=== PATIENT | female | born 1950 | race Two or more races ===

== ENCOUNTER 2024-09-29 08:48 | Outpatient (RCR) | payer MEDICAID, SELFPAY ==
[2024-09-26 16:17] LABS: Basophils # (Auto) 0.1 Thou/mm3 (0.0-0.2); Basophils % (Auto) 1 % (0-2.5); Eosinophils # (Auto) 0.1 Thou/mm3 (0.0-0.5); Eosinophils % (Auto) 2 % (0-10); Hematocrit 34.5 % (36.0-46.0); Hemoglobin 11.6 g/dL (12.0-16.0); Immature Granulocytes % (Auto) 0 % (0-0); Immature Granulocytes Auto 0.01 Thou/mm3 (0.00-0.00); Lymphocytes # (Auto) 1.6 Thou/mm3 (1.0-4.8); Lymphocytes % (Auto) 34 % (10-50); Mean Corpuscular HGB Conc 33.6 g/dl (31.0-37.0); Mean Corpuscular Hemoglobin 32.7 pg (25.0-35.0); Mean Corpuscular Volume 97 fL (80-100); Monocytes # (Auto) 0.4 Thou/mm3 (0.0-0.8); Monocytes % (Auto) 9 % (0-12); Neutrophils # (Auto) 2.5 Thou/mm3 (1.8-7.7); Neutrophils % (Auto) 54 % (37-80); Nucleated Red Blood Cell % 0 /100 WBC (0); Platelet Count 142 Thou/mm3 (140-440); RDW Standard Deviation 53.7 fL (36.4-46.3); Red Blood Count 3.55 Miln/mm3 (4.00-5.20); White Blood Count 4.7 Thou/mm3 (3.6-11.0)
[2024-09-26 16:39] LABS: Alanine Aminotransferase 56 U/L (10-49); Albumin/Globulin Ratio 2.7 (1.2-2.2); Alkaline Phosphatase 224 U/L (46-116); Anion Gap 7 (7-16); Aspartate Amino Transferase 35 U/L (0-34); BUN/Creatinine Ratio 19 Ratio (12-20); Bilirubin,Total 0.5 mg/dL (0.3-1.2); Blood Urea Nitrogen 17 mg/dL (9-23); Calcium 9.3 mg/dL (8.3-10.6); Calcium (Corrected) 9.3 mg/dL (8.5-10.1); Carbon Dioxide 25.4 mMol/L (20.0-31.0); Chloride 109 mMol/L (98-107); Creatinine (Component) 0.9 mg/dL (0.6-1.3); Globulin 1.5 gm/dL (2.3-3.5); Glucose 134 mg/dL (74-106); Osmolality,Calculated 284 (275-295); Potassium 4.1 mMol/L (3.4-5.1); Sodium 141 mMol/L (136-145); Total Protein 5.5 gm/dL (5.7-8.2); eGFR > 60 See Note
== END 2024-10-21 23:59 | disposition home or self-care (01) ==
LOC: SCTC 08:48
PROVIDERS: PCP Physician Assistant; Referring Provider Internal Medicine Hematology & Oncology; Visit Provider Internal Medicine Hematology & Oncology
DX: Z51.11 Encounter for antineoplastic chemotherapy (principal); C91.10 Chronic lymphocytic leukemia of B-cell type not having achieved remission
CPT/HCPCS: 36591; 80053; 85025; 96360; 96367; 96372; 96413; 96415; 96417; A4216; J1100; J1453; J1642; J2405; J2506; J3490; J7030; J7040; J7050; J9033; Q5115; A9270

== ENCOUNTER 2024-10-28 11:25 | Inpatient (IN) | payer MEDICAID, SELFPAY ==
[2024-10-28] VITALS (67 sets, daily range): BP systolic 56–267; BP diastolic 38–266; PULSE 61–136; RESP 12–75; TEMP 36.6–37.4; O2SAT 89–100; BMI 29.6
--- NOTE | 2024-10-28 11:32 | PC.NURSE ---
PT BROUGHT IN FOR SOB, COUGH AND PRODUCTIVE COUGH. PT HAS SEEN MD AND WAS PLACED ON ABX. DAUGHTER STATES THAT PT DOES HAVE CHRONIC PNEUMONIA. PT RECEIVED LAST DOES OF CHEMO FOR LEUKEMIA. ON ASSESSMENT PT SOB AND LABORED. SPO2 ON 11 L/M IS 95%, ON RA AT HOME PT WAS 75%. PT WAS PLACED ON 5L/M BY DAUGHTER AND BROUGHT IN FOR EVALUATION.
--- NOTE | 2024-10-28 11:41 | PC.NURSE ---
DR. CHING AT BEDSIDE
--- NOTE | 2024-10-28 11:43 | XR_ITS ---
Examination: AP chest single view Technique one AP portable semiupright chest single view Exam date and time: October 28, 2024 1225 hrs. Indications: Sepsis protocol Findings: Significant left base pneumonia Normal heart size Right internal jugular Port-A-Cath tip satisfactory position Impression: Significant left base pneumonia
[2024-10-28] MEDS: SODIUM CHLORIDE 0.9% 1000 ML 1,000 ML 999 ML IV ×3 (11:48→13:37)
--- NOTE | 2024-10-28 11:56 | PD.EDSOB ---
ED SOB =RME/HPI General Chief Complaint: Shortness of Breath/Dyspnea Stated Complaint: SOB, LOW O2 SATS Time Seen by Provider: 10/28/24 11:44 Arrival date/time: 10/28/24 11:25 Limitations: no limitations RME / HPI RME / HPI Narrative: 73 year old female with history of leukemia undergoing chemotherapy, emphysema presents to the ED for shortness of breath and productive cough today. Daughter reports the patient appeared to have difficulty breathing and upon measuring pulse ox, it read 75% on room air. States she placed the patient on her home oxygen with no improvement, prompting ED visit. Daughter reports the patient received chemotherapy yesterday and noted patient had similar presentation after chemotherapy 6 months ago that required hospitalization. Daughter denies fevers, chills, complaints of chest pain, vomiting, diarrhea, constipation, or urinary complaints. Denies current use of steroids. Related Data Previous Rx's ?Medication ?Instructions ?Recorded levofloxacin 750 mg tablet 750 mg PO QDAY #4 tabs 05/14/24 albuterol sulfate 1.25 mg/3 mL 1.25 mg (3 mL) inhalation QID PRN 05/22/24 solution for nebulization shortness of breath or wheezing #90 mL methylprednisolone 4 mg tablets in 4 mg PO QAM #21 tabs 05/22/24 a dose pack (Medrol (Zack)) Allergies Allergy/AdvReac Type Severity Reaction Status Date / Time No Known Allergies Allergy Verified 02/25/24 14:30 Review of Systems Review of Systems Narrative Review of Systems: GEN: No fever, no chills, no weight loss EYES: No discharge, no visual changes, no pain HEENT: No ear pain, no congestion, no sore throat PULM: +shortness of breath, + cough CV: No chest pain, no palpitations GI: No nausea, no vomiting, no diarrhea, no pain, no constipation : No frequency, no urgency, no dysuria MUSC/SKEL: No joint pain, no back pain SKIN: No rash NEURO: No weakness, no headache Past Medical History Past Medical History RESPIRATORY: Positive Asthma, Bronchitis, Emphysema, Pneumonia and Tobacco Use REPRODUCTIVE: Positive Previous Pregnancies MUSCULOSKELETAL: Positive Osteoporosis and Fractures HEMATOLOGIC: Positive Blood Disorders and Leukemia (CLL) PSYCHO/SOCIAL: Positive Depression OTHER HISTORY: Positive Hospitalization, Chemotherapy, Chicken Pox, Measles and Cancer (CLL) Family History FAMILY HISTORY: Positive Family Cancer and Family Surgery Surgical History SURGICAL: Positive Tonsillectomy and Tubal Ligation Social History SMOKING STATUS: Never smoker SECOND HAND EXPOSURE: No ED Exam Narrative Physical exam: tachycardic General Limitations: Present no limitations General appearance: Present alert and other (Tachypneic, pale ) Head Head exam: Present atraumatic Eye Eye exam: Present normal appearance, PERRL and EOMI ENT ENT exam: Present normal exam, normal oropharynx and mucous membranes dry Neck Neck exam: Present normal inspection, full ROM and trachea midline Chest Chest inspection: Present normal inspection and symmetric chest wall rise Respiratory Respiratory exam: Present other (Coarse breath sounds throughout, rales and rhonchi. Tachypneic ) Cardiovascular Cardiovascular exam: Present tachycardia and normal heart sounds Abdominal Exam Abdominal exam: Present soft and normal bowel sounds Extremities Exam Extremities exam: Present full ROM and pedal edema Back Exam Back exam: Present normal inspection and full ROM Neurological Exam Neurological exam: Present alert, oriented X3 and CN II-XII intact Psychiatric Psychiatric exam: Present normal affect and normal mood Skin Skin exam: Present warm, dry, intact and normal color Course Course Course Narrative: chest xray ordered to help determine etiology of shortness of breath. Quality Measures Current suspected stage: septic shock (LA >4 and/or hypotension) IVF 30 ml/kg given for lactic acid >4 and/or hypotension: yes Vasopressors initiated: Yes Sepsis reassessment completed at (date): 10/28/24 Sepsis reassessment completed at (time): 12:30 Possible source: pulmonary Blood cultures ordered: completed in ED Antibiotic ordered: Yes Pertinent labs: 10/28/24 10/28/24 11:11 12:06 Lactic Acid 3.4 H mMol/L (0.4-2.0) Procalcitonin 25.62 H ng/ml (0.0-0.49) sepsis Orders Category Date Time Status Bedside COVID-19 Antigen Test NOW Care 10/28/24 11:47 Active Bedside Influenza A&B Antigen Test NOW Care 10/28/24 11:47 Completed Music Artist STAT Care 10/28/24 11:43 Active Continuous Pulse Oximetry STAT Care 10/28/24 11:43 Completed EKG (ED ONLY) *Do not use* NOW Care 10/28/24 11:43 Completed [place] to [place] Routine Care 10/28/24 11:50 Ordered Insert IV NOW Care 10/28/24 11:43 Active NPO STAT Care 10/28/24 11:43 Active Strict Intake and Output Routine Care 10/28/24 11:43 Ordered EKG (ED Only) Stat Exams 10/28/24 11:43 Ordered XR chest 1V SEPSIS PROTOCOL Stat Exams 10/28/24 11:43 Completed XR chest 1V portable Stat Exams 10/28/24 13:18 Completed B-Type Natriuretic Peptide Stat Lab 10/28/24 11:11 Completed Blood Culture (Lab) Stat Lab 10/28/24 12:09 Received CBC Stat Lab 10/28/24 11:11 Completed Comprehensive Metabolic Panel Stat Lab 10/28/24 11:11 Completed LDH (Lactate Dehydrogenase) Stat Lab 10/28/24 11:11 Completed Lactate (Lactic Acid) Stat Lab 10/28/24 12:06 Completed Lipase Stat Lab 10/28/24 11:11 Completed Magnesium Stat Lab 10/28/24 11:11 Completed Partial Thromboplastin Time Stat Lab 10/28/24 11:11 Completed Path Review Blood Smear Stat Lab 10/28/24 11:11 Completed Phosphorous Stat Lab 10/28/24 11:11 Completed Procalcitonin Stat Lab 10/28/24 11:11 Completed Prothrombin Time with INR Stat Lab 10/28/24 11:11 Completed Troponin I Stat Lab 10/28/24 11:11 Completed Type and Screen Stat Lab 10/28/24 12:25 Completed Urinalysis Stat Lab 10/28/24 11:56 Completed Urine Culture Stat Lab 10/28/24 11:56 Received Norepinephrine/NS 16mg/250ml [Levophed in NS 16mg/250ml Med 10/28/24 13:42 Active ] 16 mg in 250 ml IV 0.05 mcg/kg/min Piper/Tazo Inj [Zosyn Inj] 3.375 gm Med 10/28/24 11:45 Discontinued Sodium Chloride 0.9% (P) [Ns 0.9% (P)] 50 ml IV X1 Sodium Chloride 0.9% 1000 ml [Ns] 1,000 ml Med 10/28/24 11:45 Discontinued IV 999 mls/hr Sodium Chloride 0.9% 1000 ml [Ns] 1,000 ml Med 10/28/24 11:45 Discontinued IV 999 mls/hr Sodium Chloride 0.9% 1000 ml [Ns] 1,000 ml Med 10/28/24 13:35 Discontinued IV 999 mls/hr Sodium Chloride 0.9% 250 ml [Ns] 250 ml Med 10/28/24 11:45 Discontinued IV 999 mls/hr Vancomycin Pharmacy to Dose Med 10/28/24 12:00 Active 1 each IV QDAY PRN Vancomycin/Ns 1 gm Ivpb 200 ml Med 10/28/24 12:00 Discontinued IV X1 Oxygen Delivery NOW RT 10/28/24 11:43 Active Vital Signs Vital signs: Vital Signs Temperature 98.1 F 10/28/24 11:36 Pulse Rate 111 H 10/28/24 11:36 Respiratory Rate 30 H 10/28/24 11:36 Blood Pressure 82/54 L 10/28/24 11:36 Pulse Oximetry (%) 95 10/28/24 11:36 Oxygen Delivery Method Oxy Mask 10/28/24 11:36 Oxygen Flow Rate 11 10/28/24 11:36 Pulse ox is 95% on Oxy Mask which is adequate. Shortness of Breath / Dyspnea MDM Narrative MDM Narrative:: IRupali am scribing for and in the presence of Dr. Holt. 1202 when patient arrived she had a blood pressure 73/50, heart rate 112, respiratory rate 31, 75% on room air at home, afebrile> Pt's oxygen improved to 100% on 8 L Ventimask. 2 large-bore IVs immediately placed in bilateral antecubital, patient placed on monitor technician and 2 L normal saline immediately begun. Sepsis alert called, blood cultures before broad-spectrum antibiotics ordered. Will continue to monitor the patient very closely Please refer to the resident Dr. Gamez's note below regarding central line placement Central Line Placement Left IJ: Indication(s): shock and poor, or inadequate peripheral venous access Informed consent obtained: from patient, obtained from surrogate decision maker and procedure done urgently Time out done, and the following verified: correct patient, side and site, procedure, patient position and implants and/or equipment Patient placed on monitor/pulse ox: Yes Hand Hygiene: scrub, soap & water and alcohol-based hand rub Max Sterile Barrier Techniques used: cap, mask, sterile gown, sterile gloves and sterile full body drape Central line prep: Povidone-Iodine 1%, Chlorhexidine scrub and sterile drapes applied Local anesthesia used: lidocaine 1% Amount of anesthesia used (mL): 5 Ultrasound used for placement: Yes Sterile Technique if Ultrasound used, including sterile gel: yes Central line lumen inserted: triple Post procedure: sutured in place, good blood return, all ports aspirated, flushed, capped and sterile dressing applied Post procedure x-ray: tip of catheter in good position Patient tolerated procedure: well and no complications EBL(ml): 5 Complications: none Procedure comment: LEFT IJV central Line placement A time out was performed. My hands were washed immediately prior to the procedure. I wore a surgical cap, mask with protective eyewear, full gown and sterile gloves throughout the procedure. The patient was placed in Trendelenburg position. LEFT chest region was prepped using chlorhexidine scrub and draped in sterile fashion using a full drape and sterile probe cover and sterile gel employed. The medial and lateral heads of the sternocleidomastoid muscle were identified as was the carotid pulse. The Left Internal Jugular vein was identified using the ultrasound. Anesthesia was achieved over the vein using 1% lidocaine. Using real-time out of plane guidance, the introducer needle was inserted into the left Internal Jugular vein under direct ultrasound visualization. Venous blood was withdrawn. The syringe was removed and a guidewire was advanced into the introducer needle. The guidewire was visualized in the Internal Jugular Vein by ultrasound. A small incision was made at the skin surface with a scalpel and the introducer needle was exchanged for a dilator over the guidewire. After appropriate dilation was obtained, the dilator was exchanged over the wire for a central venous catheter. The wire was removed and the catheter was sutured in place. A sterile sorbaview shield was placed over the catheter at the insertion site. The patient tolerated the procedure without any hemodynamic compromise. At time of procedure completion, all ports aspirated and flushed properly. Post-procedure chest x-ray showed Left IJV in satisfactory position. Estimated blood loss is <5cc. Proceedure performed under the supervision of ED attending,MD Ean Downs MD,PGY2 Patient data External records reviewed:: [facility] previous records (I reviewed admission from 05/17/2024 through 05/22/2024) Clinical information provided by:: patient and family (Daughter ) Social determinants that could affect healthcare access:: none Patient has the following chronic illnesses:: leukemia undergoing chemotherapy, emphysema How is presenting disease/condition affected by chronic disease/condition?: exacerbated by Evaluation data The following diagnostics were reviewed and interpreted by me:: lab results, radiology exam(s) and EKG tracing(s) (EKG @ 11:47. Sinus tachycardia, rate 107, left axis deviation, no ectopy, LBBB, no STEMI ) Lab and/or radiology exams considered but not ordered:: None Interpretation Summary: Ordering Physician: Evelio Osorio Date of Service: 10/28/24 Procedure(s): XR chest 1V SEPSIS PROTOCOL Accession Number(s): [id number] cc: Evelio Osorio; Kenny Ulloa MD~ Examination: AP chest single view Technique one AP portable semiupright chest single view Exam date and time: October 28, 2024 1225 hrs. Indications: Sepsis protocol Findings: Significant left base pneumonia Normal heart size Right internal jugular Port-A-Cath tip satisfactory position Impression: Significant left base pneumonia Dictated By: Kenny Ulloa MD Signed By: <Electronically signed by Kenny Ulloa MD in OV> 10/28/24 1349 Ordering Physician: Alin Holt MD Date of Service: 10/28/24 Procedure(s): XR chest 1V portable Accession Number(s): [id number] cc: Kenny Ulloa MD; Alin Holt MD~ Examination: AP chest single view Technique: AP portable semiupright chest single view Exam date and time: October 28, 2024 1324 hrs. Comparison July 29, 2024 1234 hrs. Indications: Post central line placement Findings: Left internal jugular central line tip SVC satisfactory position Left base and likely right base pneumonia on this study No pneumothorax Impression: Interval insertion left internal jugular central line, tip SVC satisfactory position, no pneumothorax Dictated By: Kenny Ulloa MD Signed By: <Electronically signed by Kenny Ulloa MD in OV> 10/28/24 1353 Medications / Prescriptions Medications or Prescriptions considered but not ordered:: None Medication administrations:: Medication Administration History Acetaminophen (Acetaminophen 325 Mg Tablet) 650 mg PO Q4HR PRN PRN Reason: PAIN SCALE 1-3 (mild Stop: 11/27/24 13:56 Acetaminophen (Acetaminophen Supp 650 Mg Supp) 650 mg MD Q4HR PRN PRN Reason: PAIN SCALE 1-3 (mild Stop: 11/27/24 13:56 Al Hydrox/Mg Hydrox/Simethicone (Mg Hyd/Al Hyd/Osmany (Maalox Reg) Susp 30 Ml Udc) 30 ml PO Q4HR PRN PRN Reason: Heartburn or Upset Stomach Stop: 11/27/24 13:56 Calcium Carbonate (Calcium Carbonate 600 Mg Tablet) 600 mg PO QDAY REBEKAH Stop: 11/27/24 16:14 Enoxaparin Sodium (Enoxaparin Sod Inj 40 Mg/0.4 Ml Syringe) 40 mg SC QDAY REBEKAH Stop: 11/12/24 08:59 Norepinephrine Bitartrate (Levophed In Ns 16mg/250ml) 16 mg in 250 mls @ 3.444 mls/hr IV .Q24H PRN; Protocol PRN Reason: PER protocol Stop: 11/27/24 13:41 Last Titration: 10/28/24 15:47 Dose: 0.27 mcg/kg/min, 18.6 mls/hr Documented By: Titration: 10/28/24 15:42 Dose: 0.27 mcg/kg/min, 18.6 mls/hr Documented By: Titration: 10/28/24 15:37 Dose: 0.25 mcg/kg/min, 17.222 mls/hr Documented By: Titration: 10/28/24 14:55 Dose: 0.23 mcg/kg/min, 15.845 mls/hr Documented By: Titration: 10/28/24 14:50 Dose: 0.23 mcg/kg/min, 15.845 mls/hr Documented By: Titration: 10/28/24 14:45 Dose: 0.21 mcg/kg/min, 14.467 mls/hr Documented By: Titration: 10/28/24 14:40 Dose: 0.19 mcg/kg/min, 13.089 mls/hr Documented By: Titration: 10/28/24 14:33 Dose: 0.17 mcg/kg/min, 11.711 mls/hr Documented By: Titration: 10/28/24 14:25 Dose: 0.15 mcg/kg/min, 10.333 mls/hr Documented By: Titration: 10/28/24 14:21 Dose: 0.13 mcg/kg/min, 8.956 mls/hr Documented By: Titration: 10/28/24 14:15 Dose: 0.11 mcg/kg/min, 7.578 mls/hr Documented By: Titration: 10/28/24 14:07 Dose: 0.09 mcg/kg/min, 6.2 mls/hr Documented By: Titration: 10/28/24 13:56 Dose: 0.07 mcg/kg/min, 4.822 mls/hr Documented By: Admin: 10/28/24 13:48 Dose: 0.05 mcg/kg/min, 3.444 mls/hr Documented By: VRS Magnesium Sulfate (Magnesium Sulfate Ivpb) 4 gm in 50 mls @ 12.5 mls/hr IV X1 ONE Stop: 10/28/24 19:54 Potassium Chloride (Kcl Ivpb) 10 meq in 100 mls @ 100 mls/hr IV Q1H REBEKAH Stop: 10/28/24 19:56 Magnesium Hydroxide (Milk Of Magnesia Susp 30 Ml Udc) 30 ml PO QDAY PRN PRN Reason: CONSTIPATION Stop: 11/27/24 13:56 Nitroglycerin (Nitroglycerin 0.4 Mg Subl Btl #25) 0.4 mg SL Q5MIN PRN PRN Reason: CHEST PAIN Ondansetron HCl (Ondansetron Inj 2 Mg/Ml Inj 2 Ml) 4 mg IV Q4H PRN; Protocol PRN Reason: NAUSEA OR VOMITING Stop: 11/27/24 14:16 Last Admin: 10/28/24 14:22 Dose: 4 mg Documented By: VRS Pharmacy Consult (Vancomycin Pharmacy To Dose 1 Each Each) 1 each IV QDAY PRN PRN Reason: PROTOCOL Stop: 11/27/24 11:59 Discontinued Medications Calcium Carbonate (Calcium Carbonate 600 Mg Tablet) 600 mg PO X1 ONE Stop: 10/28/24 16:02 Filgrastim (Filgrastim Inj (Zarxio) 480 Mcg/0.8 Ml Syringe) 480 mcg SC X1 ONE Stop: 10/28/24 14:32 Last Admin: 10/28/24 14:57 Dose: 480 mcg Documented By: VRS Sodium Chloride (Ns) 1,000 mls @ 999 mls/hr IV .Q1H1M ONE Stop: 10/28/24 12:45 Last Infusion: 10/28/24 12:48 Dose: Infused Documented By: Admin: 10/28/24 11:48 Dose: 999 mls/hr Documented By: VRS Sodium Chloride (Ns) 250 mls @ 999 mls/hr IV .Q16M ONE Stop: 10/28/24 12:00 Last Infusion: 10/28/24 12:48 Dose: Infused Documented By: Admin: 10/28/24 12:12 Dose: 999 mls/hr Documented By: VRS Sodium Chloride (Ns) 1,000 mls @ 999 mls/hr IV .Q1H1M ONE Stop: 10/28/24 12:45 Last Infusion: 10/28/24 12:31 Dose: Infused Documented By: Admin: 10/28/24 11:48 Dose: 999 mls/hr Documented By: VRS Piperacillin Sod/Tazobactam (Sod 3.375 gm/ Sodium Chloride) 50 mls @ 100 mls/hr IV X1 ONE Stop: 10/28/24 12:14 Last Infusion: 10/28/24 12:48 Dose: Infused Documented By: Admin: 10/28/24 12:11 Dose: 100 mls/hr Documented By: VRS Vancomycin/Sodium Chloride (Vancomycin/Ns 1 Gm Ivpb) 200 mls @ 120 mls/hr IV X1 ONE Stop: 10/28/24 13:39 Last Admin: 10/28/24 12:47 Dose: 120 mls/hr Documented By: VRS Sodium Chloride (Ns) 1,000 mls @ 999 mls/hr IV .Q1H1M ONE Stop: 10/28/24 14:35 Last Infusion: 10/28/24 13:54 Dose: Infused Documented By: Admin: 10/28/24 13:37 Dose: 999 mls/hr Documented By: VRS Magnesium Sulfate (Magnesium Sulfate Ivpb) 4 gm in 50 mls @ 12.5 mls/hr IV X1 ONE Stop: 10/28/24 19:54 Sodium Chloride (Sodium Chloride Rt 10% 15 Ml Nebu) 5 ml INH X1 ONE Stop: 10/28/24 13:58 See above Consultations Consultation(s) initiated? (list below): Yes Consultation #1 (Physician, Specialty, Details): I spoke with suspender cutter Dr. Lakhani. Discussed patients PMHx, HPI, ED course, exam findings, labs, and radiology results. She agrees to accept the patient for admission. Diagnosis Shortness of Breath Differential Diagnosis: acute exacerbation of chronic obstructive airways disease, congestive heart failure, community acquired pneumonia and asthma with exacerbation Most likely diagnosis given after review of the tests above:: Neutropenic sepsis Septic shock Acute renal failure Bilateral pneumonia Admission Indicated Admission indicated?: indicated Admission Request Was there a request for admission?: Yes Admission Attestation Admission request attestation: Discussed case with [] from Hospitalist service regarding admission. Discussed patients ED course, exam findings, labs, and radiology results. The Hospitalist [agrees,declines] to accept the patient for admission. Disposition Plan Disposition Plan: Admit Critical Care Time Critical Care Time Critical Care Time: Yes Total Critical Care Time (min.): 60 Attestation: The high probability of sudden, clinically significant deterioration in the patient's condition required the highest level of my preparedness to intervene urgently. The services I provided to this patient were to treat and/or prevent clinically significant deterioration. Services included the following: chart data review, reviewing nursing notes and/or old charts, documentation time, talent consultant collaboration regarding findings and treatment options, medication orders and management, direct patient care, vital sign assessments and ordering, interpreting and reviewing diagnostic studies and lab tests. Aggregate critical care time includes only time during which I was engaged in work directly related to the patient's care, as described above, whether at bedside or elsewhere in the Emergency Department. It did not include time spent performing other reported procedures or the services of residents, students, nurses or physician assistants. Discharge Plan Plan Patient Disposition: Admit Acute Care w/in Hospital Problem List Clinical Impression: Neutropenic sepsis, Septic shock, Acute renal failure, Bilateral pneumonia
[2024-10-28] MEDS: PIPER/TAZO INJ 3.375 GM in SODIUM CHLORIDE 0.9% (P) 50 ML IV (12:11)
[2024-10-28] MEDS: SODIUM CHLORIDE 0.9% 250 ML 250 ML 999 ML IV (12:12)
[2024-10-28 12:16] LABS: Collection Type, Urine Clean Catch
[2024-10-28 12:21] LABS: Basophils % (Auto) 1 % (0-2.5); Eosinophils % (Auto) 0 % (0-10); Hemoglobin 12.1 g/dL (12.0-16.0); Immature Granulocytes % (Auto) 15 % (0-0); Immature Granulocytes Auto 0.14 Thou/mm3 (0.00-0.00); Lymphocytes # (Auto) 0.5 Thou/mm3 (1.0-4.8); Lymphocytes % (Auto) 56 % (10-50); Mean Corpuscular HGB Conc 33.6 g/dl (31.0-37.0); Mean Corpuscular Hemoglobin 32.9 pg (25.0-35.0); Mean Corpuscular Volume 98 fL (80-100); Monocytes # (Auto) 0.1 Thou/mm3 (0.0-0.8); Monocytes % (Auto) 13 % (0-12); Neutrophils # (Auto) 0.2 Thou/mm3 (1.8-7.7); Neutrophils % (Auto) 16 % (37-80); Nucleated Red Blood Cell % 0 /100 WBC (0); Platelet Count 144 Thou/mm3 (140-440); RDW Standard Deviation 58.8 fL (36.4-46.3); Red Blood Count 3.68 Miln/mm3 (4.00-5.20)
[2024-10-28 12:37] LABS: B-Type Natriuretic Peptide 190 pg/mL (0-100); Partial Thromboplastin Time 27.1 Seconds (22.0-36.0); Prothrombin Time 11.4 Seconds (9.0-12.2)
[2024-10-28 12:40] LABS: Bilirubin,Urine Negative (Negative); Blood,Urine Negative (Negative); Clarity,Urine Clear (Clear/Hazy); Color,Urine Lt-Yellow (Lt Yel-Yel); Glucose, Urine Negative (Negative); Hyaline Casts,Urine < 1 /hpf (0-1); Ketones,Urine Negative (Negative); Leukocyte Esterase,Urine Negative (Negative); Nitrite,Urine Negative (Negative); Protein,Urine Trace (Neg - Trace); RBC,Urine 2 /hpf (0-3); Specific Gravity,Urine 1.012 (1.001-1.035); Squamous Epithelial Cell,Urine < 1 /hpf (0-5); Urobilinogen,Urine Negative mg/dL (0.0-1.0); WBC,Urine 3 /hpf (0-5)
[2024-10-28 12:45] LABS: Alanine Aminotransferase 32 U/L (10-49); Albumin, Serum 3.7 gm/dL (3.4-4.8); Albumin/Globulin Ratio 3.1 (1.2-2.2); Alkaline Phosphatase 150 U/L (46-116); Anion Gap 8 (7-16); Aspartate Amino Transferase 20 U/L (0-34); BUN/Creatinine Ratio 17 Ratio (12-20); Blood Urea Nitrogen 24 mg/dL (9-23); Calcium 8.9 mg/dL (8.3-10.6); Calcium (Corrected) 9.1 mg/dL (8.5-10.1); Carbon Dioxide 25.8 mMol/L (20.0-31.0); Chloride 105 mMol/L (98-107); Creatinine (Component) 1.4 mg/dL (0.6-1.3); Estimated Creatinine Clearance 32.6 mL/min (>60); Globulin 1.2 gm/dL (2.3-3.5); Glucose 101 mg/dL (74-106); LDH (Lactate Dehydrogenase) 210 U/L (120-246); Lipase 31 U/L (12-53); Magnesium 1.6 mg/dL (1.6-2.6); Osmolality,Calculated 281 (275-295); Phosphorous 2.4 mg/dL (2.4-5.1); Potassium 3.8 mMol/L (3.4-5.1); Procalcitonin 25.62 ng/ml (0.0-0.49); Sodium 139 mMol/L (136-145); Total Protein 4.9 gm/dL (5.7-8.2); Troponin I 0.021 ng/mL (0.0-0.045); eGFR 39 See Note
[2024-10-28] MEDS: VANCOMYCIN/NS 1 GM IVPB 200 ML IV (12:47)
[2024-10-28 12:56] LABS: Lactate (Lactic Acid) 3.4 mMol/L (0.4-2.0)
--- NOTE | 2024-10-28 13:09 | PC.NURSE ---
DR. KING AT BEDSIDE TO INSERT CENTRAL LINE AT BEDSIDE
--- NOTE | 2024-10-28 13:18 | XR_ITS ---
Examination: AP chest single view Technique: AP portable semiupright chest single view Exam date and time: October 28, 2024 1324 hrs. Comparison July 29, 2024 1234 hrs. Indications: Post central line placement Findings: Left internal jugular central line tip SVC satisfactory position Left base and likely right base pneumonia on this study No pneumothorax Impression: Interval insertion left internal jugular central line, tip SVC satisfactory position, no pneumothorax
[2024-10-28] MEDS: Norepinephrine/NS 16mg/250ml 16 MG/250 ML BAG 3.444 MG IV (13:48)
--- NOTE | 2024-10-28 13:53 | PC.NURSE ---
RESIDENTS AT BEDSIDE TALKING TO DAUGHTER.
--- NOTE | 2024-10-28 14:12 | PD.RESHP ---
Documentation for date of: 10/28/24 [facility] History of Present Illness History of present illness: Ms. Mars Quinonez is a 73-year-old female who is a Filipino-speaking and majority of history is taken from daughter at bedside , patient's past medical history is significant for CLL which was diagnosed in 2021 in [place] for which she underwent 4 cycles of chemotherapy in [place]. Patient remained in remission and April 2024 patient started additional 6 sessions of chemo as [facility] [place] [facility]. Patient's last chemo session was yesterday 10/27/2024. Patient presented to the ED complaining of shortness of breath which started this morning, the shortness of breath and dyspnea is continuous in all position and nothing makes it better. For the last 4 days patient was having a cough with thick white phlegm and associated abdominal pain. Patient denied any nausea vomiting and chest pain. Patient also has been experiencing dizziness and lower extremity edema for the last 9 months. Patient was given a diuretic medication by corporate counselor Dr. Victor which patient is noncompliant with. Patient denies any history of CHF. Patient's last bowel movement was today and denies any hematuria or dysuria or blood in the stool. ED course: On arrival patient's blood pressure was 82/54, pulse 111, respirations 30. Patient was saturating 95% on 11L of oxygen via oxy mask. Initial labs include WBC 1, creatinine 1.4 GFR 39, lactic acid 3.4, BNP 190, in the setting of procalcitonin 25.62 and urinalysis was unremarkable. In the ED left internal jugular line was placed. Images: Chest x-ray findings include Significant left base pneumonia, bedside ultrasound showed mild pericardial effusions PMH: COPD, CLL PSH: unknwn SH: Patient smoked tobacco for 40 years and quit 2 years ago. Unknown to the daughter how much cigarettes she smoked per day. Patient denies alcohol or illicit drugs Home meds: Albuterol inhaler twice daily, Bendamustine and nituximab Review of Systems Review of Systems Systems Reviewed: All systems reviewed, normal except as documented Exam Vital Signs Temp Pulse Resp BP Pulse Ox O2 Del Method O2 Flow Rate 97.9 F 106 H 25 H 94/41 L 95 Oxy Mask 11 10/28/24 14:10/28/24 14:10/28/24 14:10/28/24 14:07 10/28/24 14:07 10/28/24 14:07 10/28/24 14:07 Narrative Exam GENERAL: elderly obese female, awake A&Ox3 NEURO: no focal neurological deficits notes HEENT: Atraumatic, Normocephalic. mucous membranes moist. Eyes open, symmetrical, & clear, L. internal jugular line placed HEART: Normal Heart Sounds LUNGS: mild crackles bilaterally, increased work of breathing with accessory muscle use ABDOMEN: soft, non-distended, non-tender, no guarding or rebound tenderness SKIN: No Rash or ecchymoses EXTREMITIES: 2+ pitting edema bilateraly worse on the left LE, no tenderness, able to move all 4 extremities, pedal pulses palpated Results: Labs 10/28/24 14:45 10/28/24 14:45 Labs: Short CBC 10/28/24 Range/Units 11:11 WBC 1.0 L D (3.6-11.0) Thou/mm3 Hgb 12.1 (12.0-16.0) g/dL Hct 36.0 (36.0-46.0) % Plt Count 144 (140-440) Thou/mm3 BMP 10/28/24 11:11 Sodium 139 Potassium 3.8 Chloride 105 Carbon Dioxide 25.8 BUN 24 H Creatinine 1.4 H D Glucose 101 Calcium 8.9 Cardiac Enzymes 10/28/24 Range/Units 11:11 Troponin I 0.021 (0.0-0.045) ng/mL Liver Function 10/28/24 Range/Units 11:11 Total Bilirubin 1.0 (0.3-1.2) mg/dL AST 20 (0-34) U/L ALT 32 (10-49) U/L Alkaline Phosphatase 150 H (46-116) U/L Albumin 3.7 (3.4-4.8) gm/dL Urine 10/28/24 Range/Units 11:56 Urine Color Lt-Yellow (Lt Yel-Yel) Urine Clarity Clear (Clear/Hazy) Urine pH 6.0 (5.0-7.0) Ur Specific Milmay 1.012 (1.001-1.035) Urine Protein Trace (Neg - Trace) Urine Glucose (UA) Negative (Negative) Quality Measures Quality Measures sepsis Current suspected stage: sepsis Possible source: pulmonary Blood cultures ordered: completed in ED Antibiotic ordered: Yes Advance care planning discussed with:: child Medications Home Medications and Allergies Allergies Allergy/AdvReac Type Severity Reaction Status Date / Time No Known Allergies Allergy Verified 02/25/24 14:30 Visit Medications Acetaminophen (Acetaminophen 325 Mg Tablet) 650 mg PO Q4HR PRN PRN Reason: PAIN SCALE 1-3 (mild Stop: 11/27/24 13:56 Acetaminophen (Acetaminophen Supp 650 Mg Supp) 650 mg MN Q4HR PRN PRN Reason: PAIN SCALE 1-3 (mild Stop: 11/27/24 13:56 Al Hydrox/Mg Hydrox/Simethicone (Mg Hyd/Al Hyd/Osmany (Maalox Reg) Susp 30 Ml Udc) 30 ml PO Q4HR PRN PRN Reason: Heartburn or Upset Stomach Stop: 11/27/24 13:56 Enoxaparin Sodium (Enoxaparin Sod Inj 40 Mg/0.4 Ml Syringe) 40 mg SC QDAY REBEKAH Stop: 11/12/24 08:59 Sodium Chloride (Ns) 1,000 mls @ 999 mls/hr IV .Q1H1M ONE Stop: 10/28/24 14:35 Last Infusion: 10/28/24 13:54 Dose: Infused Norepinephrine Bitartrate (Levophed In Ns 16mg/250ml) 16 mg in 250 mls @ 3.444 mls/hr IV .Q24H PRN; Protocol PRN Reason: PER protocol Stop: 11/27/24 13:41 Last Titration: 10/28/24 14:07 Dose: 0.09 mcg/kg/min, 6.2 mls/hr Magnesium Hydroxide (Milk Of Magnesia Susp 30 Ml Udc) 30 ml PO QDAY PRN PRN Reason: CONSTIPATION Stop: 11/27/24 13:56 Nitroglycerin (Nitroglycerin 0.4 Mg Subl Btl #25) 0.4 mg SL Q5MIN PRN PRN Reason: CHEST PAIN Pharmacy Consult (Vancomycin Pharmacy To Dose 1 Each Each) 1 each IV QDAY PRN PRN Reason: PROTOCOL Stop: 11/27/24 11:59 Discontinued Medications Sodium Chloride (Ns) 1,000 mls @ 999 mls/hr IV .Q1H1M ONE Stop: 10/28/24 12:45 Last Infusion: 10/28/24 12:48 Dose: Infused Sodium Chloride (Ns) 250 mls @ 999 mls/hr IV .Q16M ONE Stop: 10/28/24 12:00 Last Infusion: 10/28/24 12:48 Dose: Infused Sodium Chloride (Ns) 1,000 mls @ 999 mls/hr IV .Q1H1M ONE Stop: 10/28/24 12:45 Last Infusion: 10/28/24 12:31 Dose: Infused Piperacillin Sod/Tazobactam (Sod 3.375 gm/ Sodium Chloride) 50 mls @ 100 mls/hr IV X1 ONE Stop: 10/28/24 12:14 Last Infusion: 10/28/24 12:48 Dose: Infused Vancomycin/Sodium Chloride (Vancomycin/Ns 1 Gm Ivpb) 200 mls @ 120 mls/hr IV X1 ONE Stop: 10/28/24 13:39 Last Admin: 10/28/24 12:47 Dose: 120 mls/hr Sodium Chloride (Sodium Chloride Rt 10% 15 Ml Nebu) 5 ml INH X1 ONE Stop: 10/28/24 13:58 Assessment & Plan Plan Ms. Mars Quinonez is a 73-year-old female who is a Filipino-speaking and majority of history is taken from daughter at bedside , patient's past medical history is significant for CLL which was diagnosed in 2021 in [place] for which she underwent 4 cycles of chemotherapy in [place]. Patient remained in remission and April 2024 patient started additional 6 sessions of chemo as [facility] [place] [facility]. Patient's last chemo session was yesterday 10/27/2024. Patient presented to the ED complaining of shortness of breath which started this morning, the shortness of breath and dyspnea is continuous in all position and nothing makes it better. For the last 4 days patient was having a cough with thick white phlegm and associated abdominal pain. Neuro: #alert and oriented Cardiovasc: #Shock DDx- cardiogenic shock vs. septic shock or combined -on admission BP is 82/54 and MAP <65 -Pt received 3.25L of fluids without improvement in the BP -Pt is started on levophed at 0.31- on 10/28 -Vasopressin started on 10/28 with hydrocortisone 50mg IV Q6h and passive leg raise -cheetah: #pericardial effusions -bedside ultrasound suggestive of mild pericardial effusions, interpreted by PGY3 and ED physician #HFpEF -echo on 03/31/24- evident of stage 1 diastolic dysfunction EF 55-60% -repeat echo ordered -Today BNP was 190, but the since physical findings were consistent with CHF, PE findings included 3+ bilateral below-knee pitting edema along with bibasilar crackles over lung morales. -Treat underlying cause Pulm: # Acute hypoxic respiratory failure # COPD DDx: Sepsis secondary to left base pneumonia in the setting of COPD exacerbation vs. volume overload -Pt. has a 40 year smoking Hx, unknown how many cigs daily, pt quit 2 years ago -Pt uses albuterol nebulizer twice daily at home -Chest x-ray findings include significant left base pneumonia -High flow NC -Antibiotics include Zosyn and vancomycin and azithromycin started 10/28- -DuoNebs Q6h Renal: #JASMYN - likely prerenal in the setting of volume overload with renal congestion -Pt. based like Cr. 0.7 --> 1.4 , baseline GFR >60 --> 39 -monitor strict ins and outs -Avoid nephrotoxic drugs and renally dose medications # Hypocalcemia, # hypomagnesemia -Corrected calcium is 8.3 and magnesium 1.4 -Repleted calcium and magnesium GI: no active problems Endo: no active problems Heme/Onc: #neutropenia #Leukopenia -Patient has history of CLL on immunosuppressants, last dose of chemo received yesterday 10/28 -WBC 1.0 --> 0.6 -Neutrophil count 100 -Filgrastim given -Monitor daily CBC Infxs: # Sepsis secondary to pneumonia -Procalcitonin was 25.62, lactate is 3.4 -->2.1 -Patient received 3.25 bolus of fluids -Patient is on antibiotics as above (Zosyn, vancomycin, azithromycin) -Follow-up on lactate -Blood cultures, urine cultures, sputum cultures pending (Skin:) -No active problems Disposition: ICU for pressor support DVT Prophylaxis: enoxaparin 40mg Qdaily GI Prophylaxis: not needed as Pt. is not intubated Diet:NPO Lines: Hale catherter, Left IJ (10/28) Code status: Full Assessment and plan discussed with my attending physician Dr. Kar Stafford (PGY-1)- Internal medicine resident
[2024-10-28] MEDS: ONDANSETRON INJ 2 MG/ML INJ 2 ML 4 MG IV (14:22)
[2024-10-28 14:35] LABS: Allen Test Not Performed; Base Excess -6 (-3-3); HCO3 20 mEq/L (20-26); Inspired Oxygen, FIO2 21 %; O2 Saturation 95 % (91-98); PCO2 41 mmHg (32.0-48.0); PO2 78 mmHg (83-108); Puncture Site Right Radial
--- NOTE | 2024-10-28 14:35 | PD.RESPROC ---
Procedures Procedure Date / Time 10/28/24 1435 Central Line Placement Left IJ: Indication(s): shock and poor, or inadequate peripheral venous access Informed consent obtained: from patient, obtained from surrogate decision maker and procedure done urgently Time out done, and the following verified: correct patient, side and site, procedure, patient position and implants and/or equipment Patient placed on monitor/pulse ox: Yes Hand Hygiene: scrub, soap & water and alcohol-based hand rub Max Sterile Barrier Techniques used: cap, mask, sterile gown, sterile gloves and sterile full body drape Central line prep: Povidone-Iodine 1%, Chlorhexidine scrub and sterile drapes applied Local anesthesia used: lidocaine 1% Amount of anesthesia used (mL): 5 Ultrasound used for placement: Yes Sterile Technique if Ultrasound used, including sterile gel: yes Central line lumen inserted: triple Post procedure: sutured in place, good blood return, all ports aspirated, flushed, capped and sterile dressing applied Post procedure x-ray: tip of catheter in good position Patient tolerated procedure: well and no complications EBL(ml): 5 Complications: none Procedure comment: LEFT IJV central Line placement A time out was performed. My hands were washed immediately prior to the procedure. I wore a surgical cap, mask with protective eyewear, full gown and sterile gloves throughout the procedure. The patient was placed in Trendelenburg position. LEFT chest region was prepped using chlorhexidine scrub and draped in sterile fashion using a full drape and sterile probe cover and sterile gel employed. The medial and lateral heads of the sternocleidomastoid muscle were identified as was the carotid pulse. The Left Internal Jugular vein was identified using the ultrasound. Anesthesia was achieved over the vein using 1% lidocaine. Using real-time out of plane guidance, the introducer needle was inserted into the left Internal Jugular vein under direct ultrasound visualization. Venous blood was withdrawn. The syringe was removed and a guidewire was advanced into the introducer needle. The guidewire was visualized in the Internal Jugular Vein by ultrasound. A small incision was made at the skin surface with a scalpel and the introducer needle was exchanged for a dilator over the guidewire. After appropriate dilation was obtained, the dilator was exchanged over the wire for a central venous catheter. The wire was removed and the catheter was sutured in place. A sterile sorbaview shield was placed over the catheter at the insertion site. The patient tolerated the procedure without any hemodynamic compromise. At time of procedure completion, all ports aspirated and flushed properly. Post-procedure chest x-ray showed Left IJV in satisfactory position. Estimated blood loss is <5cc. Proceedure performed under the supervision of ED attending,MD Ean Downs MD,PGY2
[2024-10-28] MEDS: FILGRASTIM INJ (ZARXIO) 480 MCG/0.8 ML SYRINGE SC (14:57)
[2024-10-28 15:03] LABS: Basophils % (Auto) 0 % (0-2.5); Eosinophils % (Auto) 0 % (0-10); Hematocrit 32.9 % (36.0-46.0); Immature Granulocytes % (Auto) 12 % (0-0); Immature Granulocytes Auto 0.07 Thou/mm3 (0.00-0.00); Lymphocytes # (Auto) 0.3 Thou/mm3 (1.0-4.8); Lymphocytes % (Auto) 53 % (10-50); Mean Corpuscular HGB Conc 33.4 g/dl (31.0-37.0); Mean Corpuscular Hemoglobin 32.9 pg (25.0-35.0); Mean Corpuscular Volume 99 fL (80-100); Monocytes # (Auto) 0.1 Thou/mm3 (0.0-0.8); Monocytes % (Auto) 14 % (0-12); Neutrophils # (Auto) 0.1 Thou/mm3 (1.8-7.7); Neutrophils % (Auto) 22 % (37-80); Nucleated Red Blood Cell % 0 /100 WBC (0); Platelet Count 119 Thou/mm3 (140-440); RDW Standard Deviation 59.3 fL (36.4-46.3); Red Blood Count 3.34 Miln/mm3 (4.00-5.20)
[2024-10-28 15:10] LABS: Path Review Blood Smear Sent to Pathologist
[2024-10-28 15:12] LABS: Reflex Lactate? Y
[2024-10-28 15:21] LABS: Albumin, Serum 3.1 gm/dL (3.4-4.8); Anion Gap 9 (7-16); BUN/Creatinine Ratio 16 Ratio (12-20); Blood Urea Nitrogen 19 mg/dL (9-23); Calcium 7.6 mg/dL (8.3-10.6); Calcium (Corrected) 8.3 mg/dL (8.5-10.1); Carbon Dioxide 20.5 mMol/L (20.0-31.0); Chloride 110 mMol/L (98-107); Creatinine (Component) 1.2 mg/dL (0.6-1.3); Glucose 112 mg/dL (74-106); Magnesium 1.4 mg/dL (1.6-2.6); Osmolality,Calculated 280 (275-295); Phosphorous 3.3 mg/dL (2.4-5.1); Potassium 3.8 mMol/L (3.4-5.1); Sodium 139 mMol/L (136-145); eGFR 47 See Note
--- NOTE | 2024-10-28 15:26 | ECHO_ITS ---
Transthoracic Echo Report Ht (in): 62 Wt (lb): 162 Exam Location: Portable Status: Inpatient Product Finisher: Maggi Hough Indications: Procedure Performed: BP: 117 / 77 HR: 76 Rhythm: Sinus Technical Quality: Fair MEASUREMENTS (Male / Female) Normal Values 2D ECHO LV Diastolic Diameter PLAX 4.0 cm 4.2 - 5.9 / 3.9 - 5.3 cm LV Systolic Diameter PLAX 3.5 cm IVS Diastolic Thickness 0.9 cm 0.6 - 1.0 / 0.6 - 0.9 cm LVPW Diastolic Thickness 0.7 cm 0.6 - 1.0 / 0.6 - 0.9 cm LV Relative Wall Thickness 0.4 LVOT Diameter 1.8 cm LA Volume Index 23.0 cm?/m? 16 - 28 cm?/m? Ascending Aorta Diameter 3.1 cm M-MODE Aortic Root Diameter MM 2.9 cm LA Systolic Diameter MM 2.6 cm LA Ao Ratio MM 0.9 AV Cusp Separation MM 2.1 cm DOPPLER AV Peak Velocity 123.0 cm/s AV Peak Gradient 6.1 mmHg AV Mean Gradient 3.0 mmHg AV Velocity Time Integral 26.4 cm LVOT Peak Velocity 106.5 cm/s LVOT Peak Gradient 4.5 mmHg LVOT Velocity Time Integral 19.4 cm LVOT Cardiac Index 2063.8 cm?/min?m? AV Area Cont Eq vti 1.9 cm? AV Area Cont Eq pk 2.2 cm? MV Peak Velocity 121.0 cm/s MV Peak Gradient 5.9 mmHg MV Mean Velocity 76.8 cm/s MV Mean Gradient 3.0 mmHg MV Area PHT 4.6 cm? MR Peak Velocity 264.0 cm/s MR Peak Gradient 27.9 mmHg Mitral E Point Velocity 94.1 cm/s Mitral A Point Velocity 113.0 cm/s Mitral E to A Ratio 0.8 LV E' Lateral Velocity 6.7 cm/s Mitral E to LV E' Lateral Ratio 14.0 LV E' Septal Velocity 5.7 cm/s Mitral E to LV E' Septal Ratio 16.6 TR Peak Velocity 222.0 cm/s TR Peak Gradient 19.7 mmHg FINDINGS Left Ventricle Normal left ventricular size, wall thickness. Low normal function. Mild hypokinesis mid anterior sep freddie wall. The ejection fraction is visually estimated at 45-50%. Right Ventricle The right ventricle is normal in size and systolic function. The estimated right ventricular systoli c pressure, 39mmHg. RAP 10. Left Atrium The left atrium is normal by two-dimensional, color flow and Doppler imaging with no structural abnormalities, no thrombus formation present. Right Atrium The right atrium is normal by two-dimensional imaging, color flow and Doppler imaging with no struct ural abnormalities, no thrombus formation present. Atrial Septum The interatrial septum appears normal with no evidence of a shunt. Aorta The aorta is normal by two-dimensional, color flow and Doppler interrogation. Mitral Valve The mitral valve is normal by two-dimensional, color flow and Doppler interrogation. There is mild mitral valve regurgitation. Aortic Valve The aortic valve is trileaflet and normal by two-dimensional, color flow and Doppler interrogation. There is no significant aortic valve regurgitation. Tricuspid Valve The tricuspid valve is normal by two-dimensional, color flow and Doppler interrogation. There is mil d tricuspid valve regurgitation. Pulmonic Valve The pulmonic valve is not well visualized. There is no significant pulmonic valve regurgitation. Vessels The pulmonary artery appears normal. The inferior vena cava pulmonary and hepatic veins appear mildl y dilated. Pericardium The pericardium is normal by two-dimensional imaging. There is no significant pericardial effusion. CONCLUSIONS Indication: HFpEF/SOB Normal LV size. Mild systolic dysfunction. Estimated EF around 45% Irregular rhythm and cannot determine diastolic dysfnction. Normal RV size and function. Estimated RVSP 39mmHg. mild PAH Mild MR, TR. IVC mildly dilated. Kelvin Uriarte (Electronically Signed) Final Date: 30 October 2024 18:58
[2024-10-28 15:36] LABS: White Blood Count 0.6 Thou/mm3 (3.6-11.0)
[2024-10-28 15:46] LABS: Lactic Acid, 3 HR 2.1 mMol/L (0.4-2.0)
[2024-10-28] MEDS: CALCIUM CARBONATE 600 MG TABLET PO (16:20)
[2024-10-28] MEDS: Magnesium Sulfate 4 GM Ivpb 4 GM/50 ML BAG IV (16:20)
[2024-10-28] MEDS: POTASSIUM CHL 10 mEq IVPB 10 MEQ/100 ML BAG 100 MEQ IV ×4 (16:21→20:30)
[2024-10-28] MEDS: VASOPRESSIN IN NS IVPB 20 UNIT/100 ML BAG 9 UNIT IV (16:27)
[2024-10-28 18:21] LABS: Lactate (Lactic Acid) 1.7 mMol/L (0.4-2.0)
--- NOTE | 2024-10-28 18:21 | PD.RESPROC ---
Procedures Procedure Date / Time 10/28/241809 Procedural Time Out Time out performed: Yes Arterial Line Indication(s): hypoxic resp failure, shock and inability to monitor non-invasive BP Informed consent obtained: from patient and other Time out done, and the following verified: correct patient, side and site, procedure, patient position and implants and/or equipment Size (Gauge): 20 Technique used: guide wire technique Post-Procedure: line sutured into place and dry sterile dressing placed Patient tolerated procedure: well and no complications EBL(ml): 5 Complications: none Site: left Procedure comment: The procedure was done in the supervision of ED physician Alin Daniel , And my senior resident Dr. Hebert, PGY2 Dr. Stafford (PGY-1)- Internal medicine resident
[2024-10-28 18:23] LABS: Base Excess -7 (-3-3); HCO3 18 mEq/L (20-26); Inspired Oxygen, FIO2 60 %; O2 Saturation 95 % (91-98); PCO2 32 mmHg (32.0-48.0); PO2 72 mmHg (83-108); pH, Arterial 7.35 (7.35-7.45)
[2024-10-28 18:24] LABS: Allen Test Not Performed; Puncture Site Left Radial
[2024-10-28] MEDS: AZITHROMYCIN INJ 500 MG in SODIUM CHLORIDE 0.9% 250 ML 250 ML 250 MG IV (18:28)
[2024-10-28] MEDS: HYDROCORTISONE SOD SUCC INJ 100 MG VIAL 50 MG IV ×2 (18:31→23:15)
[2024-10-28 18:44] LABS: Alanine Aminotransferase 28 U/L (10-49); Albumin, Serum 3.2 gm/dL (3.4-4.8); Albumin/Globulin Ratio 2.9 (1.2-2.2); Alkaline Phosphatase 123 U/L (46-116); Anion Gap 10 (7-16); Aspartate Amino Transferase 23 U/L (0-34); BUN/Creatinine Ratio 19 Ratio (12-20); Bilirubin,Total 1.1 mg/dL (0.3-1.2); Blood Urea Nitrogen 23 mg/dL (9-23); Calcium 7.6 mg/dL (8.3-10.6); Calcium (Corrected) 8.2 mg/dL (8.5-10.1); Carbon Dioxide 17.1 mMol/L (20.0-31.0); Chloride 111 mMol/L (98-107); Creatinine (Component) 1.2 mg/dL (0.6-1.3); Globulin 1.1 gm/dL (2.3-3.5); Glucose 101 mg/dL (74-106); Osmolality,Calculated 279 (275-295); Potassium 4.2 mMol/L (3.4-5.1); Sodium 138 mMol/L (136-145); Total Protein 4.3 gm/dL (5.7-8.2); eGFR 47 See Note
[2024-10-28] MEDS: ALBUTEROL/IPRATROPIUM (Duoneb) RT SOL 3 ML NEBU INH (19:06)
[2024-10-28] MEDS: PIPER/TAZO 3.375 GM 50 ML IV (21:44)
[2024-10-28] MEDS: Norepinephrine/NS 16mg/250ml 16 MG/250 ML BAG 26.867 MG IV (23:16)
[2024-10-29] VITALS (104 sets, daily range): BP systolic 56–282; BP diastolic 37–279; PULSE 73–99; RESP 15–41; TEMP 36.1–37.6; O2SAT 94–100; BMI 30.9
[2024-10-29] MEDS: ALBUTEROL/IPRATROPIUM (Duoneb) RT SOL 3 ML NEBU INH ×4 (00:10→18:24)
[2024-10-29] MEDS: VASOPRESSIN IN NS IVPB 20 UNIT/100 ML BAG 9 UNIT IV ×2 (01:32→12:38)
[2024-10-29] MEDS: PIPER/TAZO 3.375 GM 50 ML IV ×3 (05:56→21:55)
[2024-10-29] MEDS: HYDROCORTISONE SOD SUCC INJ 100 MG VIAL 50 MG IV ×3 (05:57→17:26)
[2024-10-29 06:07] LABS: Vancomycin,Random 8.4 mcg/mL
[2024-10-29 06:42] LABS: INR 1.3 (0.9-1.3); Partial Thromboplastin Time 37.4 Seconds (22.0-36.0); Prothrombin Time 13.9 Seconds (9.0-12.2)
[2024-10-29 07:17] LABS: Basophils % (Auto) 1 % (0-2.5); Eosinophils % (Auto) 0 % (0-10); Hematocrit 33.6 % (36.0-46.0); Hemoglobin 11.3 g/dL (12.0-16.0); Immature Granulocytes % (Auto) 0 % (0-0); Lymphocytes # (Auto) 0.2 Thou/mm3 (1.0-4.8); Lymphocytes % (Auto) 30 % (10-50); Mean Corpuscular HGB Conc 33.6 g/dl (31.0-37.0); Mean Corpuscular Hemoglobin 32.8 pg (25.0-35.0); Mean Corpuscular Volume 97 fL (80-100); Monocytes # (Auto) 0.3 Thou/mm3 (0.0-0.8); Monocytes % (Auto) 39 % (0-12); Neutrophils # (Auto) 0.2 Thou/mm3 (1.8-7.7); Neutrophils % (Auto) 29 % (37-80); Nucleated Red Blood Cell % 0 /100 WBC (0); Platelet Count 115 Thou/mm3 (140-440); RDW Standard Deviation 58.7 fL (36.4-46.3); Red Blood Count 3.45 Miln/mm3 (4.00-5.20)
[2024-10-29 07:25] LABS: White Blood Count 0.7 Thou/mm3 (3.6-11.0)
[2024-10-29 07:26] LABS: Alanine Aminotransferase 35 U/L (10-49); Albumin, Serum 3.5 gm/dL (3.4-4.8); Albumin/Globulin Ratio 3.5 (1.2-2.2); Alkaline Phosphatase 139 U/L (46-116); Anion Gap 13 (7-16); Aspartate Amino Transferase 46 U/L (0-34); BUN/Creatinine Ratio 24 Ratio (12-20); Bilirubin,Total 1.1 mg/dL (0.3-1.2); Blood Urea Nitrogen 29 mg/dL (9-23); Calcium 8.2 mg/dL (8.3-10.6); Calcium (Corrected) 8.6 mg/dL (8.5-10.1); Carbon Dioxide 15.4 mMol/L (20.0-31.0); Chloride 110 mMol/L (98-107); Creatinine (Component) 1.2 mg/dL (0.6-1.3); Estimated Creatinine Clearance 38.8 mL/min (>60); Glucose 71 mg/dL (74-106); Magnesium 2.6 mg/dL (1.6-2.6); Osmolality,Calculated 279 (275-295); Phosphorous 4.6 mg/dL (2.4-5.1); Potassium 4.6 mMol/L (3.4-5.1); Sodium 138 mMol/L (136-145); Total Protein 4.5 gm/dL (5.7-8.2); eGFR 47 See Note
--- NOTE | 2024-10-29 08:21 | XR_ITS ---
Examination: AP chest single view Technique: AP portable semiupright chest single view Exam date and time: October 29, 2024 0827 hrs. Comparison October 28, 2024 Indications: Onset shortness of breath today, pneumonia on earlier chest imaging this week. Findings: Prominent left base pneumonia with air bronchograms in left pleural fluid Mild prominence left ventricle Moderate vascular congestion Milder pneumonia right lower lung zone Left internal jugular central line tip SVC satisfactory position Right internal jugular Port-A-Cath tip SVC No pneumothorax Impression: Bibasilar pneumonia, significant left base
[2024-10-29] MEDS: CALCIUM CARBONATE 600 MG TABLET PO (08:31)
[2024-10-29] MEDS: ENOXAPARIN SOD INJ 40 MG/0.4 ML SYRINGE SC (08:32)
[2024-10-29] MEDS: VANCOMYCIN/NS 750 MG IVPB 750 MG/150 ML BAG 120 MG IV (10:29)
--- NOTE | 2024-10-29 10:46 | CHAP ---
Patient was visited by the Spiritual Care Volunteer who prayed for them. (Volunteer was in the hospital from 09:50-10:46)
[2024-10-29 11:04] LABS: Base Excess, Venous -10 (-3-3); O2 Saturation, Venous 87 % (96-97); PCO2, Venous 32 mmHg (36-56); PO2, Venous 55 mmHg (15-58); pH, Venous 7.29 (7.33-7.66)
--- NOTE | 2024-10-29 12:10 | PD.RESPRO ---
Documentation for date of: 10/29/24 Subjective Subjective Interval history: 10/29: Overnight patient was titrated to 0.39 on Levophed and added vasopressin with hydrocortisone to maintain MAP above 65. Patient also had 2 loose bowel movements overnight and about 450 cc of urine output. Patient is seen and examined at bedside this morning. Patient's vital signs are stable maintaining MAP above 70 currently on vasopressin at 0.03 and Levophed at 0.29. Today patient will be weaned down on Levophed maintaining MAP above 65. patient complained of mild abdominal pain. Currently saturating on high flow nasal cannula on 35 L at FiO2 40%. She continues to have shortness of breath with some improvement compared to yesterday. No other complaints Exam Vital Signs Temp Pulse Resp BP Pulse Ox O2 Del Method O2 Flow Rate 99.4 F 85 20 115/75 99 Oxy Mask 35 10/28/24 14:34 10/29/24 07:31 10/29/24 07:31 10/29/24 07:16 10/29/24 07:31 10/28/24 14:07 10/29/24 06:43 FiO2 55 10/29/24 06:43 Narrative Exam GENERAL: elderly obese female, awake A&Ox3 NEURO: no focal neurological deficits notes HEENT: Atraumatic, Normocephalic. mucous membranes moist. Eyes open, symmetrical, & clear, L. internal jugular line placed HEART: Normal Heart Sounds LUNGS: crackles bilaterally, increased work of breathing with accessory muscle use ABDOMEN: soft, non-distended, mild tenderness on palpation, no guarding or rebound tenderness SKIN: No Rash or ecchymoses EXTREMITIES: 1+ pitting edema bilateraly worse on the left LE, no tenderness, able to move all 4 extremities, pedal pulses palpated Objective Labs 10/29/24 04:58 10/29/24 04:58 Labs: Laboratory Results - last 24 hr 10/28/24 10/28/24 10/28/24 11:11 11:56 12:06 WBC 1.0 L D RBC 3.68 L Hgb 12.1 Hct 36.0 MCV 98 MCH 32.9 MCHC 33.6 RDW Std Deviation 58.8 H Plt Count 144 Neut % (Auto) 16 L Lymph % (Auto) 56 H [place] % (Auto) 13 H Eos % (Auto) 0 Baso % (Auto) 1 Neut # (Auto) 0.2 L Lymph # (Auto) 0.5 L [place] # (Auto) 0.1 Eos # (Auto) 0.0 Baso # (Auto) 0.0 Immature Gran # (Auto) 0.14 H Absolute Nucleated RBC 0.00 Immature Gran % 15 H Nucleated RBC % 0 Smear Path Review Sent to Pathologist PT 11.4 INR 1.0 APTT 27.1 Puncture Site ABG pH ABG pCO2 ABG pO2 ABG HCO3 ABG O2 Saturation ABG Base Excess VBG pH VBG pCO2 VBG pO2 VBG O2 Sat ([place]) VBG Base Excess FiO2 Sodium 139 Potassium 3.8 Chloride 105 Carbon Dioxide 25.8 Anion Gap 8 BUN 24 H Creatinine 1.4 H D Estim Creat Clear Calc 32.6 L eGFR 39 L BUN/Creatinine Ratio 17 Glucose 101 Calculated Osmolality 281 Lactic Acid 3.4 H Calcium 8.9 Corrected Calcium 9.1 Phosphorus 2.4 Magnesium 1.6 Total Bilirubin 1.0 AST 20 ALT 32 Alkaline Phosphatase 150 H Lactate Dehydrogenase 210 Troponin I 0.021 B-Natriuretic Peptide 190 H Total Protein 4.9 L Albumin 3.7 Globulin 1.2 L Albumin/Globulin Ratio 3.1 H Lipase 31 Procalcitonin 25.62 H Ur Collection Type Clean Catch Urine Color Lt-Yellow Urine Clarity Clear Urine pH 6.0 Ur Specific [place] 1.012 Urine Protein Trace Urine Glucose (UA) Negative Urine Ketones Negative Urine Blood Negative Urine Nitrite Negative Urine Bilirubin Negative Urine Urobilinogen (Auto) Negative Ur Leukocyte Esterase Negative Urine RBC 2 Urine WBC 3 Ur Squamous Epith Cells < 1 Urine Bacteria None Hyaline Casts < 1 Random Vancomycin Blood Type Antibody Screen Blood Bank Wristband ID 10/28/24 10/28/24 10/28/24 12:25 14:28 14:45 WBC 0.6 L* RBC 3.34 L Hgb 11.0 L Hct 32.9 L MCV 99 MCH 32.9 MCHC 33.4 RDW Std Deviation 59.3 H Plt Count 119 L Neut % (Auto) 22 L Lymph % (Auto) 53 H [place] % (Auto) 14 H Eos % (Auto) 0 Baso % (Auto) 0 Neut # (Auto) 0.1 L Lymph # (Auto) 0.3 L [place] # (Auto) 0.1 Eos # (Auto) 0.0 Baso # (Auto) 0.0 Immature Gran # (Auto) 0.07 H Absolute Nucleated RBC 0.00 Immature Gran % 12 H Nucleated RBC % 0 Smear Path Review PT INR APTT Puncture Site Right Radial ABG pH 7.30 L ABG pCO2 41 ABG pO2 78 L ABG HCO3 20 ABG O2 Saturation 95 ABG Base Excess -6 L VBG pH VBG pCO2 VBG pO2 VBG O2 Sat ([place]) VBG Base Excess FiO2 21 Sodium 139 Potassium 3.8 Chloride 110 H Carbon Dioxide 20.5 Anion Gap 9 BUN 19 Creatinine 1.2 Estim Creat Clear Calc 38.0 L eGFR 47 L BUN/Creatinine Ratio 16 Glucose 112 H Calculated Osmolality 280 Lactic Acid Calcium 7.6 L Corrected Calcium 8.3 L Phosphorus 3.3 Magnesium 1.4 L Total Bilirubin AST ALT Alkaline Phosphatase Lactate Dehydrogenase Troponin I B-Natriuretic Peptide Total Protein Albumin 3.1 L D Globulin Albumin/Globulin Ratio Lipase Procalcitonin Ur Collection Type Urine Color Urine Clarity Urine pH Ur Specific [place] Urine Protein Urine Glucose (UA) Urine Ketones Urine Blood Urine Nitrite Urine Bilirubin Urine Urobilinogen (Auto) Ur Leukocyte Esterase Urine RBC Urine WBC Ur Squamous Epith Cells Urine Bacteria Hyaline Casts Random Vancomycin Blood Type A Positive Antibody Screen NEGATIVE Blood Bank Wristband ID Yes 10/28/24 10/28/24 10/28/24 15:30 18:14 18:16 WBC RBC Hgb Hct MCV MCH MCHC RDW Std Deviation Plt Count Neut % (Auto) Lymph % (Auto) [place] % (Auto) Eos % (Auto) Baso % (Auto) Neut # (Auto) Lymph # (Auto) [place] # (Auto) Eos # (Auto) Baso # (Auto) Immature Gran # (Auto) Absolute Nucleated RBC Immature Gran % Nucleated RBC % Smear Path Review PT INR APTT Puncture Site Left Radial ABG pH 7.35 ABG pCO2 32 ABG pO2 72 L ABG HCO3 18 L ABG O2 Saturation 95 ABG Base Excess -7 L VBG pH VBG pCO2 VBG pO2 VBG O2 Sat ([place]) VBG Base Excess FiO2 60 Sodium 138 Potassium 4.2 Chloride 111 H Carbon Dioxide 17.1 L Anion Gap 10 BUN 23 Creatinine 1.2 Estim Creat Clear Calc 38.0 L eGFR 47 L BUN/Creatinine Ratio 19 Glucose 101 Calculated Osmolality 279 Lactic Acid 2.1 H 1.7 Calcium 7.6 L Corrected Calcium 8.2 L Phosphorus Magnesium Total Bilirubin 1.1 AST 23 ALT 28 Alkaline Phosphatase 123 H D Lactate Dehydrogenase Troponin I B-Natriuretic Peptide Total Protein 4.3 L Albumin 3.2 L Globulin 1.1 L Albumin/Globulin Ratio 2.9 H Lipase Procalcitonin Ur Collection Type Urine Color Urine Clarity Urine pH Ur Specific [place] Urine Protein Urine Glucose (UA) Urine Ketones Urine Blood Urine Nitrite Urine Bilirubin Urine Urobilinogen (Auto) Ur Leukocyte Esterase Urine RBC Urine WBC Ur Squamous Epith Cells Urine Bacteria Hyaline Casts Random Vancomycin Blood Type Antibody Screen Blood Bank Wristband ID 10/29/24 10/29/24 04:58 10:50 WBC 0.7 L* RBC 3.45 L Hgb 11.3 L Hct 33.6 L MCV 97 MCH 32.8 MCHC 33.6 RDW Std Deviation 58.7 H Plt Count 115 L Neut % (Auto) 29 L Lymph % (Auto) 30 [place] % (Auto) 39 H Eos % (Auto) 0 Baso % (Auto) 1 Neut # (Auto) 0.2 L Lymph # (Auto) 0.2 L [place] # (Auto) 0.3 Eos # (Auto) 0.0 Baso # (Auto) 0.0 Immature Gran # (Auto) 0.00 Absolute Nucleated RBC 0.00 Immature Gran % 0 Nucleated RBC % 0 Smear Path Review PT 13.9 H INR 1.3 APTT 37.4 H D Puncture Site ABG pH ABG pCO2 ABG pO2 ABG HCO3 ABG O2 Saturation ABG Base Excess VBG pH 7.29 L VBG pCO2 32 L VBG pO2 55 VBG O2 Sat ([place]) 87 L VBG Base Excess -10 L FiO2 Sodium 138 Potassium 4.6 Chloride 110 H Carbon Dioxide 15.4 L Anion Gap 13 BUN 29 H Creatinine 1.2 Estim Creat Clear Calc 38.8 L eGFR 47 L BUN/Creatinine Ratio 24 H Glucose 71 L Calculated Osmolality 279 Lactic Acid Calcium 8.2 L Corrected Calcium 8.6 Phosphorus 4.6 Magnesium 2.6 Total Bilirubin 1.1 AST 46 H ALT 35 Alkaline Phosphatase 139 H Lactate Dehydrogenase Troponin I B-Natriuretic Peptide Total Protein 4.5 L Albumin 3.5 Globulin 1.0 L Albumin/Globulin Ratio 3.5 H Lipase Procalcitonin Ur Collection Type Urine Color Urine Clarity Urine pH Ur Specific [place] Urine Protein Urine Glucose (UA) Urine Ketones Urine Blood Urine Nitrite Urine Bilirubin Urine Urobilinogen (Auto) Ur Leukocyte Esterase Urine RBC Urine WBC Ur Squamous Epith Cells Urine Bacteria Hyaline Casts Random Vancomycin 8.4 Blood Type Antibody Screen Blood Bank Wristband ID ABG Interpretation ABG results: 10/28/24 10/28/24 10/29/24 14:28 18:16 10:50 ABG pH 7.30 L 7.35 ABG pCO2 41 32 ABG pO2 78 L 72 L ABG HCO3 20 18 L ABG O2 Saturation 95 95 ABG Base Excess -6 L -7 L VBG pH 7.29 L VBG pCO2 32 L VBG pO2 55 VBG Base Excess -10 L Quality Measures Quality Measures sepsis Current suspected stage: sepsis Possible source: pulmonary Blood cultures ordered: completed in ED Antibiotic ordered: Yes Advance care planning discussed with:: patient and child Assessment & Plan Assessment Current Active Medications: Generic Name Dose Route Start Last Admin Trade Name Freq PRN Reason Stop Dose Admin Acetaminophen 650 mg 10/28/24 13:57 Acetaminophen 325 Mg Tablet PO 11/27/24 13:56 Q4HR PRN PAIN SCALE 1-3 (mild Acetaminophen 650 mg 10/28/24 13:57 Acetaminophen Supp 650 Mg Supp [place] 11/27/24 13:56 Q4HR PRN PAIN SCALE 1-3 (mild Al Hydrox/Mg Hydrox/Simethicone 30 ml 10/28/24 13:57 Mg Hyd/Al Hyd/Osmany (Maalox Reg) Susp 30 Ml Udc PO 11/27/24 13:56 Q4HR PRN Heartburn or Upset Stomach Albuterol/Ipratropium 3 ml 10/28/24 19:00 10/29/24 06:43 Albuterol/Ipratropium (Duoneb) Rt Asha 3 Ml Nebu INH 11/27/24 18:59 3 ml Q6HRRT REBEKAH Administration Calcium Carbonate 600 mg 10/28/24 16:15 10/29/24 08:31 Calcium Carbonate 600 Mg Tablet PO 11/27/24 16:14 600 mg QDAY REBEKAH Administration Enoxaparin Sodium 40 mg 10/29/24 09:00 10/29/24 08:32 Enoxaparin Sod Inj 40 Mg/0.4 Ml Syringe SC 11/12/24 08:59 40 mg QDAY REBEKAH Administration Hydrocortisone Sodium Succinate 50 mg 10/28/24 16:25 10/29/24 05:57 Hydrocortisone Sod Succ Inj 100 Mg Vial IV 11/27/24 16:24 50 mg Q6HR REBEKAH Administration Norepinephrine Bitartrate 16 mg in 250 mls @ 3.444 mls/hr 10/28/24 13:42 10/29/24 10:27 Levophed In Ns 16mg/250ml IV 11/27/24 13:41 0.15 mcg/kg/min .Q24H PRN 10.333 mls/hr PER protocol Titration Protocol 0.05 MCG/KG/MIN Vasopressin/Sodium Chloride 20 unit in 100 mls @ 9 mls/hr 10/28/24 16:22 10/29/24 01:32 Vasostrict/Ns Ivpb IV 11/27/24 16:21 0.03 unit/min .Q11H7M PRN 9 mls/hr PER PROTOCOL Administration Protocol 0.03 UNIT/MIN Azithromycin 500 mg/ Sodium 250 mls @ 250 mls/hr 10/28/24 16:49 10/28/24 18:28 Chloride IV 11/04/24 16:48 250 mls/hr QDAY@1400 REBEKAH Administration Piperacillin/Tazobactam/Dextrose 50 mls @ 12.5 mls/hr 10/28/24 22:00 10/29/24 05:56 Zosyn IV 11/04/24 21:59 12.5 mls/hr Q8HR REBEKAH Administration Magnesium Hydroxide 30 ml 10/28/24 13:57 Milk Of Magnesia Susp 30 Ml Udc PO 11/27/24 13:56 QDAY PRN CONSTIPATION Nitroglycerin 0.4 mg 10/28/24 13:57 Nitroglycerin 0.4 Mg Subl Btl #25 SL Q5MIN PRN CHEST PAIN Ondansetron HCl 4 mg 10/28/24 14:17 10/28/24 14:22 Ondansetron Inj 2 Mg/Ml Inj 2 Ml IV 11/27/24 14:16 4 mg Q4H PRN Administration NAUSEA OR VOMITING Protocol Pharmacy Consult 1 each 10/28/24 12:00 Vancomycin Pharmacy To Dose 1 Each Each IV 11/27/24 11:59 QDAY PRN PROTOCOL Plan Ms. Mars Quinonez is a 73-year-old female who is a Japanese-speaking and majority of history is taken from daughter at bedside , patient's past medical history is significant for CLL which was diagnosed in 2021 in [place] for which she underwent 4 cycles of chemotherapy in [place]. Patient remained in remission and April 2024 patient started additional 6 sessions of chemo as [facility]. Patient's last chemo session was yesterday 10/27/2024. Patient presented to the ED complaining of shortness of breath which started this morning, the shortness of breath and dyspnea is continuous in all position and nothing makes it better. For the last 4 days patient was having a cough with thick white phlegm and associated abdominal pain. Neuro: #alert and oriented, able to follow commands Cardiovasc: #Shock DDx- cardiogenic shock vs. septic shock or combined -on admission BP is 82/54 and MAP <65 -Pt received 3.25L of fluids without improvement in the BP -Pt is started on levophed on 10/28 -Vasopressin started on 10/28 with hydrocortisone 50mg IV Q6h and passive leg raise -titrating down levophed today #pericardial effusions -bedside ultrasound suggestive of mild pericardial effusions, interpreted by PGY3 and ED physician #HFpEF -echo on 03/31/24- evident of stage 1 diastolic dysfunction EF 55-60% -repeat echo ordered-pending -Today BNP was 190, but the since physical findings were consistent with CHF, PE findings included 1+ bilateral below-knee pitting edema along with bibasilar crackles over lung morales. -Treat underlying cause Pulm: # Acute hypoxic respiratory failure # COPD DDx: Sepsis secondary to left base pneumonia in the setting of COPD exacerbation vs. volume overload -Pt. has a 40 year smoking Hx, unknown how many cigs daily, pt quit 2 years ago -Pt uses albuterol nebulizer twice daily at home -Chest x-ray findings include significant left base pneumonia -High flow NC on 35L FiO2 is 40% -Antibiotics include Zosyn and vancomycin and azithromycin started 10/28- -DuoNebs Q6h Renal: #JASMYN - improving -likely prerenal in the setting of volume overload with renal congestion -Pt. based like Cr. 0.7 --> 1.2 , baseline GFR >60 --> 47, BUN/Cr ratio 24 -monitor strict ins and outs -Avoid nephrotoxic drugs and renally dose medications GI: #diarrhea -In the last 24 hours patient is been having watery diarrhea -DDx-likely in the setting of starting 3 antibiotics yesterday -Pt. is on clear liquid diet -Placed orders for C. diff stool culture, stool WBC, calprotectin # Transaminitis #Elevated alkaline phosphatase -AST 46, alkaline phosphatase 139 -Likely secondary to sepsis -Will continue to monitor with daily labs Endo: no active problems Heme/Onc: #pancytopenia #monocytosis -WBC 1.0 --> 0.7, RBC 3.45, Plt 115, monocytes 39% -Patient has history of CLL on immunosuppressants, last dose of chemo received yesterday 10/27 -Filgrastim given on 10/28 -Monitor daily CBC #acute anemia -hgb 11.3, Hct 33.6 -likely 2/2 to hemodilation, pt received 3.25L of fluids DVT prophylaxis-Lovenox Infxs: # Sepsis secondary to pneumonia #Gram-negative rods bacteremia -on admission Procalcitonin was 25.62, lactate is 3.4 -->2.1 -Patient received 3.25 bolus of fluids -Patient is on antibiotics as above (Zosyn, vancomycin, azithromycin) -lactate on 10/28 was 210 -Blood cultures, urine cultures, sputum cultures pending -Prelim 2 out of 2 blood cultures positive for gram-negative rods -Sputum Gram stain-1+ WBC, 2+ GPC (Skin:) -No active problems Disposition: ICU for pressor support DVT Prophylaxis: enoxaparin 40mg Qdaily GI Prophylaxis: not needed as Pt. is not intubated Diet:NPO Lines: Hale catherter, Left IJ (10/28), left arterial line (10/28) Code status: Full Assessment and plan discussed with my attending physician Dr. Kar Stafford (PGY-1)- Internal medicine resident
[2024-10-29] MEDS: Norepinephrine/NS 16mg/250ml 16 MG/250 ML BAG 2.067 MG IV (12:36)
[2024-10-29] MEDS: ACETAMINOPHEN 325 MG TABLET 650 MG PO (12:39)
--- NOTE | 2024-10-29 13:01 | ESPR_ITS ---
Documentation for date of: 10/29/24 Subjective Subjective Interval history: This is a 73-year-old lady who has a history of CLL status postchemotherapy. Last chemotherapy was a day prior to arrival. She presented to the ER for shortness of breath and general malaise. She was found to be hypotensive. She was resuscitated with 4 L of IV fluids however her blood pressure remained low. She was started on Levophed and brought to the ICU. This morning she feels better than on arrival. She has some shortness of breath but improved. She denies any pain. She denies any nausea or vomiting. Critical Care Note Critical care time (min.): 55 Exam Vital Signs Temp Pulse Resp BP Pulse Ox O2 Del Method O2 Flow Rate 97.4 F 87 30 H 99/61 97 Humidified Nasal Cannula 35 10/29/24 12:00 10/29/24 12:46 10/29/24 12:46 10/29/24 12:46 10/29/24 12:46 10/29/24 12:00 10/29/24 12:29 FiO2 40 10/29/24 12:29 Narrative Exam Gen- NAD, AAOx4, nl body habitus HEENT- NC/AT, mucosa hydrated, sclera anicteric, EOMI, high flow nasal cannula in place Chest-faint scattered expiratory wheeze, coarse breath sounds bilaterally, no increased work of breathing, heart rate regular rhythmic, no bruits, Abdomen-soft, nontender, no rebound, no guarding, bowel sounds present Dmevcblnoxx-3-7+ pitting edema bilateral lower extremities, pulses palpable, no clubbing or mottling Drips Levophed Vasopressin Physical Exam Completion Physical Exam Complete?: Yes Objective - [employer] Labs 10/29/24 04:58 10/29/24 04:58 Labs: Laboratory Results - last 24 hr 10/28/24 10/28/24 10/28/24 11:11 12:25 14:28 WBC RBC Hgb Hct MCV MCH MCHC RDW Std Deviation Plt Count Neut % (Auto) Lymph % (Auto) [place] % (Auto) Eos % (Auto) Baso % (Auto) Neut # (Auto) Lymph # (Auto) [place] # (Auto) Eos # (Auto) Baso # (Auto) Immature Gran # (Auto) Absolute Nucleated RBC Immature Gran % Nucleated RBC % Smear Path Review Sent to Pathologist PT INR APTT Puncture Site Right Radial ABG pH 7.30 L ABG pCO2 41 ABG pO2 78 L ABG HCO3 20 ABG O2 Saturation 95 ABG Base Excess -6 L VBG pH VBG pCO2 VBG pO2 VBG O2 Sat ([place]) VBG Base Excess FiO2 21 Sodium Potassium Chloride Carbon Dioxide Anion Gap BUN Creatinine Estim Creat Clear Calc eGFR BUN/Creatinine Ratio Glucose Calculated Osmolality Lactic Acid Calcium Corrected Calcium Phosphorus Magnesium Total Bilirubin AST ALT Alkaline Phosphatase Total Protein Albumin Globulin Albumin/Globulin Ratio Random Vancomycin Blood Type A Positive Antibody Screen NEGATIVE 10/28/24 10/28/24 10/28/24 14:45 15:30 18:14 WBC 0.6 L* RBC 3.34 L Hgb 11.0 L Hct 32.9 L MCV 99 MCH 32.9 MCHC 33.4 RDW Std Deviation 59.3 H Plt Count 119 L Neut % (Auto) 22 L Lymph % (Auto) 53 H [place] % (Auto) 14 H Eos % (Auto) 0 Baso % (Auto) 0 Neut # (Auto) 0.1 L Lymph # (Auto) 0.3 L [place] # (Auto) 0.1 Eos # (Auto) 0.0 Baso # (Auto) 0.0 Immature Gran # (Auto) 0.07 H Absolute Nucleated RBC 0.00 Immature Gran % 12 H Nucleated RBC % 0 Smear Path Review PT INR APTT Puncture Site ABG pH ABG pCO2 ABG pO2 ABG HCO3 ABG O2 Saturation ABG Base Excess VBG pH VBG pCO2 VBG pO2 VBG O2 Sat ([place]) VBG Base Excess FiO2 Sodium 139 138 Potassium 3.8 4.2 Chloride 110 H 111 H Carbon Dioxide 20.5 17.1 L Anion Gap 9 10 BUN 19 23 Creatinine 1.2 1.2 Estim Creat Clear Calc 38.0 L 38.0 L eGFR 47 L 47 L BUN/Creatinine Ratio 16 19 Glucose 112 H 101 Calculated Osmolality 280 279 Lactic Acid 2.1 H 1.7 Calcium 7.6 L 7.6 L Corrected Calcium 8.3 L 8.2 L Phosphorus 3.3 Magnesium 1.4 L Total Bilirubin 1.1 AST 23 ALT 28 Alkaline Phosphatase 123 H D Total Protein 4.3 L Albumin 3.1 L D 3.2 L Globulin 1.1 L Albumin/Globulin Ratio 2.9 H Random Vancomycin Blood Type Antibody Screen 10/28/24 10/29/2410/29/24 18:16 04:58 10:50 WBC 0.7 L* RBC 3.45 L Hgb 11.3 L Hct 33.6 L MCV 97 MCH 32.8 MCHC 33.6 RDW Std Deviation 58.7 H Plt Count 115 L Neut % (Auto) 29 L Lymph % (Auto) 30 [place] % (Auto) 39 H Eos % (Auto) 0 Baso % (Auto) 1 Neut # (Auto) 0.2 L Lymph # (Auto) 0.2 L [place] # (Auto) 0.3 Eos # (Auto) 0.0 Baso # (Auto) 0.0 Immature Gran # (Auto) 0.00 Absolute Nucleated RBC 0.00 Immature Gran % 0 Nucleated RBC % 0 Smear Path Review PT 13.9 H INR 1.3 APTT 37.4 H D Puncture Site Left Radial ABG pH 7.35 ABG pCO2 32 ABG pO2 72 L ABG HCO3 18 L ABG O2 Saturation 95 ABG Base Excess -7 L VBG pH 7.29 L VBG pCO2 32 L VBG pO2 55 VBG O2 Sat ([place]) 87 L VBG Base Excess -10 L FiO2 60 Sodium 138 Potassium 4.6 Chloride 110 H Carbon Dioxide 15.4 L Anion Gap 13 BUN 29 H Creatinine 1.2 Estim Creat Clear Calc 38.8 L eGFR 47 L BUN/Creatinine Ratio 24 H Glucose 71 L Calculated Osmolality 279 Lactic Acid Calcium 8.2 L Corrected Calcium 8.6 Phosphorus 4.6 Magnesium 2.6 Total Bilirubin 1.1 AST 46 H ALT 35 Alkaline Phosphatase 139 H Total Protein 4.5 L Albumin 3.5 Globulin 1.0 L Albumin/Globulin Ratio 3.5 H Random Vancomycin 8.4 Blood Type Antibody Screen Assessment & Plan Additional Assessment Additional Assessment: In summary this is 73-year-old female admitted to the ICU for septic shock a/p [employer] Stable CV Septic shock-patient has gram-negative rods in both blood culture sets. She is currently on broad-spectrum antibiotics. Source appears to be lungs. She has been adequately fluid resuscitated. She was unable to tolerate a passive leg raise. She is on 2 vasopressors as well as hydrocortisone for refractory shock. Reported pericardial effusion seen in the ER, awaiting formal echocardiogram Resp Acute hypoxic respiratory failure-on high flow nasal cannula initially at 55%, wean as able Pneumonia-bilateral infiltrates noted on the chest x-ray, follow-up on sputum cultures, currently on broad-spectrum antibiotics Renal Hyperchloremic nongap acidosis- likely due to 4lts of saline received in the ER Lactic acidosis-resolved GI stable Endo Hypoglycemia- given PO juice this morning with improvement - allow liquid diet Heme Absolute neutropenia-patient is on chemotherapy, given a dose of Neupogen yesterday Anemia-mild monitor, no active bleeding noted Thrombocytopenia-mild monitor likely related to sepsis CLL-treated with oncology as an outpatient -Last chemo day before arrival DVT prophylaxis-Lovenox ID Neutropenic fever-on Vanco and Zosyn Gram-negative rafael bacteremia-awaiting further identification, currently on Zosyn Case discussed with ICU team Labs, imaging and records reviewed Approximately 50 critical care minutes required for evaluation, exam, review, intervention, discussion formulation of plan of care for this critically ill patient with severe refractory septic shock at high risk of further and ongoing decompensation Provider Notation Provider Notation: Although this document has been carefully reviewed, there may still be some phonetic and other typographical errors. These errors are purely grammatical due to imperfections in the software program and should not be construed in any way to compromise the substance of the patient's medical care during this visit. Thank you for the opportunity and privilege in assisting you with this patient's care and management.
[2024-10-29] MEDS: AZITHROMYCIN INJ 500 MG in SODIUM CHLORIDE 0.9% 250 ML 250 ML 250 MG IV (14:17)
[2024-10-29 16:51] LABS: Stool for WBCs 1+ (Negative)
[2024-10-30] VITALS (73 sets, daily range): BP systolic 60–265; BP diastolic 44–264; PULSE 68–102; RESP 11–27; TEMP 36.4–37.3; O2SAT 94–100; BMI 32.4
[2024-10-30] MEDS: VASOPRESSIN IN NS IVPB 20 UNIT/100 ML BAG 9 UNIT IV (00:30)
[2024-10-30] MEDS: HYDROCORTISONE SOD SUCC INJ 100 MG VIAL 50 MG IV ×3 (00:30→12:44)
[2024-10-30] MEDS: ALBUTEROL/IPRATROPIUM (Duoneb) RT SOL 3 ML NEBU INH ×4 (00:47→18:56)
[2024-10-30 04:38] LABS: Base Excess -8 (-3-3); HCO3 17 mEq/L (20-26); Inspired Oxygen, FIO2 25 %; O2 Saturation 96 % (91-98); PCO2 31 mmHg (32.0-48.0); PO2 80 mmHg (83-108); pH, Arterial 7.34 (7.35-7.45)
[2024-10-30 04:53] LABS: Allen Test Performed/OK; Puncture Site Right Femoral
[2024-10-30 05:35] LABS: Basophils % (Auto) 0 % (0-2.5); Eosinophils % (Auto) 0 % (0-10); Hematocrit 29.4 % (36.0-46.0); Hemoglobin 9.9 g/dL (12.0-16.0); Immature Granulocytes % (Auto) 15 % (0-0); Immature Granulocytes Auto 0.12 Thou/mm3 (0.00-0.00); Lymphocytes # (Auto) 0.1 Thou/mm3 (1.0-4.8); Lymphocytes % (Auto) 13 % (10-50); Mean Corpuscular HGB Conc 33.7 g/dl (31.0-37.0); Mean Corpuscular Hemoglobin 32.5 pg (25.0-35.0); Mean Corpuscular Volume 96 fL (80-100); Monocytes # (Auto) 0.4 Thou/mm3 (0.0-0.8); Monocytes % (Auto) 48 % (0-12); Neutrophils # (Auto) 0.2 Thou/mm3 (1.8-7.7); Neutrophils % (Auto) 24 % (37-80); Nucleated Red Blood Cell % 0 /100 WBC (0); RDW Standard Deviation 57.3 fL (36.4-46.3); Red Blood Count 3.05 Miln/mm3 (4.00-5.20)
[2024-10-30 05:39] LABS: Platelet Count 65 Thou/mm3 (140-440); Slide Review Platelets confirmed; White Blood Count 0.8 Thou/mm3 (3.6-11.0)
[2024-10-30 06:00] LABS: Alanine Aminotransferase 135 U/L (10-49); Albumin, Serum 3.5 gm/dL (3.4-4.8); Albumin/Globulin Ratio 2.5 (1.2-2.2); Alkaline Phosphatase 123 U/L (46-116); Anion Gap 12 (7-16); Aspartate Amino Transferase 97 U/L (0-34); BUN/Creatinine Ratio 30 Ratio (12-20); Blood Urea Nitrogen 33 mg/dL (9-23); Calcium 8.4 mg/dL (8.3-10.6); Calcium (Corrected) 8.8 mg/dL (8.5-10.1); Carbon Dioxide 16.5 mMol/L (20.0-31.0); Chloride 110 mMol/L (98-107); Creatinine (Component) 1.1 mg/dL (0.6-1.3); Estimated Creatinine Clearance 42.4 mL/min (>60); Globulin 1.4 gm/dL (2.3-3.5); Glucose 112 mg/dL (74-106); Magnesium 2.8 mg/dL (1.6-2.6); Osmolality,Calculated 283 (275-295); Phosphorous 4.6 mg/dL (2.4-5.1); Potassium 3.9 mMol/L (3.4-5.1); Sodium 138 mMol/L (136-145); Total Protein 4.9 gm/dL (5.7-8.2); Vancomycin,Random 9.7 mcg/mL; eGFR 52 See Note
[2024-10-30] MEDS: PIPER/TAZO 3.375 GM 50 ML IV ×3 (06:15→21:26)
[2024-10-30] MEDS: CALCIUM CARBONATE 600 MG TABLET PO (09:13)
[2024-10-30] MEDS: ENOXAPARIN SOD INJ 40 MG/0.4 ML SYRINGE SC (09:13)
--- NOTE | 2024-10-30 10:31 | PD.RESPRO ---
Documentation for date of: 10/30/24 Subjective Subjective Interval history: 10/29: Overnight patient was titrated to 0.39 on Levophed and added vasopressin with hydrocortisone to maintain MAP above 65. Patient also had 2 loose bowel movements overnight and about 450 cc of urine output. Patient is seen and examined at bedside this morning. Patient's vital signs are stable maintaining MAP above 70 currently on vasopressin at 0.03 and Levophed at 0.29. Today patient will be weaned down on Levophed maintaining MAP above 65. patient complained of mild abdominal pain. Currently saturating on high flow nasal cannula on 35 L at FiO2 40%. She continues to have shortness of breath with some improvement compared to yesterday. No other complaints 10/30: No overnight events, patient was able to be weaned off of vasopressin. She is currently on Levophed at 0.02. Patient continues to have diarrhea, for which calprotectin, and C. difficile cultures are pending. Patient's shortness of breath has improved since admission, she is still on high flow with 25L of O2 and FiO2 25. she is tolerating clear liquid diet. Pt has no other complains. Exam Vital Signs Temp Pulse Resp BP Pulse Ox O2 Del Method O2 Flow Rate 97.6 F 81 16 114/58 L 97 High Flow Nasal Cannula 25 10/30/24 08:00 10/30/24 10:01 10/30/24 10:01 10/30/24 10:01 10/30/24 10:01 10/29/24 16:00 10/30/24 06:43 FiO2 25 10/30/24 06:43 Narrative Exam GENERAL: elderly obese female, awake A&Ox3 NEURO: no focal neurological deficits notes HEENT: Atraumatic, Normocephalic. mucous membranes moist. Eyes open, symmetrical, & clear, L. internal jugular line placed HEART: Normal Heart Sounds LUNGS: coarse breath sounds ABDOMEN: soft, non-distended, no tenderness on palpation, no guarding or rebound tenderness SKIN: No Rash or ecchymoses EXTREMITIES: 1+ pitting edema bilateraly worse on the left LE, no tenderness, able to move all 4 extremities, pedal pulses palpated Objective Labs 10/30/24 04:45 10/30/24 04:45 Labs: Laboratory Results - last 24 hr 10/29/24 10/29/24 10/30/24 10:50 15:00 04:06 WBC RBC Hgb Hct MCV MCH MCHC RDW Std Deviation Plt Count Neut % (Auto) Lymph % (Auto) [place] % (Auto) Eos % (Auto) Baso % (Auto) Neut # (Auto) Lymph # (Auto) [place] # (Auto) Eos # (Auto) Baso # (Auto) Immature Gran # (Auto) Absolute Nucleated RBC Immature Gran % Nucleated RBC % Puncture Site Right Femoral ABG pH 7.34 L ABG pCO2 31 L ABG pO2 80 L ABG HCO3 17 L ABG O2 Saturation 96 ABG Base Excess -8 L VBG pH 7.29 L VBG pCO2 32 L VBG pO2 55 VBG O2 Sat ([place]) 87 L VBG Base Excess -10 L FiO2 25 Sodium Potassium Chloride Carbon Dioxide Anion Gap BUN Creatinine Estim Creat Clear Calc eGFR BUN/Creatinine Ratio Glucose Calculated Osmolality Calcium Corrected Calcium Phosphorus Magnesium Total Bilirubin AST ALT Alkaline Phosphatase Total Protein Albumin Globulin Albumin/Globulin Ratio Stool for White Cells 1+ A Random Vancomycin Misc Test Result 10/30/24 04:45 WBC 0.8 L* RBC 3.05 L Hgb 9.9 L Hct 29.4 L MCV 96 MCH 32.5 MCHC 33.7 RDW Std Deviation 57.3 H Plt Count 65 L D Neut % (Auto) 24 L Lymph % (Auto) 13 [place] % (Auto) 48 H Eos % (Auto) 0 Baso % (Auto) 0 Neut # (Auto) 0.2 L Lymph # (Auto) 0.1 L [place] # (Auto) 0.4 Eos # (Auto) 0.0 Baso # (Auto) 0.0 Immature Gran # (Auto) 0.12 H Absolute Nucleated RBC 0.00 Immature Gran % 15 H Nucleated RBC % 0 Puncture Site ABG pH ABG pCO2 ABG pO2 ABG HCO3 ABG O2 Saturation ABG Base Excess VBG pH VBG pCO2 VBG pO2 VBG O2 Sat ([place]) VBG Base Excess FiO2 Sodium 138 Potassium 3.9 D Chloride 110 H Carbon Dioxide 16.5 L Anion Gap 12 BUN 33 H Creatinine 1.1 Estim Creat Clear Calc 42.4 L eGFR 52 L BUN/Creatinine Ratio 30 H Glucose 112 H D Calculated Osmolality 283 Calcium 8.4 Corrected Calcium 8.8 Phosphorus 4.6 Magnesium 2.8 H Total Bilirubin 1.0 AST 97 H ALT 135 H Alkaline Phosphatase 123 H Total Protein 4.9 L Albumin 3.5 Globulin 1.4 L Albumin/Globulin Ratio 2.5 H Stool for White Cells Random Vancomycin 9.7 Misc Test Result Platelets confirmed ABG Interpretation ABG results: 10/28/24 10/28/24 10/29/24 14:28 18:16 10:50 ABG pH 7.30 L 7.35 ABG pCO2 41 32 ABG pO2 78 L 72 L ABG HCO3 20 18 L ABG O2 Saturation 95 95 ABG Base Excess -6 L -7 L VBG pH 7.29 L VBG pCO2 32 L VBG pO2 55 VBG Base Excess -10 L 10/30/24 04:06 ABG pH 7.34 L ABG pCO2 31 L ABG pO2 80 L ABG HCO3 17 L ABG O2 Saturation 96 ABG Base Excess -8 L VBG pH VBG pCO2 VBG pO2 VBG Base Excess Quality Measures Quality Measures sepsis Current suspected stage: sepsis Possible source: pulmonary Blood cultures ordered: completed in ED Antibiotic ordered: Yes Advance care planning discussed with:: patient Assessment & Plan Assessment Current Active Medications: Generic Name Dose Route Start Last Admin Trade Name Freq PRN Reason Stop Dose Admin Acetaminophen 650 mg 10/28/24 13:57 10/29/24 12:39 Acetaminophen 325 Mg Tablet PO 11/27/24 13:56 650 mg Q4HR PRN Administration PAIN SCALE 1-3 (mild Acetaminophen 650 mg 10/28/24 13:57 Acetaminophen Supp 650 Mg Supp FL 11/27/24 13:56 Q4HR PRN PAIN SCALE 1-3 (mild Al Hydrox/Mg Hydrox/Simethicone 30 ml 10/28/24 13:57 Mg Hyd/Al Hyd/Osmany (Maalox Reg) Susp 30 Ml Udc PO 11/27/24 13:56 Q4HR PRN Heartburn or Upset Stomach Albuterol/Ipratropium 3 ml 10/28/24 19:00 10/30/24 06:43 Albuterol/Ipratropium (Duoneb) Rt Asha 3 Ml Nebu INH 11/27/24 18:59 3 ml Q6HRRT REBEKAH Administration Calcium Carbonate 600 mg 10/28/24 16:15 10/30/24 09:13 Calcium Carbonate 600 Mg Tablet PO 11/27/24 16:14 600 mg QDAY REBEKAH Administration Enoxaparin Sodium 40 mg 10/29/24 09:00 10/30/24 09:13 Enoxaparin Sod Inj 40 Mg/0.4 Ml Syringe SC 11/12/24 08:59 40 mg QDAY REBEKAH Administration Hydrocortisone Sodium Succinate 50 mg 10/28/24 16:25 10/30/24 06:16 Hydrocortisone Sod Succ Inj 100 Mg Vial IV 11/27/24 16:24 50 mg Q6HR REBEKAH Administration Norepinephrine Bitartrate 16 mg in 250 mls @ 3.444 mls/hr 10/28/24 13:42 10/30/24 06:00 Levophed In Ns 16mg/250ml IV 11/27/24 13:41 0.02 mcg/kg/min .Q24H PRN 1.378 mls/hr PER protocol Titration Protocol 0.05 MCG/KG/MIN Vasopressin/Sodium Chloride 20 unit in 100 mls @ 9 mls/hr 10/28/24 16:22 10/30/24 04:00 Vasostrict/Ns Ivpb IV 11/27/24 16:21 0.03 unit/min .Q11H7M PRN 9 mls/hr PER PROTOCOL Titration Protocol 0.03 UNIT/MIN Azithromycin 500 mg/ Sodium 250 mls @ 250 mls/hr 10/28/24 16:49 10/29/24 14:17 Chloride IV 11/04/24 16:48 250 mls/hr QDAY@1400 REBEKAH Administration Piperacillin/Tazobactam/Dextrose 50 mls @ 12.5 mls/hr 10/28/24 22:00 10/30/24 06:15 Zosyn IV 11/04/24 21:59 12.5 mls/hr Q8HR REBEKAH Administration Vancomycin/Sodium Chloride 200 mls @ 120 mls/hr 10/30/24 10:00 Vancomycin/Ns 1 Gm Ivpb IV 11/06/24 09:59 QDAY@1000 [facility] Protocol Magnesium Hydroxide 30 ml 10/28/24 13:57 Milk Of Magnesia Susp 30 Ml Udc PO 11/27/24 13:56 QDAY PRN CONSTIPATION Nitroglycerin 0.4 mg 10/28/24 13:57 Nitroglycerin 0.4 Mg Subl Btl #25 SL Q5MIN PRN CHEST PAIN Ondansetron HCl 4 mg 10/28/24 14:17 10/28/24 14:22 Ondansetron Inj 2 Mg/Ml Inj 2 Ml IV 11/27/24 14:16 4 mg Q4H PRN Administration NAUSEA OR VOMITING Protocol Pharmacy Consult 1 each 10/28/24 12:00 Vancomycin Pharmacy To Dose 1 Each Each IV 11/27/24 11:59 QDAY PRN PROTOCOL Plan Ms. Mars Quinonez is a 73-year-old female who is a Bahamian-speaking and majority of history is taken from daughter at bedside , patient's past medical history is significant for CLL which was diagnosed in 2021 in [place] for which she underwent 4 cycles of chemotherapy in [place]. Patient remained in remission and April 2024 patient started additional 6 sessions of chemo as [facility]. Patient's last chemo session was yesterday 10/27/2024. Patient presented to the ED complaining of shortness of breath which started this morning, the shortness of breath and dyspnea is continuous in all position and nothing makes it better. For the last 4 days patient was having a cough with thick white phlegm and associated abdominal pain. Neuro: #alert and oriented, able to follow commands Cardiovasc: #Shock DDx- cardiogenic shock vs. septic shock or combined -on admission BP is 82/54 and MAP <65 -Pt received 3.25L of fluids without improvement in the BP -Pt is started on levophed on 10/28, currently running at 0.02 -weaned off of Vasopressin today 10/30) -(vassopresin was started on 10/28 with hydrocortisone 50mg IV Q6h) -titrating down levophed today #pericardial effusions -bedside ultrasound suggestive of mild pericardial effusions, interpreted by PGY3 and ED physician -echo done- pending read #HFpEF -echo on 03/31/24- evident of stage 1 diastolic dysfunction EF 55-60% -repeat echo ordered-pending -Today BNP was 190, but the since physical findings were consistent with CHF, PE findings included 1+ bilateral below-knee pitting edema along with bibasilar crackles over lung morales. -Treat underlying cause #DVT prophylaxis-Lovenox Pulm: # Acute hypoxic respiratory failure # COPD DDx: Sepsis secondary to left base pneumonia in the setting of COPD exacerbation vs. volume overload -Pt. has a 40 year smoking Hx, unknown how many cigs daily, pt quit 2 years ago -Pt uses albuterol nebulizer twice daily at home -Chest x-ray findings include significant left base pneumonia -High flow NC on 35L FiO2 is 40% -Antibiotics include Zosyn and vancomycin and azithromycin started 10/28- -DuoNebs Q6h Renal: #hypercholeremia -improving #non-anion gap metabolic acidosis (mild) -like due to fluid resuscitation with NS -less likely to diarrhea since pt. has only 3 episodes of diarrhea in last 24h. GI: #diarrhea -In the last 24 hours patient is been having watery diarrhea -DDx-likely in the setting of starting 3 antibiotics yesterday -Pt. is on clear liquid diet - stool WBC - 1+ -Placed orders for C. diff stool culture, calprotectin- pending # Transaminitis #Elevated alkaline phosphatase -AST 97, ALT 135 alkaline phosphatase 123 -Likely secondary to sepsis -Will continue to monitor with daily labs Endo: no active problems -BG 112 Heme/Onc: #pancytopenia #monocytosis -WBC 1.0 --> 0.7, RBC 3.45, Plt 115, monocytes 39% -Patient has history of CLL on immunosuppressants, last dose of chemo received yesterday 10/27 -Filgrastim given on 10/28 -Monitor daily CBC #acute anemia -hgb 9.9, Hct 29.4 -likely 2/2 to hemodilation, pt received 3.25L of fluids Infxs: #Sepsis secondary to pneumonia #Gram-negative rods bacteremia -on admission Procalcitonin was 25.62, lactate is 3.4 -->2.1 -Patient received 3.25 bolus of fluids -lactate on 10/28 was 210 -Blood cultures- prelim 2/2 GNR -urine cultures- no growth -sputum cultures yoyl- 1+ WBC , 2+GPC -Prelim 2 out of 2 blood cultures positive for gram-negative rods -Sputum culture- pending -Patient is on antibiotics as above (Zosyn, vancomycin, azithromycin) (Skin:) -No active problems Disposition: ICU for pressor support DVT Prophylaxis: enoxaparin 40mg Qdaily GI Prophylaxis: not needed as Pt. is not intubated Diet: clear liquid diet Lines: Hale catherter, Left IJ (10/28), left arterial line (10/28) Code status: Full Assessment and plan discussed with my attending physician Dr. Kar Stafford (PGY-1)- Internal medicine resident
[2024-10-30] MEDS: VANCOMYCIN/NS 1 GM IVPB 200 ML IV (10:36)
--- NOTE | 2024-10-30 11:16 | PC.SS ---
BIT GRINDER conducted bedside contact with the patient conduct initial assessment and to discuss discharge planning. At bedside with patient was daughter, Angela Burgess . Patient is Vietnamese speaking. [employer] utilized for assessment and discharge planning. Patient resides at home with daughter. Patient utilizes a walker to assist with ambulation. Patient utilizes home oxygen. Patient requires assistance with the completion of ADL?s. Family provides assistance with ADL?s and provide transportation on behalf of the patient. Patient?s medical surrogate decision maker is daughter, Angela Burgess. Patient?s PCP is Ellie Christensen. The patient completed last session of chemotherapy last week. Oncology services provided by [facility]. Patient utilizes [facility] for medication services. Discharge plan is for the patient to return home at the time of discharge. Family will provide transportation on behalf of the patient. Following forms of DME requested: rollating walker (previous walker misplaced). No preferred provider identified. If home health recommended, [facility] preferred provider. No further intervention required at this time, social media marketer will be available to address any further concerns. Next of Kin: Angela Burgess D/C Plan: Home
--- NOTE | 2024-10-30 12:03 | PD.INTPROG ---
Documentation for date of: 10/30/24 Subjective Subjective Interval history: This is a 73-year-old lady who has a history of CLL status postchemotherapy. Last chemotherapy was a day prior to arrival. She presented to the ER for shortness of breath and general malaise. She was found to be hypotensive. She was resuscitated with 4 L of IV fluids however her blood pressure remained low. She was started on Levophed and brought to the ICU. This morning she feels better than on arrival. She has some shortness of breath but improved. She denies any pain. She denies any nausea or vomiting. 10/30- no acute overnight events, coming down on levophed, GNR bacteremia noted, decreasing FiO2 needs, c/o some cough and pain with coughing Critical Care Note Critical care time (min.): 45 Exam Vital Signs Temp Pulse Resp BP Pulse Ox O2 Del Method O2 Flow Rate 97.6 F 74 16 116/71 97 High Flow Nasal Cannula 25 10/30/24 08:00 10/30/24 10:30 10/30/24 10:30 10/30/24 10:30 10/30/24 10:30 10/29/24 16:00 10/30/24 06:43 FiO2 25 10/30/24 06:43 Narrative Exam Gen- NAD, AAOx4, nl body habitus HEENT- NC/AT, mucosa hydrated, sclera anicteric, Chest- decreased breath sounds, crackles at b/l bases, HRRR, no use of accessory msucles Abd- s/nt/bs+ Ext- edema 1+ pitting b/l LE, pulses palp, no clubbing, no mottling, no focal deficits Physical Exam Completion Physical Exam Complete?: Yes Objective - Physical Optics Teacher Labs 10/30/24 04:45 10/30/24 04:45 Labs: Laboratory Results - last 24 hr 10/29/24 10/30/24 10/30/24 15:00 04:06 04:45 WBC 0.8 L* RBC 3.05 L Hgb 9.9 L Hct 29.4 L MCV 96 MCH 32.5 MCHC 33.7 RDW Std Deviation 57.3 H Plt Count 65 L D Neut % (Auto) 24 L Lymph % (Auto) 13 [place] % (Auto) 48 H Eos % (Auto) 0 Baso % (Auto) 0 Neut # (Auto) 0.2 L Lymph # (Auto) 0.1 L [place] # (Auto) 0.4 Eos # (Auto) 0.0 Baso # (Auto) 0.0 Immature Gran # (Auto) 0.12 H Absolute Nucleated RBC 0.00 Immature Gran % 15 H Nucleated RBC % 0 Puncture Site Right Femoral ABG pH 7.34 L ABG pCO2 31 L ABG pO2 80 L ABG HCO3 17 L ABG O2 Saturation 96 ABG Base Excess -8 L FiO2 25 Sodium 138 Potassium 3.9 D Chloride 110 H Carbon Dioxide 16.5 L Anion Gap 12 BUN 33 H Creatinine 1.1 Estim Creat Clear Calc 42.4 L eGFR 52 L BUN/Creatinine Ratio 30 H Glucose 112 H D Calculated Osmolality 283 Calcium 8.4 Corrected Calcium 8.8 Phosphorus 4.6 Magnesium 2.8 H Total Bilirubin 1.0 AST 97 H ALT 135 H Alkaline Phosphatase 123 H Total Protein 4.9 L Albumin 3.5 Globulin 1.4 L Albumin/Globulin Ratio 2.5 H Stool for White Cells 1+ A Random Vancomycin 9.7 Misc Test Result Platelets confirmed Assessment & Plan Additional Assessment Additional Assessment: In summary this is 73-year-old female admitted to the ICU for septic shock a/p ASSOCIATE DIRECTOR CAREER SERVICES Stable CV Septic shock-patient has gram-negative rods in both blood culture sets. She is currently on broad-spectrum antibiotics. Source appears to be lungs. She has been adequately fluid resuscitated. She was unable to tolerate a passive leg raise. She is on 2 vasopressors as well as hydrocortisone for refractory shock. Reported pericardial effusion seen in the ER, awaiting formal echocardiogram -Today she is on less vasopressors -Significant improvement -Continue current antibiotics -Blood cultures growing gram-negative rods Resp Acute hypoxic respiratory failure-on high flow nasal cannula initially at 55%, wean as able -Now down to 25% FiO2 -Will transition to nasal cannula Pneumonia-bilateral infiltrates noted on the chest x-ray, follow-up on sputum cultures, currently on broad-spectrum antibiotics -Continue current regimen Renal Hyperchloremic nongap acidosis- likely due to 4lts of saline received in the ER -Slight improvement Lactic acidosis-resolved GI stable Endo Hypoglycemia-resolved Heme Absolute neutropenia-patient is on chemotherapy, given a dose of Neupogen yesterday Anemia-mild monitor, no active bleeding noted Thrombocytopenia-mild monitor likely related to sepsis -Continue drop today CLL-treated with oncology as an outpatient -Last chemo day before arrival DVT prophylaxis-Lovenox ID Neutropenic fever-on Vanco and Zosyn Gram-negative rafael bacteremia-awaiting further identification, currently on Zosyn -MRSA screen is negative therefore we will stop vancomycin Case discussed with ICU team Labs, imaging and records reviewed Approximately 45 critical care minutes required for evaluation, exam, review, intervention, discussion formulation of plan of care for this critically ill patient with severe refractory septic shock at high risk of further and ongoing decompensation Provider Notation Provider Notation: Although this document has been carefully reviewed, there may still be some phonetic and other typographical errors. These errors are purely grammatical due to imperfections in the software program and should not be construed in any way to compromise the substance of the patient's medical care during this visit. Thank you for the opportunity and privilege in assisting you with this patient's care and management.
--- NOTE | 2024-10-30 12:54 | EKG_ITS ---
[facility] Test Date: 2024-10-30 Pat Name: KIMMIE ULRICH [facility] Gender: Female Mine Safety Director: VARUN : 1950 Requested By: Jeanette Sheridan Order Number: [id number] Reading MD: Jeanette Sheridan Measurements Intervals [place] Rate: 69 P: 56 FL: 147 QRS: 5 QRSD: 108 T: 48 QT: 439 QTc: 473 Interpretive Statements SINUS RHYTHM MODERATE INTRAVENTRICULAR CONDUCTION DELAY Compared to ECG 05/12/2024 11:43:41 Intraventricular conduction delay now present Myocardial infarct finding no longer present /store/S0/[id number].pdf
[2024-10-30 14:25] LABS: Troponin I 1.218 ng/mL (0.0-0.045)
[2024-10-30] MEDS: AZITHROMYCIN INJ 500 MG in SODIUM CHLORIDE 0.9% 250 ML 250 ML 250 MG IV (14:55)
[2024-10-30] MEDS: ASPIRIN EC 81 MG TABEC PO (16:05)
[2024-10-30 16:14] LABS: Troponin I 1.285 ng/mL (0.0-0.045)
--- NOTE | 2024-10-30 16:50 | EVENTNT_ITS ---
<Statement entered by Ean Gamez MD - 10/30/24 17:52> I saw and examined the patient, and I agree with current management stated by Dr Jacques MD,PGY1. Plan of care was discussed with the attending physician and resident physician. Disclaimer: Despite multiple revisions, due to the dictation software being used, the document bellow may not be free of grammatical errors including phonetic/typographic errors. However, this does not deter from our commitment to providing health care in the patient's best interest in mind. Dr. Franco MD, PGY 2 Documentation for date of: 10/30/24 Event Note Event Note: Patient is a 73-year-old female with a past medical history of CLL which was diagnosed in 2021 in [place] for which she underwent 4 sessions of chemotherapy and was in remission. However she had recurrence of this year in April and underwent 6 sessions of chemotherapy with the last session on 10/27. Also a [id number] smoking history. She presented with progressively worsening shortness of breath and was admitted for septic shock secondary to community- acquired pneumonia. In the ED she received 4L IVF bolus and was started on Levophed, vasopressin and hydrocortisone. Her CXR was significant for bibasilar consolidation and she was started on Zosyn, azithromycin and vancomycin for treatment of community-acquired pneumonia. Her blood cultures preliminarily grew GNR and she is being treated for bacteremia as well. She received 1 dose of filgrastim on 10/28. She also had a bedside echo which was done on admission which showed pericardial effusion, official echo read still pending. Of note today she began experiencing chest pain which resolved after a few minutes, her EKG was sinus rhythm, rate 69 with moderate interventricular delay. No acute ST changes noted. Troponin was elevated at 1.218 and cardiology was consulted who recommended to start patient on aspirin 81 Mg daily. Currently she is saturating at 100% on HFNC at 2L/M and 25% FiO2, Levophed and vasopressin were weaned off today and hydrocortisone was discontinued last night. Patient currently normotensive with MAP >70. Patient scheduled to be downgraded to the floor from midnight. Plan of care discussed with Attending Dr. Nieves and PGY2 Dr. Franco Jenkins MD PGY 1
[2024-10-30 20:37] LABS: Troponin I 1.153 ng/mL (0.0-0.045)
[2024-10-31] VITALS (16 sets, daily range): BP systolic 101–144; BP diastolic 57–83; PULSE 70–88; RESP 16–23; TEMP 36.4–36.8; O2SAT 93–100; BMI 31.6
[2024-10-31] MEDS: ALBUTEROL/IPRATROPIUM (Duoneb) RT SOL 3 ML NEBU INH ×3 (00:07→18:29)
[2024-10-31 01:03] LABS: Troponin I 0.973 ng/mL (0.0-0.045)
[2024-10-31] MEDS: PIPER/TAZO 3.375 GM 50 ML IV ×3 (05:09→21:23)
[2024-10-31 06:10] LABS: Basophils % (Auto) 1 % (0-2.5); Eosinophils % (Auto) 0 % (0-10); Hematocrit 27.9 % (36.0-46.0); Hemoglobin 9.5 g/dL (12.0-16.0); Immature Granulocytes % (Auto) 2 % (0-0); Immature Granulocytes Auto 0.03 Thou/mm3 (0.00-0.00); Lymphocytes # (Auto) 0.1 Thou/mm3 (1.0-4.8); Lymphocytes % (Auto) 4 % (10-50); Mean Corpuscular HGB Conc 34.1 g/dl (31.0-37.0); Mean Corpuscular Hemoglobin 32.8 pg (25.0-35.0); Mean Corpuscular Volume 96 fL (80-100); Monocytes # (Auto) 0.3 Thou/mm3 (0.0-0.8); Monocytes % (Auto) 23 % (0-12); Neutrophils # (Auto) 1.1 Thou/mm3 (1.8-7.7); Neutrophils % (Auto) 71 % (37-80); Nucleated Red Blood Cell % 0 /100 WBC (0); RDW Standard Deviation 57.4 fL (36.4-46.3)
[2024-10-31 06:15] LABS: Platelet Count 55 Thou/mm3 (140-440); White Blood Count 1.5 Thou/mm3 (3.6-11.0)
[2024-10-31 06:45] LABS: Slide Review Platelets confirmed
[2024-10-31 06:51] LABS: Alanine Aminotransferase 105 U/L (10-49); Albumin, Serum 3.4 gm/dL (3.4-4.8); Albumin/Globulin Ratio 2.1 (1.2-2.2); Alkaline Phosphatase 102 U/L (46-116); Anion Gap 11 (7-16); Aspartate Amino Transferase 41 U/L (0-34); BUN/Creatinine Ratio 33 Ratio (12-20); Bilirubin,Total 0.9 mg/dL (0.3-1.2); Blood Urea Nitrogen 30 mg/dL (9-23); Calcium 8.8 mg/dL (8.3-10.6); Calcium (Corrected) 9.3 mg/dL (8.5-10.1); Carbon Dioxide 20.2 mMol/L (20.0-31.0); Chloride 111 mMol/L (98-107); Creatinine (Component) 0.9 mg/dL (0.6-1.3); Estimated Creatinine Clearance 52.4 mL/min (>60); Globulin 1.6 gm/dL (2.3-3.5); Glucose 92 mg/dL (74-106); Magnesium 2.6 mg/dL (1.6-2.6); Osmolality,Calculated 289 (275-295); Phosphorous 2.9 mg/dL (2.4-5.1); Potassium 3.5 mMol/L (3.4-5.1); Sodium 142 mMol/L (136-145); eGFR > 60 See Note
[2024-10-31] MEDS: ASPIRIN EC 81 MG TABEC PO (08:16)
[2024-10-31] MEDS: POTASSIUM CHLORIDE 20 mEq TABCR PO (08:16)
[2024-10-31] MEDS: CALCIUM CARBONATE 600 MG TABLET PO (08:16)
--- NOTE | 2024-10-31 08:34 | ESPR_ITS ---
<Statement entered by Ean Gamez MD - 10/31/24 15:57> Patient was seen and examined at the bedside. Patient was seen with neutropenic precautions. She was doing fairly well and was stable today. She is currently on 1 L NC saturating well. Rectal tube was also seen. Patient was managed in ICU for septic shock due to neutropenic septic shock and was managed with pressors which has resolved. Present cultures grew GNR therefore we ordered repeat blood cultures given patient has immunocompromise state with neutropenia. Neupogen was given for absolute neutrophil count being low however has improved. No fever spikes were recorded. Will follow-up with new blood cultures and continue Zosyn and azithromycin. Holding Lovenox due to decreased platelet count. Removed rectal tube. Electrolytes were repleted. PT evaluation ordered. All labs and orders were reviewed. I saw and examined the patient, and I agree with current management stated by Dr Jennifer MD,PGY1. Plan of care was discussed with the attending physician and resident physician. Disclaimer: Despite multiple revisions, due to the dictation software being used, the document bellow may not be free of grammatical errors including phonetic/typographic errors. However, this does not deter from our commitment to providing health care in the patient's best interest in mind. Dr. Franco MD, PGY 2 Documentation for date of: 10/31/24 Subjective Subjective Interval history: Patient is Samoan-speaking and the interaction was facilitated by healthcare administrative asst. Patient was seen and examined at bedside this AM. No acute exents overnight. Patient tolerating full liquid diet, adequate urine output and mentation is at baseline. Patient complains of cough this morning Will remove rectal tube today and advance patient to thickened diet from dinner. Will also start on guaifenesin for cough. Blood culture from 10/28 grew GNR preliminary and haemophilus influenza. Blood cultures were repeated today MRSA screen returned negative and vancomycin was discontinued. Patient on D4 azithromycin 500 Mg IV daily and D4 Zosyn 3.375 Mg IV Q8 hourly K3.5. Patient repleted with KCl 20 mEq p.o. x 1 Exam Vital Signs Temp Pulse Resp BP Pulse Ox O2 Del Method O2 Flow Rate 97.6 F 70 18 113/74 99 Nasal Cannula 2 10/31/24 07:47 10/31/24 08:00 10/31/24 07:47 10/31/24 07:47 10/31/24 07:47 10/31/24 07:47 10/31/24 07:47 FiO2 25 10/30/24 06:43 Narrative Exam Constitutional Alert, oriented x 3 and comfortable. Elderly female on O2 via NC. HEENT Vision grossly intact. Patent nares. Trachea midline Respiratory Right chemo therapy port noted and decreased air entry at bases with scattered wheeze Cardiovascular S1 and S2 audible, RRR. No murmurs carotid bruit. No gross JVD. Abdominal Soft, obese and non tender to palpation in all quadrants. BS + Genitourinary No bladder tenderness, no flank pain. Normal to palpation Musculoskeletal Extremities tone within normal limits. No LE edema. Neurological CN II - XII grossly intact. Extremity motor and sensation grossly intact. Skin Warm, dry and intact. No apparent lesions. Psychiatric Patient has good affect, is cooperative Objective Labs 10/31/24 05:00 10/31/24 04:50 Labs: Laboratory Results - last 24 hr 10/30/24 10/30/24 10/30/24 13:08 15:25 19:36 WBC RBC Hgb Hct MCV MCH MCHC RDW Std Deviation Plt Count Neut % (Auto) Lymph % (Auto) [place] % (Auto) Eos % (Auto) Baso % (Auto) Neut # (Auto) Lymph # (Auto) [place] # (Auto) Eos # (Auto) Baso # (Auto) Immature Gran # (Auto) Absolute Nucleated RBC Immature Gran % Nucleated RBC % Sodium Potassium Chloride Carbon Dioxide Anion Gap BUN Creatinine Estim Creat Clear Calc eGFR BUN/Creatinine Ratio Glucose Calculated Osmolality Calcium Corrected Calcium Phosphorus Magnesium Total Bilirubin AST ALT Alkaline Phosphatase Troponin I 1.218 H* 1.285 H* 1.153 H* Total Protein Albumin Globulin Albumin/Globulin Ratio [facility] Test Result 10/31/24 10/31/24 10/31/24 00:28 04:50 05:00 WBC 1.5 L D RBC 2.90 L Hgb 9.5 L Hct 27.9 L MCV 96 MCH 32.8 MCHC 34.1 RDW Std Deviation 57.4 H Plt Count 55 L Neut % (Auto) 71 Lymph % (Auto) 4 L [place] % (Auto) 23 H Eos % (Auto) 0 Baso % (Auto) 1 Neut # (Auto) 1.1 L Lymph # (Auto) 0.1 L [place] # (Auto) 0.3 Eos # (Auto) 0.0 Baso # (Auto) 0.0 Immature Gran # (Auto) 0.03 H Absolute Nucleated RBC 0.00 Immature Gran % 2 H Nucleated RBC % 0 Sodium 142 Potassium 3.5 Chloride 111 H Carbon Dioxide 20.2 Anion Gap 11 BUN 30 H Creatinine 0.9 Estim Creat Clear Calc 52.4 L eGFR > 60 BUN/Creatinine Ratio 33 H Glucose 92 Calculated Osmolality 289 Calcium 8.8 Corrected Calcium 9.3 Phosphorus 2.9 Magnesium 2.6 Total Bilirubin 0.9 AST 41 H ALT 105 H Alkaline Phosphatase 102 D Troponin I 0.973 H* Total Protein 5.0 L Albumin 3.4 Globulin 1.6 L Albumin/Globulin Ratio 2.1 Misc Test Result Platelets confirmed ABG Interpretation ABG results: 10/28/24 10/28/24 10/29/24 14:28 18:16 10:50 ABG pH 7.30 L 7.35 ABG pCO2 41 32 ABG pO2 78 L 72 L ABG HCO3 20 18 L ABG O2 Saturation 95 95 ABG Base Excess -6 L -7 L VBG pH 7.29 L VBG pCO2 32 L VBG pO2 55 VBG Base Excess -10 L 10/30/24 04:06 ABG pH 7.34 L ABG pCO2 31 L ABG pO2 80 L ABG HCO3 17 L ABG O2 Saturation 96 ABG Base Excess -8 L VBG pH VBG pCO2 VBG pO2 VBG Base Excess Quality Measures Quality Measures sepsis Current suspected stage: sepsis Possible source: pulmonary Blood cultures ordered: completed in ED Antibiotic ordered: Yes Advance care planning discussed with:: patient Assessment & Plan Assessment Current Active Medications: Generic Name Dose Route Start Last Admin Trade Name Freq PRN Reason Stop Dose Admin Acetaminophen 650 mg 10/28/24 13:57 10/29/24 12:39 Acetaminophen 325 Mg Tablet PO 11/27/24 13:56 650 mg Q4HR PRN Administration PAIN SCALE 1-3 (mild Acetaminophen 650 mg 10/28/24 13:57 Acetaminophen Supp 650 Mg Supp MO 11/27/24 13:56 Q4HR PRN PAIN SCALE 1-3 (mild Al Hydrox/Mg Hydrox/Simethicone 30 ml 10/28/24 13:57 Mg Hyd/Al Hyd/Osmany (Maalox Reg) Susp 30 Ml Udc PO 11/27/24 13:56 Q4HR PRN Heartburn or Upset Stomach Albuterol/Ipratropium 3 ml 10/28/24 19:00 10/31/24 06:46 Albuterol/Ipratropium (Duoneb) Rt Asha 3 Ml Nebu INH 11/27/24 18:59 Not Given Q6HRRT REBEKAH Aspirin 81 mg 10/30/24 15:15 10/31/24 08:16 Aspirin Ec 81 Mg Tabec PO 11/29/24 15:14 81 mg QDAY REBEKAH Administration Calcium Carbonate 600 mg 10/28/24 16:15 10/31/24 08:16 Calcium Carbonate 600 Mg Tablet PO 11/27/24 16:14 600 mg QDAY REBEKAH Administration Azithromycin 500 mg/ Sodium 250 mls @ 250 mls/hr 10/28/24 16:49 10/30/24 14:55 Chloride IV 11/04/24 16:48 250 mls/hr QDAY@1400 REBEKAH Administration Piperacillin/Tazobactam/Dextrose 50 mls @ 12.5 mls/hr 10/28/24 22:00 10/31/24 05:09 Zosyn IV 11/04/24 21:59 12.5 mls/hr Q8HR REBEKAH Administration Magnesium Hydroxide 30 ml 10/28/24 13:57 Milk Of Magnesia Susp 30 Ml Udc PO 11/27/24 13:56 QDAY PRN CONSTIPATION Nitroglycerin 0.4 mg 10/28/24 13:57 Nitroglycerin 0.4 Mg Subl Btl #25 SL Q5MIN PRN CHEST PAIN Ondansetron HCl 4 mg 10/28/24 14:17 10/28/24 14:22 Ondansetron Inj 2 Mg/Ml Inj 2 Ml IV 11/27/24 14:16 4 mg Q4H PRN Administration NAUSEA OR VOMITING Protocol Plan Ms. Mars Quinonez is a 73-year-old female who is a Samoan-speaking and majority of history is taken from daughter at bedside , patient's past medical history is significant for CLL which was diagnosed in 2021 in [place] for which she underwent 4 cycles of chemotherapy in [place]. Patient remained in remission and April 2024 patient started additional 6 sessions of chemo as [facility] cancer center. Patient's last chemo session was yesterday 10/27/2024. Patient presented to the ED complaining of shortness of breath. She was admitted to the ICU for treatment and management of septic shock secondary to community-acquired pneumonia. 1. Septic shock resolved secondary to community-acquired pneumonia 2. GNR bacteremia She presented with progressively worsening shortness of breath and was admitted for septic shock secondary to community-acquired pneumonia. In the ED she received 4L IVF bolus and was started on Levophed, vasopressin and hydrocortisone. Her CXR was significant for bibasilar consolidation Curb- 65: 4 points; consider inpatient treatment with possible ICU admission PSI/port score: 145 points; risk class V. Hospitalization recommended based on risk Initially patient was on blood pressure support with Levophed, vasopressin and hydrocortisone. Hydrocortisone was weaned off on 10/29 and Levophed and vasopressin were weaned off 10/30. Currently BP 113/79 with MAP >65 Blood cultures from 10/28 grew GNR and haemophilus influenza preliminary Repeat blood culture on 10/31 ordered MRSA screen negative Received 3 days of vancomycin IV from 10/28 - 10-30 Plan: ? Continue to monitor vitals ? Repeat blood culture ordered ? Started patient on guaifenesin 1 tab p.o. twice daily for mucus congestion ? DuoNebs as needed for congestion ? Chest physiotherapy ? Incentive spirometer ? D4 azithromycin 500 Mg IV started on [10/28?. Will discontinue after today's dose ? D4 Zosyn 3.375 Mg IV Q8 hourly started on [10/28? 3. Neutropenia 4. Pancytopenia 5. CLL past medical history of CLL which was diagnosed in 2021 in [place] for which she underwent 4 sessions of chemotherapy and was in remission. However she had recurrence of this year in April and underwent 6 sessions of chemotherapy with the last session on 10/27. Received 1 dose of filgrastim on 10/28 Hb 9.5, WBC 1.5, PLT 55 ANC 1.05 No need for any further doses of filgrastim at this point 6. NSTEMI likely type II On 10/30 patient developed an episode of chest pain which resolved after a few minutes. EKG was done which showed sinus rhythm, rate 69 with moderate interventricular delay. No acute ST changes noted Troponin was elevated at 1.218 and down trended to 0.973 Likely demand ischemia in setting of sepsis and CAP. Plan: ? Continue ASA 81 Mg p.o. daily ? Cardiology, Dr. Hay consulted. Appreciate recommendations 7. Newly diagnosed systolic congestive heart failure with mildly reduced EF [45%] Patient did not have a prior history of heart failure and on exam she appears euvolemic. She currently complains of mild SOB and a cough but this is likely due to CAP and possible COPD due to extensive smoking history. On admission BNP 190 Previous echo from 03/31/2024 showed stage I diastolic dysfunction with EF 55-60% Transthoracic echocardiogram completed on 10/28/2024 findings include: Normal LV size. Mild systolic dysfunction. Estimated EF around 45% Irregular rhythm and cannot determine diastolic dysfnction. Normal RV size and function. Estimated RVSP 39mmHg. mild PAH Mild MR, TR. IVC mildly dilated. Plan: ? Systolic dysfunction likely due to septic shock. Will reassess after sepsis resolves. ? If patient actually has heart failure will need to start on GDMT at some point. However as patient recently came off of pressors and blood pressures hypotensive at this point we will hold off for now. 7. Ex smoker 8. Possible COPD Patient has an extensive [id number] smoking history. On exam patient has decreased breath sounds with scattered wheezes throughout lung morales Plan: ? DuoNebs as needed ? For PFTs as outpatient Health maintenance: Disposition: On IV antibiotics for CAP, nebulizers and breathing treatments Diet: Thick regular Lines: pIVs GI Prophylaxis: None Thrombo Prophylaxis: SCDs Code status: FULL CODE Plan of care discussed with Attending Dr. Nieves and PGY2 Dr. Franco Jenkins MD PGY 1 Attending Provider Attestation/Addendum I have discussed and was present for the essential components of the history, physical examination, diagnosis, and treatment plan with the resident. I agree with the patient's care as documented by the resident and amended herein by me. Dylan Nieves, DO. Patient seen and evaluated this AM. In Short, patient is a 73-year-old female, with a significant past medical history of CLL, initially diagnosed 2021, status postchemotherapy was in remission however due to recurrence, started additional chemotherapy in April 2024 here to [facility] cancer center. Last chemo on 10/27/2024. Patient presented to the ED with complaints of SOB, initially admitted to the ICU for septic shock secondary to CAP, patient found to be leukopenic and neutropenic on arrival. Interval Hx: 10/31: No acute events overnight, vital signs stable, patient afebrile. Significant labs including uptrending WBC at 1.5 today, hemoglobin stable at 9.5, platelet count low at 55, neutrophil count 1.1 which is also uptrending, lymphopenia at 0.1. BMP significant for a normal sodium potassium, chloride 111, BUN 30, creatinine 0.9, T. bili 0.9, AST 41, ALT 105 which is down trended, last troponin down trended to 0.973, UA on 10/28 was negative, stool WBC 1+ on 10/29, echo demonstrated EF 45% SIGNIFICANT PROBLEM LIST: #Septic shock secondary to community-acquired pneumonia?resolved #Likely secondary to gram-negative bacteria #Bacteremia, gram-negative bacteria, speciation pending #Pancytopenia ISO chemotherapy for CLL #History of CLL #NSTEMI, type II secondary to demand ischemia PLAN: Will continue to follow blood cultures, will also continue Zosyn for now and de- escalate when able, 1 dose of filgrastim given on 10/28 which is improved the patient's leukopenia, will continue aspirin 81 mg daily, cardiology consulted, appreciate recommendations. MEDICATIONS: Aspirin 81 mg daily Calcium carbonate 600 mg daily Magnesium hydroxide 30 mL p.o. daily as needed Nitroglycerin sublingual as needed Zosyn 3.375 g every 8 hours Although this document has been carefully reviewed, there may still be some phonetic and other typographical errors. These errors are purely grammatical due to imperfections in the software program and should not be construed in any way to compromise the substance of the patient's medical care during this visit.
--- NOTE | 2024-10-31 09:29 | PD.IMCONS ---
HPI Data of Consult Requesting Physician: Corey Nieves DO Primary Care Provider: Ellie Christensen PA-C Consult Narrative History of present illness: This is a 73-year-old female with PMx of CLL which was diagnosed in 2021 in [place] , s/p chemotherap at [facility] , admitted with pneumonia and sepsis currently elevated troponin noted at 1.2 cardiology consulted EKG unremarkable for acute changes echo EF 45% cc:: cc: Corey Nieves DO Meds Home Medications and Allergies Home Medications ?Medication ?Instructions ?Recorded ?Confirmed ?Type budesonide 160 mcg-glycopyr 9 2 puff inhalation BID 10/31/24 10/31/24 History mcg-formot 4.8 mcg/actuation HFA inhaler ([employer]) Allergies Allergy/AdvReac Type Severity Reaction Status Date / Time No Known Allergies Allergy Verified 02/25/24 14:30 Exam Vital Signs Temp Pulse Resp BP Pulse Ox O2 Del Method O2 Flow Rate 97.6 F 70 18 113/74 99 Nasal Cannula 2 10/31/24 07:47 10/31/24 08:00 10/31/24 07:47 10/31/24 07:47 10/31/24 07:47 10/31/24 07:47 10/31/24 07:47 FiO2 25 10/30/24 06:43 Routine HEENT Exam Head: Present normocephalic and atraumatic Eye: Present EOMI and PERRL ENT: Present mucous membranes moist Routine Neck Exam Neck: Present supple and trachea midline Routine Respiratory Exam Respiratory: Present chest non-tender, lungs clear, normal breath sounds and no resp distress Routine Cardiovascular Exam Cardiovascular: Present RRR Routine Abdominal Exam Abdominal: Present soft and normoactive bowel sounds Routine Extremities Exam Extremities: Present full ROM Routine Skin Exam Skin: Present intact, dry and warm Results Labs 10/31/24 05:00 10/31/24 04:50 Labs: Short CBC 10/31/24 Range/Units 05:00 WBC 1.5 L D (3.6-11.0) Thou/mm3 Hgb 9.5 L (12.0-16.0) g/dL Hct 27.9 L (36.0-46.0) % Plt Count 55 L (140-440) Thou/mm3 BMP 10/31/24 04:50 Sodium 142 Potassium 3.5 Chloride 111 H Carbon Dioxide 20.2 BUN 30 H Creatinine 0.9 Glucose 92 Calcium 8.8 Cardiac Enzymes 10/30/24 10/30/24 10/30/24 Range/Units 13:08 15:25 19:36 Troponin I 1.218 H* 1.285 H* 1.153 H* (0.0-0.045) ng/mL 10/31/24 Range/Units 00:28 Troponin I 0.973 H* (0.0-0.045) ng/mL Liver Function 10/31/24 Range/Units 04:50 Total Bilirubin 0.9 (0.3-1.2) mg/dL AST 41 H (0-34) U/L ALT 105 H (10-49) U/L Alkaline Phosphatase 102 D (46-116) U/L Albumin 3.4 (3.4-4.8) gm/dL ABG Interpretation ABG results: 10/28/24 10/28/24 10/29/24 14:28 18:16 10:50 ABG pH 7.30 L 7.35 ABG pCO2 41 32 ABG pO2 78 L 72 L ABG HCO3 20 18 L ABG O2 Saturation 95 95 ABG Base Excess -6 L -7 L VBG pH 7.29 L VBG pCO2 32 L VBG pO2 55 VBG Base Excess -10 L 10/30/24 04:06 ABG pH 7.34 L ABG pCO2 31 L ABG pO2 80 L ABG HCO3 17 L ABG O2 Saturation 96 ABG Base Excess -8 L VBG pH VBG pCO2 VBG pO2 VBG Base Excess Assessment and Plan Assessment and plan (1) Bilateral pneumonia: Status: Acute (2) Acute renal failure: Status: Acute (3) Septic shock: Status: Acute (4) Neutropenic sepsis: Status: Acute (5) Acute hypoxic respiratory failure: Status: Acute (6) Elevated troponin: Status: Acute Additional Assessment & Plan Additional Plan: pt troponin mostlikely due to demand ischemia doubt acute coronary syndrome Echo shows EF 45% continue treatment for pneumonia / CLL Procedures Arterial Line Size (Gauge): 20
[2024-10-31 10:18] LABS: Vancomycin,Trough 12.8 mcg/mL (5.0-10.0)
--- NOTE | 2024-10-31 13:41 | CHAP ---
09:30 AM Visited by spiritual care volunteer Provided prayer for Patient.
[2024-10-31] MEDS: SENNA TABLET 1 TAB PO (15:52)
[2024-10-31] MEDS: guaiFENesin/DM TABLET 1 EACH PO ×2 (15:52→20:39)
[2024-10-31] MEDS: AZITHROMYCIN INJ 500 MG in SODIUM CHLORIDE 0.9% 250 ML 250 ML 250 MG IV (16:48)
[2024-11-01] VITALS (15 sets, daily range): BP systolic 126–153; BP diastolic 57–84; PULSE 70–84; RESP 16–26; TEMP 36.3–36.8; O2SAT 97–100; BMI 31.6; BMI 31.8
[2024-11-01] MEDS: ALBUTEROL/IPRATROPIUM (Duoneb) RT SOL 3 ML NEBU INH ×4 (01:04→18:45)
[2024-11-01] MEDS: PIPER/TAZO 3.375 GM 50 ML IV (05:10)
--- NOTE | 2024-11-01 05:48 | PC.NURSE ---
Dr [place] notified of pt heart rate jumping to 180 momentarily, HR did not sustain and pt had no complaints. No new orders at this time
[2024-11-01 05:49] LABS: Basophils % (Auto) 0 % (0-2.5); Eosinophils % (Auto) 0 % (0-10); Hematocrit 30.9 % (36.0-46.0); Hemoglobin 10.1 g/dL (12.0-16.0); Immature Granulocytes % (Auto) 7 % (0-0); Immature Granulocytes Auto 0.43 Thou/mm3 (0.00-0.00); Lymphocytes # (Auto) 0.1 Thou/mm3 (1.0-4.8); Lymphocytes % (Auto) 2 % (10-50); Mean Corpuscular HGB Conc 32.7 g/dl (31.0-37.0); Mean Corpuscular Hemoglobin 32.1 pg (25.0-35.0); Mean Corpuscular Volume 98 fL (80-100); Monocytes # (Auto) 0.5 Thou/mm3 (0.0-0.8); Monocytes % (Auto) 8 % (0-12); Neutrophils % (Auto) 83 % (37-80); Nucleated Red Blood Cell % 0 /100 WBC (0); Platelet Count 51 Thou/mm3 (140-440); RDW Standard Deviation 58.4 fL (36.4-46.3); Red Blood Count 3.15 Miln/mm3 (4.00-5.20)
[2024-11-01 06:20] LABS: Alanine Aminotransferase 75 U/L (10-49); Albumin, Serum 3.4 gm/dL (3.4-4.8); Albumin/Globulin Ratio 2.3 (1.2-2.2); Alkaline Phosphatase 117 U/L (46-116); Anion Gap 8 (7-16); Aspartate Amino Transferase 21 U/L (0-34); BUN/Creatinine Ratio 31 Ratio (12-20); Bilirubin,Total 0.9 mg/dL (0.3-1.2); Blood Urea Nitrogen 25 mg/dL (9-23); Calcium 9.1 mg/dL (8.3-10.6); Calcium (Corrected) 9.6 mg/dL (8.5-10.1); Carbon Dioxide 23.9 mMol/L (20.0-31.0); Chloride 112 mMol/L (98-107); Creatinine (Component) 0.8 mg/dL (0.6-1.3); Globulin 1.5 gm/dL (2.3-3.5); Glucose 73 mg/dL (74-106); Magnesium 2.1 mg/dL (1.6-2.6); Osmolality,Calculated 290 (275-295); Phosphorous 2.1 mg/dL (2.4-5.1); Potassium 3.4 mMol/L (3.4-5.1); Sodium 144 mMol/L (136-145); Total Protein 4.9 gm/dL (5.7-8.2); eGFR > 60 See Note
[2024-11-01 06:22] LABS: Slide Review Platelets confirmed
[2024-11-01] MEDS: NAPH,KPH MBDB 1 PACKET (1.5 GM) PO (08:35)
[2024-11-01] MEDS: ASPIRIN EC 81 MG TABEC PO (08:36)
[2024-11-01] MEDS: guaiFENesin/DM TABLET 1 EACH PO ×2 (08:36→20:28)
[2024-11-01] MEDS: CALCIUM CARBONATE 600 MG TABLET PO (08:36)
[2024-11-01] MEDS: ACETAMINOPHEN 325 MG TABLET 650 MG PO (08:36)
--- NOTE | 2024-11-01 11:19 | ESPR_ITS ---
<Statement entered by Ean Gamez MD - 11/01/24 14:31> Patient was seen and examined at the bedside. Patient was moving better since yesterday and was more oriented. Blood cultures grew H. influenzae covering with Zosyn. Repeat blood cultures are negative. Absolute neutrophil count and white count improved. No fever spikes were reported. No acute overnight reported. She had some mild oral sores for which we gave Chloraseptic. Hemoglobin was stable. Electrolytes were repleted. Will likely de-escalate antibiotic tomorrow and discharge likely tomorrow. All labs and orders were reviewed. I saw and examined the patient, and I agree with current management stated by Dr Gregory MD,PGY1. Plan of care was discussed with the attending physician and resident physician. Disclaimer: Despite multiple revisions, due to the dictation software being used, the document bellow may not be free of grammatical errors including phonetic/typographic errors. However, this does not deter from our commitment to providing health care in the patient's best interest in mind. Dr. Franco MD, PGY 2 Documentation for date of: 11/01/24 Subjective Subjective Interval history: Patient is [place]-speaking and the interaction was facilitated by healthcare japanese interpreter. Patient was seen and examined at bedside this AM. No acute exents overnight. Patient tolerating regular diet with thickened liquids, adequate urine output and mentation is at baseline. Patient complains of cough this morning and oral ulcers with dry and cracked lips Blood culture from 10/28 grew haemophilus influenza sensitive to ampicillin, cefuroxime and levofloxacin. Blood cultures were repeated today Will discontinue Zosyn IV today and start levofloxacin 750 Mg p.o. daily. K3.4 and Phos 2.1. Patient repleted with 1 packet of Neutra-Phos Exam Vital Signs Temp Pulse Resp BP Pulse Ox O2 Del Method O2 Flow Rate 97.3 F 74 20 153/84 H 98 Nasal Cannula 2 11/01/24 11:05 11/01/24 11:05 11/01/24 11:05 11/01/24 11:05 11/01/24 11:05 11/01/24 11:05 11/01/24 11:05 FiO2 25 10/30/24 06:43 Narrative Exam Constitutional Alert, oriented x 3 and comfortable. Elderly female on O2 via NC. HEENT Vision grossly intact. Patent nares. Trachea midline Respiratory Right chemo therapy port noted and decreased air entry at bases with scattered wheeze Cardiovascular S1 and S2 audible, RRR. No murmurs carotid bruit. No gross JVD. Abdominal Soft, obese and non tender to palpation in all quadrants. BS + Genitourinary No bladder tenderness, no flank pain. Normal to palpation Musculoskeletal Extremities tone within normal limits. No LE edema. Neurological CN II - XII grossly intact. Extremity motor and sensation grossly intact. Skin Warm, dry and intact. No apparent lesions. Psychiatric Patient has good affect, is cooperative Objective Labs 11/02/24 04:53 11/02/24 04:53 Labs: Laboratory Results - last 24 hr 11/01/24 04:22 WBC 6.0 D RBC 3.15 L Hgb 10.1 L Hct 30.9 L MCV 98 MCH 32.1 MCHC 32.7 RDW Std Deviation 58.4 H Plt Count 51 L Neut % (Auto) 83 H Lymph % (Auto) 2 L [place] % (Auto) 8 Eos % (Auto) 0 Baso % (Auto) 0 Neut # (Auto) 5.0 Lymph # (Auto) 0.1 L [place] # (Auto) 0.5 Eos # (Auto) 0.0 Baso # (Auto) 0.0 Immature Gran # (Auto) 0.43 H Absolute Nucleated RBC 0.00 Immature Gran % 7 H Nucleated RBC % 0 Sodium 144 Potassium 3.4 Chloride 112 H Carbon Dioxide 23.9 Anion Gap 8 BUN 25 H Creatinine 0.8 Estim Creat Clear Calc 59.0 L eGFR > 60 BUN/Creatinine Ratio 31 H Glucose 73 L Calculated Osmolality 290 Calcium 9.1 Corrected Calcium 9.6 Phosphorus 2.1 L Magnesium 2.1 Total Bilirubin 0.9 AST 21 ALT 75 H Alkaline Phosphatase 117 H Total Protein 4.9 L Albumin 3.4 Globulin 1.5 L Albumin/Globulin Ratio 2.3 H Misc Test Result Platelets confirmed ABG Interpretation ABG results: 10/28/24 10/28/24 10/29/24 14:28 18:16 10:50 ABG pH 7.30 L 7.35 ABG pCO2 41 32 ABG pO2 78 L 72 L ABG HCO3 20 18 L ABG O2 Saturation 95 95 ABG Base Excess -6 L -7 L VBG pH 7.29 L VBG pCO2 32 L VBG pO2 55 VBG Base Excess -10 L 10/30/24 04:06 ABG pH 7.34 L ABG pCO2 31 L ABG pO2 80 L ABG HCO3 17 L ABG O2 Saturation 96 ABG Base Excess -8 L VBG pH VBG pCO2 VBG pO2 VBG Base Excess Quality Measures Quality Measures sepsis Current suspected stage: sepsis Possible source: pulmonary Blood cultures ordered: completed in ED Antibiotic ordered: Yes Advance care planning discussed with:: patient Assessment & Plan Assessment Current Active Medications: Generic Name Dose Route Start Last Admin Trade Name Freq PRN Reason Stop Dose Admin Acetaminophen 650 mg 10/28/24 13:57 11/01/24 08:36 Acetaminophen 325 Mg Tablet PO 11/27/24 13:56 650 mg Q4HR PRN Administration PAIN SCALE 1-3 (mild Acetaminophen 650 mg 10/28/24 13:57 Acetaminophen Supp 650 Mg Supp OK 11/27/24 13:56 Q4HR PRN PAIN SCALE 1-3 (mild Al Hydrox/Mg Hydrox/Simethicone 30 ml 10/28/24 13:57 Mg Hyd/Al Hyd/Osmany (Maalox Reg) Susp 30 Ml Udc PO 11/27/24 13:56 Q4HR PRN Heartburn or Upset Stomach Albuterol/Ipratropium 3 ml 10/28/24 19:00 11/01/24 06:37 Albuterol/Ipratropium (Duoneb) Rt Asha 3 Ml Nebu INH 11/27/24 18:59 3 ml Q6HRRT REBEKAH Administration Aspirin 81 mg 10/30/24 15:15 11/01/24 08:36 Aspirin Ec 81 Mg Tabec PO 11/29/24 15:14 81 mg QDAY REBEKAH Administration Calcium Carbonate 600 mg 10/28/24 16:15 11/01/24 08:36 Calcium Carbonate 600 Mg Tablet PO 11/27/24 16:14 600 mg QDAY REBEKAH Administration Guaifenesin/Dextromethorphan 1 each 10/31/24 14:00 11/01/24 08:36 Guaifenesin/Dm Tablet PO 11/30/24 13:59 1 each BID REBEKAH Administration Piperacillin/Tazobactam/Dextrose 50 mls @ 12.5 mls/hr 10/28/24 22:00 11/01/24 05:10 Zosyn IV 11/04/24 21:59 12.5 mls/hr Q8HR REBEKAH Administration Magnesium Hydroxide 30 ml 10/28/24 13:57 Milk Of Magnesia Susp 30 Ml Udc PO 11/27/24 13:56 QDAY PRN CONSTIPATION Nitroglycerin 0.4 mg 10/28/24 13:57 Nitroglycerin 0.4 Mg Subl Btl #25 SL Q5MIN PRN CHEST PAIN Ondansetron HCl 4 mg 10/28/24 14:17 10/28/24 14:22 Ondansetron Inj 2 Mg/Ml Inj 2 Ml IV 11/27/24 14:16 4 mg Q4H PRN Administration NAUSEA OR VOMITING Protocol Sennosides 1 tab 10/31/24 14:00 11/01/24 08:29 Senna Tablet PO 11/30/24 13:59 Not Given QDAY [facility] Protocol Plan Ms. Mars Quinonez is a 73-year-old female who is a [place]-speaking and majority of history is taken from daughter at bedside , patient's past medical history is significant for CLL which was diagnosed in 2021 in [place] for which she underwent 4 cycles of chemotherapy in [place]. Patient remained in remission and April 2024 patient started additional 6 sessions of chemo as [facility]. Patient's last chemo session was yesterday 10/27/2024. Patient presented to the ED complaining of shortness of breath. She was admitted to the ICU for treatment and management of septic shock secondary to community-acquired pneumonia. 1. Septic shock secondary to community-acquired pneumonia?resolved 2. Community-acquired pneumonia?resolving 3. Haemophilus influenza bacteremia She presented with progressively worsening shortness of breath and was admitted for septic shock secondary to community-acquired pneumonia. In the ED she received 4L IVF bolus and was started on Levophed, vasopressin and hydrocortisone. Her CXR was significant for bibasilar consolidation Curb- 65: 4 points; consider inpatient treatment with possible ICU admission PSI/port score: 145 points; risk class V. Hospitalization recommended based on risk Initially patient was on blood pressure support with Levophed, vasopressin and hydrocortisone. Hydrocortisone was weaned off on 10/29 and Levophed and vasopressin were weaned off 10/30. Currently BP 113/79 with MAP >65 MRSA screen negative Received 3 days of vancomycin IV from 10/28 - 10-30 Received 4 days of azithromycin 500 Mg IV daily from 10/28 - 10/31 Received 5 days Zosyn 3.375 Mg IV Q8 hourly from 10/28 - 11/01 Patient complains of cough this morning and oral ulcers with dry and cracked lips Blood culture from 10/28 grew haemophilus influenza sensitive to ampicillin, cefuroxime and levofloxacin. Blood cultures were repeated today Will discontinue Zosyn IV today and start levofloxacin 750 Mg p.o. daily. K3.4 and Phos 2.1. Patient repleted with 1 packet of Neutra-Phos Plan: ? Continue to monitor vitals ? Repeat blood culture ordered ? Continue guaifenesin 1 tab p.o. twice daily for mucus congestion ? DuoNebs as needed for congestion ? Chest physiotherapy ? Incentive spirometer ? Discontinued Zosyn 3.375 Mg IV Q8 hourly started on [10/28?11/01] ? Started on levofloxacin 750 Mg p.o. daily for 9 days to complete on 11/09 for a total of 14 days of treatment for GNR bacteremia 4. Neutropenia?resolved 5. Pancytopenia 6. CLL past medical history of CLL which was diagnosed in 2021 in [place] for which she underwent 4 sessions of chemotherapy and was in remission. However she had recurrence of this year in April and underwent 6 sessions of chemotherapy with the last session on 10/27. Received 1 dose of filgrastim on 10/28 Hb 9.5, WBC 1.5, PLT 55 ANC 1.05 No need for any further doses of filgrastim at this point 7. NSTEMI likely type II On 10/30 patient developed an episode of chest pain which resolved after a few minutes. EKG was done which showed sinus rhythm, rate 69 with moderate interventricular delay. No acute ST changes noted Troponin was elevated at 1.218 and down trended to 0.973 Likely demand ischemia in setting of sepsis and CAP. Plan: ? Continue ASA 81 Mg p.o. daily ? Cardiology, Dr. Hay consulted. Appreciate recommendations 8. Newly diagnosed systolic congestive heart failure with mildly reduced EF [45%] Patient did not have a prior history of heart failure and on exam she appears euvolemic. She currently complains of mild SOB and a cough but this is likely due to CAP and possible COPD due to extensive smoking history. On admission BNP 190 Previous echo from 03/31/2024 showed stage I diastolic dysfunction with EF 55-60% Transthoracic echocardiogram completed on 10/28/2024 findings include: Normal LV size. Mild systolic dysfunction. Estimated EF around 45% Irregular rhythm and cannot determine diastolic dysfnction. Normal RV size and function. Estimated RVSP 39mmHg. mild PAH Mild MR, TR. IVC mildly dilated. Plan: ? Systolic dysfunction likely due to septic shock. Will reassess after sepsis resolves. ? If patient actually has heart failure will need to start on GDMT at some point. However as patient recently came off of pressors and blood pressures hypotensive at this point we will hold off for now. 9. Ex smoker 10. Possible COPD Patient has an extensive [id number] smoking history. On exam patient has decreased breath sounds with scattered wheezes throughout lung morales Plan: ? DuoNebs as needed ? For PFTs as outpatient 11. Oral ulcers Possibly due to recent chemotherapy last session on 10/27 Plan: ? Start on Magic mouthwash [viscous lidocaine/Benadryl syrup/Maalox/nystatin suspension] ? Start on benzocaine topical for cracked lips Health maintenance: Disposition: On p.o. antibiotics for CAP, nebulizers and breathing treatments. Anticipate discharge within the next 24 to 48 hours Diet: Thick regular Lines: pIVs GI Prophylaxis: None Thrombo Prophylaxis: SCDs Code status: FULL CODE Plan of care discussed with Attending Dr. Nieves and PGY2 Dr. Franco Jenkins MD PGY 1 Attending Provider Attestation/Addendum I have discussed and was present for the essential components of the history, physical examination, diagnosis, and treatment plan with the resident. I agree with the patient's care as documented by the resident and amended herein by me. Dylan Nieves DO. Although this document has been carefully reviewed, there may still be some phonetic and other typographical errors. These errors are purely grammatical due to imperfections in the software program and should not be construed in any way to compromise the substance of the patient's medical care during this visit.
[2024-11-01] MEDS: LEVOFLOXACIN 250 MG TABLET 750 MG PO (12:36)
[2024-11-01] MEDS: MG HYD/AL HYD/SIME (Maalox Reg) SUSP 30 ML UDC PO ×2 (13:22→17:58)
[2024-11-01] MEDS: LIDOCAINE VISCOUS 2% 15 ML UDC 10 ML PO ×2 (13:22→17:57)
[2024-11-01] MEDS: DiphenhydrAMINE ELIX 25 MG/10 ML UDC PO ×2 (13:22→17:57)
[2024-11-01] MEDS: NYSTATIN SUSP 5 ML UDC 10 ML PO ×2 (13:31→17:58)
[2024-11-02] VITALS (11 sets, daily range): BP systolic 125–151; BP diastolic 80–95; PULSE 74–124; RESP 17–36; TEMP 36.3–37.2; O2SAT 91–99; BMI 32.3; BMI 11.0
[2024-11-02] MEDS: ALBUTEROL/IPRATROPIUM (Duoneb) RT SOL 3 ML NEBU INH ×4 (01:26→19:13)
[2024-11-02 05:34] LABS: Basophils % (Auto) 0 % (0-2.5); Eosinophils % (Auto) 0 % (0-10); Hematocrit 31.6 % (36.0-46.0); Hemoglobin 10.4 g/dL (12.0-16.0); Immature Granulocytes % (Auto) 8 % (0-0); Immature Granulocytes Auto 1.03 Thou/mm3 (0.00-0.00); Lymphocytes # (Auto) 0.2 Thou/mm3 (1.0-4.8); Lymphocytes % (Auto) 2 % (10-50); Mean Corpuscular HGB Conc 32.9 g/dl (31.0-37.0); Mean Corpuscular Hemoglobin 32.2 pg (25.0-35.0); Mean Corpuscular Volume 98 fL (80-100); Monocytes # (Auto) 0.4 Thou/mm3 (0.0-0.8); Monocytes % (Auto) 3 % (0-12); Neutrophils # (Auto) 11.2 Thou/mm3 (1.8-7.7); Neutrophils % (Auto) 87 % (37-80); Nucleated Red Blood Cell % 0 /100 WBC (0); RDW Standard Deviation 57.6 fL (36.4-46.3); Red Blood Count 3.23 Miln/mm3 (4.00-5.20); White Blood Count 12.9 Thou/mm3 (3.6-11.0)
[2024-11-02 05:40] LABS: Platelet Count 56 Thou/mm3 (140-440); Slide Review Platelets confirmed
[2024-11-02 06:30] LABS: Alanine Aminotransferase 49 U/L (10-49); Albumin, Serum 3.1 gm/dL (3.4-4.8); Albumin/Globulin Ratio 2.2 (1.2-2.2); Alkaline Phosphatase 141 U/L (46-116); Anion Gap 9 (7-16); Aspartate Amino Transferase 14 U/L (0-34); BUN/Creatinine Ratio 25 Ratio (12-20); Bilirubin,Total 0.6 mg/dL (0.3-1.2); Blood Urea Nitrogen 15 mg/dL (9-23); Calcium 8.8 mg/dL (8.3-10.6); Calcium (Corrected) 9.5 mg/dL (8.5-10.1); Carbon Dioxide 22.7 mMol/L (20.0-31.0); Chloride 110 mMol/L (98-107); Creatinine (Component) 0.6 mg/dL (0.6-1.3); Estimated Creatinine Clearance 79.5 mL/min (>60); Globulin 1.4 gm/dL (2.3-3.5); Glucose 75 mg/dL (74-106); Magnesium 1.6 mg/dL (1.6-2.6); Osmolality,Calculated 282 (275-295); Phosphorous 2.4 mg/dL (2.4-5.1); Potassium 3.2 mMol/L (3.4-5.1); Sodium 142 mMol/L (136-145); Total Protein 4.5 gm/dL (5.7-8.2); eGFR > 60 See Note
--- NOTE | 2024-11-02 08:29 | ESPR_ITS ---
<Statement entered by Ean Gamez MD - 11/02/24 12:49> Patient was seen and examined at the bedside. Patient reported that she feels generalized weakness however has been feeling better. She did not had a bowel movement today. Bowel regimen ordered. Her white count markedly increased today at 12.9. We called blood laboratory to evaluate for peripheral smear for any malignant cells. We are continuing Levaquin for now for H. influenzae bacteremia. 60 mEq KCl was repleted x 1. Repeat blood cultures showing no growth for first 24 hours. Repleted other electrolytes as well. Discontinued Hale catheter today. All labs and orders were reviewed. I saw and examined the patient, and I agree with current management stated by Dr Gregory MD,PGY1. Plan of care was discussed with the attending physician and resident physician. Disclaimer: Despite multiple revisions, due to the dictation software being used, the document bellow may not be free of grammatical errors including phonetic/typographic errors. However, this does not deter from our commitment to providing health care in the patient's best interest in mind. Dr. Farnco MD, PGY 2 Documentation for date of: 11/02/24 Subjective Subjective Interval history: Patient is Ecuadorean-speaking and the interaction was facilitated by healthcare spine surgeon. Patient was seen and examined at bedside this AM. No acute exents overnight. Patient tolerating minimal regular diet with thickened liquids, adequate urine output and mentation is at baseline. Patient says her cough is unchanged from yesterday. Still complains of difficulty to eat due to pain from oral ulcers. Patient on D2 levofloxacin 750mg p.o. daily started on 11/01 to complete on 11/09 for total of 14-day course for bacteremia treatment. Repeat blood culture taken on 11/01 showed no bacterial growth x 1 day WBC up trended to 12.9 from 6. Patient was given 1 dose of filgrastim on 10/28. Blood smear was ordered Will discontinue urinary catheter and commence voiding trial. K3.2 and Mg 1.6. Patient repleted with KCl 60 mEq p.o. x 1 and magnesium sulfate 2 g IV x 1 Exam Vital Signs Temp Pulse Resp BP Pulse Ox O2 Del Method O2 Flow Rate 98.5 F 86 18 129/89 H 94 L Nasal Cannula 2 11/02/24 07:11 11/02/24 07:11 11/02/24 07:11 11/02/24 07:11 11/02/24 07:11 11/02/24 07:11 11/02/24 07:11 FiO2 25 10/30/24 06:43 Narrative Exam Constitutional Alert, oriented x 3 and comfortable. Elderly female on O2 via NC. HEENT Vision grossly intact. Patent nares. Trachea midline Respiratory Right chemo therapy port noted and decreased air entry at bases with no wheezing Cardiovascular S1 and S2 audible, RRR. No murmurs carotid bruit. No gross JVD. Abdominal Soft, obese and non tender to palpation in all quadrants. BS + Genitourinary No bladder tenderness, no flank pain. Normal to palpation Musculoskeletal Extremities tone within normal limits. No LE edema. Neurological CN II - XII grossly intact. Extremity motor and sensation grossly intact. Skin Warm, dry and intact. No apparent lesions. Psychiatric Patient has good affect, is cooperative Objective Labs 11/02/24 04:53 11/02/24 04:53 Labs: Laboratory Results - last 24 hr 11/02/24 04:53 WBC 12.9 H D RBC 3.23 L Hgb 10.4 L Hct 31.6 L MCV 98 MCH 32.2 MCHC 32.9 RDW Std Deviation 57.6 H Plt Count 56 L Neut % (Auto) 87 H Lymph % (Auto) 2 L Ogle % (Auto) 3 Eos % (Auto) 0 Baso % (Auto) 0 Neut # (Auto) 11.2 H Lymph # (Auto) 0.2 L Ogle # (Auto) 0.4 Eos # (Auto) 0.0 Baso # (Auto) 0.0 Immature Gran # (Auto) 1.03 H Absolute Nucleated RBC 0.00 Immature Gran % 8 H Nucleated RBC % 0 Sodium 142 Potassium 3.2 L Chloride 110 H Carbon Dioxide 22.7 Anion Gap 9 BUN 15 Creatinine 0.6 Estim Creat Clear Calc 79.5 eGFR > 60 BUN/Creatinine Ratio 25 H Glucose 75 Calculated Osmolality 282 Calcium 8.8 Corrected Calcium 9.5 Phosphorus 2.4 Magnesium 1.6 Total Bilirubin 0.6 AST 14 ALT 49 Alkaline Phosphatase 141 H D Total Protein 4.5 L Albumin 3.1 L Globulin 1.4 L Albumin/Globulin Ratio 2.2 Misc Test Result Platelets confirmed ABG Interpretation ABG results: 10/28/24 10/28/24 10/29/24 14:28 18:16 10:50 ABG pH 7.30 L 7.35 ABG pCO2 41 32 ABG pO2 78 L 72 L ABG HCO3 20 18 L ABG O2 Saturation 95 95 ABG Base Excess -6 L -7 L VBG pH 7.29 L VBG pCO2 32 L VBG pO2 55 VBG Base Excess -10 L 10/30/24 04:06 ABG pH 7.34 L ABG pCO2 31 L ABG pO2 80 L ABG HCO3 17 L ABG O2 Saturation 96 ABG Base Excess -8 L VBG pH VBG pCO2 VBG pO2 VBG Base Excess Quality Measures Quality Measures sepsis Current suspected stage: sepsis Possible source: pulmonary Blood cultures ordered: completed in ED Antibiotic ordered: Yes Advance care planning discussed with:: patient Assessment & Plan Assessment Current Active Medications: Generic Name Dose Route Start Last Admin Trade Name Freq PRN Reason Stop Dose Admin Acetaminophen 650 mg 10/28/24 13:57 11/01/24 08:36 Acetaminophen 325 Mg Tablet PO 11/27/24 13:56 650 mg Q4HR PRN Administration PAIN SCALE 1-3 (mild Acetaminophen 650 mg 10/28/24 13:57 Acetaminophen Supp 650 Mg Supp NC 11/27/24 13:56 Q4HR PRN PAIN SCALE 1-3 (mild Al Hydrox/Mg Hydrox/Simethicone 30 ml 10/28/24 13:57 Mg Hyd/Al Hyd/Osmany (Maalox Reg) Susp 30 Ml Udc PO 11/27/24 13:56 Q4HR PRN Heartburn or Upset Stomach Al Hydrox/Mg Hydrox/Simethicone 30 ml 11/01/24 12:34 11/01/24 17:58 Mg Hyd/Al Hyd/Osmany (Maalox Reg) Susp 30 Ml Udc PO 12/01/24 12:33 30 ml TIDWM REBEKAH Administration Albuterol/Ipratropium 3 ml 10/28/24 19:00 11/02/24 06:35 Albuterol/Ipratropium (Duoneb) Rt Asha 3 Ml Nebu INH 11/27/24 18:59 3 ml Q6HRRT REBEKAH Administration Aspirin 81 mg 10/30/24 15:15 11/01/24 08:36 Aspirin Ec 81 Mg Tabec PO 11/29/24 15:14 81 mg QDAY REBEKAH Administration Benzocaine 0 gm 11/01/24 11:48 Benzocaine Gel 10% 5.3 Gm Tube TOP 12/01/24 11:47 QID PRN Cracked Lips Calcium Carbonate 600 mg 10/28/24 16:15 11/01/24 08:36 Calcium Carbonate 600 Mg Tablet PO 11/27/24 16:14 600 mg QDAY REBEKAH Administration Diphenhydramine HCl 25 mg 11/01/24 12:45 11/01/24 17:57 Diphenhydramine Elix 25 Mg/10 Ml Udc PO 12/01/24 12:44 25 mg TIDWM REBEKAH Administration Guaifenesin/Dextromethorphan 1 each 10/31/24 14:00 11/01/24 20:28 Guaifenesin/Dm Tablet PO 11/30/24 13:59 1 each BID REBEKAH Administration Magnesium Sulfate 4 gm in 50 mls @ 12.5 mls/hr 11/02/24 08:30 Magnesium Sulfate Ivpb IV 11/02/24 12:29 X1 ONE Levofloxacin 750 mg 11/01/24 12:15 11/01/24 12:36 Levofloxacin 250 Mg Tablet PO 11/08/24 12:14 750 mg DAILY REBEKAH Administration Lidocaine HCl 10 ml 11/01/24 12:45 11/01/24 17:57 Lidocaine Viscous 2% 15 Ml Udc PO 12/01/24 12:44 10 ml TIDWM REBEKAH Administration Magnesium Hydroxide 30 ml 10/28/24 13:57 Milk Of Magnesia Susp 30 Ml Udc PO 11/27/24 13:56 QDAY PRN CONSTIPATION Nitroglycerin 0.4 mg 10/28/24 13:57 Nitroglycerin 0.4 Mg Subl Btl #25 SL Q5MIN PRN CHEST PAIN Nystatin 10 ml 11/01/24 12:45 11/01/24 17:58 Nystatin Susp 5 Ml Udc PO 11/08/24 12:44 10 ml TIDWM REBEKAH Administration Protocol Ondansetron HCl 4 mg 10/28/24 14:17 10/28/24 14:22 Ondansetron Inj 2 Mg/Ml Inj 2 Ml IV 11/27/24 14:16 4 mg Q4H PRN Administration NAUSEA OR VOMITING Protocol Sennosides 1 tab 10/31/24 14:00 11/01/24 08:29 Senna Tablet PO 11/30/24 13:59 Not Given QDAY [facility] Protocol Plan Ms. Mars Quinonez is a 73-year-old female who is a Ecuadorean-speaking and majority of history is taken from daughter at bedside , patient's past medical history is significant for CLL which was diagnosed in 2021 in [place] for which she underwent 4 cycles of chemotherapy in [place]. Patient remained in remission and April 2024 patient started additional 6 sessions of chemo as [facility] cancer center. Patient's last chemo session was yesterday 10/27/2024. Patient presented to the ED complaining of shortness of breath. She was admitted to the ICU for treatment and management of septic shock secondary to community-acquired pneumonia. 1. Septic shock secondary to community-acquired pneumonia?resolved 2. Community-acquired pneumonia?resolving 3. Haemophilus influenza bacteremia She presented with progressively worsening shortness of breath and was admitted for septic shock secondary to community-acquired pneumonia. In the ED she received 4L IVF bolus and was started on Levophed, vasopressin and hydrocortisone. Her CXR was significant for bibasilar consolidation Curb- 65: 4 points; consider inpatient treatment with possible ICU admission PSI/port score: 145 points; risk class V. Hospitalization recommended based on risk Initially patient was on blood pressure support with Levophed, vasopressin and hydrocortisone. Hydrocortisone was weaned off on 10/29 and Levophed and vasopressin were weaned off 10/30. Currently BP 113/79 with MAP >65 MRSA screen negative Received 3 days of vancomycin IV from 10/28 - 10-30 Received 4 days of azithromycin 500 Mg IV daily from 10/28 - 10/31 Received 5 days Zosyn 3.375 Mg IV Q8 hourly from 10/28 - 11/01 Patient tolerating minimal regular diet with thickened liquids, adequate urine output and mentation is at baseline. Patient says her cough is unchanged from yesterday. Still complains of difficulty to eat due to pain from oral ulcers. Plan: ? Continue to monitor vitals ? Continue guaifenesin 1 tab p.o. twice daily for mucus congestion ? DuoNebs as needed for congestion ? Chest physiotherapy ? Incentive spirometer - Pending 48 hour Blood culture results from 11/01. Once clear can discharge patient on po antibiotics to complete course ? D2 levofloxacin 750 Mg p.o. daily for 9 days to complete on 11/09 for a total of 14 days of treatment for GNR bacteremia 4. Neutropenia?resolved 5. Pancytopenia 6. CLL 7. Leukocytosis past medical history of CLL which was diagnosed in 2021 in [place] for which she underwent 4 sessions of chemotherapy and was in remission. However she had recurrence of this year in April and underwent 6 sessions of chemotherapy with the last session on 10/27. Received 1 dose of filgrastim on 10/28 No need for any further doses of filgrastim at this point Hb 9.5, PLT 55, WBC 1.5 ---> 12.9 ANC 1.05 Leukocytosis most likely secondary to Filgrastin 8. NSTEMI likely type II On 10/30 patient developed an episode of chest pain which resolved after a few minutes. EKG was done which showed sinus rhythm, rate 69 with moderate interventricular delay. No acute ST changes noted Troponin was elevated at 1.218 and down trended to 0.973 Likely demand ischemia in setting of sepsis and CAP. Plan: ? Continue ASA 81 Mg p.o. daily ? Cardiology, Dr. Hay consulted. Appreciate recommendations 9. Newly diagnosed systolic congestive heart failure with mildly reduced EF [45%] Patient did not have a prior history of heart failure and on exam she appears euvolemic. She currently complains of mild SOB and a cough but this is likely due to CAP and possible COPD due to extensive smoking history. On admission BNP 190 Previous echo from 03/31/2024 showed stage I diastolic dysfunction with EF 55-60% Transthoracic echocardiogram completed on 10/28/2024 findings include: Normal LV size. Mild systolic dysfunction. Estimated EF around 45% Irregular rhythm and cannot determine diastolic dysfnction. Normal RV size and function. Estimated RVSP 39mmHg. mild PAH Mild MR, TR. IVC mildly dilated. Plan: ? Systolic dysfunction likely due to septic shock. Will reassess after sepsis resolves. ? If patient actually has heart failure will need to start on GDMT at some point. However as patient recently came off of pressors and blood pressures hypotensive at this point we will hold off for now. 10. Ex smoker 11. Possible COPD Patient has an extensive [id number] smoking history. On exam patient has decreased breath sounds with scattered wheezes throughout lung morales Plan: ? DuoNebs as needed ? For PFTs as outpatient 12. Oral ulcers Possibly due to recent chemotherapy last session on 10/27 Plan: ? Continue Magic mouthwash [viscous lidocaine/Benadryl syrup/Maalox/nystatin suspension] ? Continue benzocaine topical for cracked lips Health maintenance: Diet: Thick regular Lines: pIVs GI Prophylaxis: None Thrombo Prophylaxis: SCDs Code status: FULL CODE Disposition: On p.o. antibiotics for CAP, nebulizers and breathing treatments. P ending 48 hour Blood culture results from 11/01. Once clear can discharge patient on po antibiotics to complete course. Anticipate discharge within the next 24 to 48 hours Plan of care discussed with Attending Dr. Nieves and PGY2 Dr. Franco Jenkins MD PGY 1 Attending Provider Attestation/Addendum I have discussed and was present for the essential components of the history, physical examination, diagnosis, and treatment plan with the resident. I agree with the patient's care as documented by the resident and amended herein by me. Dylan Nieves, DO. In short, patient is a 73-year-old female with significant past medical history of CLL, diagnosed in 2021 for which she previously underwent 4 cycles of chemotherapy at that location however the remission ended in April 2024, patient started an additional 6 sessions of chemotherapy here at [facility] cancer center, last session was 10/27/2024. Patient presented to ED complaining of shortness of breath, subsequently admitted to the ICU for septic shock secondary to Pneumonia with subsequent leukopenia/neutropenia No acute events overnight, vital signs stable, patient afebrile, presently on nasal cannula 2 L, SpO2 94%. Significant labs include an uptrending WBC which may be secondary to filgrastim previously given in ICU, hemoglobin stable at 10.4, platelet count stable at 56, absolute neutrophil count 11.2, lymphocytes remain low, normal sodium, potassium 3.2 today. Recent echo on 10/28 demonstrated an estimated EF of 45%, normal LV size, mild systolic dysfunction. Initial blood cultures on 10/28 demonstrated haemophilus influenza, repeat blood cultures negative, MRSA nares screen negative SIGNIFICANT PROBLEM LIST/PLAN: #Septic shock secondary to Community-acquired pneumonia/bacteremia?resolved #Bacteremia secondary to haemophilus influenza #Community-acquired pneumonia?improved #Neutropenia resolved ? Continue levofloxacin 750 mg p.o. daily, treatment duration 7 to 14 days, will probably err on a longer duration considering comorbidities #NSTEMI, likely type II secondary to demand ischemia #Newly diagnosed HFmEF, EF 45% -Cardiology consulted, appreciate recommendations -Continue ASA 81 mg daily -Heart failure measures Although this document has been carefully reviewed, there may still be some phonetic and other typographical errors. These errors are purely grammatical due to imperfections in the software program and should not be construed in any way to compromise the substance of the patient's medical care during this visit.
[2024-11-02] MEDS: MG HYD/AL HYD/SIME (Maalox Reg) SUSP 30 ML UDC PO ×3 (08:58→17:19)
[2024-11-02] MEDS: NYSTATIN SUSP 5 ML UDC 10 ML PO ×3 (08:58→17:18)
[2024-11-02] MEDS: DiphenhydrAMINE ELIX 25 MG/10 ML UDC PO ×3 (08:58→17:19)
[2024-11-02] MEDS: POTASSIUM CHLORIDE 20 mEq TABCR PO (09:07)
[2024-11-02] MEDS: POTASSIUM CHLORIDE 20 mEq TABCR 40 MEQ PO (09:07)
[2024-11-02] MEDS: guaiFENesin/DM TABLET 1 EACH PO ×2 (09:08→20:01)
[2024-11-02] MEDS: LEVOFLOXACIN 250 MG TABLET 750 MG PO (09:08)
[2024-11-02] MEDS: CALCIUM CARBONATE 600 MG TABLET PO (09:08)
[2024-11-02] MEDS: ASPIRIN EC 81 MG TABEC PO (09:08)
[2024-11-02] MEDS: SENNA TABLET 1 TAB PO ×2 (09:09→13:59)
[2024-11-02] MEDS: Magnesium Sulfate 4 GM Ivpb 4 GM/50 ML BAG IV (09:16)
[2024-11-02] MEDS: NAPH,KPH MBDB 1 PACKET (1.5 GM) PO (09:16)
[2024-11-02] MEDS: LIDOCAINE VISCOUS 2% 15 ML UDC 10 ML PO ×3 (09:17→17:18)
[2024-11-02] MEDS: POLYETHYLENE GLYCOL 17 GM PACKET PO (13:59)
[2024-11-03] VITALS (10 sets, daily range): BP systolic 131–150; BP diastolic 62–102; PULSE 70–117; RESP 18–26; TEMP 36.2–37.4; O2SAT 95–100
[2024-11-03] MEDS: ALBUTEROL/IPRATROPIUM (Duoneb) RT SOL 3 ML NEBU INH ×4 (00:45→18:25)
[2024-11-03 06:30] LABS: Alanine Aminotransferase 36 U/L (10-49); Albumin, Serum 3.3 gm/dL (3.4-4.8); Albumin/Globulin Ratio 2.5 (1.2-2.2); Alkaline Phosphatase 138 U/L (46-116); Anion Gap 7 (7-16); Aspartate Amino Transferase 16 U/L (0-34); BUN/Creatinine Ratio 17 Ratio (12-20); Bilirubin,Total 0.6 mg/dL (0.3-1.2); Blood Urea Nitrogen 10 mg/dL (9-23); Calcium 8.6 mg/dL (8.3-10.6); Calcium (Corrected) 9.2 mg/dL (8.5-10.1); Carbon Dioxide 24.3 mMol/L (20.0-31.0); Chloride 108 mMol/L (98-107); Creatinine (Component) 0.6 mg/dL (0.6-1.3); Estimated Creatinine Clearance 80.9 mL/min (>60); Globulin 1.3 gm/dL (2.3-3.5); Glucose 109 mg/dL (74-106); Magnesium 1.8 mg/dL (1.6-2.6); Osmolality,Calculated 277 (275-295); Potassium 3.8 mMol/L (3.4-5.1); Sodium 139 mMol/L (136-145); Total Protein 4.6 gm/dL (5.7-8.2); eGFR > 60 See Note
[2024-11-03] MEDS: NYSTATIN SUSP 5 ML UDC 10 ML PO ×3 (08:15→17:00)
[2024-11-03] MEDS: LEVOFLOXACIN 250 MG TABLET 750 MG PO (08:15)
[2024-11-03] MEDS: SENNA TABLET 1 TAB PO (08:15)
[2024-11-03] MEDS: CALCIUM CARBONATE 600 MG TABLET PO (08:15)
[2024-11-03] MEDS: guaiFENesin/DM TABLET 1 EACH PO ×2 (08:15→20:36)
[2024-11-03] MEDS: ASPIRIN EC 81 MG TABEC PO (08:15)
[2024-11-03] MEDS: LIDOCAINE VISCOUS 2% 15 ML UDC 10 ML PO ×3 (08:16→17:01)
[2024-11-03] MEDS: DiphenhydrAMINE ELIX 25 MG/10 ML UDC PO ×3 (08:16→17:00)
[2024-11-03] MEDS: MG HYD/AL HYD/SIME (Maalox Reg) SUSP 30 ML UDC PO ×3 (08:17→17:01)
[2024-11-03 08:21] LABS: Basophils # (Auto) 0.1 Thou/mm3 (0.0-0.2); Basophils % (Auto) 1 % (0-2.5); Eosinophils % (Auto) 0 % (0-10); Hematocrit 31.8 % (36.0-46.0); Hemoglobin 10.9 g/dL (12.0-16.0); Immature Granulocytes % (Auto) 3 % (0-0); Immature Granulocytes Auto 0.31 Thou/mm3 (0.00-0.00); Lymphocytes # (Auto) 0.5 Thou/mm3 (1.0-4.8); Lymphocytes % (Auto) 5 % (10-50); Mean Corpuscular HGB Conc 34.3 g/dl (31.0-37.0); Mean Corpuscular Hemoglobin 32.6 pg (25.0-35.0); Mean Corpuscular Volume 95 fL (80-100); Monocytes # (Auto) 0.5 Thou/mm3 (0.0-0.8); Monocytes % (Auto) 4 % (0-12); Neutrophils # (Auto) 9.2 Thou/mm3 (1.8-7.7); Neutrophils % (Auto) 87 % (37-80); Nucleated Red Blood Cell % 0 /100 WBC (0); Platelet Count 73 Thou/mm3 (140-440); RDW Standard Deviation 55.5 fL (36.4-46.3); Red Blood Count 3.34 Miln/mm3 (4.00-5.20); White Blood Count 10.6 Thou/mm3 (3.6-11.0)
[2024-11-03 08:22] LABS: Slide Review Platelets confirmed
--- NOTE | 2024-11-03 11:30 | CHAP ---
Patient was visited by the Spiritual Care Volunteer who prayed for them. Volunteer jonathan in the hospital from c10:00-11:30)
--- NOTE | 2024-11-03 14:18 | ESPR_ITS ---
Documentation for date of: 11/03/24 Subjective - Hospitalist Subjective Interval history: Patient seen and evaluated this AM. She states that she is feeling improved. No acute events overnight. Pt remains on 1L/NC. She reports mild shortness of breath and persistent productive cough. She otherwise denies any fevers, chills, nausea, vomiting or chest pain. Exam Vital Signs Temp Pulse Resp BP Pulse Ox O2 Del Method O2 Flow Rate 98 F 73 26 H 131/102 H 99 Nasal Cannula 2 11/03/24 12:00 11/03/24 13:00 11/03/24 13:00 11/03/24 12:00 11/03/24 13:00 11/03/24 12:00 11/03/24 13:00 FiO2 2 11/03/24 00:00 Narrative Gen: No acute distress HEENT: NCAT, PERRLOU, Sclera anicteric, conjunctiva noninjected, oral mucosa moist without erythema Neck: Supple, full range of motion, no LAD CV: RRR, no murmurs, rubs or gallops Resp: scattered rhonchi in b/l lung morales GI: abdomen soft, bowel sounds noted, no tenderness to palpation, no guarding or rebound tenderness, no organomegaly Skin: port noted in right upper chest - CDI, clean, dry, no rashes, lesions or ecchymosis Ext: no clubbing, cyanosis, or edema Neuro: A&O x3, CN II- XII intact b/l, no focal neurological deficits Objective - Hospitalist Labs Diagram: 11/03/24 07:41 11/03/24 07:41 Labs: Laboratory Results - last 24 hr 11/03/24 07:41 WBC 10.6 RBC 3.34 L Hgb 10.9 L Hct 31.8 L MCV 95 MCH 32.6 MCHC 34.3 RDW Std Deviation 55.5 H Plt Count 73 L D Neut % (Auto) 87 H Lymph % (Auto) 5 L Treasure % (Auto) 4 Eos % (Auto) 0 Baso % (Auto) 1 Neut # (Auto) 9.2 H Lymph # (Auto) 0.5 L Treasure # (Auto) 0.5 Eos # (Auto) 0.0 Baso # (Auto) 0.1 Immature Gran # (Auto) 0.31 H Absolute Nucleated RBC 0.00 Immature Gran % 3 H Nucleated RBC % 0 Sodium 139 Potassium 3.8 D Chloride 108 H Carbon Dioxide 24.3 Anion Gap 7 BUN 10 Creatinine 0.6 Estim Creat Clear Calc 80.9 eGFR > 60 BUN/Creatinine Ratio 17 Glucose 109 H Calculated Osmolality 277 Calcium 8.6 Corrected Calcium 9.2 Phosphorus 3.0 Magnesium 1.8 Total Bilirubin 0.6 AST 16 ALT 36 Alkaline Phosphatase 138 H Total Protein 4.6 L Albumin 3.3 L Globulin 1.3 L Albumin/Globulin Ratio 2.5 H Misc Test Result Platelets confirmed ABG Interpretation ABG results: 10/28/24 10/28/24 10/29/24 14:28 18:16 10:50 ABG pH 7.30 L 7.35 ABG pCO2 41 32 ABG pO2 78 L 72 L ABG HCO3 20 18 L ABG O2 Saturation 95 95 ABG Base Excess -6 L -7 L VBG pH 7.29 L VBG pCO2 32 L VBG pO2 55 VBG Base Excess -10 L 10/30/24 04:06 ABG pH 7.34 L ABG pCO2 31 L ABG pO2 80 L ABG HCO3 17 L ABG O2 Saturation 96 ABG Base Excess -8 L VBG pH VBG pCO2 VBG pO2 VBG Base Excess Assessment & Plan Patient Synopsis Ms. Mars Quinonez is a 73-year-old female who is a Russian-speaking and majority of history is taken from daughter at bedside , patient's past medical history is significant for CLL which was diagnosed in 2021 in [place] for which she underwent 4 cycles of chemotherapy in [place]. Patient remained in remission and April 2024 patient started additional 6 sessions of chemo as [facility] center. Patient's last chemo session was yesterday 10/27/2024. Patient presented to the ED complaining of shortness of breath. She was admitted to the ICU for treatment and management of septic shock secondary to community-acquired pneumonia. 1. Septic shock secondary to community-acquired pneumonia?resolved 2. Community-acquired pneumonia?resolving 3. Haemophilus influenza bacteremia She presented with progressively worsening shortness of breath and was admitted for septic shock secondary to community-acquired pneumonia. In the ED she received 4L IVF bolus and was started on Levophed, vasopressin and hydrocortisone. Her CXR was significant for bibasilar consolidation Curb- 65: 4 points; consider inpatient treatment with possible ICU admission PSI/port score: 145 points; risk class V. Hospitalization recommended based on risk Initially patient was on blood pressure support with Levophed, vasopressin and hydrocortisone. Hydrocortisone was weaned off on 10/29 and Levophed and vasopressin were weaned off 10/30. Currently BP 113/79 with MAP >65 MRSA screen negative Received 3 days of vancomycin IV from 10/28 - 10-30 Received 4 days of azithromycin 500 Mg IV daily from 10/28 - 10/31 Received 5 days Zosyn 3.375 Mg IV Q8 hourly from 10/28 - 11/01 Patient tolerating minimal regular diet with thickened liquids, adequate urine output and mentation is at baseline. Patient says her cough is unchanged from yesterday. Still complains of difficulty to eat due to pain from oral ulcers. Plan: ? Continue to monitor vitals ? Continue guaifenesin 1 tab p.o. twice daily for mucus congestion ? DuoNebs as needed for congestion ? Chest physiotherapy - BCx NGTD x 48hrs from 11/01 ? Continue levofloxacin 750 Mg p.o. daily for 9 days to complete on 11/09 for a total of 14 days of treatment for GNR bacteremia - patient continues to be short of breath with persistent cough, will start benzonatate scheduled and titrate O2 as tolerated - Encouraged IS 4. Neutropenia?resolved 5. Pancytopenia 6. CLL 7. Leukocytosis past medical history of CLL which was diagnosed in 2021 in [place] for which she underwent 4 sessions of chemotherapy and was in remission. However she had recurrence of this year in April and underwent 6 sessions of chemotherapy with the last session on 10/27. Received 1 dose of filgrastim on 10/28 No need for any further doses of filgrastim at this point Hb 9.5, PLT 55, WBC 1.5 ---> 12.9 ANC 1.05 Leukocytosis most likely secondary to Filgrastin 8. NSTEMI likely type II On 10/30 patient developed an episode of chest pain which resolved after a few minutes. EKG was done which showed sinus rhythm, rate 69 with moderate interventricular delay. No acute ST changes noted Troponin was elevated at 1.218 and down trended to 0.973 Likely demand ischemia in setting of sepsis and CAP. Plan: ? Continue ASA 81 Mg p.o. daily ? Cardiology, Dr. Hay consulted. Appreciate recommendations 9. Newly diagnosed systolic congestive heart failure with mildly reduced EF [45%] Patient did not have a prior history of heart failure and on exam she appears euvolemic. She currently complains of mild SOB and a cough but this is likely due to CAP and possible COPD due to extensive smoking history. On admission BNP 190 Previous echo from 03/31/2024 showed stage I diastolic dysfunction with EF 55-60% Transthoracic echocardiogram completed on 10/28/2024 findings include: Normal LV size. Mild systolic dysfunction. Estimated EF around 45% Irregular rhythm and cannot determine diastolic dysfnction. Normal RV size and function. Estimated RVSP 39mmHg. mild PAH Mild MR, TR. IVC mildly dilated. Plan: ? Systolic dysfunction likely due to septic shock. Will reassess after sepsis resolves. ? If patient actually has heart failure will need to start on GDMT at some point. However as patient recently came off of pressors and blood pressures hypotensive at this point we will hold off for now. 10. Hx of tobacco use 11. Possible COPD Patient has an extensive [id number] smoking history. On exam patient has decreased breath sounds with scattered wheezes throughout lung morales Plan: ? DuoNebs as needed ? Need to f/u with pulmonology for PFTs as outpatient 12. Oral ulcers Possibly due to recent chemotherapy last session on 10/27 Plan: ? Continue Magic mouthwash [viscous lidocaine/Benadryl syrup/Maalox/nystatin suspension] ? Continue benzocaine topical for cracked lips Health maintenance: Diet: Thick regular Lines: pIVs GI Prophylaxis: None Thrombo Prophylaxis: SCDs Code status: FULL CODE Disposition: Patient remains on supplemental O2 of 1L/NC with persistent productive cough. Encouraged IS and scheduled tessalon perles. Titrate O2 as tolerated. Continue with levofloxacin. Anticipate DC within next 24hrs if patient remains stable. Time Spent with Patient Time: Total time spent is greater than 50% in coordination of care (as documented) at patient's floor/unit and/or counseling patient: Time with patient: 25 - 35 minutes Reason for Continued Stay Reason for continued stay: further monitoring and acute resp. failure Quality Measures Quality Measures sepsis Current suspected stage: sepsis Possible source: pulmonary Blood cultures ordered: completed in ED Antibiotic ordered: Yes Advance care planning discussed with:: patient
--- NOTE | 2024-11-03 14:29 | PC.SS ---
Rounding note: patient not ready for discharge, anticipate one more day before discharge.
[2024-11-03] MEDS: BENZONATATE 100 MG CAPSULE 200 MG PO (22:45)
[2024-11-04] VITALS (15 sets, daily range): BP systolic 113–139; BP diastolic 64–77; PULSE 77–121; RESP 15–26; TEMP 36.2–37; O2SAT 93–100; BMI 33.4
[2024-11-04] MEDS: ALBUTEROL/IPRATROPIUM (Duoneb) RT SOL 3 ML NEBU INH ×6 (01:00→23:40)
[2024-11-04] MEDS: BENZONATATE 100 MG CAPSULE 200 MG PO ×3 (06:08→22:05)
[2024-11-04 07:04] LABS: Alanine Aminotransferase 25 U/L (10-49); Albumin, Serum 3.1 gm/dL (3.4-4.8); Albumin/Globulin Ratio 2.2 (1.2-2.2); Alkaline Phosphatase 136 U/L (46-116); Anion Gap 6 (7-16); Aspartate Amino Transferase 16 U/L (0-34); BUN/Creatinine Ratio 16 Ratio (12-20); Bilirubin,Total 0.6 mg/dL (0.3-1.2); Blood Urea Nitrogen 8 mg/dL (9-23); Calcium 8.8 mg/dL (8.3-10.6); Calcium (Corrected) 9.5 mg/dL (8.5-10.1); Carbon Dioxide 26.8 mMol/L (20.0-31.0); Chloride 106 mMol/L (98-107); Creatinine (Component) 0.5 mg/dL (0.6-1.3); Globulin 1.4 gm/dL (2.3-3.5); Glucose 116 mg/dL (74-106); Magnesium 1.8 mg/dL (1.6-2.6); Osmolality,Calculated 276 (275-295); Phosphorous 3.2 mg/dL (2.4-5.1); Potassium 3.8 mMol/L (3.4-5.1); Sodium 139 mMol/L (136-145); Total Protein 4.5 gm/dL (5.7-8.2); eGFR > 60 See Note
[2024-11-04] MEDS: CALCIUM CARBONATE 600 MG TABLET PO (09:12)
[2024-11-04] MEDS: guaiFENesin/DM TABLET 1 EACH PO ×2 (09:13→20:37)
[2024-11-04] MEDS: LEVOFLOXACIN 250 MG TABLET 750 MG PO (09:13)
[2024-11-04] MEDS: ASPIRIN EC 81 MG TABEC PO (09:13)
[2024-11-04] MEDS: SENNA TABLET 1 TAB PO (09:13)
[2024-11-04] MEDS: MG HYD/AL HYD/SIME (Maalox Reg) SUSP 30 ML UDC PO ×3 (09:14→17:38)
[2024-11-04] MEDS: LIDOCAINE VISCOUS 2% 15 ML UDC 10 ML PO ×3 (09:14→17:38)
[2024-11-04] MEDS: NYSTATIN SUSP 5 ML UDC 10 ML PO ×3 (09:14→17:37)
[2024-11-04] MEDS: DiphenhydrAMINE ELIX 25 MG/10 ML UDC PO ×3 (09:15→17:38)
[2024-11-04 09:33] LABS: Basophils # (Auto) 0.1 Thou/mm3 (0.0-0.2); Basophils % (Auto) 1 % (0-2.5); Eosinophils % (Auto) 0 % (0-10); Hematocrit 32.4 % (36.0-46.0); Hemoglobin 10.9 g/dL (12.0-16.0); Immature Granulocytes % (Auto) 2 % (0-0); Immature Granulocytes Auto 0.12 Thou/mm3 (0.00-0.00); Lymphocytes # (Auto) 0.6 Thou/mm3 (1.0-4.8); Lymphocytes % (Auto) 8 % (10-50); Mean Corpuscular HGB Conc 33.6 g/dl (31.0-37.0); Mean Corpuscular Hemoglobin 32.6 pg (25.0-35.0); Mean Corpuscular Volume 97 fL (80-100); Monocytes # (Auto) 0.4 Thou/mm3 (0.0-0.8); Monocytes % (Auto) 5 % (0-12); Neutrophils % (Auto) 84 % (37-80); Nucleated Red Blood Cell % 0 /100 WBC (0); Platelet Count 84 Thou/mm3 (140-440); RDW Standard Deviation 57.4 fL (36.4-46.3); Red Blood Count 3.34 Miln/mm3 (4.00-5.20); White Blood Count 7.1 Thou/mm3 (3.6-11.0)
[2024-11-04] MEDS: ACETYLCYSTEINE RT SOL 10% 4 ML NEBU 3 ML INH ×4 (10:14→23:40)
--- NOTE | 2024-11-04 11:51 | PC.CM ---
received faxed HH order from Dr. Andres. Entered pt. on [facility].
--- NOTE | 2024-11-04 11:55 | ESPR_ITS ---
Documentation for date of: 11/04/24 Subjective Subjective Interval history: Patient was seen and examined at the bedside. Patient reported as she feels short of breath and have pleuritic chest pain which worsens with deep breathing. She was having productive cough while talking. Blood cultures have been negative. Will keep her for 1 more day to help her with infection and cough resolution. Increase chest physiotherapy to every 4 hourly with Mucomyst and breathing treatments scheduled. Patient's daughter was present at the bedside and she was explained that we will keep her 1 more day and anticipate discharge tomorrow to home with home health. All labs and orders were reviewed. Exam Vital Signs Temp Pulse Resp BP Pulse Ox O2 Del Method O2 Flow Rate 97.2 F 99 26 H 139/77 H 99 Nasal Cannula 1 11/04/24 07:45 11/04/24 10:15 11/04/24 10:15 11/04/24 07:45 11/04/24 10:15 11/04/24 07:45 11/04/24 10:15 FiO2 2 11/03/24 00:00 Narrative Exam Gen: Patient is AAOx3 ill-appearing in mild discomfort due to cough HEENT: NCAT, JUAN, EOMI, MMM, no JVD CVS: Normal S1, S2. RRR. No MRG Resp: Bilateral decreased breath sounds on bases on auscultation Abd: Soft, non-tender, non-distended. BS+ MSK: Moves extremities x4, no edema or rash noted Neuro: glass sagger grossly normal. No focal deficits noted. Psych: Appropriate mood and affect Objective Labs 11/05/24 04:26 11/05/24 04:26 Labs: Laboratory Results - last 24 hr 11/04/24 11/04/24 05:58 08:46 WBC 7.1 RBC 3.34 L Hgb 10.9 L Hct 32.4 L MCV 97 MCH 32.6 MCHC 33.6 RDW Std Deviation 57.4 H Plt Count 84 L Neut % (Auto) 84 H Lymph % (Auto) 8 L Davie % (Auto) 5 Eos % (Auto) 0 Baso % (Auto) 1 Neut # (Auto) 6.0 Lymph # (Auto) 0.6 L Davie # (Auto) 0.4 Eos # (Auto) 0.0 Baso # (Auto) 0.1 Immature Gran # (Auto) 0.12 H Absolute Nucleated RBC 0.00 Immature Gran % 2 H Nucleated RBC % 0 Sodium 139 Potassium 3.8 Chloride 106 Carbon Dioxide 26.8 Anion Gap 6 L BUN 8 L Creatinine 0.5 L Estim Creat Clear Calc 97.0 eGFR > 60 BUN/Creatinine Ratio 16 Glucose 116 H Calculated Osmolality 276 Calcium 8.8 Corrected Calcium 9.5 Phosphorus 3.2 Magnesium 1.8 Total Bilirubin 0.6 AST 16 ALT 25 Alkaline Phosphatase 136 H Total Protein 4.5 L Albumin 3.1 L Globulin 1.4 L Albumin/Globulin Ratio 2.2 ABG Interpretation ABG results: 10/28/24 10/28/24 10/29/24 14:28 18:16 10:50 ABG pH 7.30 L 7.35 ABG pCO2 41 32 ABG pO2 78 L 72 L ABG HCO3 20 18 L ABG O2 Saturation 95 95 ABG Base Excess -6 L -7 L VBG pH 7.29 L VBG pCO2 32 L VBG pO2 55 VBG Base Excess -10 L 10/30/24 04:06 ABG pH 7.34 L ABG pCO2 31 L ABG pO2 80 L ABG HCO3 17 L ABG O2 Saturation 96 ABG Base Excess -8 L VBG pH VBG pCO2 VBG pO2 VBG Base Excess Quality Measures Quality Measures sepsis Current suspected stage: sepsis Possible source: pulmonary Blood cultures ordered: completed in ED Antibiotic ordered: Yes Advance care planning discussed with:: patient Assessment & Plan Assessment Current Active Medications: Generic Name Dose Route Start Last Admin Trade Name Freq PRN Reason Stop Dose Admin Acetaminophen 650 mg 10/28/24 13:57 11/01/24 08:36 Acetaminophen 325 Mg Tablet PO 11/27/24 13:56 650 mg Q4HR PRN Administration PAIN SCALE 1-3 (mild Acetaminophen 650 mg 10/28/24 13:57 Acetaminophen Supp 650 Mg Supp MS 11/27/24 13:56 Q4HR PRN PAIN SCALE 1-3 (mild Acetylcysteine 3 ml 11/04/24 11:00 11/04/24 10:14 Acetylcysteine Rt Asha 10% 4 Ml Nebu INH 12/04/24 10:59 3 ml Q4HRRT REBEKAH Administration Al Hydrox/Mg Hydrox/Simethicone 30 ml 10/28/24 13:57 Mg Hyd/Al Hyd/Osmany (Maalox Reg) Susp 30 Ml Udc PO 11/27/24 13:56 Q4HR PRN Heartburn or Upset Stomach Al Hydrox/Mg Hydrox/Simethicone 30 ml 11/01/24 12:34 11/04/24 09:14 Mg Hyd/Al Hyd/Osmany (Maalox Reg) Susp 30 Ml Udc PO 12/01/24 12:33 30 ml TIDWM REBEKAH Administration Albuterol/Ipratropium 3 ml 11/04/24 11:00 11/04/24 10:15 Albuterol/Ipratropium (Duoneb) Rt Asha 3 Ml Nebu INH 12/04/24 10:59 3 ml Q4HRRT REBEKAH Administration Aspirin 81 mg 10/30/24 15:15 11/04/24 09:13 Aspirin Ec 81 Mg Tabec PO 11/29/24 15:14 81 mg QDAY REBEKAH Administration Benzocaine 0 gm 11/01/24 11:48 Benzocaine Gel 10% 5.3 Gm Tube TOP 12/01/24 11:47 QID PRN Cracked Lips Benzonatate 200 mg 11/03/24 22:00 11/04/24 06:08 Benzonatate 100 Mg Capsule PO 12/03/24 21:59 200 mg Q8HR REBEKAH Administration Protocol Calcium Carbonate 600 mg 10/28/24 16:15 11/04/24 09:12 Calcium Carbonate 600 Mg Tablet PO 11/27/24 16:14 600 mg QDAY REBEKAH Administration Diphenhydramine HCl 25 mg 11/01/24 12:45 11/04/24 09:15 Diphenhydramine Elix 25 Mg/10 Ml Udc PO 12/01/24 12:44 25 mg TIDWM REBEKAH Administration Guaifenesin/Dextromethorphan 1 each 10/31/24 14:00 11/04/24 09:13 Guaifenesin/Dm Tablet PO 11/30/24 13:59 1 each BID REBEKAH Administration Levofloxacin 750 mg 11/01/24 12:15 11/04/24 09:13 Levofloxacin 250 Mg Tablet PO 11/08/24 12:14 750 mg DAILY REBEKAH Administration Lidocaine HCl 10 ml 11/01/24 12:45 11/04/24 09:14 Lidocaine Viscous 2% 15 Ml Udc PO 12/01/24 12:44 10 ml TIDWM REBEKAH Administration Magnesium Hydroxide 30 ml 10/28/24 13:57 Milk Of Magnesia Susp 30 Ml Udc PO 11/27/24 13:56 QDAY PRN CONSTIPATION Nitroglycerin 0.4 mg 10/28/24 13:57 Nitroglycerin 0.4 Mg Subl Btl #25 SL Q5MIN PRN CHEST PAIN Nystatin 10 ml 11/01/24 12:45 11/04/24 09:14 Nystatin Susp 5 Ml Udc PO 11/08/24 12:44 10 ml TIDWM REBEKAH Administration Protocol Ondansetron HCl 4 mg 10/28/24 14:17 10/28/24 14:22 Ondansetron Inj 2 Mg/Ml Inj 2 Ml IV 11/27/24 14:16 4 mg Q4H PRN Administration NAUSEA OR VOMITING Protocol Sennosides 1 tab 10/31/24 14:00 11/04/24 09:13 Senna Tablet PO 11/30/24 13:59 1 tab QDAY REBEKAH Administration Protocol Plan Ms. Mars Quinonez is a 73-year-old female who is a Georgian-speaking and majority of history is taken from daughter at bedside , patient's past medical history is significant for CLL which was diagnosed in 2021 in [place] for which she underwent 4 cycles of chemotherapy in [place]. Patient remained in remission and April 2024 patient started additional 6 sessions of chemo as [facility]. Patient's last chemo session was yesterday 10/27/2024. Patient presented to the ED complaining of shortness of breath. She was admitted to the ICU for treatment and management of septic shock secondary to H. influenzae bacteremia which has resolved. Anticipating discharge tomorrow. # Septic shock secondary to community-acquired pneumonia?resolved # Community-acquired pneumonia?resolving # Haemophilus influenza bacteremia She presented with progressively worsening shortness of breath and was admitted for septic shock secondary to community-acquired pneumonia. In the ED she received 4L IVF bolus and was started on Levophed, vasopressin and hydrocortisone. Her CXR was significant for bibasilar consolidation Curb- 65: 4 points; consider inpatient treatment with possible ICU admission PSI/port score: 145 points; risk class V. Hospitalization recommended based on risk Initially patient was on blood pressure support with Levophed, vasopressin and hydrocortisone. Hydrocortisone was weaned off on 10/29 and Levophed and vasopressin were weaned off 10/30. Currently BP 113/79 with MAP >65 MRSA screen negative Received 3 days of vancomycin IV from 10/28 - 10-30 Received 4 days of azithromycin 500 Mg IV daily from 10/28 - 10/31 Received 5 days Zosyn 3.375 Mg IV Q8 hourly from 10/28 - 11/01 Patient tolerating minimal regular diet with thickened liquids, adequate urine output and mentation is at baseline. Patient says her cough is unchanged from yesterday. Still complains of difficulty to eat due to pain from oral ulcers. Plan: ? Keeping her for 1 more day for improvement in her cough ? Added chest PT Q4 hourly with Mucomyst before that every 4 hourly ? Continue to monitor vitals ? Continue guaifenesin 1 tab p.o. twice daily for mucus congestion ? DuoNebs as needed for congestion - BCx NGTD x 48hrs from 11/01 ? Continue levofloxacin 750 Mg p.o. daily for 9 days to complete on 11/09 for a total of 14 days of treatment for H. influenzae bacteremia - patient continues to be short of breath with persistent cough, will start benzonatate scheduled and titrate O2 as tolerated - Encouraged IS #Neutropenia?resolved #Pancytopenia #CLL #Leukocytosis past medical history of CLL which was diagnosed in 2021 in [place] for which she underwent 4 sessions of chemotherapy and was in remission. However she had recurrence of this year in April and underwent 6 sessions of chemotherapy with the last session on 10/27. Received 1 dose of filgrastim on 10/28 No need for any further doses of filgrastim at this point Hb 9.5, PLT 55, WBC 1.5 ---> 12.9 ANC 1.05 Leukocytosis most likely secondary to Filgrastin #NSTEMI likely type II On 10/30 patient developed an episode of chest pain which resolved after a few minutes. EKG was done which showed sinus rhythm, rate 69 with moderate interventricular delay. No acute ST changes noted Troponin was elevated at 1.218 and down trended to 0.973 Likely demand ischemia in setting of sepsis and CAP. Plan: ? Continue ASA 81 Mg p.o. daily ? Cardiology, Dr. Hay consulted. Appreciate recommendations #Newly diagnosed systolic congestive heart failure with mildly reduced EF [45%] Patient did not have a prior history of heart failure and on exam she appears euvolemic. She currently complains of mild SOB and a cough but this is likely due to CAP and possible COPD due to extensive smoking history. On admission BNP 190 Previous echo from 03/31/2024 showed stage I diastolic dysfunction with EF 55-60% Transthoracic echocardiogram completed on 10/28/2024 findings include: Normal LV size. Mild systolic dysfunction. Estimated EF around 45% Irregular rhythm and cannot determine diastolic dysfnction. Normal RV size and function. Estimated RVSP 39mmHg. mild PAH Mild MR, TR. IVC mildly dilated. Plan: ? Systolic dysfunction likely due to septic shock. Will reassess after sepsis resolves. ? If patient actually has heart failure will need to start on GDMT at some point. However as patient recently came off of pressors and blood pressures hypotensive at this point we will hold off for now. # Hx of tobacco use #Possible COPD Patient has an extensive [id number] smoking history. On exam patient has decreased breath sounds with scattered wheezes throughout lung morales Plan: ? DuoNebs as needed ? Need to f/u with pulmonology for PFTs as outpatient #Oral ulcers Possibly due to recent chemotherapy last session on 10/27 Plan: ? Continue Magic mouthwash [viscous lidocaine/Benadryl syrup/Maalox/nystatin suspension] ? Continue benzocaine topical for cracked lips Health maintenance: Diet: Thick regular Lines: pIVs GI Prophylaxis: None Thrombo Prophylaxis: SCDs Code status: FULL CODE Disposition: Patient remains on supplemental O2 of 1L/NC with persistent productive cough. Encouraged IS and scheduled tessalon perles. Titrate O2 as tolerated. Continue with levofloxacin. Anticipate DC within next 24hrs if patient remains stable. Added chest PT Q4 hourly with Mucomyst Q4 hourly Patient was seen and discussed with attending physician, Dr. Dmitry Gamez MD, PGY 2 Attending Provider Attestation/Addendum Marni, Katey Andres, DO, attest that I was physically present for the reaves portions of the service and evaluated the patient with the resident and I reviewed and discussed the case with the resident and agree with the resident's findings and plans of care as documented above Patient seen and evaluated this AM. Patient continues to have significant congestion and complains of cough and shortness of breath. She is currently on 1L/NC, but continues to have significant productive sputum and resports chest discomfort due to persistent cough. Will increase breathing treatments and chest PT. Patient will ultimately need home O2 and home health on discharge. Will continue to monitor closely O2 need as patient continues to have dyspnea. Afebrile otherwise.
--- NOTE | 2024-11-04 12:14 | PC.SS ---
The diagnosis creates mobility limitation that significantly impairs ability to participate in the patients activities of daily living either in their entirety, or in a reasonable time frame. Also the patient is able to safely use the walker and the patient?s mobility is sufficiently resolved with the use of the walker and cane has been ruled out.
--- NOTE | 2024-11-04 15:59 | PC.SS ---
Pt asking for walker; SS sent over request to [facility] and confirmed pt stated they have portable O2 at home ; uploaded all documents on [facility] SS confirmed family did not have preference for HH services SS spoke with [facility], confirmed she will send nasal cannala to pt home SS met pt bedside using all precautions; nurse assisted with translation and discussed with daughterAngela, confirmed O2 at home with provider being [facility]; questions about nasal cannala as last use was in May
[2024-11-04] MEDS: ACETAMINOPHEN 325 MG TABLET 650 MG PO (20:37)
[2024-11-05] VITALS (16 sets, daily range): BP systolic 132–144; BP diastolic 60–88; PULSE 70–108; RESP 1–23; TEMP 36.1–36.8; O2SAT 93–100; BMI 33.2
[2024-11-05] MEDS: ALBUTEROL/IPRATROPIUM (Duoneb) RT SOL 3 ML NEBU INH ×6 (03:46→22:36)
[2024-11-05] MEDS: ACETYLCYSTEINE RT SOL 10% 4 ML NEBU 3 ML INH ×3 (03:46→14:11)
[2024-11-05 05:00] LABS: Basophils % (Auto) 1 % (0-2.5); Eosinophils % (Auto) 0 % (0-10); Hematocrit 31.9 % (36.0-46.0); Hemoglobin 10.8 g/dL (12.0-16.0); Immature Granulocytes % (Auto) 2 % (0-0); Immature Granulocytes Auto 0.08 Thou/mm3 (0.00-0.00); Lymphocytes # (Auto) 0.6 Thou/mm3 (1.0-4.8); Lymphocytes % (Auto) 11 % (10-50); Mean Corpuscular HGB Conc 33.9 g/dl (31.0-37.0); Mean Corpuscular Hemoglobin 32.6 pg (25.0-35.0); Mean Corpuscular Volume 96 fL (80-100); Monocytes # (Auto) 0.3 Thou/mm3 (0.0-0.8); Monocytes % (Auto) 6 % (0-12); Neutrophils # (Auto) 4.2 Thou/mm3 (1.8-7.7); Neutrophils % (Auto) 81 % (37-80); Nucleated Red Blood Cell % 0 /100 WBC (0); Platelet Count 94 Thou/mm3 (140-440); RDW Standard Deviation 56.7 fL (36.4-46.3); Red Blood Count 3.31 Miln/mm3 (4.00-5.20); White Blood Count 5.2 Thou/mm3 (3.6-11.0)
[2024-11-05] MEDS: BENZONATATE 100 MG CAPSULE 200 MG PO ×3 (05:15→21:10)
[2024-11-05 05:24] LABS: Alanine Aminotransferase 18 U/L (10-49); Albumin, Serum 3.2 gm/dL (3.4-4.8); Albumin/Globulin Ratio 2.1 (1.2-2.2); Alkaline Phosphatase 119 U/L (46-116); Anion Gap 7 (7-16); Aspartate Amino Transferase 13 U/L (0-34); BUN/Creatinine Ratio 17 Ratio (12-20); Bilirubin,Total 0.5 mg/dL (0.3-1.2); Blood Urea Nitrogen 10 mg/dL (9-23); Calcium (Corrected) 9.6 mg/dL (8.5-10.1); Carbon Dioxide 29.3 mMol/L (20.0-31.0); Chloride 106 mMol/L (98-107); Creatinine (Component) 0.6 mg/dL (0.6-1.3); Estimated Creatinine Clearance 80.8 mL/min (>60); Globulin 1.5 gm/dL (2.3-3.5); Glucose 113 mg/dL (74-106); Magnesium 1.9 mg/dL (1.6-2.6); Osmolality,Calculated 283 (275-295); Phosphorous 3.6 mg/dL (2.4-5.1); Potassium 3.8 mMol/L (3.4-5.1); Sodium 142 mMol/L (136-145); Total Protein 4.7 gm/dL (5.7-8.2); eGFR > 60 See Note
[2024-11-05] MEDS: LIDOCAINE VISCOUS 2% 15 ML UDC 10 ML PO ×3 (08:28→17:49)
[2024-11-05] MEDS: MG HYD/AL HYD/SIME (Maalox Reg) SUSP 30 ML UDC PO ×3 (08:28→17:48)
[2024-11-05] MEDS: DiphenhydrAMINE ELIX 25 MG/10 ML UDC PO ×3 (08:28→17:49)
[2024-11-05] MEDS: NYSTATIN SUSP 5 ML UDC 10 ML PO ×3 (08:28→17:49)
[2024-11-05] MEDS: LEVOFLOXACIN 250 MG TABLET 750 MG PO (08:29)
[2024-11-05] MEDS: ASPIRIN EC 81 MG TABEC PO (08:29)
[2024-11-05] MEDS: CALCIUM CARBONATE 600 MG TABLET PO (08:29)
[2024-11-05] MEDS: guaiFENesin/DM TABLET 1 EACH PO ×2 (08:29→20:11)
[2024-11-05] MEDS: SENNA TABLET 1 TAB PO (08:29)
--- NOTE | 2024-11-05 10:16 | PD.RESDS ---
Planned Discharge Date 11/05/24 DS: Providers Provider Date of admission: 10/28/24 13:57 Primary care physician: Ellie Christensen PA-C Admitting Provider: Jeanette Lakhani MD Attending Provider on Admission: Corey Nieves DO Consults: 10/30/24 15:14 Consult to Cardiology Routine Comment: Consulting Provider: Mojgan Hay 10/31/24 13:57 PT [Referral Physical Therapy] Routine Comment: Physician Instructions: Instructions: Recently downgraded from ICU. Did not ambulate as yet. Baseline no assistive devices Attending Provider on DC: Jacques Jenkins MD Discharging Provider: Jacques Jenkins MD Hospital Course Hospital Course Hospital course: Patient was seen and examined at the bedside. Patient reported as she feels short of breath and have pleuritic chest pain which worsens with deep breathing. She was having productive cough while talking. Blood cultures have been negative. Will keep her for 1 more day to help her with infection and cough resolution. Increase chest physiotherapy to every 4 hourly with Mucomyst and breathing treatments scheduled. Patient's daughter was present at the bedside and she was explained that we will keep her 1 more day and anticipate discharge tomorrow to home with home health. All labs and orders were reviewed. Time Spent with Patient Time attestation: Total time spent providing and/or coordinating discharge services: Home Health Home Health Referral Orders: 11/04/24 11:28 Home Health Referral Routine Reason For Exam: neutropenic fever Home-Bound The patient must either because of illness or injury, need the aid of supportive devices such as crutches, canes, wheelchairs, and walkers; the use of special transportation; or the assistance of another person in order to leave their place of residence; OR have a condition such that leaving his or her home is medically contraindicated. In addition, the patient also meets the following criteria: patient is normally unable to leave the home and leaving home requires considerable taxing effort. Addendum to Home Health Certification Practitioner's Certification: I certify that the patient has been under my care in the hospital and the care of attending physician (see below). We had a tnee-ey-hnja encounter on (see date below). My clinical findings indicate that the patient is home bound per the above criteria and the Home Health Services noted in these orders are medically necessary. The primary reason for the [id number]-so-zsoq encounter is related to the fact that the patient requires home health services. Date Certifying [id number] Physician Encounter: 10/28/24 Physician's Name who will Assume Oversight for Services: Ellie Christensen Physician's Phone No.who will Assume Oversight for Service: [employer] OPERATOR - Community Resources: No PT to Evaluate: Yes PT to evaluate and provide a treatmnet plan to increase patient's mobility and strength. Wound Care: No IV Therapy: No RN Safety Evaluation: Yes RN to evaluate and create a plan of care that will produce positive outcomes. Palliative Treatment: No Palliative treatment and evaluate the need for hospice. Home Health Aide - Personal Care: Yes Home Health Aide to assist with any ADL's. Exam Vital Signs Temp Pulse Resp BP Pulse Ox O2 Del Method O2 Flow Rate 97.0 F 93 20 144/88 H 93 L Nasal Cannula 1 11/05/24 07:25 11/05/24 07:25 11/05/24 07:25 11/05/24 07:25 11/05/24 07:25 11/05/24 07:25 11/05/24 07:25 FiO2 2 11/03/24 00:00 Discharge Plan Plan Patient Disposition: Home w/HOME HEALTH Patient condition on transfer: Stable Care Plan Goals: Continue taking Levaquin 750 mg once a day for 5 more days to complete antibiotic course completing on 11/09 for H. Influenza Bacteremia Take all home medication as prescribed Take benzonatate 200 mg Q8 hourly as needed for cough Take senna and MiraLAX 1 tablet as needed for constipation Follow-up with PCP as outpatient within a week In case of worsening signs symptoms come back to the ED or call 911 Prescriptions/Referrals Prescriptions/Med Rec: New sennosides 8.6 mg capsule 8.6 mg PO QDAY PRN (Reason: constipation) 30 Days Qty: 30 0RF levofloxacin 750 mg tablet 750 mg PO DAILY 5 Days Qty: 5 0RF aspirin 81 mg Tablet,Delayed Release (Dr/Ec) 81 mg PO QDAY 30 Days Qty: 30 0RF benzonatate 200 mg capsule 200 mg PO Q8HR PRN (Reason: cough) 30 Days Qty: 30 0RF Chloraseptic Max Sore Throat 1.5-33 % spray,non-aerosol 1 spray PO QDAY PRN (Reason: sore throat) Qty: 118 0RF polyethylene glycol 3350 [Miralax] 17 gram/dose powder 4 g PO QDAY PRN (Reason: constipation) Qty: 119 0RF Mucinex DM 30-600 mg Tablet Extended Release 12 Hr 1 tab PO BID PRN (Reason: cough) 30 Days Qty: 60 0RF Zilactin-B 10 % Gel 1 ea top QID PRN (Reason: Cracked Lips) 14 Days Qty: 7 0RF nystatin 100,000 unit/mL Suspension 10 ml PO TIDWM 14 Days Qty: 60 0RF Continued albuterol sulfate 1.25 mg/3 mL solution for nebulization 1.25 mg inhalation QID PRN (Reason: shortness of breath or wheezing) Qty: 90 0RF Breztri Aerosphere 160-9-4.8 mcg/actuation HFA aerosol inhaler 2 puff INHALATION BID Patient Comments: INHALE 2 PUFFS BY MOUTH TWICE DAILY Referrals: Ellie Christensen PA-C [Primary Care Provider] - Saeid Dutton MD [Physician] - Patient/Caregiver Discharge Instructions Print Language: Chilean Stand Alone Forms: Claire Award Info., Patient Portal Info Letter
--- NOTE | 2024-11-05 11:36 | XR_ITS ---
Examination: Venous duplex lower extremity sonogram, bilateral. Date and time of exam: November 05, 2024 1504 hrs. Indications: Bilateral leg swelling several days Technique: Multiple sonographic images of the deep venous system have been obtained. B-mode/2-D grayscale imaging of vascular structures and Doppler spectral analysis (waveforms) and color performed Both legs are examined. Findings: Deep venous systems do not demonstrate abnormal echogenicity. All visualized deep veins exhibit compressibility. All visualized deep veins exhibit augmentation. Impression: Negative for deep vein thrombosis
[2024-11-05] MEDS: FUROSEMIDE INJ 10 MG/ML VIAL 2 ML 20 MG IVP (11:58)
--- NOTE | 2024-11-05 13:35 | ESPR_ITS ---
<Statement entered by Ean Gamez MD - 11/05/24 13:58> Patient was seen and examined at the bedside. Patient reported that she feels choking and feels short of breath and was seen in 3 L oxygen mask saturating above 90%. He asked physical therapist to ambulate the patient as tolerated. Ordered Lasix 20 mg IV x 1 due to lower extremity swelling and ordered Doppler lower extremity to evaluate and rule out DVT.we will evaluate for 1 more day for improvement in oxygen requirement. All labs and orders were reviewed. I saw and examined the patient, and I agree with current management stated by Dr Gregory MD,PGY1. Plan of care was discussed with the attending physician and resident physician. Disclaimer: Despite multiple revisions, due to the dictation software being used, the document bellow may not be free of grammatical errors including phonetic/typographic errors. However, this does not deter from our commitment to providing health care in the patient's best interest in mind. Dr. Jose MD, PGY 2 Documentation for date of: 11/05/24 Subjective Subjective Interval history: Patient is Guamanian-speaking and the interaction was facilitated by healthcare school commissioner. Patient was seen and examined at bedside this AM. No acute exents overnight. Patient tolerating minimal regular diet with thickened liquids, adequate urine output and mentation is at baseline. Patient complains of nonproductive cough. Still complains of difficulty to eat due to pain from oral ulcers but better than before Patient on D5 levofloxacin 750mg p.o. daily started on 11/01 to complete on 11/09 for total of 14-day course for bacteremia treatment. Repeat blood culture taken on 11/01 showed no bacterial growth x 48 hours Patient's was given Lasix 20 Mg IV x 1 and venous Doppler of lower extremities was ordered for lower extremity swelling Exam Vital Signs Temp Pulse Resp BP Pulse Ox O2 Del Method O2 Flow Rate 97.0 F 98 16 140/83 H 95 Nasal Cannula 1 11/05/24 12:00 11/05/24 12:00 11/05/24 12:00 11/05/24 12:00 11/05/24 12:00 11/05/24 12:00 11/05/24 12:00 FiO2 2 11/03/24 00:00 Narrative Exam Constitutional Alert, oriented x 3 and comfortable. Elderly female on O2 via NC. HEENT Vision grossly intact. Patent nares. Trachea midline Respiratory Right chemo therapy port noted and decreased air entry in all lung morales with no wheezing Cardiovascular S1 and S2 audible, RRR. No murmurs carotid bruit. No gross JVD. Abdominal Soft, obese and non tender to palpation in all quadrants. BS + Genitourinary No bladder tenderness, no flank pain. Normal to palpation Musculoskeletal Extremities tone within normal limits. Trace LE edema. Neurological CN II - XII grossly intact. Extremity motor and sensation grossly intact. Skin Warm, dry and intact. No apparent lesions. Psychiatric Patient has good affect, is cooperative Objective Labs 11/05/24 04:26 11/05/24 04:26 Labs: Laboratory Results - last 24 hr 11/05/24 04:26 WBC 5.2 RBC 3.31 L Hgb 10.8 L Hct 31.9 L MCV 96 MCH 32.6 MCHC 33.9 RDW Std Deviation 56.7 H Plt Count 94 L Neut % (Auto) 81 H Lymph % (Auto) 11 Sharkey % (Auto) 6 Eos % (Auto) 0 Baso % (Auto) 1 Neut # (Auto) 4.2 Lymph # (Auto) 0.6 L Sharkey # (Auto) 0.3 Eos # (Auto) 0.0 Baso # (Auto) 0.0 Immature Gran # (Auto) 0.08 H Absolute Nucleated RBC 0.00 Immature Gran % 2 H Nucleated RBC % 0 Sodium 142 Potassium 3.8 Chloride 106 Carbon Dioxide 29.3 Anion Gap 7 BUN 10 Creatinine 0.6 Estim Creat Clear Calc 80.8 eGFR > 60 BUN/Creatinine Ratio 17 Glucose 113 H Calculated Osmolality 283 Calcium 9.0 Corrected Calcium 9.6 Phosphorus 3.6 Magnesium 1.9 Total Bilirubin 0.5 AST 13 ALT 18 Alkaline Phosphatase 119 H Total Protein 4.7 L Albumin 3.2 L Globulin 1.5 L Albumin/Globulin Ratio 2.1 ABG Interpretation ABG results: 10/28/24 10/28/24 10/29/24 14:28 18:16 10:50 ABG pH 7.30 L 7.35 ABG pCO2 41 32 ABG pO2 78 L 72 L ABG HCO3 20 18 L ABG O2 Saturation 95 95 ABG Base Excess -6 L -7 L VBG pH 7.29 L VBG pCO2 32 L VBG pO2 55 VBG Base Excess -10 L 10/30/24 04:06 ABG pH 7.34 L ABG pCO2 31 L ABG pO2 80 L ABG HCO3 17 L ABG O2 Saturation 96 ABG Base Excess -8 L VBG pH VBG pCO2 VBG pO2 VBG Base Excess Quality Measures Quality Measures sepsis Current suspected stage: sepsis Possible source: pulmonary Blood cultures ordered: completed in ED Antibiotic ordered: Yes Advance care planning discussed with:: patient Assessment & Plan Assessment Current Active Medications: Generic Name Dose Route Start Last Admin Trade Name Freq PRN Reason Stop Dose Admin Acetaminophen 650 mg 10/28/24 13:57 11/04/24 20:37 Acetaminophen 325 Mg Tablet PO 11/27/24 13:56 650 mg Q4HR PRN Administration PAIN SCALE 1-3 (mild Acetaminophen 650 mg 10/28/24 13:57 Acetaminophen Supp 650 Mg Supp CO 11/27/24 13:56 Q4HR PRN PAIN SCALE 1-3 (mild Acetylcysteine 3 ml 11/04/24 11:00 11/05/24 10:22 Acetylcysteine Rt Asha 10% 4 Ml Nebu INH 12/04/24 10:59 3 ml Q4HRRT REBEKAH Administration Al Hydrox/Mg Hydrox/Simethicone 30 ml 10/28/24 13:57 Mg Hyd/Al Hyd/Osmany (Maalox Reg) Susp 30 Ml Udc PO 11/27/24 13:56 Q4HR PRN Heartburn or Upset Stomach Al Hydrox/Mg Hydrox/Simethicone 30 ml 11/01/24 12:34 11/05/24 12:29 Mg Hyd/Al Hyd/Osmany (Maalox Reg) Susp 30 Ml Udc PO 12/01/24 12:33 30 ml TIDWM REBEKAH Administration Albuterol/Ipratropium 3 ml 11/04/24 11:00 11/05/24 10:22 Albuterol/Ipratropium (Duoneb) Rt Asha 3 Ml Nebu INH 12/04/24 10:59 3 ml Q4HRRT REBEKAH Administration Aspirin 81 mg 10/30/24 15:15 11/05/24 08:29 Aspirin Ec 81 Mg Tabec PO 11/29/24 15:14 81 mg QDAY REBEKAH Administration Benzocaine 0 gm 11/01/24 11:48 Benzocaine Gel 10% 5.3 Gm Tube TOP 12/01/24 11:47 QID PRN Cracked Lips Benzonatate 200 mg 11/03/24 22:00 11/05/24 05:15 Benzonatate 100 Mg Capsule PO 12/03/24 21:59 200 mg Q8HR REBEKAH Administration Protocol Calcium Carbonate 600 mg 10/28/24 16:15 11/05/24 08:29 Calcium Carbonate 600 Mg Tablet PO 11/27/24 16:14 600 mg QDAY REBEKAH Administration Diphenhydramine HCl 25 mg 11/01/24 12:45 11/05/24 12:28 Diphenhydramine Elix 25 Mg/10 Ml Udc PO 12/01/24 12:44 25 mg TIDWM REBEKAH Administration Guaifenesin/Dextromethorphan 1 each 10/31/24 14:00 11/05/24 08:29 Guaifenesin/Dm Tablet PO 11/30/24 13:59 1 each BID REBEKAH Administration Levofloxacin 750 mg 11/01/24 12:15 11/05/24 08:29 Levofloxacin 250 Mg Tablet PO 11/08/24 12:14 750 mg DAILY REBEKAH Administration Lidocaine HCl 10 ml 11/01/24 12:45 11/05/24 12:28 Lidocaine Viscous 2% 15 Ml Udc PO 12/01/24 12:44 10 ml TIDWM REBEKAH Administration Magnesium Hydroxide 30 ml 10/28/24 13:57 Milk Of Magnesia Susp 30 Ml Udc PO 11/27/24 13:56 QDAY PRN CONSTIPATION Nitroglycerin 0.4 mg 10/28/24 13:57 Nitroglycerin 0.4 Mg Subl Btl #25 SL Q5MIN PRN CHEST PAIN Nystatin 10 ml 11/01/24 12:45 11/05/24 12:28 Nystatin Susp 5 Ml Udc PO 11/08/24 12:44 10 ml TIDWM REBEKAH Administration Protocol Ondansetron HCl 4 mg 10/28/24 14:17 10/28/24 14:22 Ondansetron Inj 2 Mg/Ml Inj 2 Ml IV 11/27/24 14:16 4 mg Q4H PRN Administration NAUSEA OR VOMITING Protocol Sennosides 1 tab 10/31/24 14:00 11/05/24 08:29 Senna Tablet PO 11/30/24 13:59 1 tab QDAY REBEKAH Administration Protocol Plan Ms. Mars Quinonez is a 73-year-old female who is a Guamanian-speaking and majority of history is taken from daughter at bedside , patient's past medical history is significant for CLL which was diagnosed in 2021 in [place] for which she underwent 4 cycles of chemotherapy in [place]. Patient remained in remission and April 2024 patient started additional 6 sessions of chemo as [facility] cancer center. Patient's last chemo session was yesterday 10/27/2024. Patient presented to the ED complaining of shortness of breath. She was admitted to the ICU for treatment and management of septic shock secondary to community-acquired pneumonia. 1. Septic shock secondary to community-acquired pneumonia?resolved 2. Community-acquired pneumonia?resolving 3. Haemophilus influenza bacteremia She presented with progressively worsening shortness of breath and was admitted for septic shock secondary to community-acquired pneumonia. In the ED she received 4L IVF bolus and was started on Levophed, vasopressin and hydrocortisone. Her CXR was significant for bibasilar consolidation Curb- 65: 4 points; consider inpatient treatment with possible ICU admission PSI/port score: 145 points; risk class V. Hospitalization recommended based on risk Initially patient was on blood pressure support with Levophed, vasopressin and hydrocortisone. Hydrocortisone was weaned off on 10/29 and Levophed and vasopressin were weaned off 10/30. Currently BP 113/79 with MAP >65 MRSA screen negative Received 3 days of vancomycin IV from 10/28 - 10-30 Received 4 days of azithromycin 500 Mg IV daily from 10/28 - 10/31 Received 5 days Zosyn 3.375 Mg IV Q8 hourly from 10/28 - 11/01 Patient tolerating minimal regular diet with thickened liquids, adequate urine output and mentation is at baseline. Patient complains of nonproductive cough. Still complains of difficulty to eat due to pain from oral ulcers but better than before Patient on D5 levofloxacin 750mg p.o. daily started on 11/01 to complete on 11/09 for total of 14-day course for bacteremia treatment. Repeat blood culture taken on 11/01 showed no bacterial growth x 48 hours Plan: ? Continue to monitor vitals ? Continue guaifenesin 1 tab p.o. twice daily for mucus congestion ? Increase DuoNebs to every 4 hourly ? Increased Mucomyst nebs to Q4 hourly ? Increased chest physiotherapy to every 4 hourly after nebulization ? Acapella device for chest physiotherapy ? Incentive spirometer ? D5 levofloxacin 750 Mg p.o. daily to complete on 11/09 for a total of 14 days of treatment for GNR bacteremia 4. Newly diagnosed systolic congestive heart failure with mildly reduced EF [45%] Patient did not have a prior history of heart failure and on exam she appears euvolemic. She currently complains of mild SOB and a cough but this is likely due to CAP and possible COPD due to extensive smoking history. On admission BNP 190 Previous echo from 03/31/2024 showed stage I diastolic dysfunction with EF 55-60% Transthoracic echocardiogram completed on 10/28/2024 findings include: Normal LV size. Mild systolic dysfunction. Estimated EF around 45% Irregular rhythm and cannot determine diastolic dysfnction. Normal RV size and function. Estimated RVSP 39mmHg. mild PAH Mild MR, TR. IVC mildly dilated. Plan: ? Systolic dysfunction likely due to septic shock. Will reassess after sepsis resolves. ? If patient actually has heart failure will need to start on GDMT at some point. However as patient recently came off of pressors and blood pressures hypotensive at this point we will hold off for now. 5. Lower extremity swelling On exam patient has trace B/L lower extremity swelling. DDx: Heart failure, DVT, dependent edema Plan: ? Lasix 20 Mg IV x 1 ? Venous Doppler of lower extremities B/L ordered 6. Neutropenia?resolved 7. Pancytopenia 8. CLL 9. Leukocytosis - resolved past medical history of CLL which was diagnosed in 2021 in [place] for which she underwent 4 sessions of chemotherapy and was in remission. However she had recurrence of this year in April and underwent 6 sessions of chemotherapy with the last session on 10/27. Received 1 dose of filgrastim on 10/28 No need for any further doses of filgrastim at this point Hb 9.5, PLT 55, WBC 1.5 ---> 5.2 ANC 1.05 Leukocytosis most likely secondary to Filgrastin 10. NSTEMI likely type II On 10/30 patient developed an episode of chest pain which resolved after a few minutes. EKG was done which showed sinus rhythm, rate 69 with moderate interventricular delay. No acute ST changes noted Troponin was elevated at 1.218 and down trended to 0.973 Likely demand ischemia in setting of sepsis and CAP. Plan: ? Continue ASA 81 Mg p.o. daily ? Cardiology, Dr. Hay consulted. Appreciate recommendations 11. Ex smoker 12. Possible COPD Patient has an extensive [id number] smoking history. On exam patient has decreased breath sounds with scattered wheezes throughout lung morales Plan: ? Increase DuoNebs to every 4 hourly ? Increased Mucomyst nebs to Q4 hourly ? Increased chest physiotherapy to every 4 hourly after nebulization ? Acapella device for chest physiotherapy ? Incentive spirometer ? For PFTs as outpatient 13. Oral ulcers Possibly due to recent chemotherapy last session on 10/27 Plan: ? Continue Magic mouthwash [viscous lidocaine/Benadryl syrup/Maalox/nystatin suspension] ? Continue benzocaine topical for cracked lips 14. Hypocalcemia?resolved On admission corrected Ca 7.8 currently improved to 9 Plan: ? Continue calcium carbonate 600 mg p.o. daily Health maintenance: Diet: Thick regular Lines: pIVs GI Prophylaxis: None Thrombo Prophylaxis: SCDs Code status: FULL CODE Disposition: On p.o. antibiotics for CAP, nebulizers and breathing treatments. Pending venous Doppler B/L lower extremities. Plan of care discussed with Attending Dr. Andres and PGY2 Dr. Jose Jenkins MD PGY 1 Attending Provider Attestation/Addendum I, Katey Andres, DO, attest that I was physically present for the reaves portions of the service and evaluated the patient with the resident and I reviewed and discussed the case with the resident and agree with the resident's findings and plans of care as documented above Patient seen eval this a.m. Patient states that she continues to have some mild shortness of breath. She states that her cough is now dry. Bilateral lower extremity appear to have 2+ pitting edema. Will start patient on Lasix due to persistent shortness of breath. Continue with chest PT otherwise.She currently remains on 1 to 2 L nasal cannula with mild respiratory distress.
--- NOTE | 2024-11-05 15:55 | PC.SS ---
Rounding: Pending PT and US
--- NOTE | 2024-11-05 17:47 | PC.NURSE ---
I let Dr. Gamez know that pt's stevan said she couldn't picking machine operator helper the nystatin from the pharmacy because they needed more info about what it is for
--- NOTE | 2024-11-05 18:20 | PC.RT ---
pt refused mucomyst at this time. Pt agreed to take the duoneb
[2024-11-06] VITALS (7 sets, daily range): BP systolic 104–127; BP diastolic 59–77; PULSE 80–98; RESP 16–22; TEMP 36.5–36.9; O2SAT 94–100; BMI 32.0
[2024-11-06] MEDS: ALBUTEROL/IPRATROPIUM (Duoneb) RT SOL 3 ML NEBU INH ×2 (03:08→06:12)
[2024-11-06] MEDS: BENZONATATE 100 MG CAPSULE 200 MG PO (05:09)
[2024-11-06 06:06] LABS: Basophils % (Auto) 1 % (0-2.5); Eosinophils % (Auto) 0 % (0-10); Hematocrit 31.1 % (36.0-46.0); Hemoglobin 10.5 g/dL (12.0-16.0); Immature Granulocytes % (Auto) 1 % (0-0); Immature Granulocytes Auto 0.06 Thou/mm3 (0.00-0.00); Lymphocytes # (Auto) 0.6 Thou/mm3 (1.0-4.8); Lymphocytes % (Auto) 12 % (10-50); Mean Corpuscular HGB Conc 33.8 g/dl (31.0-37.0); Mean Corpuscular Hemoglobin 32.5 pg (25.0-35.0); Mean Corpuscular Volume 96 fL (80-100); Monocytes # (Auto) 0.3 Thou/mm3 (0.0-0.8); Monocytes % (Auto) 5 % (0-12); Neutrophils % (Auto) 80 % (37-80); Nucleated Red Blood Cell % 0 /100 WBC (0); Platelet Count 118 Thou/mm3 (140-440); RDW Standard Deviation 56.2 fL (36.4-46.3); Red Blood Count 3.23 Miln/mm3 (4.00-5.20)
[2024-11-06] MEDS: ACETYLCYSTEINE RT SOL 10% 4 ML NEBU 3 ML INH (06:12)
[2024-11-06 06:27] LABS: Alanine Aminotransferase 15 U/L (10-49); Albumin, Serum 3.3 gm/dL (3.4-4.8); Albumin/Globulin Ratio 2.2 (1.2-2.2); Alkaline Phosphatase 122 U/L (46-116); Anion Gap 8 (7-16); Aspartate Amino Transferase 12 U/L (0-34); BUN/Creatinine Ratio 17 Ratio (12-20); Bilirubin,Total 0.5 mg/dL (0.3-1.2); Blood Urea Nitrogen 10 mg/dL (9-23); Calcium (Corrected) 9.6 mg/dL (8.5-10.1); Carbon Dioxide 27.4 mMol/L (20.0-31.0); Chloride 104 mMol/L (98-107); Creatinine (Component) 0.6 mg/dL (0.6-1.3); Estimated Creatinine Clearance 80.6 mL/min (>60); Globulin 1.5 gm/dL (2.3-3.5); Glucose 114 mg/dL (74-106); Osmolality,Calculated 277 (275-295); Potassium 3.6 mMol/L (3.4-5.1); Sodium 139 mMol/L (136-145); Total Protein 4.8 gm/dL (5.7-8.2); eGFR > 60 See Note
[2024-11-06] MEDS: LIDOCAINE VISCOUS 2% 15 ML UDC 10 ML PO ×2 (07:38→12:25)
[2024-11-06] MEDS: DiphenhydrAMINE ELIX 25 MG/10 ML UDC PO ×2 (07:38→12:22)
[2024-11-06] MEDS: MG HYD/AL HYD/SIME (Maalox Reg) SUSP 30 ML UDC PO ×2 (07:38→12:21)
[2024-11-06] MEDS: NYSTATIN SUSP 5 ML UDC 10 ML PO ×2 (07:39→12:21)
[2024-11-06] MEDS: CALCIUM CARBONATE 600 MG TABLET PO (08:08)
[2024-11-06] MEDS: guaiFENesin/DM TABLET 1 EACH PO (08:08)
[2024-11-06] MEDS: ASPIRIN EC 81 MG TABEC PO (08:09)
[2024-11-06] MEDS: SENNA TABLET 1 TAB PO (08:09)
[2024-11-06] MEDS: LEVOFLOXACIN 250 MG TABLET 750 MG PO (08:09)
[2024-11-06] MEDS: POTASSIUM CHLORIDE 20 mEq TABCR 40 MEQ PO (12:33)
--- NOTE | 2024-11-06 13:44 | ESDS_ITS ---
<Statement entered by Katey Andres DO - 11/07/24 07:37> I, Katey Andres DO, attest that I was physically present for the reaves portions of the service and evaluated the patient with the resident and I reviewed and discussed the case with the resident and agree with the resident's findings and plans of care as documented above <Statement entered by Ean Gamez MD - 11/06/24 15:49> I saw and examined the patient, and I agree with current management stated by Dr Gregory MD,PGY1. Plan of care was discussed with the attending physician and resident physician. Disclaimer: Despite multiple revisions, due to the dictation software being used, the document bellow may not be free of grammatical errors including phonetic/typographic errors. However, this does not deter from our commitment to providing health care in the patient's best interest in mind. Dr. Franco MD, PGY 2 Planned Discharge Date 11/06/24 DS: Providers Provider Date of admission: 10/28/24 13:57 Primary care physician: Ellie Christensen PA-C Admitting Provider: Jeanette Lakhani MD Attending Provider on Admission: Corey Nieves DO Consults: 10/30/24 15:14 Consult to Cardiology Routine Comment: Consulting Provider: Mojgan Hay 10/31/24 13:57 PT [Referral Physical Therapy] Routine Comment: Physician Instructions: Instructions: Recently downgraded from ICU. Did not ambulate as yet. Baseline no assistive devices 11/05/24 11:36 Referral Physical Therapy Routine Comment: Physician Instructions: Instructions: please assist with ambulation Attending Provider on DC: Jacques Jenkins MD Discharging Provider: Jacques Jenkins MD DS: Diagnosis Problem List Completed Was Problem List Reviewed/Reconciled?: Yes Hospital Course Hospital Course Hospital course: Ms. Mars Quinonez is a 73-year-old female who is a Malay-speaking and majority of history is taken from daughter at bedside , patient's past medical history is significant for CLL which was diagnosed in 2021 in [place] for which she underwent 4 cycles of chemotherapy in [place]. Patient remained in remission and April 2024 patient started additional 6 sessions of chemo as [facility] cancer center. Patient's last chemo session was yesterday 10/27/2024. Patient presented to the ED complaining of shortness of breath. She was admitted to the ICU for treatment and management of septic shock secondary to community-acquired pneumonia. With regards to his septic shock patient was treated in the ICU with Levophed, vasopressin and hydrocortisone after which her blood pressure has improved and she was subsequently downgraded to the floor. With regards to her community-acquired pneumonia she was treated with 5 days of Zosyn 3.375 Mg IV Q8 hourly from 10/28 - 11/01 and 4 days of azithromycin 500 Mg IV daily from 10/28 - 10/31. After which her symptoms improved. With regards to her haemophilus influenza bacteremia she was treated with 5 days of Zosyn 3.375 Mg IV Q8 hourly from 10/28 - 11/01 as well as Levaquin 750 Mg p.o. daily started on 11/01 to complete on 11/09 for total of 14 days of treatment for GNR and bacteremia. For her newly diagnosed systolic congestive heart failure with mildly reduced EF she was treated with Lasix 20 Mg IV daily after which her breathing and leg swelling improved. For her neutropenia she was treated with 1 dose of filgrastim on 10/28 after which her WBC improved from 1.5-5.2. No further doses of filgrastim necessary at this time. For her NSTEMI type II, cardiology was consulted who recommended ASA 81 Mg p.o. daily. For her possible COPD she was treated with DuoNebs Q4 hourly, Mucomyst nebs Q4 hourly along with chest physio every 4 hourly with incentive spirometer and Acapella device. Her oral ulcers were treated with Magic mouthwash [viscous lidocaine/Benadryl syrup/Maalox/nystatin suspension] and benzocaine topical was prescribed for her cracked lips. For her hypocalcemia calcium carbonate 600 Mg p.o. daily was started. All patient's labs are now returning to baseline. Patient is now clinically stable and fit for discharge to home with home health and home oxygen. Discharge diagnoses: 1. Septic shock secondary to community-acquired pneumonia?resolved 2. Community-acquired pneumonia?resolving 3. Haemophilus influenza bacteremia?resolving 4. Newly diagnosed systolic congestive heart failure with mildly reduced EF [45%] 5. Lower extremity swelling?resolved 6. Neutropenia?resolved 7. Pancytopenia 8. CLL 9. Leukocytosis?resolved 10. NSTEMI likely type II 11. Ex-smoker 12. Likely COPD 13. Oral ulcers?resolving 14. Hypocalcemia?resolved Discharge plan: ?Continue taking Levaquin 750 mg once a day for 3 more days to complete antibiotic course completing on 11/09 for H. Influenza pneumonia and bacteremia ?Take all home medication as prescribed ?Take Lasix 20 mg every day and hold if blood pressure drops below 100/60 mmHg ?Take KCl 8 mEq every day with Lasix 20 mg ?Take benzonatate 200 mg Q8 hourly as needed for cough ?Take senna and MiraLAX 1 tablet as needed for constipation ?Follow-up with PCP as outpatient within a week ?Follow-up with oncologist as outpatient ?In case of worsening signs symptoms come back to the ED or call 911 We are grateful to be able to participate in Ms. Laguna's care. We wish her the best. Plan of care discussed with Attending Dr. Andres and PGY2 Dr. Franco Jenkins MD PGY 1 Time Spent with Patient Time attestation: Total time spent providing and/or coordinating discharge services: Time spent: Greater than 30 minutes (36) Exam Vital Signs Temp Pulse Resp BP Pulse Ox O2 Del Method O2 Flow Rate 97.7 F 85 20 122/77 96 Nasal Cannula 1 11/06/24 12:00 11/06/24 12:00 11/06/24 12:00 11/06/24 12:00 11/06/24 12:00 11/06/24 12:00 11/06/24 12:00 FiO2 2 11/03/24 00:00 Narrative Exam Constitutional Alert, oriented x 3 and comfortable. Elderly female on O2 via NC. HEENT Vision grossly intact. Patent nares. Trachea midline Respiratory Right chemo therapy port noted and decreased air entry in all lung morales with no wheezing Cardiovascular S1 and S2 audible, RRR. No murmurs carotid bruit. No gross JVD. Abdominal Soft, obese and non tender to palpation in all quadrants. BS + Genitourinary No bladder tenderness, no flank pain. Normal to palpation Musculoskeletal Extremities tone within normal limits. Trace LE edema. Neurological CN II - XII grossly intact. Extremity motor and sensation grossly intact. Skin Warm, dry and intact. No apparent lesions. Psychiatric Patient has good affect, is cooperative Discharge Plan Plan Patient Disposition: Home w/HOME HEALTH Patient condition on transfer: Stable Care Plan Goals: Continue taking Levaquin 750 mg once a day for 3 more days to complete antibiotic course completing on 11/09 for H. Influenza pneumonia and bacteremia Take all home medication as prescribed Take Lasix 20 mg every day and hold if blood pressure drops below 100/60 mmHg Take KCl 8 mEq every day with Lasix 20 mg Take benzonatate 200 mg Q8 hourly as needed for cough Take senna and MiraLAX 1 tablet as needed for constipation Follow-up with PCP as outpatient within a week Follow-up with oncologist as outpatient In case of worsening signs symptoms come back to the ED or call 911 Prescriptions/Referrals Prescriptions/Med Rec: New sennosides 8.6 mg capsule 8.6 mg PO QDAY PRN (Reason: constipation) 30 Days Qty: 30 0RF aspirin 81 mg Tablet,Delayed Release (Dr/Ec) 81 mg PO QDAY 30 Days Qty: 30 0RF benzonatate 200 mg capsule 200 mg PO Q8HR PRN (Reason: cough) 30 Days Qty: 30 0RF Chloraseptic Max Sore Throat 1.5-33 % spray,non-aerosol 1 spray PO QDAY PRN (Reason: sore throat) Qty: 118 0RF polyethylene glycol 3350 [Miralax] 17 gram/dose powder 4 g PO QDAY PRN (Reason: constipation) Qty: 119 0RF Mucinex DM 30-600 mg Tablet Extended Release 12 Hr 1 tab PO BID PRN (Reason: cough) 30 Days Qty: 60 0RF Zilactin-B 10 % Gel 1 ea top QID PRN (Reason: Cracked Lips) 14 Days Qty: 7 0RF furosemide [Lasix] 20 mg tablet 20 mg PO QDAY Qty: 30 0RF Rx Instructions: hold if SBP drops below 100 and DBP below 60 mmHg potassium chloride 8 mEq tablet extended release 8 meq PO QDAY Qty: 30 0RF (DME) blood pressure monitor [Blood Pressure Kit] Kit See Rx Instructions .Route Qty: 1 0RF Rx Instructions: As directed levofloxacin 750 mg tablet 750 mg PO QDAY Qty: 3 0RF Continued albuterol sulfate 1.25 mg/3 mL solution for nebulization 1.25 mg inhalation QID PRN (Reason: shortness of breath or wheezing) Qty: 90 0RF Breztri Aerosphere 160-9-4.8 mcg/actuation HFA aerosol inhaler 2 puff INHALATION BID Patient Comments: INHALE 2 PUFFS BY MOUTH TWICE DAILY Referrals: Ellie Christensen PA-C [Primary Care Provider] - Saeid Dutton MD [Physician] - Patient/Caregiver Discharge Instructions Education Materials: What Is Pneumonia?, Preventing Pneumonia, Treating Pneumonia, When You Have Pneumonia Print Language: Malay Stand Alone Forms: Claire Award Info., Patient Portal Info Letter Discharge Order Discharge Orders: Discharge (Routine); Ordered 11/06/24 Ordered By: Christianne Greene Quality Discharge Quality Measures VTE prophylaxis
[2024-11-07 06:15] LABS: Calprotectin, Stool* 10 mcg/g
--- NOTE | 2024-11-07 09:21 | PC.CM ---
Addendum entered by Lina Kimbrough RN 11/07/24 09:54: [facility] accepted patient waiting on auth and start of care date. Original Note: We have no accepting agencies at this time. I reach out to [facility] to see if they can accept
--- NOTE | 2024-11-08 16:45 | PC.CM ---
start of care date with [facility] is 11/13/24 per pt request.
== END 2024-11-06 14:25 | disposition home health service (06) | DRG 720 ==
LOC: SERX 14:47 → SERHOLD 14:55 → S2SX 15:59 → S3NX 10-31 00:30
PROVIDERS: Nurse Practitioner Family; Student in an Organized Health Care Education/Training Program; Admitting Provider Internal Medicine; Emergency Provider Emergency Medicine; PCP Physician Assistant; Visit Provider Student in an Organized Health Care Education/Training Program
DX: A41.3 Sepsis due to Hemophilus influenzae (principal); J44.0 Chronic obstructive pulmonary disease with (acute) lower respiratory infection; J43.9 Emphysema, unspecified; I31.39 Other pericardial effusion (noninflammatory); J96.01 Acute respiratory failure with hypoxia; N17.9 Acute kidney failure, unspecified; J18.9 Pneumonia, unspecified organism; E83.51 Hypocalcemia; E83.42 Hypomagnesemia; C91.10 Chronic lymphocytic leukemia of B-cell type not having achieved remission; D84.821 Immunodeficiency due to drugs; I50.20 Unspecified systolic (congestive) heart failure; R65.21 Severe sepsis with septic shock; E87.20 Acidosis, unspecified; D61.818 Other pancytopenia; C91.11 Chronic lymphocytic leukemia of B-cell type in remission; E87.8 Other disorders of electrolyte and fluid balance, not elsewhere classified; I21.A1 Myocardial infarction type 2; K12.1 Other forms of stomatitis; Z91.199 Patient's noncompliance with other medical treatment and regimen due to unspecified reason; Z87.891 Personal history of nicotine dependence; Z79.82 Long term (current) use of aspirin
CPT/HCPCS: 36415; 36600; 71045; 80053; 80069; 80202; 81001; 82803; 83605; 83615; 83690; 83735; 83880; 83993; 84100; 84145; 84484; 85025; 85610; 85730; 86850; 86900; 86901; 87015; 87040; 87045; 87046; 87077; 87081; 87086; 87184; 87205; 87400; 87811; 87899; 93005; 93225; 93306; 93970; 94640; 94664; 96361; 96365; 96374; 97162; 99291; A9270; C1751; J0456; J1650; J1720; J1940; J2405; J2543; J2598; J3370; J3475; J3480; J3490; J7030; J7050; Q5101

== ENCOUNTER 2024-11-13 13:17 | Outpatient (RCR) | payer MEDICAID, SELFPAY ==
[2024-10-24 15:41] LABS: Basophils % (Auto) 1 % (0-2.5); Eosinophils # (Auto) 0.1 Thou/mm3 (0.0-0.5); Eosinophils % (Auto) 1 % (0-10); Hematocrit 34.2 % (36.0-46.0); Hemoglobin 11.4 g/dL (12.0-16.0); Immature Granulocytes % (Auto) 0 % (0-0); Immature Granulocytes Auto 0.01 Thou/mm3 (0.00-0.00); Lymphocytes # (Auto) 1.8 Thou/mm3 (1.0-4.8); Lymphocytes % (Auto) 37 % (10-50); Mean Corpuscular HGB Conc 33.3 g/dl (31.0-37.0); Mean Corpuscular Hemoglobin 32.5 pg (25.0-35.0); Mean Corpuscular Volume 97 fL (80-100); Monocytes # (Auto) 0.5 Thou/mm3 (0.0-0.8); Monocytes % (Auto) 10 % (0-12); Neutrophils # (Auto) 2.5 Thou/mm3 (1.8-7.7); Neutrophils % (Auto) 51 % (37-80); Nucleated Red Blood Cell % 0 /100 WBC (0); Platelet Count 155 Thou/mm3 (140-440); RDW Standard Deviation 56.9 fL (36.4-46.3); Red Blood Count 3.51 Miln/mm3 (4.00-5.20); White Blood Count 4.9 Thou/mm3 (3.6-11.0)
[2024-10-24 16:00] LABS: Alanine Aminotransferase 27 U/L (10-49); Albumin, Serum 4.1 gm/dL (3.4-4.8); Albumin/Globulin Ratio 2.9 (1.2-2.2); Alkaline Phosphatase 184 U/L (46-116); Anion Gap 9 (7-16); Aspartate Amino Transferase 25 U/L (0-34); BUN/Creatinine Ratio 23 Ratio (12-20); Bilirubin,Total 0.6 mg/dL (0.3-1.2); Blood Urea Nitrogen 16 mg/dL (9-23); Carbon Dioxide 25.2 mMol/L (20.0-31.0); Chloride 108 mMol/L (98-107); Creatinine (Component) 0.7 mg/dL (0.6-1.3); Globulin 1.4 gm/dL (2.3-3.5); Glucose 90 mg/dL (74-106); Osmolality,Calculated 284 (275-295); Sodium 142 mMol/L (136-145); Total Protein 5.5 gm/dL (5.7-8.2); eGFR > 60 See Note
--- NOTE | 2024-11-19 15:37 | CTCFLWUP_ITS ---
Patient: KIMMIE ULRICH : 1950 Page 7 of 9 FOLLOW UP NOTE DATE OF SERVICE: 11/13/2024 NAME: KIMMIE ULRICH ACCOUNT: [id number] : 1950 AGE: 73 INTERVAL HISTORY: Patient is doing well. She has completed chemotherapy with BR for 6 cycles ONCOLOGY HISTORY: DIAGNOSIS: Small cell B-cell lymphoma, unspecified site [ICD10] C83.00 DATE OF DIAGNOSIS: 02/25/2024 STAGE/TNM: Stage IV TREATMENT HISTORY: Care?Plan Start?Date Cycle Day Intent Rituxan?375?+?Bendamustine?90?Chalino 04/24/2024 1 Palliative Rituxan?375?+?Bendamustine?90?Chalino 08/28/2024 1 28 Maintenance HISTORY OF PRESENT ILLNESS: Kimmie Ulrich is a 73-year-old SPA speaking female who was initially diagnosed with ly mphoma/leukemia in [place] about 2 years ago. She had lymph node biopsy at that time. I do not have any records from [place]. According to Ms. Ulrich she was treated for about 4 cycles of chemot herapy in [place]. Since then she came to the [facility]. She was seen in [place] by a hematologis t/oncologist. She was told she does not need any treatment. 02/02/2023: WBC 21.5, ANC 15.9, lymphocytes 4.7, hemoglobin 14.4, MCV 92, platelet count 150,000. 08/26/2023: WBC 13.4, absolute lymphocyte count 7.9, hemoglobin 15.1, MCV 95, platelets 204,000. Hepa titis panel negative. HIV negative. 11/11/2023: CT scan of the chest with IV contrast? 01/24/2024: WBC 12.2, absolute lymphocyte count 9.5, hemoglobin 13.0, MCV 97, platelets 168,000, creati nine 0.62, LDH 175, hepatitis panel negative ESR 16. Uric acid 6.0 Flow cytometry of the peripheral blood 02/25/2024: Ms. Ulrich had left neck cervical lymph node excisional biopsy? 03/02/2024: Ms. Ulrich had CT scan of the chest abdomen and pelvis with IV contrast which was c ompared to previous scans done on November 11, 2023. 03/06/2024: PET/CT scan? 04/24/2024: Ms. Ulrich received first cycle of Bendamustine and rituximab. 05/09/2024 - 05/15/2024: Ms. Ulrich was admitted to the hospital because of neutropenic fever. Treated with IV antibiotics. Discharged home on oxygen via nasal cannula. 05/17/2024 - 05/22/2024: Ms. Ulrich was readmitted to the hospital due to acute respiratory failu re secondary to pneumonia treated with IV antibiotics. 06/19/2024: Ms. Ulrich had second cycle of Bendamustine and rituximab followed by pegfilgrastim . 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 Tobacco?Use?Years:?50 Tobacco Use:?Hever 2 months ago - smoked 8-10 cigarettes/day x 50 yrs ETOH?Use:?Denies Drug?Note:?Denies Social?History?Note:?Lives?with?dtr SURG TECH HISTORY: Menarche?-?Age:?10 Menopause:?48 :?3 Live?Births:?4 Age?1st?:?22 Gynecological?Note:?1?miscarriage MEDICATIONS: 1. albuterol sulfate - 2.5 mg /3 mL (0.083 %) Twice a Day 2. albuterol-budesonide - 90-80 mcg/actuation 2 Quart Twice a Day 3. aspirin - 81 mg 1 Capsule Daily 4. benzonatate - 200 mg 1 Capsule As directed 5. cephALEXin - 500 mg 1 tab As directed 6. furosemide - 20 mg 1 tab As directed 7. K-Tab - 1 As directed Medications Last Reconciled by Divine Gandara MA on 11/13/2024 ALLERGIES: No Known Drug Allergies REVIEW OF SYSTEMS: A complete 14-point review of systems was performed and is negative except as noted in interval histo ry. PHYSICAL EXAMINATION: VITAL SIGNS: Temperature?97.2, B/P?109/75, Oxygen?Saturation?93% PAIN: 2 - Mild pain ECOG Performance Status: 0 - Asymptomatic and fully active EYE: Conjunctivae is pink. MOUTH: Oral cavity is dry. Bilateral cervical lymphadenopathy as well is axillary lymphadenopathy is not palpable CHEST: Clear t o auscultation. No wheezes or rales audible. CARDIAC: Rhythm regular, no murmurs or gallops present. ABDOMEN: Soft. No hepatomegaly. No splenomegaly. EXTREMITIES: No pedal edema or cyanosis. LABORATORY DATA: I have personally reviewed and interpreted each of the patient?s relevant lab tests, abnormal finding s are below: Date 11/06/24 ??WHITE?BLOOD?COUNT?(Thou/mm3) 5.0 ??RED?BLOOD?COUNT?(Miln/mm3) 3.23?L ??HEMOGLOBIN?(gm/dl) 10.5?L ??HEMATOCRIT?(%) 31.1?L ??PLATELET?COUNT?(Thou/mm3) 118?L ??NEUTROPHILS?%,?AUTO?(%) 80 ??LYMPH?%,?AUTO?(%) 12 ??NEUTROPHILS,?AUTO?(Thou/mm3) 4.0 ASSESSMENT/PLAN: Small small lymphocytic lymphoma patient was initially treated in [place] and later started on BR afte r 1 year of the previous treatment as patient had extensive lymphadenopathy and was symptomatic Patient completed 3 cycles of BR recent (06/29/2024) CT scan showed significant improvement in the lymphadenopathy as documented above. Ms. Ulrich was admitted to the hospital twice (05/09/2024 and 05/17/2024) because of acute respiratory failure se condary to pneumonia treated with IV antibiotics.. Patient's symptoms have decreased and no palpable lymphadenopathy increased T-cell large granular l ymphocytes (T?LGL). Hoarseness of voice has improved. Last scan showed great response to therapy Completed 6 cycles of chemotherapy 11/05/2024 ultrasound negative for deep vein thrombus in both legs 09/20/2024 MRI brain negative for any cerebellar or cerebral lesions in the brain Vies Ms. Ulrich to complete vaccination with COVID and flu PET CT scan to see response to treatment RETURN TO CLINIC: 3 months with CBC CMP LDH and PET CT scan results BILLING AND COMPLIANCE: I reviewed external records from providers outside my specialty as summarized above. I spent a total of 50 minutes on this patient?s care on the day of their visit excluding time spent related to any bi lled procedures. This time includes time spent with the patient as well as time spent documenting in the medical record, reviewing patients records and tests, obtaining history, placing orders, communi cating with other healthcare professionals, counseling the patient, family or caregiver, and/or care coordination for the diagnoses above. Electronically Signed by: Saeid Dutton MD T: 3:35 PM CC: Ellie?Fermin?(lebron),? PCP: Saeid Dutton Referring: Saeid Dutton This document was completed utilizing speech recognition software. Grammatical errors, random word in sertions, pronoun errors, and incomplete sentences are an occasional consequence of this system due t o software limitations, ambient noise, and hardware issues. Any formal questions or concerns about th e content, text or information contained within the body of this dictation should be directly address ed to the provider for clarification.
== END 2024-11-21 23:59 | disposition home or self-care (01) ==
LOC: SCTC 13:17
PROVIDERS: PCP Physician Assistant; Referring Provider Internal Medicine Hematology & Oncology; Visit Provider Internal Medicine Hematology & Oncology
DX: Z51.11 Encounter for antineoplastic chemotherapy (principal); C91.10 Chronic lymphocytic leukemia of B-cell type not having achieved remission
CPT/HCPCS: 36591; 80053; 85025; 96360; 96367; 96372; 96413; 96415; 96417; 99213; A4216; J1100; J1453; J1642; J2405; J2506; J3490; J7030; J7040; J7050; J9033; Q5115; A9270; G0463

== ENCOUNTER 2024-11-30 13:19 | Emergency (ER) | payer MEDICAID, SELFPAY ==
--- NOTE | 2024-11-30 13:38 | EKG_ITS ---
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
--- NOTE | 2024-11-30 13:38 | XR_ITS ---
Examination: PA chest single view TECHNIQUE: Upright PA chest single view Exam date and time: November 30, 2024 1351 hours Comparison July 30, 2024 INDICATIONS: Coughing today. FINDINGS: Minimal parenchymal disease left base Accentuation bronchovascular markings Normal heart size Right internal jugular Port-A-Cath tip satisfactory position Moderate osteopenia IMPRESSION: Scarring versus mild pneumonia left base Bronchitis pattern
--- NOTE | 2024-11-30 13:39 | XR_ITS ---
Examination: CT abdomen with intravenous contrast CT pelvis with intravenous contrast 2-D coronal reconstructions 2-D sagittal reconstructions Date and time of exam:November 30, 2024 2136 hrs. Comparison June 29, 2024 Indications: Onset right lower abdominal pain and tenderness today., Diagnosis small cell B cell lymphoma 2 years ago CTDI: vol (mGy) 9.61 DLP: (mGycm) 484 Technique: Multiple axial sections of the abdomen and pelvis have been obtained. 64 slice high-resolution scanner used. 3 mm axial sections have been obtained, post intravenous injection 60 cc Isovue-370 2-D sagittal, coronal reconstructions obtained. Low dose protocols were performed. One or more of the following dose reduction techniques were used; automated exposure control, adjustment of the mA and/or KV according to patient size, use of iterative reconstruction technique. Findings: 11 mm pulmonary nodule right lower lobe Stable 16 mm cyst posterior right lobe liver No gallstones No splenic lesion No pancreatic or adrenal mass 6.2 cm lower pole right renal cyst Normal appendix coronal image 70 No bowel obstruction Colonic diverticulosis, no diverticulitis Aorta normal size Subcentimeter periaortic lymph nodes Heavy abdominal aortic calcification no aneurysmal dilatation Atrophic anteverted uterus No adnexal mass Contracted urinary bladder Advanced degenerative disc disease L4-L5, L5-S1 Moderate narrowing hip joints Impression: 11 mm pulmonary nodule right lower lobe not visualized on June 29, 2024 6.2 cm lower pole right renal cyst, no hydronephrosis or ureteral calculi Normal appendix No bowel obstruction diverticulitis or free air
--- NOTE | 2024-11-30 13:40 | EDNOTE_ITS ---
ED Abdominal Pain RME/HPI General Chief Complaint: Abdominal Pain Stated complaint: ABD PAIN WITH NAUSEA; PCP SENT POSSIBLE [facility]Y Time seen by provider: 11/30/24 13:34 Arrival date/time: 11/30/24 13:19 RME / HPI RME / HPI narrative: 73-year-old female patient with significant history of lymphoma, currently on chemotherapy, came in with family for evaluation regarding right lower quadrant pain. Patient was sent to us by PCP to rule out appendicitis. Patient has been having right lower quadrant pain for the last 2 days, described as sharp, severity 5 out of 10 associated with nausea. Denies any vomiting. Denies any fever. Denies any diarrhea or constipation. Denies any dysuria denies any other complaints. No medications taken prior to arrival. Related Data Home Medications ?Medication ?Instructions ?Recorded ?Confirmed budesonide 160 mcg-glycopyr 9 2 puff inhalation BID 10/31/24 10/31/24 mcg-formot 4.8 mcg/actuation HFA inhaler ([employer]) Previous Rx's ?Medication ?Instructions ?Recorded albuterol sulfate 1.25 mg/3 mL 1.25 mg (3 mL) inhalation QID PRN 05/22/24 solution for nebulization shortness of breath or wheezing #90 mL aspirin 81 mg tablet,delayed 81 mg PO QDAY 30 days #30 tabs 11/04/24 release benzonatate 200 mg capsule 200 mg PO Q8HR PRN cough 30 days 11/04/24 #30 caps dextromethorphan-guaifenesin 30 1 tab PO BID PRN cough 30 days #60 11/04/24 mg-600 mg tablet extended tabs [id number] hr (Mucinex DM) phenol 1.5 %-glycerin 33 % mucosal 1 spray PO QDAY PRN sore throat 11/04/24 spray (Chloraseptic Max Sore #118 mL Throat) polyethylene glycol 3350 17 4 g PO QDAY PRN constipation #119 11/04/24 gram/dose oral powder (Miralax) grams sennosides 8.6 mg capsule 8.6 mg PO QDAY PRN constipation 30 11/04/24 days #30 caps blood pressure monitor (Blood #1 ea 11/06/24 Pressure Kit) furosemide 20 mg tablet (Lasix) 20 mg PO QDAY #30 tabs 11/06/24 levofloxacin 750 mg tablet 750 mg PO QDAY #3 tabs 11/06/24 potassium chloride 8 mEq 8 meq PO QDAY #30 tabs 11/06/24 tablet,extended release acetaminophen 300 mg-codeine 30 mg 1 tab PO Q8H PRN pain #20 tabs 11/30/24 tablet Allergies Allergy/AdvReac Type Severity Reaction Status Date / Time No Known Allergies Allergy Verified 11/30/24 13:21 Review of Systems Review of Systems Narrative Review of Systems: Review of system reviewed and within normal limits except mentioned in HPI ED Exam Narrative Physical exam: VITAL SIGNS: Reviewed. GENERAL APPEARANCE: Alert and interactive, follows commands, no acute distress, HEAD AND FACE: Non-traumatic. ENT: PERRL, pink conjunctivitis, eyelid no trauma, Mucous membrane moist. NECK: Supple, nontender, no nuchal rigidity. CHEST: No tenderness, no crepitus, no paradoxical movement, no retractions. LUNGS: Clear, well ventilated, symmetric, no rales, no wheezing, no ronchi, no stridor, good breath sounds bilaterally. HEART: Regular rate, regular rhythm, no murmur, no gallops. ABDOMEN: Soft, positive bowel sounds, nondistended, no guarding, right lower quadrant tenderness, no rebound, no masses, RECTAL: Deferred. GENITAL: Deferred. NEUROLOGICAL: Gross motor function intact sensory function intact, Appropriate for age. MUSCULOSKELETAL: low back nontender, full range of motion. EXTREMITIES: Nontender, full range of motion. SKIN: Color pink, dry, no rash, no lacerations, no abrasions, no contusions. LYMPHATICS: Deferred. Course Quality Measures none Orders Category Date Time Status CT Screening NOW Care 11/30/24 13:40 Active EKG (ED ONLY) *Do not use* NOW Care 11/30/24 13:[address] abdomen pelvis w con Stat Exams 11/30/24 13:39 Completed EKG (ED Only) Stat Exams 11/30/24 13:38 Draft XR chest 1V Stat Exams 11/30/24 13:38 Completed BNP [B-Type Natriuretic Peptide] Stat Lab 11/30/24 14:27 Completed CBC Stat Lab 11/30/24 14:27 Completed Comprehensive Metabolic Panel Stat Lab 11/30/24 14:27 Completed Lipase Stat Lab 11/30/24 14:27 Completed Partial Thromboplastin Time Stat Lab 11/30/24 14:27 Completed Prothrombin Time with INR Stat Lab 11/30/24 14:27 Completed Troponin I Stat Lab 11/30/24 14:27 Completed UA, C/S IF [Urinalysis, C/S if Indicated] Stat Lab 11/30/24 18:43 Completed HYDROcodone*/APAP 5/325 [[place] 5/325] Med 11/30/24 22:20 Discontinued 1 tab PO X1 ONE Vital Signs Vital signs: Vital Signs Temperature 98.1 F 11/30/24 13:50 Pulse Rate 76 11/30/24 13:50 Respiratory Rate 18 11/30/24 13:50 Blood Pressure 144/76 H 11/30/24 13:50 Pulse Oximetry (%) 95 11/30/24 13:50 Oxygen Delivery Method Room Air 11/30/24 13:50 Abdominal Pain MDM MDM Narrative MDM Narrative:: 73-year-old female patient with significant history of lymphoma, currently on chemotherapy, came in with family for evaluation regarding right lower quadrant pain. Patient was sent to us by PCP to rule out appendicitis. Patient has been having right lower quadrant pain for the last 2 days, described as sharp, se verity 5 out of 10 associated with nausea. Denies any vomiting. Denies any fever. Denies any diarrhea or constipation. Denies any dysuria denies any other complaints. No medications taken prior to arrival. Patient's workup all came unremarkable. CT scan of the abdomen and pelvis showed 11 mm pulmonary nodule right lower lobe not visualized on June 29, 2024 6.2 cm lower pole right renal cyst, no hydronephrosis or ureteral calculi Normal appendix No bowel obstruction diverticulitis or free air Results discussed with the patient and family. I told her to follow-up closely with urologist regarding renal cyst which is 6.2 cm in size. Patient and family told me that they already know about the renal cyst for the last 3 years. Patient data External records reviewed:: None Clinical information provided by:: patient and family Social determinants that could affect healthcare access:: none Patient has the following chronic illnesses:: History of lymphoma How is presenting disease/condition affected by chronic disease/condition?: exacerbated by Evaluation data The following diagnostics were reviewed and interpreted by me:: lab results and radiology exam(s) Lab and/or radiology exams considered but not ordered:: None Interpretation Summary: Patient's workup all came unremarkable. CT scan of the abdomen and pelvis showed 11 mm pulmonary nodule right lower lobe not visualized on June 29, 2024 6.2 cm lower pole right renal cyst, no hydronephrosis or ureteral calculi Normal appendix No bowel obstruction diverticulitis or free air Medications / Prescriptions Medications or Prescriptions considered but not ordered:: None Medication administrations:: Medication Administration History Discontinued Medications Hydrocodone Bitart/Acetaminophen (Hydrocodone/[place] 5/325 Tablet) 1 tab PO X1 ONE Stop: 11/30/24 22:21 [place] Consultations Consultation(s) initiated? (list below): No Diagnosis Differential diagnosis abdominal pain: abdominal pain, constipation and other (Renal cyst) Most likely diagnosis given after review of the tests above:: Abdominal pain, renal cyst Admission Indicated Admission indicated?: not indicated Explain why admission is indicated or not indicated:: Stable Admission Request Was there a request for admission?: No Disposition Plan Disposition Plan: Discharge Discharge Attestation Discharge Attestation: The patient and all family members were given an opportunity to ask questions and understood the discharge instructions. Discharge instructions specifically effects, indications for sooner follow up or return to the emergency department, and the expected course of current diagnosis. Patient condition: Stable Discharge Plan Plan Patient Disposition: HOME (Self Care) Disposition Comment: Stable Prescriptions/Referrals Prescriptions/Med Rec: New acetaminophen-codeine 300-30 mg tablet 1 tab PO Q8H PRN (Reason: pain) Qty: 20 0RF No Action albuterol sulfate 1.25 mg/3 mL solution for nebulization 1.25 mg inhalation QID PRN (Reason: shortness of breath or wheezing) Qty: 90 0RF Breztri Aerosphere 160-9-4.8 mcg/actuation HFA aerosol inhaler 2 puff INHALATION BID Patient Comments: INHALE 2 PUFFS BY MOUTH TWICE DAILY sennosides 8.6 mg capsule 8.6 mg PO QDAY PRN (Reason: constipation) 30 Days Qty: 30 0RF aspirin 81 mg Tablet,Delayed Release (Dr/Ec) 81 mg PO QDAY 30 Days Qty: 30 0RF benzonatate 200 mg capsule 200 mg PO Q8HR PRN (Reason: cough) 30 Days Qty: 30 0RF Chloraseptic Max Sore Throat 1.5-33 % spray,non-aerosol 1 spray PO QDAY PRN (Reason: sore throat) Qty: 118 0RF polyethylene glycol 3350 [Miralax] 17 gram/dose powder 4 g PO QDAY PRN (Reason: constipation) Qty: 119 0RF Mucinex DM 30-600 mg Tablet Extended Release 12 Hr 1 tab PO BID PRN (Reason: cough) 30 Days Qty: 60 0RF furosemide [Lasix] 20 mg tablet 20 mg PO QDAY Qty: 30 0RF Rx Instructions: hold if SBP drops below 100 and DBP below 60 mmHg potassium chloride 8 mEq tablet extended release 8 meq PO QDAY Qty: 30 0RF (DME) blood pressure monitor [Blood Pressure Kit] Kit See Rx Instructions .Route Qty: 1 0RF Rx Instructions: As directed levofloxacin 750 mg tablet 750 mg PO QDAY Qty: 3 0RF Referrals: Ellie Christensen PA-C [Primary Care Provider] - In 1 week Problem List Clinical Impression: Abdominal pain, Renal cyst Patient/Caregiver Discharge Instructions Discharge Activity: activity as tolerated Education Materials: Abdominal Pain, Kidney Problems Additional Instructions: Thank you for the opportunity for serving you today. You are stable for discharged . You are advised to: Follow-up with your PCP in 1 to 2 days and asked for referral to urology regarding your renal cyst Return to ED for worsening of symptoms Increase oral fluids Take medication as prescribed Print Language: Welsh Stand Alone Forms: Claire Award Info., Patient Portal Info Letter SHIELA Supervising Physician SHIELA Supervising Physician: MD Jonathon
[2024-11-30 13:50] VITALS: BP 144/76; PULSE 76; RESP 18; TEMP 36.7; O2SAT 95; BMI 27.8
[2024-11-30 14:44] LABS: Basophils % (Auto) 1 % (0-2.5); Eosinophils # (Auto) 0.1 Thou/mm3 (0.0-0.5); Eosinophils % (Auto) 1 % (0-10); Hematocrit 35.5 % (36.0-46.0); Hemoglobin 11.8 g/dL (12.0-16.0); Immature Granulocytes % (Auto) 0 % (0-0); Immature Granulocytes Auto 0.01 Thou/mm3 (0.00-0.00); Lymphocytes # (Auto) 4.3 Thou/mm3 (1.0-4.8); Lymphocytes % (Auto) 76 % (10-50); Mean Corpuscular HGB Conc 33.2 g/dl (31.0-37.0); Mean Corpuscular Hemoglobin 32.2 pg (25.0-35.0); Mean Corpuscular Volume 97 fL (80-100); Monocytes # (Auto) 0.5 Thou/mm3 (0.0-0.8); Monocytes % (Auto) 9 % (0-12); Neutrophils # (Auto) 0.7 Thou/mm3 (1.8-7.7); Neutrophils % (Auto) 13 % (37-80); Nucleated Red Blood Cell % 0 /100 WBC (0); Platelet Count 205 Thou/mm3 (140-440); RDW Standard Deviation 60.5 fL (36.4-46.3); Red Blood Count 3.66 Miln/mm3 (4.00-5.20); White Blood Count 5.6 Thou/mm3 (3.6-11.0)
[2024-11-30 14:56] LABS: Alanine Aminotransferase 18 U/L (10-49); Albumin, Serum 4.1 gm/dL (3.4-4.8); Albumin/Globulin Ratio 2.4 (1.2-2.2); Alkaline Phosphatase 135 U/L (46-116); Anion Gap 8 (7-16); Aspartate Amino Transferase 28 U/L (0-34); BUN/Creatinine Ratio 12 Ratio (12-20); Bilirubin,Total 0.5 mg/dL (0.3-1.2); Blood Urea Nitrogen 7 mg/dL (9-23); Calcium 9.6 mg/dL (8.3-10.6); Calcium (Corrected) 9.6 mg/dL (8.5-10.1); Carbon Dioxide 26.7 mMol/L (20.0-31.0); Chloride 107 mMol/L (98-107); Creatinine (Component) 0.6 mg/dL (0.6-1.3); Estimated Creatinine Clearance 73.7 mL/min (>60); Globulin 1.7 gm/dL (2.3-3.5); Glucose 94 mg/dL (74-106); Lipase 48 U/L (12-53); Osmolality,Calculated 281 (275-295); Potassium 4.5 mMol/L (3.4-5.1); Sodium 142 mMol/L (136-145); Total Protein 5.8 gm/dL (5.7-8.2); Troponin I < 0.020 ng/mL (0.0-0.045); eGFR > 60 See Note
[2024-11-30 15:12] LABS: B-Type Natriuretic Peptide 107 pg/mL (0-100)
[2024-11-30 15:20] LABS: Partial Thromboplastin Time 24.4 Seconds (22.0-36.0); Prothrombin Time 10.9 Seconds (9.0-12.2)
[2024-11-30 18:37] VITALS: BP 165/80; PULSE 79; RESP 17; TEMP 36.7; O2SAT 96
[2024-11-30 18:54] LABS: Collection Type, Urine Clean Catch
[2024-11-30 19:12] LABS: Bilirubin,Urine Negative (Negative); Blood,Urine Negative (Negative); Clarity,Urine Clear (Clear/Hazy); Color,Urine Lt-Yellow (Lt Yel-Yel); Culture Indicated,Urine Not Indicated; Glucose, Urine Negative (Negative); Ketones,Urine Negative (Negative); Leukocyte Esterase,Urine Positive (Negative); Nitrite,Urine Negative (Negative); PH,Urine 7.5 (5.0-7.0); Protein,Urine Negative (Neg - Trace); RBC,Urine 1 /hpf (0-3); Specific Gravity,Urine 1.013 (1.001-1.035); Squamous Epithelial Cell,Urine 5 /hpf (0-5); Urobilinogen,Urine Negative mg/dL (0.0-1.0); WBC,Urine 1 /hpf (0-5)
[2024-11-30] MEDS: HYDROcodone/APAP 5/325 TABLET 1 TAB PO (22:31)
== END 2024-11-30 23:28 | disposition home or self-care (01) ==
PROVIDERS: Nurse Practitioner Family; Emergency Provider Emergency Medicine; PCP Physician Assistant
DX: R10.31 Right lower quadrant pain (principal); N28.1 Cyst of kidney, acquired
CPT/HCPCS: 36415; 71045; 74177; 80053; 81001; 83690; 83880; 84484; 85025; 85610; 85730; 93005; 99285; A4649; Q9967; A9270

== ENCOUNTER → 2024-12-07 | Outpatient (CLI) | payer MEDICAID, SELFPAY ==
--- NOTE | 2024-12-07 13:15 | XR_ITS ---
EXAMINATION: PET/CT FUSION SKULL TO THIGH EXAM DATE AND TIME: December 07, 2024 at 1342 hours Comparison March 06, 2024 INDICATIONS: Diagnosis lymphoma staging post treatment CTDI:vol (mGy) 7.04 DLP: (mGycm) 642 PROCEDURE: 16.02 mCi FDG was administered intravenously To allow for distribution and uptake of radiotracer, the patient was allowed to rest quietly in a shielded room. Imaging was performed on an integrated 16-slice PET/CT scanner, with scanning from the skull base to the mid thigh. Serum blood glucose at the time of the injection was measured 100 mg/dL. CT scanning was performed without oral or intravenous contrast material. FINDINGS: Head and Neck: Significant decrease in size and number of currently non hypermetabolic carotid triangle posterior cervical lymph nodes as well as retroclavicular lymph nodes Chest: Hypermetabolic axillary and mediastinal nodes are no longer identified Abdomen and Pelvis: No current significant abdominal or mediastinal hypermetabolic lymphadenopathy Musculoskeletal: Marrow uptake is within normal range. IMPRESSION: Marked treatment response with no significant residual cervical axillary, mediastinal, abdominal or pelvic lymphadenopathy
== END | disposition home or self-care (01) ==
PROVIDERS: Referring Provider Internal Medicine Hematology & Oncology; Visit Provider Internal Medicine Hematology & Oncology
DX: C83.00 Small cell B-cell lymphoma, unspecified site (principal)
CPT/HCPCS: 78815; A9552

== ENCOUNTER 2024-12-28 15:29 | Outpatient (RCR) | payer MEDICAID, SELFPAY ==
--- NOTE | 2024-12-31 23:00 | CTCFLWUP_ITS ---
Patient: KIMMIE ULRICH : 1950 Page 7 of 9 FOLLOW UP NOTE DATE OF SERVICE: 12/28/2024 NAME: KIMMIE ULRICH ACCOUNT: [id number] : 1950 AGE: 74 INTERVAL HISTORY: Patient is doing well. She has completed chemotherapy with BR for 6 cycles ONCOLOGY HISTORY: DIAGNOSIS: Small cell B-cell lymphoma, unspecified site [ICD10] C83.00 DATE OF DIAGNOSIS: 02/25/2024 STAGE/TNM: Stage IV TREATMENT HISTORY: Care?Plan Start?Date Cycle Day Intent Rituxan?375?+?Bendamustine?90?Chalino 04/24/2024 1 Palliative Rituxan?375?+?Bendamustine?90?Chalino 08/28/2024 1 28 Maintenance HISTORY OF PRESENT ILLNESS: Kimmie Ulrich is a 74-year-old SPA speaking female who was initially diagnosed with lymphoma/leukemia in [place] about 2 years ago. She had lymph node biopsy at that time. I do not have any records from [place]. According to Ms. Ulrich she was treated for about 4 cycles of chemot herapy in [place]. Since then she came to the [facility]. She was seen in [place] by a bottle inspector/oncologist. She was told she does not need any treatment. 02/02/2023: WBC 21.5, ANC 15.9, lymphocytes 4.7, hemoglobin 14.4, MCV 92, platelet count 150,000. 08/26/2023: WBC 13.4, absolute lymphocyte count 7.9, hemoglobin 15.1, MCV 95, platelets 204,000. Hepatitis panel negative. HIV negative. 11/11/2023: CT scan of the chest with IV contrast? 01/24/2024: WBC 12.2, absolute lymphocyte count 9.5, hemoglobin 13.0, MCV 97, platelets 168,000, creatinine 0.62, LDH 175, hepatitis panel negative ESR 16. Uric acid 6.0 Flow cytometry of the peripheral blood 02/25/2024: Ms. Ulrich had left neck cervical lymph node excisional biopsy? 03/02/2024: Ms. Ulrich had CT scan of the chest abdomen and pelvis with IV contrast which was compared to previous scans done on November 11, 2023. 03/06/2024: PET/CT scan? 04/24/2024: Ms. Ulrich received first cycle of Bendamustine and rituximab. 05/09/2024 - 05/15/2024: Ms. Ulrich was admitted to the hospital because of neutropenic fever. Treated with IV antibiotics. Discharged home on oxygen via nasal cannula. 05/17/2024 - 05/22/2024: Ms. Ulrich was readmitted to the hospital due to acute respiratory failure secondary to pneumonia treated with IV antibiotics. 06/19/2024: Ms. Ulrich had second cycle of Bendamustine and rituximab followed by pegfilgrastim. 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 albuterol sulfate - 2.5 mg /3 mL (0.083 %) Twice a Day 2. albuterol-budesonide - 90-80 mcg/actuation 2 Quart Twice a Day 3. furosemide - 20 mg 1 tab As directed Medications Last Reconciled by Kimmie Dixon MA on 12/28/2024 ALLERGIES: No Known Drug Allergies REVIEW OF SYSTEMS: A complete 14-point review of systems was performed and is negative except as noted in interval history. PHYSICAL EXAMINATION: VITAL SIGNS: Temperature?99.9, B/P?133/70, Oxygen?Saturation?98% Weight?152?lbs PAIN: 0 - No pain ECOG Performance Status: 0 - Asymptomatic and fully active EYE: Conjunctivae is pink. MOUTH: Oral cavity is dry. Bilateral cervical lymphadenopathy as well is axillary lymphadenopathy is not palpable CHEST: Clear to auscultation. No wheezes or rales audible. CARDIAC: Rhythm regular, no murmurs or gallops present. ABDOMEN: Soft. No hepatomegaly. No splenomegaly. EXTREMITIES: No pedal edema or cyanosis. LABORATORY DATA: I have personally reviewed and interpreted each of the patient?s relevant lab tests, abnormal findings are below: Date 11/30/24 ??GLUCOSE,RANDOM?(mg/dL) 94 ??BLOOD?UREA?NITROGEN?(mg/dL) 7?L ??CREATININE?(mg/dL) 0.60 ??SODIUM?(mmol/L) 142 ??POTASSIUM?(mmol/L) 4.5 ??CHLORIDE?(mmol/L) 107 ??CrCl?(CandG)?(ml/min) 76.45 ??AST/SGOT?(Unit/L) 28 ??ALT/SGPT?(Unit/L) 18 ??ALKALINE?PHOSPHATASE?(Unit/L) 135?H ??BILIRUBIN,?TOTAL?(mg/dL) 0.5 ??PROTEIN?TOTAL?(gm/dl) 5.8 ??ALBUMIN,?SERUM?(gm/dl) 4.1 ??GLOBULIN?(gm/dl) 1.7?L ??ALBUMIN/GLOBULIN?RATIO 2.4?H ??CALCIUM,?SERUM?(mg/dL) 9.6 ??CALCIUM?SERUM?(CORRECTED)?(mg/dL) 9.6 ASSESSMENT/PLAN: Small small lymphocytic lymphoma patient was initially treated in [place] and later started on BR after 1 year of the previous treatment as patient had extensive lymphadenopathy and was symptomatic Patient completed 3 cycles of BR recent (06/29/2024) CT scan showed significant improvement in the lymphadenopathy as documented above. Ms. Ulrich was admitted to the hospital twice (05/09/2024 and 05/17/2024) because of acute respiratory failure secondary to pneumonia treated with IV antibiotics.. Patient's symptoms have decreased and no palpable lymphadenopathy increased T- cell large granular lymphocytes (T?LGL). Hoarseness of voice has improved. Last scan showed great response to therapy Completed 6 cycles of chemotherapy 11/05/2024 ultrasound negative for deep vein thrombus in both legs 09/20/2024 MRI brain negative for any cerebellar or cerebral lesions in the brain Vies Ms. Ulrich to complete vaccination with COVID and flu 12/07/[address] marked treatment response with no signi?cant residual cervical axillary. meediastinal. abdominal or pelvic lymphadcnopathy CBC CMP LDH uric acid RETURN TO CLINIC: 6 months BILLING AND COMPLIANCE: I reviewed external records from providers outside my specialty as summarized above. I spent a total of 50 minutes on this patient?s care on the day of their visit excluding time spent related to any billed procedures. This time includes time spent with the patient as well as time spent documenting in the medical record, reviewing patients records and tests, obtaining history, placing orders, communicating with other healthcare professionals, counseling the patient, family or caregiver, and/or care coordination for the diagnoses above. Electronically Signed by: Saeid Dutton MD T: 10:58 PM CC: Ellie?Fermin?(lebron),? PCP: Saeid Dutton Referring: Saeid Dutton This document was completed utilizing speech recognition software. Grammatical errors, random word insertions, pronoun errors, and incomplete sentences are an occasional consequence of this system due to software limitations, ambient noise, and hardware issues. Any formal questions or concerns about the content, text or information contained within the body of this dictation should be directly addressed to the provider for clarification.
== END 2025-01-19 23:59 | disposition home or self-care (01) ==
LOC: SCTC 15:29
PROVIDERS: PCP Physician Assistant; Referring Provider Internal Medicine Hematology & Oncology; Visit Provider Internal Medicine Hematology & Oncology
DX: C83.01 Small cell B-cell lymphoma, lymph nodes of head, face, and neck (principal); Z92.21 Personal history of antineoplastic chemotherapy
CPT/HCPCS: 99212; G0463

== ENCOUNTER 2025-03-03 14:51 | Inpatient (IN) | payer MEDICAID, SELFPAY ==
[2025-03-03] VITALS (8 sets, daily range): BP systolic 117–157; BP diastolic 66–83; PULSE 73–92; RESP 16–24; TEMP 37.3–37.7; O2SAT 91–100; BMI 29.7
--- NOTE | 2025-03-03 15:17 | PD.EDSOB ---
ED SOB =RME/HPI General Chief Complaint: Shortness of Breath/Dyspnea Stated Complaint: SOB 83% @[facility] Time Seen by Provider: 03/03/25 15:04 Arrival date/time: 03/03/25 14:51 RME / HPI RME / HPI Narrative: 74 year old female with history of small cell B-cell lymphoma, post chemotherapy (last treatment 10/2024), currently in remission, presents to the ED brought in by daughter for evaluation of shortness of breath today. Patient reports she has had a cough producing small amount of phlegm for 4 weeks. However this morning noted to feel short of breath without any known modifying factors, prompting ED visit. Daughter mentioned patient was admitted 10/2024 for pneumonia and was discharged home with oxygen. States oxygen usage was tapered down and by the middle of November 2024 is no longer using oxygen. Patient denies any fevers, chills, chest pain, abdominal pain, nausea, vomiting, diarrhea, or urinary symptoms. Related Data Home Medications ?Medication ?Instructions ?Recorded ?Confirmed budesonide 160 mcg-glycopyr 9 2 puff inhalation BID 10/31/24 10/31/24 mcg-formot 4.8 mcg/actuation HFA inhaler (Concealium Softwareztri Ecorithmphere) Previous Rx's ?Medication ?Instructions ?Recorded albuterol sulfate 1.25 mg/3 mL 1.25 mg (3 mL) inhalation QID PRN 05/22/24 solution for nebulization shortness of breath or wheezing #90 mL phenol 1.5 %-glycerin 33 % mucosal 1 spray PO QDAY PRN sore throat 11/04/24 spray (Chloraseptic Max Sore #118 mL Throat) polyethylene glycol 3350 17 4 g PO QDAY PRN constipation #119 11/04/24 gram/dose oral powder (Miralax) grams blood pressure monitor (Blood #1 ea 11/06/24 Pressure Kit) furosemide 20 mg tablet (Lasix) 20 mg PO QDAY #30 tabs 11/06/24 levofloxacin 750 mg tablet 750 mg PO QDAY #3 tabs 11/06/24 potassium chloride 8 mEq 8 meq PO QDAY #30 tabs 11/06/24 tablet,extended release acetaminophen 300 mg-codeine 30 mg 1 tab PO Q8H PRN pain #20 tabs 11/30/24 tablet Allergies Allergy/AdvReac Type Severity Reaction Status Date / Time No Known Allergies Allergy Verified 11/30/24 13:21 Review of Systems Review of Systems Narrative Review of Systems: GEN: No fever, no chills, no weight loss EYES: No discharge, no visual changes, no pain HEENT: No ear pain, no congestion, no sore throat PULM: + shortness of breath, +cough producing phlegm CV: No chest pain, no dyspnea on exertion, no palpitations GI: No nausea, no vomiting, no diarrhea, no pain, no constipation : No frequency, no urgency, no dysuria MUSC/SKEL: No joint pain, no back pain SKIN: No rash NEURO: No weakness, no headache Past Medical History Past Medical History RESPIRATORY: Positive Bronchitis, Emphysema, Pneumonia and Tobacco Use REPRODUCTIVE: Positive Previous Pregnancies MUSCULOSKELETAL: Positive Osteoporosis and Fractures HEMATOLOGIC: Positive Blood Disorders and Leukemia (CLL) PSYCHO/SOCIAL: Positive Depression OTHER HISTORY: Positive Hospitalization, Chemotherapy, Chicken Pox, Measles and Cancer (CLL) Family History FAMILY HISTORY: Positive Family Cancer and Family Surgery Surgical History SURGICAL: Positive Tonsillectomy Social History SMOKING STATUS: Never smoker SECOND HAND EXPOSURE: No ED Exam Narrative Physical exam: GENERAL APPEARANCE: alert and oriented x 4, well-developed, well-nourished, tachypneic HEENT: Normocephalic, atraumatic; pupils equal, round, reactive to light; EOMI; mucous membranes pink, moist; oropharynx clear NECK: Supple LUNGS: Rhonchi and wheezing on the left, tachypneic; no wheezes, no rales, no rhonchi HEART: Regular rate, regular rhythm; normal S1, S2; no murmurs ABDOMEN: non distended; normal BS; soft, no tenderness, no guarding, no rebound; no masses, no organomegaly, no hernia BACK: no CVA tenderness EXTREMITIES: atraumatic; no edema NEUROLOGIC: awake; alert and oriented x4; cranial nerves II-XII grossly intact; no focal sensory or motor deficits PSYCHIATRIC: appropriate mood and affect SKIN: warm, dry, normal color; no rashes Course Course Course Narrative: chest xray ordered to help determine etiology of shortness of breath. 1800: Patient signed out pending CT angio chest report. Quality Measures none Orders Category Date Time Status CT Screening NOW Care 03/03/25 16:01 Active Wealth Management Director NOW Care 03/03/25 15:20 Active EKG (ED ONLY) *Do not use* NOW Care 03/03/25 15:20 Completed Insert IV NOW Care 03/03/25 16:[address] angio chest Stat Exams 03/03/25 16:01 Taken EKG (ED Only) Stat Exams 03/03/25 15:20 Draft XR chest 1V portable Stat Exams 03/03/25 15:20 Completed B-Type Natriuretic Peptide Stat Lab 03/03/25 15:33 Completed CBC Stat Lab 03/03/25 15:33 Completed Comprehensive Metabolic Panel Stat Lab 03/03/25 15:33 Completed Lipase Stat Lab 03/03/25 15:33 Completed Magnesium Stat Lab 03/03/25 15:33 Completed Partial Thromboplastin Time Stat Lab 03/03/25 15:33 Completed Prothrombin Time with INR Stat Lab 03/03/25 15:33 Completed Troponin I Stat Lab 03/03/25 15:33 Completed Albuterol/Ipratr Rt Asha [Duoneb Rt Asha] Med 03/03/25 15:20 Discontinued 3 ml INH X1 ONE Albuterol/Ipratr Rt Asha [Duoneb Rt Asha] Med 03/03/25 16:40 Discontinued 3 ml INH X1 ONE Vital Signs Vital signs: Vital Signs Pulse Rate 73 03/03/25 15:43 Respiratory Rate 20 03/03/25 15:43 Pulse Oximetry (%) 97 03/03/25 15:43 Oxygen Flow Rate 3 03/03/25 15:43 Shortness of Breath / Dyspnea MDM Narrative MDM Narrative:: Rupali Grider am scribing for and in the presence of Dr. Joseph. Patient data External records reviewed:: [facility] previous records (I reviewed ED visit on 11/30/2024) Clinical information provided by:: patient and family (daughter adds to hpi) Social determinants that could affect healthcare access:: none Patient has the following chronic illnesses:: small cell B-cell lymphoma, post chemotherapy (last treatment 10/2024), currently in remission How is presenting disease/condition affected by chronic disease/condition?: exacerbated by Evaluation data The following diagnostics were reviewed and interpreted by me:: lab results and radiology exam(s) Lab and/or radiology exams considered but not ordered:: None Interpretation Summary: Ordering Physician: Rosario Joseph MD Date of Service: 03/03/25 Procedure(s): XR chest 1V portable Accession Number(s): [id number] cc: Ellie Christensen PA-C; Tee Young MD; Rosario Joseph MD~ Exam: Chest 1 view, AP Date and time of exam: 03/03/2025, 3:32 PM INDICATION: Chest pain and cough Comparison: 11/30/2024 Findings: Stable right-sided port Normal heart size. No mediastinal adenopathy. No acute fracture No pulmonary edema or pneumonia. Impression: No active disease. Dictated By: Tee Young MD Signed By: <Electronically signed by Tee Young MD in [place]> 03/03/25 1540 Medications / Prescriptions Medications or Prescriptions considered but not ordered:: None Medication administrations:: Medication Administration History Discontinued Medications Albuterol/Ipratropium (Albuterol/Ipratropium (Duoneb) Rt Asha 3 Ml Nebu) 3 ml INH X1 ONE Stop: 03/03/25 15:21 Last Admin: 03/03/25 15:41 Dose: 3 ml Documented By: VARUN Albuterol/Ipratropium (Albuterol/Ipratropium (Duoneb) Rt Asha 3 Ml Nebu) 3 ml INH X1 ONE Stop: 03/03/25 16:41 Last Admin: 03/03/25 17:18 Dose: 3 ml Documented By: VARUN See above Consultations Consultation(s) initiated? (list below): No Diagnosis Shortness of Breath Differential Diagnosis: acute exacerbation of chronic obstructive airways disease, congestive heart failure, community acquired pneumonia and other (viral illness ) Most likely diagnosis given after review of the tests above:: Shortness of breath Hypoxia Admission Indicated Admission indicated?: not indicated Admission Request Was there a request for admission?: No Disposition Plan Disposition Plan: other (specify) (1800: Patient signed out pending CT angio chest report. ) Discharge Plan Prescriptions/Referrals Prescriptions/Med Rec: No Action albuterol sulfate 1.25 mg/3 mL solution for nebulization 1.25 mg inhalation QID PRN (Reason: shortness of breath or wheezing) Qty: 90 0RF acetaminophen-codeine 300-30 mg tablet 1 tab PO Q8H PRN (Reason: pain) Qty: 20 0RF Breztri Aerosphere 160-9-4.8 mcg/actuation HFA aerosol inhaler 2 puff INHALATION BID Patient Comments: INHALE 2 PUFFS BY MOUTH TWICE DAILY Chloraseptic Max Sore Throat 1.5-33 % spray,non-aerosol 1 spray PO QDAY PRN (Reason: sore throat) Qty: 118 0RF polyethylene glycol 3350 [Miralax] 17 gram/dose powder 4 g PO QDAY PRN (Reason: constipation) Qty: 119 0RF furosemide [Lasix] 20 mg tablet 20 mg PO QDAY Qty: 30 0RF Rx Instructions: hold if SBP drops below 100 and DBP below 60 mmHg potassium chloride 8 mEq tablet extended release 8 meq PO QDAY Qty: 30 0RF (DME) blood pressure monitor [Blood Pressure Kit] Kit See Rx Instructions .Route Qty: 1 0RF Rx Instructions: As directed levofloxacin 750 mg tablet 750 mg PO QDAY Qty: 3 0RF Referrals: Ellie Christensen PA-C [Primary Care Provider] - In 1 week Patient/Caregiver Discharge Instructions Print Language: Maltese
--- NOTE | 2025-03-03 15:20 | XR_ITS ---
Exam: Chest 1 view, AP Date and time of exam: 03/03/2025, 3:32 PM INDICATION: Chest pain and cough Comparison: 11/30/2024 Findings: Stable right-sided port Normal heart size. No mediastinal adenopathy. No acute fracture No pulmonary edema or pneumonia. Impression: No active disease.
--- NOTE | 2025-03-03 15:20 | EKG_ITS ---
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
[2025-03-03] MEDS: ALBUTEROL/IPRATROPIUM (Duoneb) RT SOL 3 ML NEBU INH ×3 (15:41→20:22)
[2025-03-03 15:47] LABS: Basophils % (Auto) 1 % (0-2.5); Eosinophils % (Auto) 0 % (0-10); Hematocrit 38.6 % (36.0-46.0); Immature Granulocytes % (Auto) 11 % (0-0); Immature Granulocytes Auto 0.98 Thou/mm3 (0.00-0.00); Lymphocytes # (Auto) 1.4 Thou/mm3 (1.0-4.8); Lymphocytes % (Auto) 16 % (10-50); Mean Corpuscular HGB Conc 33.7 g/dl (31.0-37.0); Mean Corpuscular Hemoglobin 31.9 pg (25.0-35.0); Mean Corpuscular Volume 95 fL (80-100); Monocytes # (Auto) 0.4 Thou/mm3 (0.0-0.8); Monocytes % (Auto) 4 % (0-12); Neutrophils # (Auto) 6.1 Thou/mm3 (1.8-7.7); Neutrophils % (Auto) 69 % (37-80); Nucleated Red Blood Cell % 0 /100 WBC (0); Platelet Count 155 Thou/mm3 (140-440); RDW Standard Deviation 53.2 fL (36.4-46.3); Red Blood Count 4.08 Miln/mm3 (4.00-5.20); White Blood Count 8.8 Thou/mm3 (3.6-11.0)
--- NOTE | 2025-03-03 16:01 | XR_ITS ---
Examination: CTA chest with intravenous contrast 2-D reconstructions 3-D reconstructions, vascular Date and time of exam: March 11 at 1529 hrs. Indications: Shortness of breath chest pain today CTDI: vol (mGy) 11.4 DLP: (mGycm) 259 Technique: Multiple axial sections of the thorax have been obtained. 3 mm slice thickness, from below the hemidiaphragms to above the apices of the lungs. Mediastinal and lung density settings have been obtained. 2-D sagittal and coronal reconstructions. 3-D angiographic renderings, 3-D volume renderings, 3D post processing, vascular maximum intensity projections obtained. Contrast administered is 100 cc Isovue-370. Low dose protocols were performed. One or more of the following dose reduction techniques were used; automated exposure control, adjustment of the mA and/or KV according to patient size, use of iterative reconstruction technique. Findings: No thoracic aortic aneurysmal dilatation or dissection No pulmonary artery filling defects No pathologic paratracheal tracheobronchial or bronchopulmonary adenopathy Mild enlargement left atrium Bilateral miliary nodular pattern of pneumonia 15 mm right lobe liver cyst No pancreatic mass Moderate thoracic spondylosis Impression: Negative for pulmonary artery emboli Extensive miliary nodular pneumonia throughout both lungs, most likely infectious in etiology, active tuberculosis would be included in the differential
[2025-03-03 16:08] LABS: B-Type Natriuretic Peptide 140 pg/mL (0-100)
[2025-03-03 16:09] LABS: Alanine Aminotransferase 16 U/L (10-49); Albumin, Serum 3.8 gm/dL (3.4-4.8); Albumin/Globulin Ratio 2.4 (1.2-2.2); Alkaline Phosphatase 133 U/L (46-116); Anion Gap 10 (7-16); Aspartate Amino Transferase 20 U/L (0-34); BUN/Creatinine Ratio 20 Ratio (12-20); Blood Urea Nitrogen 16 mg/dL (9-23); Calcium (Corrected) 9.2 mg/dL (8.5-10.1); Carbon Dioxide 22.3 mMol/L (20.0-31.0); Chloride 110 mMol/L (98-107); Creatinine (Component) 0.8 mg/dL (0.6-1.3); Estimated Creatinine Clearance 51.8 mL/min (>60); Globulin 1.6 gm/dL (2.3-3.5); Glucose 104 mg/dL (74-106); INR 1.1 (0.9-1.3); Lipase 23 U/L (12-53); Osmolality,Calculated 284 (275-295); Partial Thromboplastin Time 26.6 Seconds (22.0-36.0); Potassium 3.4 mMol/L (3.4-5.1); Prothrombin Time 11.7 Seconds (9.0-12.2); Sodium 142 mMol/L (136-145); Total Protein 5.4 gm/dL (5.7-8.2); Troponin I < 0.020 ng/mL (0.0-0.045); eGFR > 60 See Note
--- NOTE | 2025-03-03 18:37 | EDNOTE_ITS ---
Emergency Room Addendum Addendum Narrative: 1800: Care assumed from Dr. Joseph, the previous shift emergency physician. Past medical, surgical, social and family history reviewed. Vitals and home medications reviewed. Results and treatment plan discussed. I will assume the care of the patient at this time and will follow the patient, pending CTA of the chest. Please refer to the emergency department record for history and examination from initial visit. 185: Discussed case with Dr. Middleton from Hospitalist service regarding admission. Discussed patients ED course, exam findings, labs, and radiology results. The Hospitalist [agrees] to accept the patient for admission. RADIOLOGY RESULTS: [facility] Report Signed Patient: KIMMIE ULRICH Record#: [id number] Birthdate: 1950 Age/Sex: 74 / F Location: [facility] Attending Dr: Ordering Physician: Rosario Joseph MD Date of Service: 03/03/25 Procedure(s): CT angio chest Accession Number(s): [id number] cc: Ellie Christensen PA-C; Kenny Ulloa MD; Rosario Joseph MD~ Examination: CTA chest with intravenous contrast 2-D reconstructions 3-D reconstructions, vascular Date and time of exam: March 11 at 1529 hrs. Indications: Shortness of breath chest pain today CTDI: vol (mGy) 11.4 DLP: (mGycm) 259 Technique: Multiple axial sections of the thorax have been obtained. 3 mm slice thickness, from below the hemidiaphragms to above the apices of the lungs. Mediastinal and lung density settings have been obtained. 2-D sagittal and coronal reconstructions. 3-D angiographic renderings, 3-D volume renderings, 3D post processing, vascular maximum intensity projections obtained. Contrast administered is 100 cc Isovue-370. Low dose protocols were performed. One or more of the following dose reduction techniques were used; automated exposure control, adjustment of the mA and/or KV according to patient size, use of iterative reconstruction technique. Findings: No thoracic aortic aneurysmal dilatation or dissection No pulmonary artery filling defects No pathologic paratracheal tracheobronchial or bronchopulmonary adenopathy Mild enlargement left atrium Bilateral miliary nodular pattern of pneumonia 15 mm right lobe liver cyst No pancreatic mass Moderate thoracic spondylosis Impression: Negative for pulmonary artery emboli Extensive miliary nodular pneumonia throughout both lungs, most likely infectious in etiology, active tuberculosis would be included in the differential Dictated By: Kenny Ulloa MD Signed By: <Electronically signed by Kenny Ulloa MD in [place]> 03/03/25 3885
--- NOTE | 2025-03-03 19:11 | PD.EVENT ---
Documentation for date of: 03/03/25 Event Note Event Note: A 73-year-old female presented to the ER with the chief complaint of cough and new-onset shortness of breath. Patient's daughter reports that the patient has had a chronic cough, which worsened over the past week. The cough became more productive, with whitish sputum noted earlier in the week. She denies recent fever but reports occasional night sweats and a 4-lb weight loss over the past two months. The daughter stated that the patient began having shortness of breath earlier today. The patient had been in [place] since December and returned to the [place] today. She was treated for cough with antibiotics while in [place]. The patient has a longstanding history of cough and recurrent pneumonia, with previous admissions for pneumonia in October 2024 and April 2024. She has been on home oxygen at 2L/min. The daughter believes the patient may have smoked one or two cigarettes during her stay in [place], although she had quit smoking one year ago. No family members are currently sick, but the daughter developed sore throat and upper respiratory symptoms during their return travel. The patient has a history of small lymphocytic lymphoma diagnosed in 2021 in [place], treated with 4 cycles of chemotherapy, and additional 6 sessions at [facility] starting April 2024. A PET scan in November 2024 showed marked treatment response, with no significant residual lymphadenopathy. Surgical history includes tubal ligation and tonsil surgery. Current medications include Albuterol. She does not take any maintenance medication for other chronic conditions. Social history includes 50 years of smoking, quit one year ago, with possible brief recent relapse; no alcohol or drug use reported. In the ER, vital signs were: temp 99.3 F, HR 78 bpm, RR 20, BP 124/74 mmHg. Labs showed WBC 8.8, Hb 13, Plt 155, Na 142, K 3.4, BUN 16, Creatinine 0.8, and BNP 140. CT chest was negative for pulmonary embolism but showed extensive miliary nodular pneumonia throughout both lungs, concerning for infectious etiology with active tuberculosis included in the differential. Compared to CT chest from April 2024, these are new findings. The patient was admitted for further management and evaluation. 05/17/2024 vs. now #Acute Miliary Pneumonia (rule out Tuberculosis) Assessment: New miliary nodular infiltrates on chest CT, subacute productive cough, recent [place] travel, history of recurrent pneumonia, weight loss, night sweats, no fever, stable vitals, immunocompromised due to CLL Plan: - Airborne isolation until TB ruled out - Obtain sputum samples ?3 for AFB smear and culture - Quantiferon - Consult ID - Start empirical antibiotics covering atypical pathogens (azithromycin + ceftriaxone) - Monitor respiratory status - Oxygen supplement #Small cell B-cell lymphoma Assessment: Diagnosed 2021, recent chemotherapy (6 cycles), PET scan in Nov 2024 with good response, currently off therapy, immunocompromised status Plan: - Monitor CBC trends - Oncology follow-up - No acute intervention required during this admission unless disease relapse suspected
[2025-03-03] MEDS: SODIUM CHLORIDE 0.9% 1000 ML 1,000 ML 75 ML IV (19:30)
[2025-03-03] MEDS: cefTRIAXone/D5w 1gm IV premix 1 GM/50 ML BAG IV (19:31)
[2025-03-03 19:48] LABS: LDH (Lactate Dehydrogenase) 668 U/L (120-246)
[2025-03-03 19:55] LABS: Procalcitonin 0.21 ng/ml (0.0-0.49)
--- NOTE | 2025-03-03 20:01 | XR_ITS ---
Examination: Venous duplex upper extremity sonogram, bilateral. Date and time of exam: March 03, 2025 10:20 AM Indications: Bilateral arm swelling beginning several days ago Technique: Multiple sonographic images of the deep venous system have been obtained. B-mode/2-D grayscale imaging of vascular structures and Doppler spectral analysis (waveforms) and color performed Both legs are examined. Findings: Deep venous systems do not demonstrate abnormal echogenicity. All visualized deep veins exhibit compressibility. All visualized deep veins exhibit augmentation. Impression: Negative for deep vein thrombosis
[2025-03-03] MEDS: AZITHROMYCIN INJ 500 MG in SODIUM CHLORIDE 0.9% 250 ML 250 ML 250 MG IV (20:06)
--- NOTE | 2025-03-03 20:18 | PC.RT ---
1st AFB collected and sent to lab. Pt was able to self expectorate.
--- NOTE | 2025-03-03 20:24 | PD.RESHP ---
Documentation for date of: 03/03/25 HPI History of Present Illness Chief complaint: Cough History of present illness: The patient is a 74-year-old female with a previous medical history of small lymphocytic lymphoma, HFrEF ejection fraction 45%11/15 who came to the ED 03/03/25 with shortness of breath, productive cough, fevers, chills, she reports that symptoms started approximately 1 week ago. She also reports chest pain when she coughs. She denies sick contacts at home, recently traveled to [place] and returned today 03/03/25. Her daughter at the bedside, she reports unintentional weight loss in the last 2 weeks (4 pounds). She reports that she has a scheduled follow-up with Dr. Marija hilton and that she is not on any medications right now. Daughter reports that the only medication that she is using right now is albuterol inhaler. Patient has a history of admission due to community-acquired pneumonia in October 2024, was discharged with home oxygen, and still uses it from time to time. ED course: Blood pressure 124/74, pulse 73, afebrile, saturation 94% on 3 L oxy mask. Labs showed WBC 8.8, hemoglobin 13, platelets 155, INR 1.1, sodium 142, potassium 3.4, chloride 110, BUN 16, creatinine 0.8, GFR more than 60, magnesium 2.0, alkaline phosphatase 133, lactate dehydrogenase 668, BNP 140, total protein 5.4, Pro-Satnam 0.21. Chest CTA showed extensive miliary nodules, differential diagnosis would include active tuberculosis. EKG showed sinus rhythm. Bedside influenza A and B, COVID negative. Patient is going to be admitted for acute hypoxic respiratory failure due to community-acquired pneumonia. Social history: Has been smoking for 50 years, quit 1 year ago, denies alcohol use, recreational substances use. Travel history: Recently returned from [place] Medications: Albuterol inhaler Allergies: Denies Review of Systems Review of Systems Systems Reviewed: All systems reviewed, normal except as documented Past Medical History Past Medical History RESPIRATORY: Positive Bronchitis, Pneumonia and Tobacco Use REPRODUCTIVE: Positive Previous Pregnancies MUSCULOSKELETAL: Positive Osteoporosis and Fractures HEMATOLOGIC: Positive Blood Disorders and Leukemia (CLL) PSYCHO/SOCIAL: Positive Depression OTHER HISTORY: Positive Hospitalization, Chemotherapy, Chicken Pox, Measles and Cancer (CLL) Family History FAMILY HISTORY: Positive Family Cancer and Family Surgery Surgical History SURGICAL: Positive Tonsillectomy Social History SMOKING STATUS: Former smoker Exam Vital Signs Temp Pulse Resp BP Pulse Ox O2 Del Method O2 Flow Rate 99.8 F 77 17 141/83 H 94 L Oxy Mask 3 03/03/25 18:33 03/03/25 19:45 03/03/25 19:45 03/03/25 19:45 03/03/25 19:45 03/03/25 19:45 03/03/25 19:45 Narrative Exam Physical Exam General: Awake and in no acute distress. Conversational and non-toxic appearing. HEENT: Normocephalic, atraumatic, mucous membranes moist. Heart: Regular rate and rhythm, no murmurs. Lungs: Mild wheezing and rhonchi. Abdomen: Soft, nondistended, mild epigastric tenderness, positive bowel sounds. ?No guarding or rebound tenderness. Neurologic: Alert and oriented x3, no gross neurological deficit, and patient able to move all 4 extremities. Extremities: Left sided tibial edema 1+, left extremities slightly warmer to the touch. Skin: No rash or ecchymoses. Results: Labs 03/03/25 15:33 03/03/25 15:33 Labs: Short CBC 03/03/25 Range/Units 15:33 WBC 8.8 (3.6-11.0) Thou/mm3 Hgb 13.0 (12.0-16.0) g/dL Hct 38.6 (36.0-46.0) % Plt Count 155 (140-440) Thou/mm3 BMP 03/03/25 15:33 Sodium 142 Potassium 3.4 Chloride 110 H Carbon Dioxide 22.3 BUN 16 Creatinine 0.8 Glucose 104 Calcium 9.0 Cardiac Enzymes 03/03/25 Range/Units 15:33 Troponin I < 0.020 (0.0-0.045) ng/mL Liver Function 03/03/25 Range/Units 15:33 Total Bilirubin 1.0 (0.3-1.2) mg/dL AST 20 (0-34) U/L ALT 16 (10-49) U/L Alkaline Phosphatase 133 H (46-116) U/L Albumin 3.8 (3.4-4.8) gm/dL Quality Measures Quality Measures VTE prophylaxis Advance care planning discussed with:: patient Medications Home Medications and Allergies Home Medications ?Medication ?Instructions ?Recorded ?Confirmed ?Type budesonide 160 mcg-glycopyr 9 2 puff inhalation BID 10/31/24 10/31/24 History mcg-formot 4.8 mcg/actuation HFA inhaler (Breztri Aerosphere) Allergies Allergy/AdvReac Type Severity Reaction Status Date / Time No Known Allergies Allergy Verified 11/30/24 13:21 Visit Medications Acetaminophen (Acetaminophen 325 Mg Tablet) 650 mg PO Q6H PRN PRN Reason: Fever >100.3 or pain 1-3 Stop: 04/02/25 19:04 Albuterol/Ipratropium (Albuterol/Ipratropium (Duoneb) Rt Asha 3 Ml Nebu) 3 ml INH Q6HRRT REBEKAH Stop: 04/03/25 00:59 Enoxaparin Sodium (Enoxaparin Sod Inj 40 Mg/0.4 Ml Syringe) 40 mg SC QDAY REBEKAH Stop: 03/18/25 08:59 Guaifenesin/Dextromethorphan (Guaifenesin/Dm 10 Ml Udc) 10 ml PO Q6H REBEKAH; Protocol Stop: 04/02/25 19:14 Sodium Chloride (Ns) 1,000 mls @ 75 mls/hr IV .[id number] REBEKAH Stop: 04/02/25 19:14 Last Admin: 03/03/25 19:30 Dose: 75 mls/hr Ceftriaxone Sodium/Dextrose (Rocephin/D5w 1gm Iv Premix) 50 mls @ 100 mls/hr IV QDAY REBEKAH Stop: 03/10/25 19:05 Azithromycin 500 mg/ Sodium (Chloride) 250 mls @ 250 mls/hr IV QDAY REBEKAH Stop: 03/10/25 19:06 Ceftriaxone Sodium/Dextrose (Rocephin/D5w 1gm Iv Premix) 1 gm in 50 mls @ 100 mls/hr IV X1 ONE Stop: 03/03/25 20:29 Last Infusion: 03/03/25 20:02 Dose: Infused Polyethylene Glycol (Polyethylene Glycol 17 Gm Packet) 17 gm PO QDAY PRN PRN Reason: constipation Stop: 04/03/25 08:59 Sennosides (Senna Tablet) 1 tab PO QDAY PRN; Protocol PRN Reason: CONSTIPATION Stop: 04/02/25 20:01 Discontinued Medications Acetaminophen (Acetaminophen 325 Mg Tablet) 650 mg PO Q6H PRN PRN Reason: Fever >101.5 Stop: 04/02/25 19:04 Albuterol/Ipratropium (Albuterol/Ipratropium (Duoneb) Rt Asha 3 Ml Nebu) 3 ml INH X1 ONE Stop: 03/03/25 15:21 Last Admin: 03/03/25 15:41 Dose: 3 ml Albuterol/Ipratropium (Albuterol/Ipratropium (Duoneb) Rt Asha 3 Ml Nebu) 3 ml INH X1 ONE Stop: 03/03/25 16:41 Last Admin: 03/03/25 17:18 Dose: 3 ml Albuterol/Ipratropium (Albuterol/Ipratropium (Duoneb) Rt Asha 3 Ml Nebu) 3 ml INH Q4HRRT REBEKAH Stop: 04/02/25 22:59 Albuterol/Ipratropium (Albuterol/Ipratropium (Duoneb) Rt Asha 3 Ml Nebu) 3 ml INH X1 ONE Stop: 03/03/25 20:13 Last Admin: 03/03/25 20:22 Dose: 3 ml Azithromycin 500 mg/ Sodium (Chloride) 250 mls @ 250 mls/hr IV X1 ONE Stop: 03/03/25 20:14 Last Admin: 03/03/25 20:06 Dose: 250 mls/hr Sodium Chloride (Sodium Chloride Rt 10% 15 Ml Nebu) 5 ml INH X1 ONE Stop: 03/03/25 19:06 Sodium Chloride (Sodium Chloride Rt 10% 15 Ml Nebu) 5 ml INH X1 ONE Stop: 03/03/25 19:09 Assessment & Plan Plan The patient is a 74-year-old female with a previous medical history of small lymphocytic lymphoma, HFrEF ejection fraction 45%11/15 who came to the ED 03/03/25 with shortness of breath, productive cough, fevers, chills, she reports that symptoms started approximately 1 week ago. Patient is going to be admitted for acute hypoxic respiratory failure due to community-acquired pneumonia. #Acute hypoxic respiratory failure #Community-acquired pneumonia DDx: CAP versus active tuberculosis Patient has a history of small lymphocytic lymphoma, recent travel to [place] which are risk factors for possible tuberculosis infection. She also reports fever, chills, unintentional weight loss in the last 2 weeks. Daughter denies history of tuberculosis, Valley fever. CT showed multiple miliary nodules. Plan: ? Airborne and droplet precautions ? Ceftriaxone 1 g daily 03/03/2025?current ? Azithromycin 500 mg daily 03/03/2025?current ? DuoNebs inhalations every 6 hours ? Sputum AFB stainx3 ? Cocci serology ordered ? Guiafenesin syrup #History of HFrEF EF45% in 11/15 Patient was found to have HFrEF in October 2025. Was discharged on Lasix 20 mg daily. Patient denies taking Lasix at the moment. Plan: ? Resume Lasix 20 mg daily #Left leg swelling Patient has a history of recent travel to [place]. On examination left leg is swollen, slightly warm to touch. CT chest was negative for PE. Plan: ? Venous Doppler ultrasound of lower extremities #History of small B-cell lymphocytic lymphoma Patient is s/p chemotherapy and immunotherapy with Rituxan?375 and?Bendamustine. PET scan 12/07/24:Marked treatment response with no significant residual cervical axillary, mediastinal, abdominal or pelvic lymphadenopathy. Plan: - Follow-up outpatient FEN: Regular DVT prophylaxis: Lovenox 40 mg sc GI prophylaxis: None Dispo: MedSurg CODE STATUS: Full code Plan of care discussed with attending Dr. Middleton. Valencia Caldera MD, PGY 1. Attending Provider Attestation/Addendum Pt was evaluated and plan formulated together with the housestaff team. I have reviewed the residents note above and agree with most of its content. Please refer to the residents note for additional details.
[2025-03-03 20:44] LABS: Respiratory Syncytial Virus Ag Negative (Negative)
[2025-03-03 22:02] LABS: Cult AFB Sendout- Sputum* See Sep Rpt
[2025-03-03 22:21] LABS: Phosphorous 3.5 mg/dL (2.4-5.1)
[2025-03-03] MEDS: guaiFENesin/DM 10 ML UDC PO (22:53)
[2025-03-04] VITALS (12 sets, daily range): BP systolic 122–156; BP diastolic 61–78; PULSE 63–79; RESP 16–21; TEMP 36.6–37.5; O2SAT 94–99
[2025-03-04] MEDS: ALBUTEROL/IPRATROPIUM (Duoneb) RT SOL 3 ML NEBU INH ×4 (00:35→19:12)
[2025-03-04 05:48] LABS: Basophils # (Auto) 0.1 Thou/mm3 (0.0-0.2); Basophils % (Auto) 1 % (0-2.5); Eosinophils % (Auto) 0 % (0-10); Hematocrit 38.9 % (36.0-46.0); Hemoglobin 12.6 g/dL (12.0-16.0); Immature Granulocytes % (Auto) 14 % (0-0); Immature Granulocytes Auto 1.52 Thou/mm3 (0.00-0.00); Lymphocytes # (Auto) 1.3 Thou/mm3 (1.0-4.8); Lymphocytes % (Auto) 12 % (10-50); Mean Corpuscular HGB Conc 32.4 g/dl (31.0-37.0); Mean Corpuscular Hemoglobin 32.1 pg (25.0-35.0); Mean Corpuscular Volume 99 fL (80-100); Monocytes # (Auto) 0.3 Thou/mm3 (0.0-0.8); Monocytes % (Auto) 3 % (0-12); Neutrophils # (Auto) 7.6 Thou/mm3 (1.8-7.7); Neutrophils % (Auto) 71 % (37-80); Nucleated Red Blood Cell % 0 /100 WBC (0); Platelet Count 187 Thou/mm3 (140-440); RDW Standard Deviation 56.2 fL (36.4-46.3); Red Blood Count 3.93 Miln/mm3 (4.00-5.20); White Blood Count 10.7 Thou/mm3 (3.6-11.0)
[2025-03-04 06:26] LABS: Anion Gap 10 (7-16); BUN/Creatinine Ratio 19 Ratio (12-20); Blood Urea Nitrogen 13 mg/dL (9-23); Calcium 8.8 mg/dL (8.3-10.6); Carbon Dioxide 25.1 mMol/L (20.0-31.0); Chloride 110 mMol/L (98-107); Creatinine (Component) 0.7 mg/dL (0.6-1.3); Estimated Creatinine Clearance 59.8 mL/min (>60); Glucose 87 mg/dL (74-106); Osmolality,Calculated 287 (275-295); Potassium 3.6 mMol/L (3.4-5.1); Sodium 145 mMol/L (136-145); eGFR > 60 See Note
[2025-03-04] MEDS: guaiFENesin/DM 10 ML UDC PO ×3 (07:08→20:08)
[2025-03-04] MEDS: Furosemide 20 MG TABLET PO (08:55)
[2025-03-04] MEDS: ENOXAPARIN SOD INJ 40 MG/0.4 ML SYRINGE SC (08:55)
--- NOTE | 2025-03-04 10:09 | CHAP ---
Patient was visited by the Spiritual Care Volunteer who prayed for them. (Volunteer was in the hospital from 11:05-11:50.)
[2025-03-04] MEDS: LOSARTAN POTASSIUM 25 MG TABLET PO (10:30)
[2025-03-04 11:22] LABS: Cult AFB Sendout- Sputum* See Sep Rpt
[2025-03-04 14:47] LABS: Cocci Serology, IgM Negative (Negative)
[2025-03-04 15:16] LABS: Cult AFB Sendout- Sputum* See Sep Rpt
--- NOTE | 2025-03-04 15:35 | PD.RESPRO ---
Documentation for date of: 03/04/25 Subjective Subjective Interval history: Patient is seen and examined at bedside No acute overnight events. complaining of cough with expectoration, denies hemoptysis Vitals are stable except for mildly elevated blood pressures. On physical examination, bilateral wheeze and fine inspiratory crackles are heard Labs showed WBC 10.7, Hb 12.6, cocci IgM is negative Will continue antibiotics, pending TB rule out Started on losartan 25 Mg p.o. daily in view of elevated blood pressures Exam Vital Signs Temp Pulse Resp BP Pulse Ox O2 Del Method O2 Flow Rate 98.5 F 69 18 139/68 H 97 Oxy Mask 4 03/04/25 12:00 03/04/25 13:28 03/04/25 13:28 03/04/25 12:00 03/04/25 13:28 03/04/25 12:00 03/04/25 13:28 Narrative Exam General: Awake and in no acute distress. Conversational and non-toxic appearing. HEENT: Normocephalic, atraumatic, mucous membranes moist. Heart: Regular rate and rhythm, no murmurs. Lungs: Bilateral diffuse wheeze and fine inspiratory crackles heard Abdomen: Soft, nondistended, no tenderness, positive bowel sounds. ?No guarding or rebound tenderness. Neurologic: Alert and oriented x3, no gross neurological deficit, and patient able to move all 4 extremities. Extremities: Left sided tibial edema 1+, left extremities slightly warmer to the touch. Skin: No rash or ecchymoses. Objective Labs 03/04/25 04:56 03/04/25 04:56 Labs: Laboratory Results - last 24 hr 03/03/25 03/03/25 03/03/25 15:33 19:47 20:48 WBC 8.8 RBC 4.08 Hgb 13.0 Hct 38.6 MCV 95 MCH 31.9 MCHC 33.7 RDW Std Deviation 53.2 H Plt Count 155 Neut % (Auto) 69 Lymph % (Auto) 16 [place] % (Auto) 4 Eos % (Auto) 0 Baso % (Auto) 1 Neut # (Auto) 6.1 Lymph # (Auto) 1.4 [place] # (Auto) 0.4 Eos # (Auto) 0.0 Baso # (Auto) 0.0 Immature Gran # (Auto) 0.98 H Absolute Nucleated RBC 0.00 Immature Gran % 11 H Nucleated RBC % 0 PT 11.7 INR 1.1 APTT 26.6 Sodium 142 Potassium 3.4 Chloride 110 H Carbon Dioxide 22.3 Anion Gap 10 BUN 16 Creatinine 0.8 Estim Creat Clear Calc 51.8 L eGFR > 60 BUN/Creatinine Ratio 20 Glucose 104 Calculated Osmolality 284 Calcium 9.0 Corrected Calcium 9.2 Phosphorus 3.5 Magnesium 2.0 Total Bilirubin 1.0 AST 20 ALT 16 Alkaline Phosphatase 133 H Lactate Dehydrogenase 668 H Troponin I < 0.020 B-Natriuretic Peptide 140 H Total Protein 5.4 L Albumin 3.8 Globulin 1.6 L Albumin/Globulin Ratio 2.4 H Lipase 23 Procalcitonin 0.21 Coccidioides IgM Ab Negative RSV Rapid Negative 03/04/25 04:56 WBC 10.7 RBC 3.93 L Hgb 12.6 Hct 38.9 MCV 99 MCH 32.1 MCHC 32.4 RDW Std Deviation 56.2 H Plt Count 187 D Neut % (Auto) 71 Lymph % (Auto) 12 [place] % (Auto) 3 Eos % (Auto) 0 Baso % (Auto) 1 Neut # (Auto) 7.6 Lymph # (Auto) 1.3 [place] # (Auto) 0.3 Eos # (Auto) 0.0 Baso # (Auto) 0.1 Immature Gran # (Auto) 1.52 H Absolute Nucleated RBC 0.00 Immature Gran % 14 H Nucleated RBC % 0 PT INR APTT Sodium 145 Potassium 3.6 Chloride 110 H Carbon Dioxide 25.1 Anion Gap 10 BUN 13 Creatinine 0.7 Estim Creat Clear Calc 59.8 L eGFR > 60 BUN/Creatinine Ratio 19 Glucose 87 Calculated Osmolality 287 Calcium 8.8 Corrected Calcium Phosphorus Magnesium Total Bilirubin AST ALT Alkaline Phosphatase Lactate Dehydrogenase Troponin I B-Natriuretic Peptide Total Protein Albumin Globulin Albumin/Globulin Ratio Lipase Procalcitonin Coccidioides IgM Ab RSV Rapid Quality Measures Quality Measures VTE prophylaxis Advance care planning discussed with:: patient Assessment & Plan Assessment Current Active Medications: Generic Name Dose Route Start Last Admin Trade Name Freq PRN Reason Stop Dose Admin Acetaminophen 650 mg 03/03/25 19:59 Acetaminophen 325 Mg Tablet PO 04/02/25 19:04 Q6H PRN Fever >100.3 or pain 1-3 Albuterol/Ipratropium 3 ml 03/04/25 01:00 03/04/25 13:27 Albuterol/Ipratropium (Duoneb) Rt Asha 3 Ml Nebu INH 04/03/25 00:59 3 ml Q6HRRT REBEKAH Administration Enoxaparin Sodium 40 mg 03/04/25 09:00 03/04/25 08:55 Enoxaparin Sod Inj 40 Mg/0.4 Ml Syringe SC 03/18/25 08:59 40 mg QDAY REBEKAH Administration Furosemide 20 mg 03/04/25 09:00 03/04/25 08:55 Furosemide 20 Mg Tablet PO 04/03/25 08:59 20 mg QAM REBEKAH Administration Guaifenesin/Dextromethorphan 10 ml 03/03/25 19:15 03/04/25 13:40 Guaifenesin/Dm 10 Ml Udc PO 04/02/25 19:14 10 ml Q6H REEBKAH Administration Protocol Ceftriaxone Sodium/Dextrose 1 gm in 50 mls @ 100 mls/hr 03/04/25 21:00 Rocephin/D5w 1gm Iv Premix IV 03/10/25 19:05 QDAY@2100 REBEKAH Azithromycin 500 mg/ Sodium 250 mls @ 250 mls/hr 03/04/25 21:00 Chloride IV 03/10/25 19:06 QDAY@2100 REBEKAH Losartan Potassium 25 mg 03/04/25 10:00 03/04/25 10:30 Losartan Potassium 25 Mg Tablet PO 04/03/25 09:59 25 mg QDAY REBEKAH Administration Polyethylene Glycol 17 gm 03/03/25 20:02 Polyethylene Glycol 17 Gm Packet PO 04/03/25 08:59 QDAY PRN constipation Sennosides 1 tab 03/03/25 20:02 Senna Tablet PO 04/02/25 20:01 QDAY PRN CONSTIPATION Protocol Plan A 74-year-old female with a previous medical history of small lymphocytic lymphoma, HFrEF ejection fraction 45%11/15 who came to the ED 03/03/25 with shortness of breath, productive cough, fevers, chills, she reports that symptoms started approximately 1 week ago. Patient is going to be admitted for acute hypoxic respiratory failure due to community-acquired pneumonia. #Acute hypoxic respiratory failure #Community-acquired pneumonia DDx: CAP versus active tuberculosis Patient has a history of small lymphocytic lymphoma, recent travel to [place] which are risk factors for possible tuberculosis infection. She also reports fever, chills, unintentional weight loss in the last 2 weeks. Daughter denies history of tuberculosis, [place] fever. CTA showed multiple miliary nodules. Plan: ? Airborne and droplet precautions ? Ceftriaxone 1 g daily 03/03/2025?current ? Azithromycin 500 mg daily 03/03/2025?current ? DuoNebs inhalations every 6 hours ? Sputum AFB stainx3 ? Cocci serology ordered ? Guiafenesin syrup #History of HFrEF EF45% in 11/15 Patient was found to have HFrEF in October 2025. Was discharged on Lasix 20 mg daily. Patient denies taking Lasix at the moment. Plan: ? Resume Lasix 20 mg daily #Left leg swelling Patient has a history of recent travel to [place]. On examination left leg is swollen, slightly warm to touch. CT chest was negative for PE. Plan: ? Venous Doppler ultrasound of lower extremities - negative for DVT #History of small B-cell lymphocytic lymphoma Patient is s/p chemotherapy and immunotherapy with Rituxan?375 and?Bendamustine. PET scan 12/07/24:Marked treatment response with no significant residual cervical axillary, mediastinal, abdominal or pelvic lymphadenopathy. Plan: - Follow-up outpatient FEN: Regular DVT prophylaxis: Lovenox 40 mg sc GI prophylaxis: None Dispo: MedSurg CODE STATUS: Full code Patient plan of care was discussed with the attending physician, Dr. Angelo Santos, PGY1 Attending Provider Attestation/Addendum I attest that I was physically present for the evaluation, physical examination, lab and imaging review of the patient with the residents. I discussed the case with the residents and agree with the findings and plans of care as documented above. Patient is a 74 years old female with past medical history of small lymphocytic lymphoma, HFrEF with ejection fraction of 45% presented to the ED with complaint of shortness of breath, productive cough, fever, chills for 1 week.? Patient also had recent travel to [place].? He was admitted for management of acute hypoxic respiratory failure likely secondary to community-acquired pneumonia and to rule out tuberculosis.? Continues to be on Rocephin and azithromycin.? Sputum AFB, QuantiFERON, cocci has been sent, awaiting results.? Continues to be on Lasix 20.? Started on losartan 25 as her blood pressure was in high range this morning 156/62.? Saturating well on 4 L oxygen via OxyMask.? Lab results are stable.? Awaiting culture results. Mary Stephens MD
[2025-03-04] MEDS: AZITHROMYCIN INJ 500 MG in SODIUM CHLORIDE 0.9% 250 ML 250 ML 250 MG IV (20:08)
[2025-03-04] MEDS: cefTRIAXone/D5w 1gm IV premix 1 GM/50 ML BAG IV (21:34)
[2025-03-04] MEDS: ACETAMINOPHEN 325 MG TABLET 650 MG PO (21:44)
[2025-03-05] VITALS (12 sets, daily range): BP systolic 112–137; BP diastolic 54–80; PULSE 59–81; RESP 16–20; TEMP 36.4–37; O2SAT 91–949; BMI 30.4
[2025-03-05] MEDS: ALBUTEROL/IPRATROPIUM (Duoneb) RT SOL 3 ML NEBU INH ×4 (00:34→18:46)
[2025-03-05] MEDS: guaiFENesin/DM 10 ML UDC PO ×4 (00:57→21:19)
[2025-03-05 05:27] LABS: Quantiferon-TB* See Sep Rpt
[2025-03-05 05:32] LABS: Basophils % (Auto) 1 % (0-2.5); Eosinophils # (Auto) 0.1 Thou/mm3 (0.0-0.5); Eosinophils % (Auto) 2 % (0-10); Hematocrit 36.8 % (36.0-46.0); Hemoglobin 11.8 g/dL (12.0-16.0); Immature Granulocytes % (Auto) 10 % (0-0); Immature Granulocytes Auto 0.66 Thou/mm3 (0.00-0.00); Lymphocytes # (Auto) 1.1 Thou/mm3 (1.0-4.8); Lymphocytes % (Auto) 18 % (10-50); Mean Corpuscular HGB Conc 32.1 g/dl (31.0-37.0); Mean Corpuscular Hemoglobin 31.2 pg (25.0-35.0); Mean Corpuscular Volume 97 fL (80-100); Monocytes # (Auto) 0.3 Thou/mm3 (0.0-0.8); Monocytes % (Auto) 4 % (0-12); Neutrophils # (Auto) 4.2 Thou/mm3 (1.8-7.7); Neutrophils % (Auto) 66 % (37-80); Nucleated Red Blood Cell % 0 /100 WBC (0); Platelet Count 238 Thou/mm3 (140-440); RDW Standard Deviation 56.1 fL (36.4-46.3); Red Blood Count 3.78 Miln/mm3 (4.00-5.20); White Blood Count 6.4 Thou/mm3 (3.6-11.0)
[2025-03-05 05:55] LABS: Anion Gap 8 (7-16); BUN/Creatinine Ratio 29 Ratio (12-20); Blood Urea Nitrogen 20 mg/dL (9-23); Calcium 8.7 mg/dL (8.3-10.6); Carbon Dioxide 27.3 mMol/L (20.0-31.0); Chloride 111 mMol/L (98-107); Creatinine (Component) 0.7 mg/dL (0.6-1.3); Estimated Creatinine Clearance 59.8 mL/min (>60); Glucose 92 mg/dL (74-106); Osmolality,Calculated 293 (275-295); Potassium 3.5 mMol/L (3.4-5.1); Sodium 146 mMol/L (136-145); eGFR > 60 See Note
[2025-03-05] MEDS: ENOXAPARIN SOD INJ 40 MG/0.4 ML SYRINGE SC (08:41)
[2025-03-05] MEDS: Furosemide 20 MG TABLET PO (08:41)
[2025-03-05] MEDS: LOSARTAN POTASSIUM 25 MG TABLET PO (08:42)
--- NOTE | 2025-03-05 09:37 | ESPR_ITS ---
Subjective Subjective Interval history: asked to see. 74 y/o here for dyspnea. has known chf although she does not know about it. romanian only Exam Vital Signs Temp Pulse Resp BP Pulse Ox O2 Del Method O2 Flow Rate 97.8 F 70 18 120/76 94 L Oxy Mask 2 03/05/25 07:57 03/05/25 08:42 03/05/25 07:57 03/05/25 08:42 03/05/25 07:57 03/05/25 07:57 03/05/25 07:57 Narrative Exam occ congested cough. sick for 3 weeks . in [place] 5-6 weeks agoon no rx for chf. last chemo in oct Objective - Internal Medicine Labs 03/05/25 05:17 03/05/25 05:17 Labs: Laboratory Results - last 24 hr 03/03/25 03/03/25 03/05/25 20:20 20:48 05:17 WBC 6.4 D RBC 3.78 L Hgb 11.8 L Hct 36.8 MCV 97 MCH 31.2 MCHC 32.1 RDW Std Deviation 56.1 H Plt Count 238 D Neut % (Auto) 66 Lymph % (Auto) 18 [place] % (Auto) 4 Eos % (Auto) 2 Baso % (Auto) 1 Neut # (Auto) 4.2 Lymph # (Auto) 1.1 [place] # (Auto) 0.3 Eos # (Auto) 0.1 Baso # (Auto) 0.0 Immature Gran # (Auto) 0.66 H Absolute Nucleated RBC 0.00 Immature Gran % 10 H Nucleated RBC % 0 Sodium 146 H Potassium 3.5 Chloride 111 H Carbon Dioxide 27.3 Anion Gap 8 BUN 20 Creatinine 0.7 Estim Creat Clear Calc 59.8 L eGFR > 60 BUN/Creatinine Ratio 29 H Glucose 92 Calculated Osmolality 293 Calcium 8.7 Coccidioides IgM Ab Negative Mycobacterial Culture Cancelled Assessment & Plan A&P Narrative atypical pneumonia vs chf. cocci neg. afb's pending. radiology opinion has a lot of wt here hx of CA and known chf off rx ordered some tests for chf eval. afb's pending. I will review briefly on wed if afb's neg. then all po with cefuroxime 500 bid for rocephin for remainder of 7d. if bnp significant, then may have more chf than suspected if afb's pos ok to start rx Time Spent With Patient Time: Total time spent is greater than 50% in coordination of care (as documented) at patient's floor/unit and/or counseling patient:
--- NOTE | 2025-03-05 09:42 | ECHO_ITS ---
Transthoracic Echo Report Ht (in): 60 Wt (lb): 155 Exam Location: Echo Lab Status: Inpatient Resume Specialist: Cinthya Wren Indications: Procedure Performed: BP: 126 / 59 HR: 100 Technical Quality: Technically difficult study MEASUREMENTS (Male / Female) Normal Values 2D ECHO LV Diastolic Diameter PLAX 3.4 cm 4.2 - 5.9 / 3.9 - 5.3 cm LV Systolic Diameter PLAX 2.6 cm IVS Diastolic Thickness 0.9 cm 0.6 - 1.0 / 0.6 - 0.9 cm LVPW Diastolic Thickness 1.0 cm 0.6 - 1.0 / 0.6 - 0.9 cm LV Relative Wall Thickness 0.6 LVOT Diameter 1.6 cm LA Volume Index 12.5 cm?/m? 16 - 28 cm?/m? M-MODE Aortic Root Diameter MM 2.8 cm AV Cusp Separation MM 1.7 cm DOPPLER AV Peak Velocity 141.0 cm/s AV Peak Gradient 8.0 mmHg AV Mean Gradient 4.0 mmHg AV Velocity Time Integral 28.5 cm LVOT Peak Velocity 114.0 cm/s LVOT Peak Gradient 5.2 mmHg LVOT Velocity Time Integral 24.5 cm LVOT Cardiac Index 2811.1 cm?/min?m? AV Area Cont Eq vti 1.7 cm? AV Area Cont Eq pk 1.6 cm? MV Area PHT 3.1 cm? MR Peak Velocity 244.0 cm/s MR Peak Gradient 23.8 mmHg Mitral E Point Velocity 58.7 cm/s Mitral A Point Velocity 90.2 cm/s Mitral E to A Ratio 0.7 LV E' Lateral Velocity 5.1 cm/s Mitral E to LV E' Lateral Ratio 11.5 LV E' Septal Velocity 5.4 cm/s Mitral E to LV E' Septal Ratio 10.8 TR Peak Velocity 204.0 cm/s TR Peak Gradient 16.6 mmHg PV Peak Velocity 92.3 cm/s PV Peak Gradient 3.4 mmHg FINDINGS Left Ventricle Normal left ventricular size, wall thickness, systolic function with no obvious regional wall motion abnormalities. Normal left ventricular diastolic filling pattern for age. The ejection fraction is visually estimated at 55%. Right Ventricle The right ventricular systolic function is normal. Left Atrium The left atrium is normal by two-dimensional, color flow and Doppler imaging with no structural abnormalities, no thrombus formation present. Right Atrium The right atrium is normal by two-dimensional imaging, color flow and Doppler imaging with no structural abnormalities, no thrombus formation present. Atrial Septum The interatrial septum appears normal with no evidence of a shunt. Aorta The aorta is normal by two-dimensional, color flow and Doppler interrogation. Mitral Valve Mild mitral regurgitation. Aortic Valve The aortic valve is trileaflet and normal by two-dimensional, color flow and Doppler interrogation. There is no significant aortic valve regurgitation. Tricuspid Valve There is mild tricuspid valve regurgitation. Pulmonic Valve The pulmonic valve is not well visualized. There is no significant pulmonic valve regurgitation. Vessels The pulmonary artery appears normal. The inferior vena cava pulmonary and hepatic veins appear normal. Pericardium The pericardium is normal by two-dimensional imaging. There is no significant pericardial effusion. CONCLUSIONS Indication: CHF Normal left ventricular size and function. Mild LVH Estimated EF 55%. RV size and function. Mild MR and TR. Kenia Anna (Electronically Signed) Final Date: 05 March 2025 23:28
--- NOTE | 2025-03-05 10:47 | PC.SS ---
Patient Camila Laguna is a 74 Year old female admitted for R/O TB. SS contacted patient's daughter, Angela Burgess who is patient's surrogate decision maker . Patient resides at home with daughter. Patient utilizes a walker to assist with ambulation. Patient utilizes home oxygen. Patient requires assistance with the completion of ADL?s. Family provides assistance with ADL?s. Patient?s PCP is Ellie Christensen. Patient Oncology [facility] provided by [facility]. [facility]. Discharge plan is for the patient to return home at the time of discharge. Family will provide transportation on behalf of the patient. No further intervention required at this time, licensed master social worker will be available to address any further concerns. Next of Kin: Angela Burgess D/C Plan: Home
--- NOTE | 2025-03-05 11:58 | ESCONSULT_ITS ---
RE: KIMMIE ULRICH : 1950 DATE OF CONSULTATION: 03/05/2025 REFERRING PHYSICIAN: Mary Stephens MD REASON FOR CONSULTATION: Heart failure and atypical pneumonia. HISTORY OF PRESENT ILLNESS: The patient is a 74-year-old woman who went to [place] about 6 weeks ago. She came back and became ill about 4 weeks ago. She has been sick for about 4 weeks. She is 5, para 4 and has a history of heart failure according to records, but the patient denies any history and takes no medications. She is unaware of the diagnosis of heart failure. She is aware of the diagnosis of lymphoma and is why she received chemo. PAST SURGICAL HISTORY: None ALLERGIES: NONE NOTED. IMMUNIZATIONS: Last tetanus was about 2 years ago. She does not take flu shot every year and did not have COVID vaccine or pneumococcal vaccination. FAMILY HISTORY: Unremarkable. SOCIAL HISTORY: She quit smoking about 60 years ago and has not had any smoking at all for at least 2 year, was sick for about 3 to 4 weeks, she went to [place] about 6 weeks ago. and has been back for >1 month now PHYSICAL EXAMINATION: GENERAL: The patient is in no distress. LUNGS: Congestive cough. EXTREMITIES: She has no significant swelling of her extremities. ASSESSMENT AND PLAN: We will get an echo and BNP and check those on Wednesday if she remains, but if she is doing okay she should be go home on oral cefuroxime for the remainder of 7 days and she will finish her azithromycin course by tomorrow. I will try to see her again on Wednesday if I can. If she goes home, I have no objection. DT: 10:43:51 TT: 11:33:00 Ref: [id number] - TID: [id number] [facility]
--- NOTE | 2025-03-05 17:18 | ESPR_ITS ---
<Statement entered by Kd Lundy MD - 03/07/25 07:58> Senior Resident Attestation: I supervised/discussed management plan with business analyst intern physician Dr. Santos, and was involved in the care of this patient. I personally saw and examined the patient and discussed the assessment and plan with the entire medicine team, including my attending. I agree with the assessment and plan as documented. Patient's care was discussed with attending physician, Dr. Stephens. Kd Lundy MD PGY-2. Documentation for date of: 03/05/25 Subjective Subjective Interval history: Patient is seen and examined at bedside No acute overnight events. Still complaining of cough with expectoration vitals are stable. On physical examination, bilateral fine inspiratory crackles are heard. Still pending QuantiFERON TB test and cultures for AFB Exam Vital Signs Temp Pulse Resp BP Pulse Ox O2 Del Method O2 Flow Rate 98.6 F 78 18 112/54 L 96 Nasal Cannula 2 03/05/25 16:00 03/05/25 16:00 03/05/25 16:00 03/05/25 16:00 03/05/25 16:00 03/05/25 16:00 03/05/25 16:00 Narrative Exam General: Awake. HEENT: Normocephalic, atraumatic, mucous membranes moist. Heart: Regular rate and rhythm, no murmurs. Lungs: Bilateral diffuse fine inspiratory crackles are heard Abdomen: Soft, nondistended, nontender, positive bowel sounds. ?No guarding or rebound tenderness. Neurologic: Alert and oriented x3, no gross neurological deficit, and patient able to move all 4 extremities. Extremities: No edema. Skin: No rash or ecchymoses. Objective Labs 03/06/25 04:49 03/06/25 04:49 Labs: Laboratory Results - last 24 hr 03/03/25 03/05/25 20:20 05:17 WBC 6.4 D RBC 3.78 L Hgb 11.8 L Hct 36.8 MCV 97 MCH 31.2 MCHC 32.1 RDW Std Deviation 56.1 H Plt Count 238 D Neut % (Auto) 66 Lymph % (Auto) 18 [place] % (Auto) 4 Eos % (Auto) 2 Baso % (Auto) 1 Neut # (Auto) 4.2 Lymph # (Auto) 1.1 [place] # (Auto) 0.3 Eos # (Auto) 0.1 Baso # (Auto) 0.0 Immature Gran # (Auto) 0.66 H Absolute Nucleated RBC 0.00 Immature Gran % 10 H Nucleated RBC % 0 Sodium 146 H Potassium 3.5 Chloride 111 H Carbon Dioxide 27.3 Anion Gap 8 BUN 20 Creatinine 0.7 Estim Creat Clear Calc 59.8 L eGFR > 60 BUN/Creatinine Ratio 29 H Glucose 92 Calculated Osmolality 293 Calcium 8.7 Mycobacterial Culture Cancelled Quality Measures Quality Measures VTE prophylaxis Advance care planning discussed with:: patient and sibling Assessment & Plan Assessment Current Active Medications: Generic Name Dose Route Start Last Admin Trade Name Freq PRN Reason Stop Dose Admin Acetaminophen 650 mg 03/03/25 19:59 03/04/25 21:44 Acetaminophen 325 Mg Tablet PO 04/02/25 19:04 650 mg Q6H PRN Administration Fever >100.3 or pain 1-3 Albuterol/Ipratropium 3 ml 03/04/25 01:00 03/05/25 14:19 Albuterol/Ipratropium (Duoneb) Rt Asha 3 Ml Nebu INH 04/03/25 00:59 3 ml Q6HRRT REBEKAH Administration Azithromycin 500 mg 03/06/25 21:00 Azithromycin 250 Mg Tablet PO 03/13/25 20:59 2100 REBEKAH Enoxaparin Sodium 40 mg 03/04/25 09:00 03/05/25 08:41 Enoxaparin Sod Inj 40 Mg/0.4 Ml Syringe SC 03/18/25 08:59 40 mg QDAY REBEKAH Administration Furosemide 20 mg 03/04/25 09:00 03/05/25 08:41 Furosemide 20 Mg Tablet PO 04/03/25 08:59 20 mg QAM REBEKAH Administration Guaifenesin/Dextromethorphan 10 ml 03/03/25 19:15 03/05/25 14:07 Guaifenesin/Dm 10 Ml Udc PO 04/02/25 19:14 10 ml Q6H REBEKAH Administration Protocol Ceftriaxone Sodium/Dextrose 1 gm in 50 mls @ 100 mls/hr 03/04/25 21:00 03/04/25 21:34 Rocephin/D5w 1gm Iv Premix IV 03/10/25 19:05 100 mls/hr QDAY@2100 REBEKAH Administration Losartan Potassium 25 mg 03/04/25 10:00 03/05/25 08:42 Losartan Potassium 25 Mg Tablet PO 04/03/25 09:59 25 mg QDAY REBEKAH Administration Polyethylene Glycol 17 gm 03/03/25 20:02 Polyethylene Glycol 17 Gm Packet PO 04/03/25 08:59 QDAY PRN constipation Sennosides 1 tab 03/03/25 20:02 Senna Tablet PO 04/02/25 20:01 QDAY PRN CONSTIPATION Protocol Plan A 74-year-old female with a previous medical history of small lymphocytic lymphoma, HFrEF ejection fraction 45%11/15 who came to the ED 03/03/25 with shortness of breath, productive cough, fevers, chills, she reports that symptoms started approximately 1 week ago. Patient is going to be admitted for acute hypoxic respiratory failure due to community-acquired pneumonia. #Acute hypoxic respiratory failure #Community-acquired pneumonia DDx: CAP versus active tuberculosis Patient has a history of small lymphocytic lymphoma, recent travel to [place] which are risk factors for possible tuberculosis infection. She also reports fever, chills, unintentional weight loss in the last 2 weeks. Daughter denies history of tuberculosis, [place] fever. CTA showed multiple miliary nodules. ? Cocci serology ordered, IgM negative Plan: ? Airborne and droplet precautions ? Ceftriaxone 1 g daily 03/03/2025?current ? Azithromycin 500 mg daily 03/03/2025?current ? DuoNebs inhalations every 6 hours ? Sputum AFB stainx3, sent ? Guiafenesin syrup #History of HFrEF EF45% in 11/15 Patient was found to have HFrEF in October 2025. Was discharged on Lasix 20 mg daily. Patient denies taking Lasix at the moment. Plan: ? Resume Lasix 20 mg daily #Left leg swelling Patient has a history of recent travel to [place]. On examination left leg is swollen, slightly warm to touch. CT chest was negative for PE. Plan: ? Venous Doppler ultrasound of lower extremities - negative for DVT #History of small B-cell lymphocytic lymphoma Patient is s/p chemotherapy and immunotherapy with Rituxan?375 and?Bendamustine. PET scan 12/07/24:Marked treatment response with no significant residual cervical axillary, mediastinal, abdominal or pelvic lymphadenopathy. Plan: - Follow-up outpatient FEN: Regular DVT prophylaxis: Lovenox 40 mg sc GI prophylaxis: None Dispo: MedSurg CODE STATUS: Full code Patient plan of care was discussed with the attending physician, Dr. Stephens and senior resident Dr. Nikkie Santos, PGY1 Attending Provider Attestation/Addendum I attest that I was physically present for the evaluation, physical examination, lab and imaging review of the patient with the residents. I discussed the case with the residents and agree with the findings and plans of care as documented above. At bedside today, patient states she is feeling well and does not have new complaints. Continues to cough at bedside. Saturating well on 2 L nasal cannula. Continues to be on isolation, awaiting TB quant results. Mary Stephens MD
[2025-03-05] MEDS: cefTRIAXone/D5w 1gm IV premix 1 GM/50 ML BAG IV (21:19)
[2025-03-06] VITALS (12 sets, daily range): BP systolic 108–138; BP diastolic 58–72; PULSE 63–87; RESP 16–20; TEMP 36.1–36.6; O2SAT 92–99
[2025-03-06] MEDS: ALBUTEROL/IPRATROPIUM (Duoneb) RT SOL 3 ML NEBU INH ×4 (01:48→19:03)
[2025-03-06] MEDS: guaiFENesin/DM 10 ML UDC PO ×4 (02:30→19:28)
[2025-03-06] MEDS: ACETAMINOPHEN 325 MG TABLET 650 MG PO ×2 (04:30→20:22)
[2025-03-06 05:56] LABS: Basophils % (Auto) 1 % (0-2.5); Eosinophils # (Auto) 0.1 Thou/mm3 (0.0-0.5); Eosinophils % (Auto) 2 % (0-10); Hematocrit 36.4 % (36.0-46.0); Hemoglobin 11.8 g/dL (12.0-16.0); Immature Granulocytes % (Auto) 9 % (0-0); Lymphocytes # (Auto) 1.1 Thou/mm3 (1.0-4.8); Lymphocytes % (Auto) 23 % (10-50); Mean Corpuscular HGB Conc 32.4 g/dl (31.0-37.0); Mean Corpuscular Hemoglobin 31.9 pg (25.0-35.0); Mean Corpuscular Volume 98 fL (80-100); Monocytes # (Auto) 0.3 Thou/mm3 (0.0-0.8); Monocytes % (Auto) 6 % (0-12); Neutrophils # (Auto) 2.7 Thou/mm3 (1.8-7.7); Neutrophils % (Auto) 59 % (37-80); Nucleated Red Blood Cell % 0 /100 WBC (0); Platelet Count 173 Thou/mm3 (140-440); RDW Standard Deviation 55.1 fL (36.4-46.3); White Blood Count 4.6 Thou/mm3 (3.6-11.0)
[2025-03-06 06:07] LABS: B-Type Natriuretic Peptide 35 pg/mL (0-100)
[2025-03-06 06:09] LABS: Anion Gap 8 (7-16); BUN/Creatinine Ratio 25 Ratio (12-20); Blood Urea Nitrogen 15 mg/dL (9-23); Calcium 8.4 mg/dL (8.3-10.6); Carbon Dioxide 28.7 mMol/L (20.0-31.0); Chloride 107 mMol/L (98-107); Creatinine (Component) 0.6 mg/dL (0.6-1.3); Estimated Creatinine Clearance 68.1 mL/min (>60); Glucose 110 mg/dL (74-106); Osmolality,Calculated 288 (275-295); Potassium 3.5 mMol/L (3.4-5.1); Sodium 144 mMol/L (136-145); eGFR > 60 See Note
[2025-03-06 06:15] LABS: HIV (1&2) Antibody Rapid Non-Reactive
[2025-03-06] MEDS: LOSARTAN POTASSIUM 25 MG TABLET PO (08:40)
[2025-03-06] MEDS: ENOXAPARIN SOD INJ 40 MG/0.4 ML SYRINGE SC (08:41)
[2025-03-06] MEDS: Furosemide 20 MG TABLET PO (08:41)
[2025-03-06 12:41] LABS: Cocci Serology, IgG Negative (Negative)
--- NOTE | 2025-03-06 16:09 | ESPR_ITS ---
Documentation for date of: 03/06/25 Subjective Subjective Interval history: Patient is seen and examined at bedside No acute overnight events. Denies any other complaints except for cough and expectoration Vitals are stable. On physical examination, bilateral fine inspiratory crackles heard TB QuantiFERON test is still pending Exam Vital Signs Temp Pulse Resp BP Pulse Ox O2 Del Method O2 Flow Rate 97.2 F 69 20 128/72 99 Nasal Cannula 2 03/06/25 12:00 03/06/25 14:30 03/06/25 14:30 03/06/25 12:00 03/06/25 14:30 03/06/25 12:00 03/06/25 14:30 Narrative Exam General: Awake. HEENT: Normocephalic, atraumatic, mucous membranes moist. Heart: Regular rate and rhythm, no murmurs. Lungs: Bilateral diffuse fine inspiratory crackles are heard. Noted Chemo-Port on right side Abdomen: Soft, nondistended, nontender, positive bowel sounds. ?No guarding or rebound tenderness. Neurologic: Alert and oriented x3, no gross neurological deficit, and patient able to move all 4 extremities. Extremities: No edema. Skin: No rash or ecchymoses. Objective Labs 03/06/25 04:49 03/06/25 04:49 Labs: Laboratory Results - last 24 hr 03/03/25 03/06/25 20:48 04:49 WBC 4.6 RBC 3.70 L Hgb 11.8 L Hct 36.4 MCV 98 MCH 31.9 MCHC 32.4 RDW Std Deviation 55.1 H Plt Count 173 D Neut % (Auto) 59 Lymph % (Auto) 23 [place] % (Auto) 6 Eos % (Auto) 2 Baso % (Auto) 1 Neut # (Auto) 2.7 Lymph # (Auto) 1.1 [place] # (Auto) 0.3 Eos # (Auto) 0.1 Baso # (Auto) 0.0 Immature Gran # (Auto) 0.40 H Absolute Nucleated RBC 0.00 Immature Gran % 9 H Nucleated RBC % 0 Sodium 144 Potassium 3.5 Chloride 107 Carbon Dioxide 28.7 Anion Gap 8 BUN 15 Creatinine 0.6 Estim Creat Clear Calc 68.1 eGFR > 60 BUN/Creatinine Ratio 25 H Glucose 110 H Calculated Osmolality 288 Calcium 8.4 B-Natriuretic Peptide 35 Coccidioides IgG Ab Negative HIV 1&2 Antibody Rapid Non-Reactive Quality Measures Quality Measures VTE prophylaxis Advance care planning discussed with:: patient Assessment & Plan Assessment Current Active Medications: Generic Name Dose Route Start Last Admin Trade Name Freq PRN Reason Stop Dose Admin Acetaminophen 650 mg 03/03/25 19:59 03/06/25 04:30 Acetaminophen 325 Mg Tablet PO 04/02/25 19:04 650 mg Q6H PRN Administration Fever >100.3 or pain 1-3 Albuterol/Ipratropium 3 ml 03/04/25 01:00 03/06/25 14:30 Albuterol/Ipratropium (Duoneb) Rt Asha 3 Ml Nebu INH 04/03/25 00:59 3 ml Q6HRRT REBEKAH Administration Azithromycin 500 mg 03/06/25 21:00 Azithromycin 250 Mg Tablet PO 03/13/25 20:59 2100 REBEKAH Enoxaparin Sodium 40 mg 03/04/25 09:00 03/06/25 08:41 Enoxaparin Sod Inj 40 Mg/0.4 Ml Syringe SC 03/18/25 08:59 40 mg QDAY REBEKAH Administration Furosemide 20 mg 03/04/25 09:00 03/06/25 08:41 Furosemide 20 Mg Tablet PO 04/03/25 08:59 20 mg QAM REBEKAH Administration Guaifenesin/Dextromethorphan 10 ml 03/03/25 19:15 03/06/25 13:53 Guaifenesin/Dm 10 Ml Udc PO 04/02/25 19:14 10 ml Q6H REBEKAH Administration Protocol Ceftriaxone Sodium/Dextrose 1 gm in 50 mls @ 100 mls/hr 03/04/25 21:00 03/05/25 21:19 Rocephin/D5w 1gm Iv Premix IV 03/10/25 19:05 100 mls/hr QDAY@2100 REBEKAH Administration Losartan Potassium 25 mg 03/04/25 10:00 03/06/25 08:40 Losartan Potassium 25 Mg Tablet PO 04/03/25 09:59 25 mg QDAY REBEKAH Administration Polyethylene Glycol 17 gm 03/03/25 20:02 Polyethylene Glycol 17 Gm Packet PO 04/03/25 08:59 QDAY PRN constipation Sennosides 1 tab 03/03/25 20:02 Senna Tablet PO 04/02/25 20:01 QDAY PRN CONSTIPATION Protocol Plan A 74-year-old female with a previous medical history of small lymphocytic lymphoma, HFrEF ejection fraction 45%11/15 who came to the ED 03/03/25 with shortness of breath, productive cough, fevers, chills, she reports that symptoms started approximately 1 week ago. Patient is going to be admitted for acute hypoxic respiratory failure due to community-acquired pneumonia. #Acute hypoxic respiratory failure #Community-acquired pneumonia DDx: CAP versus active tuberculosis Patient has a history of small lymphocytic lymphoma, recent travel to [place] which are risk factors for possible tuberculosis infection. She also reports fever, chills, unintentional weight loss in the last 2 weeks. Daughter denies history of tuberculosis, [place] fever. CTA showed multiple miliary nodules. ? Cocci serology ordered, IgM negative Plan: ? Airborne and droplet precautions ? Ceftriaxone 1 g daily 03/03/2025?current ? Azithromycin 500 mg daily 03/03/2025?current ? DuoNebs inhalations every 6 hours ? Sputum AFB stainx3, sent ? Guiafenesin syrup #History of HFrEF EF45% in 11/15 Patient was found to have HFrEF in October 2025. Was discharged on Lasix 20 mg daily. Patient denies taking Lasix at the moment. Plan: ? Resumed Lasix 20 mg daily #Left leg swelling Patient has a history of recent travel to [place]. On examination left leg is swollen, slightly warm to touch. CT chest was negative for PE. Plan: ? Venous Doppler ultrasound of lower extremities - negative for DVT #History of small B-cell lymphocytic lymphoma Patient is s/p chemotherapy and immunotherapy with Rituxan?375 and?Bendamustine. PET scan 12/07/24:Marked treatment response with no significant residual cervical axillary, mediastinal, abdominal or pelvic lymphadenopathy. Plan: - Follow-up outpatient FEN: Regular DVT prophylaxis: Lovenox 40 mg sc GI prophylaxis: None Dispo: MedSurg CODE STATUS: Full code Patient plan of care was discussed with the attending physician, Dr. Angelo Santos, PGY1 Attending Provider Attestation/Addendum I attest that I was physically present for the evaluation, physical examination, lab and imaging review of the patient with the residents. I discussed the case with the residents and agree with the findings and plans of care as documented above. At bedside, patient appears comfortable but she is on high flow nasal cannula, 25 L, 80% FiO2.? Her respiratory rate is also on higher side, 28 at bedside.? ABG from yesterday showed hypoxia.? Repeat ABG today shows improvement.? Continues to be on IV Rocephin and azithromycin, awaiting culture results.? Imaging findings were concerning for tuberculosis, awaiting QuantiFERON results.? Patient continues to be on isolation. Mary Stephens MD
[2025-03-06] MEDS: cefTRIAXone/D5w 1gm IV premix 1 GM/50 ML BAG IV (20:15)
[2025-03-06] MEDS: AZITHROMYCIN 250 MG TABLET 500 MG PO (20:15)
[2025-03-07] VITALS (13 sets, daily range): BP systolic 93–143; BP diastolic 49–81; PULSE 63–91; RESP 18–20; TEMP 36.1–36.8; O2SAT 92–99
[2025-03-07] MEDS: ALBUTEROL/IPRATROPIUM (Duoneb) RT SOL 3 ML NEBU INH ×4 (00:55→19:14)
[2025-03-07] MEDS: guaiFENesin/DM 10 ML UDC PO ×3 (01:15→20:00)
[2025-03-07 06:26] LABS: Basophils % (Auto) 1 % (0-2.5); Eosinophils # (Auto) 0.1 Thou/mm3 (0.0-0.5); Eosinophils % (Auto) 2 % (0-10); Hematocrit 38.7 % (36.0-46.0); Hemoglobin 12.5 g/dL (12.0-16.0); Immature Granulocytes % (Auto) 1 % (0-0); Immature Granulocytes Auto 0.04 Thou/mm3 (0.00-0.00); Lymphocytes % (Auto) 26 % (10-50); Mean Corpuscular HGB Conc 32.3 g/dl (31.0-37.0); Mean Corpuscular Hemoglobin 30.8 pg (25.0-35.0); Mean Corpuscular Volume 95 fL (80-100); Monocytes # (Auto) 0.3 Thou/mm3 (0.0-0.8); Monocytes % (Auto) 8 % (0-12); Neutrophils # (Auto) 2.5 Thou/mm3 (1.8-7.7); Neutrophils % (Auto) 63 % (37-80); Nucleated Red Blood Cell % 0 /100 WBC (0); Platelet Count 191 Thou/mm3 (140-440); RDW Standard Deviation 53.8 fL (36.4-46.3); Red Blood Count 4.06 Miln/mm3 (4.00-5.20); White Blood Count 3.9 Thou/mm3 (3.6-11.0)
[2025-03-07 06:51] LABS: Alanine Aminotransferase 8 U/L (10-49); Albumin, Serum 3.5 gm/dL (3.4-4.8); Albumin/Globulin Ratio 2.1 (1.2-2.2); Alkaline Phosphatase 132 U/L (46-116); Anion Gap 7 (7-16); Aspartate Amino Transferase 13 U/L (0-34); BUN/Creatinine Ratio 21 Ratio (12-20); Bilirubin,Total 0.3 mg/dL (0.3-1.2); Blood Urea Nitrogen 15 mg/dL (9-23); Calcium (Corrected) 9.4 mg/dL (8.5-10.1); Carbon Dioxide 31.7 mMol/L (20.0-31.0); Chloride 106 mMol/L (98-107); Creatinine (Component) 0.7 mg/dL (0.6-1.3); Estimated Creatinine Clearance 58.3 mL/min (>60); Globulin 1.7 gm/dL (2.3-3.5); Glucose 106 mg/dL (74-106); Osmolality,Calculated 289 (275-295); Potassium 3.7 mMol/L (3.4-5.1); Sodium 145 mMol/L (136-145); Total Protein 5.2 gm/dL (5.7-8.2); eGFR > 60 See Note
[2025-03-07] MEDS: Furosemide 20 MG TABLET PO (08:30)
[2025-03-07] MEDS: ENOXAPARIN SOD INJ 40 MG/0.4 ML SYRINGE SC (08:30)
[2025-03-07] MEDS: LOSARTAN POTASSIUM 25 MG TABLET PO (08:31)
[2025-03-07 12:50] LABS: Cocci Serology, IgM Negative (Negative)
--- NOTE | 2025-03-07 14:31 | ESPR_ITS ---
Subjective Subjective Interval history: doing ok. sputums for afb pending. not much cough. Exam Vital Signs Temp Pulse Resp BP Pulse Ox O2 Del Method O2 Flow Rate 97.9 F 74 18 133/81 H 94 L Nasal Cannula 2 03/07/25 12:00 03/07/25 12:45 03/07/25 12:45 03/07/25 12:00 03/07/25 12:45 03/07/25 12:00 03/07/25 12:45 Narrative Exam pt doing ok. looks alright. Objective - Internal Medicine Labs 03/07/25 04:25 03/07/25 04:25 Labs: Laboratory Results - last 24 hr 03/07/25 04:25 WBC 3.9 RBC 4.06 Hgb 12.5 Hct 38.7 MCV 95 MCH 30.8 MCHC 32.3 RDW Std Deviation 53.8 H Plt Count 191 Neut % (Auto) 63 Lymph % (Auto) 26 [place] % (Auto) 8 Eos % (Auto) 2 Baso % (Auto) 1 Neut # (Auto) 2.5 Lymph # (Auto) 1.0 [place] # (Auto) 0.3 Eos # (Auto) 0.1 Baso # (Auto) 0.0 Immature Gran # (Auto) 0.04 H Absolute Nucleated RBC 0.00 Immature Gran % 1 H Nucleated RBC % 0 Sodium 145 Potassium 3.7 Chloride 106 Carbon Dioxide 31.7 H Anion Gap 7 BUN 15 Creatinine 0.7 Estim Creat Clear Calc 58.3 L eGFR > 60 BUN/Creatinine Ratio 21 H Glucose 106 Calculated Osmolality 289 Calcium 9.0 Corrected Calcium 9.4 Total Bilirubin 0.3 AST 13 ALT 8 L Alkaline Phosphatase 132 H Total Protein 5.2 L Albumin 3.5 Globulin 1.7 L Albumin/Globulin Ratio 2.1 Coccidioides IgM Ab Negative Assessment & Plan A&P Narrative atypical pneumonia vs chf. cocci neg. afb's pending. radiology opinion has a lot of wt here hx of CA and known chf off rx afb's pending. if afb's neg. then all po with cefuroxime 500 bid for rocephin for remainder of 7d. system took the 250 bid order, but that was not the correct order. please adjust as I can not. system is not functional. if bnp significant, then may have more chf than suspected if afb's pos ok to start rx Time Spent With Patient Time: Total time spent is greater than 50% in coordination of care (as documented) at patient's floor/unit and/or counseling patient:
--- NOTE | 2025-03-07 14:37 | PD.ADDPROG ---
Addendum Progress Note Addendum Date of report being addended: 03/07/25 Narrative: was able to adjust cefuroxime dose. stopped azithro too as that course is done. will see wednesday if she remains in house. she is on O2 at home but is on less that current dose
--- NOTE | 2025-03-07 16:07 | PC.SS ---
SS update: pending QuantiFERON results.?Patient continues to be on isolation precautions.
--- NOTE | 2025-03-07 16:44 | ESPR_ITS ---
<Statement entered by Kd Lundy MD - 03/08/25 07:44> Senior Resident Attestation: I supervised/discussed management plan with sports internship physician Dr. Santos, and was involved in the care of this patient. I personally saw and examined the patient and discussed the assessment and plan with the entire medicine team, including my attending. I agree with the assessment and plan as documented. Patient's care was discussed with attending physician, Dr. Andres. Kd Lundy MD PGY-2. Documentation for date of: 03/07/25 Subjective Subjective Interval history: Patient is seen and examined at bedside No acute overnight events. Denies any other complaints except for cough and expectoration Vitals are stable. On physical examination, bilateral fine inspiratory crackles heard TB QuantiFERON test is still pending Dr. Aguirre is consulted and recommended cefuroxime instead of ceftriaxone Exam Vital Signs Temp Pulse Resp BP Pulse Ox O2 Del Method O2 Flow Rate 97.9 F 74 18 133/81 H 94 L Nasal Cannula 2 03/07/25 12:00 03/07/25 12:45 03/07/25 12:45 03/07/25 12:00 03/07/25 12:45 03/07/25 12:00 03/07/25 12:45 Narrative Exam General: Awake. HEENT: Normocephalic, atraumatic, mucous membranes moist. Heart: Regular rate and rhythm, no murmurs. Lungs: Bilateral diffuse fine inspiratory crackles and wheeze are heard. Noted Chemo-Port on right side Abdomen: Soft, nondistended, nontender, positive bowel sounds. ?No guarding or rebound tenderness. Neurologic: Alert and oriented x3, no gross neurological deficit, and patient able to move all 4 extremities. Extremities: No edema. Skin: No rash or ecchymoses. Objective Labs 03/08/25 04:50 03/08/25 04:50 Labs: Laboratory Results - last 24 hr 03/07/25 04:25 WBC 3.9 RBC 4.06 Hgb 12.5 Hct 38.7 MCV 95 MCH 30.8 MCHC 32.3 RDW Std Deviation 53.8 H Plt Count 191 Neut % (Auto) 63 Lymph % (Auto) 26 [place] % (Auto) 8 Eos % (Auto) 2 Baso % (Auto) 1 Neut # (Auto) 2.5 Lymph # (Auto) 1.0 [place] # (Auto) 0.3 Eos # (Auto) 0.1 Baso # (Auto) 0.0 Immature Gran # (Auto) 0.04 H Absolute Nucleated RBC 0.00 Immature Gran % 1 H Nucleated RBC % 0 Sodium 145 Potassium 3.7 Chloride 106 Carbon Dioxide 31.7 H Anion Gap 7 BUN 15 Creatinine 0.7 Estim Creat Clear Calc 58.3 L eGFR > 60 BUN/Creatinine Ratio 21 H Glucose 106 Calculated Osmolality 289 Calcium 9.0 Corrected Calcium 9.4 Total Bilirubin 0.3 AST 13 ALT 8 L Alkaline Phosphatase 132 H Total Protein 5.2 L Albumin 3.5 Globulin 1.7 L Albumin/Globulin Ratio 2.1 Coccidioides IgM Ab Negative Quality Measures Quality Measures VTE prophylaxis Advance care planning discussed with:: patient Assessment & Plan Assessment Current Active Medications: Generic Name Dose Route Start Last Admin Trade Name Freq PRN Reason Stop Dose Admin Acetaminophen 650 mg 03/03/25 19:59 03/06/25 20:22 Acetaminophen 325 Mg Tablet PO 04/02/25 19:04 650 mg Q6H PRN Administration Fever >100.3 or pain 1-3 Albuterol/Ipratropium 3 ml 03/04/25 01:00 03/07/25 12:45 Albuterol/Ipratropium (Duoneb) Rt Asha 3 Ml Nebu INH 04/03/25 00:59 3 ml Q6HRRT REBEKAH Administration Cefuroxime Axetil 500 mg 03/07/25 21:00 Cefuroxime Axetil 250 Mg Tablet PO 03/10/25 12:00 BID REBEKAH Enoxaparin Sodium 40 mg 03/04/25 09:00 03/07/25 08:30 Enoxaparin Sod Inj 40 Mg/0.4 Ml Syringe SC 03/18/25 08:59 40 mg QDAY REBEKAH Administration Furosemide 20 mg 03/04/25 09:00 03/07/25 08:30 Furosemide 20 Mg Tablet PO 04/03/25 08:59 20 mg QAM REBEKAH Administration Guaifenesin/Dextromethorphan 10 ml 03/03/25 19:15 03/07/25 16:12 Guaifenesin/Dm 10 Ml Udc PO 04/02/25 19:14 Not Given Q6H [facility] Protocol Losartan Potassium 25 mg 03/04/25 10:00 03/07/25 08:31 Losartan Potassium 25 Mg Tablet PO 04/03/25 09:59 25 mg QDAY REBEKAH Administration Polyethylene Glycol 17 gm 03/03/25 20:02 Polyethylene Glycol 17 Gm Packet PO 04/03/25 08:59 QDAY PRN constipation Protocol Sennosides 1 tab 03/03/25 20:02 Senna Tablet PO 04/02/25 20:01 QDAY PRN CONSTIPATION Protocol Plan A 74-year-old female with a previous medical history of small lymphocytic lymphoma, HFrEF ejection fraction 45%11/15 who came to the ED 03/03/25 with shortness of breath, productive cough, fevers, chills, she reports that symptoms started approximately 1 week ago. Patient is going to be admitted for acute hypoxic respiratory failure due to community-acquired pneumonia. #Acute hypoxic respiratory failure #Community-acquired pneumonia DDx: CAP versus active tuberculosis Patient has a history of small lymphocytic lymphoma, recent travel to [place] which are risk factors for possible tuberculosis infection. She also reports fever, chills, unintentional weight loss in the last 2 weeks. Daughter denies history of tuberculosis, [place] fever. CTA showed multiple miliary nodules. ? Cocci serology ordered, IgM negative Plan: ? Airborne and droplet precautions ? Ceftriaxone 1 g daily 03/03/2025?03/07/2025, started on cefuroxime as per DR. Aguirre's recommendations ? Azithromycin 500 mg daily 03/03/2025?current ? DuoNebs inhalations every 6 hours ? Sputum AFB stainx3,Quant TB sent, pending ? Guiafenesin syrup #History of HFrEF EF45% in 11/15 Patient was found to have HFrEF in October 2025. Was discharged on Lasix 20 mg daily. Patient denies taking Lasix at the moment. Plan: ? Resumed Lasix 20 mg daily #Left leg swelling Patient has a history of recent travel to [place]. On examination left leg is swollen, slightly warm to touch. CT chest was negative for PE. Plan: ? Venous Doppler ultrasound of lower extremities - negative for DVT #History of small B-cell lymphocytic lymphoma Patient is s/p chemotherapy and immunotherapy with Rituxan?375 and?Bendamustine. PET scan 12/07/24:Marked treatment response with no significant residual cervical axillary, mediastinal, abdominal or pelvic lymphadenopathy. Plan: - Follow-up outpatient FEN: Regular DVT prophylaxis: Lovenox 40 mg sc GI prophylaxis: None Dispo: MedSurg CODE STATUS: Full code Patient plan of care was discussed with the attending physician, Dr. Andres and senior resident Dr. Nikkie Santos, PGY1 Attending Provider Attestation/Addendum Marni, Katey Andres, DO, attest that I was physically present for the reaves portions of the service and evaluated the patient with the resident and I reviewed and discussed the case with the resident and agree with the resident's findings and plans of care as documented above Patient seen and evaluated this AM. She has history of leukemia and last had chemo in October. She reports having frequent pneumonia and has been using supplemental O2 as needed about 1L/min at home. Pending TB rule out. Patient denies any previous infection or exposure to TB. She states she was tested for TB over a year ago in [place] and was negative. PET scan was done in November and does not show any evidence of LAD in chest. Will continue with Abx and f/u with ID recommendations. Pending AFB as patient remains on isolation.
[2025-03-07] MEDS: cefuroxime axetiL 250 MG TABLET 500 MG PO (20:00)
[2025-03-08] VITALS (11 sets, daily range): BP systolic 113–139; BP diastolic 60–96; PULSE 65–90; RESP 17–26; TEMP 36.2–36.8; O2SAT 93–99
[2025-03-08] MEDS: guaiFENesin/DM 10 ML UDC PO ×4 (00:20→20:13)
[2025-03-08] MEDS: ALBUTEROL/IPRATROPIUM (Duoneb) RT SOL 3 ML NEBU INH ×4 (01:03→18:22)
[2025-03-08 06:14] LABS: Basophils % (Auto) 1 % (0-2.5); Eosinophils # (Auto) 0.1 Thou/mm3 (0.0-0.5); Eosinophils % (Auto) 1 % (0-10); Hematocrit 39.3 % (36.0-46.0); Hemoglobin 12.7 g/dL (12.0-16.0); Immature Granulocytes % (Auto) 5 % (0-0); Lymphocytes # (Auto) 1.3 Thou/mm3 (1.0-4.8); Lymphocytes % (Auto) 34 % (10-50); Mean Corpuscular HGB Conc 32.3 g/dl (31.0-37.0); Mean Corpuscular Hemoglobin 31.1 pg (25.0-35.0); Mean Corpuscular Volume 96 fL (80-100); Monocytes # (Auto) 0.3 Thou/mm3 (0.0-0.8); Monocytes % (Auto) 8 % (0-12); Neutrophils % (Auto) 52 % (37-80); Nucleated Red Blood Cell % 0 /100 WBC (0); Platelet Count 181 Thou/mm3 (140-440); Red Blood Count 4.08 Miln/mm3 (4.00-5.20); White Blood Count 3.8 Thou/mm3 (3.6-11.0)
[2025-03-08 06:44] LABS: Alanine Aminotransferase 11 U/L (10-49); Albumin, Serum 3.5 gm/dL (3.4-4.8); Anion Gap 6 (7-16); Aspartate Amino Transferase 19 U/L (0-34); BUN/Creatinine Ratio 25 Ratio (12-20); Bilirubin,Total 0.5 mg/dL (0.3-1.2); Blood Urea Nitrogen 15 mg/dL (9-23); Calcium 9.1 mg/dL (8.3-10.6); Calcium (Corrected) 9.5 mg/dL (8.5-10.1); Carbon Dioxide 32.4 mMol/L (20.0-31.0); Chloride 106 mMol/L (98-107); Creatinine (Component) 0.6 mg/dL (0.6-1.3); Estimated Creatinine Clearance 68.1 mL/min (>60); Glucose 112 mg/dL (74-106); Osmolality,Calculated 288 (275-295); Sodium 144 mMol/L (136-145); Total Protein 5.2 gm/dL (5.7-8.2); eGFR > 60 See Note
[2025-03-08 06:45] LABS: Albumin/Globulin Ratio 2.1 (1.2-2.2); Alkaline Phosphatase 135 U/L (46-116); Globulin 1.7 gm/dL (2.3-3.5)
[2025-03-08] MEDS: ENOXAPARIN SOD INJ 40 MG/0.4 ML SYRINGE SC (08:12)
[2025-03-08] MEDS: SENNA TABLET 1 TAB PO (08:13)
[2025-03-08] MEDS: cefuroxime axetiL 250 MG TABLET 500 MG PO ×2 (08:13→20:13)
[2025-03-08] MEDS: LOSARTAN POTASSIUM 25 MG TABLET PO (08:13)
[2025-03-08] MEDS: Furosemide 20 MG TABLET PO (08:14)
[2025-03-08 11:37] LABS: Cocci Serology, IgG Negative (Negative)
--- NOTE | 2025-03-08 11:42 | PC.IP ---
[facility] x3 results came back negative from [facility]. Easton Middleton RN was notified. Pt. can be removed from Airborne Precautions
--- NOTE | 2025-03-08 12:32 | PC.NURSE ---
Instructed patient on use of incentive spriometer. Patient demonstrated correct use of IS. Estonian translation provided by staff. Patient has no further questions.
--- NOTE | 2025-03-08 16:36 | ESPR_ITS ---
<Statement entered by Kd Lundy MD - 03/09/25 07:48> Senior Resident Attestation: I supervised/discussed management plan with planning intern physician Dr. Santos, and was involved in the care of this patient. I personally saw and examined the patient and discussed the assessment and plan with the entire medicine team, including my attending. I agree with the assessment and plan as documented. QuantiFERON returned negative, will discuss with infectious disease and possible discharge tomorrow. Patient's care was discussed with attending physician, Dr. Andres. dK Lundy MD PGY-2. Documentation for date of: 03/08/25 Subjective Subjective Interval history: Patient is seen and examined at bedside No acute overnight events. Patient did not have any further complaints QuantiFERON test came back negative and no AFB is found in sputum Patient is having shortness of breath on walking but saturations remained stable Planning to discharge tomorrow once physical therapy evaluation is done Exam Vital Signs Temp Pulse Resp BP Pulse Ox O2 Del Method O2 Flow Rate 97.4 F 79 17 128/60 99 Room Air 1 03/08/25 12:00 03/08/25 13:13 03/08/25 13:13 03/08/25 12:00 03/08/25 13:13 03/08/25 12:00 03/08/25 13:13 Narrative Exam General: Awake. HEENT: Normocephalic, atraumatic, mucous membranes moist. Heart: Regular rate and rhythm, no murmurs. Lungs: Bilateral diffuse fine inspiratory crackles heard. Noted Chemo-Port on right side Abdomen: Soft, nondistended, nontender, positive bowel sounds. ?No guarding or rebound tenderness. Neurologic: Alert and oriented x3, no gross neurological deficit, and patient able to move all 4 extremities. Extremities: No edema. Skin: No rash or ecchymoses. Objective Labs 03/09/25 04:07 03/09/25 04:07 Labs: Laboratory Results - last 24 hr 03/03/25 03/04/25 03/05/25 20:20 04:49 05:17 WBC RBC Hgb Hct MCV MCH MCHC RDW Std Deviation Plt Count Neut % (Auto) Lymph % (Auto) [place] % (Auto) Eos % (Auto) Baso % (Auto) Neut # (Auto) Lymph # (Auto) [place] # (Auto) Eos # (Auto) Baso # (Auto) Immature Gran # (Auto) Absolute Nucleated RBC Immature Gran % Nucleated RBC % Sodium Potassium Chloride Carbon Dioxide Anion Gap BUN Creatinine Estim Creat Clear Calc eGFR BUN/Creatinine Ratio Glucose Calculated Osmolality Calcium Corrected Calcium Total Bilirubin AST ALT Alkaline Phosphatase Total Protein Albumin Globulin Albumin/Globulin Ratio Coccidioides IgG Ab Mycobacterial Culture See Sep Rpt See Sep Rpt TB Test (QFT) See Sep Rpt 03/07/25 03/08/25 04:25 04:50 WBC 3.8 RBC 4.08 Hgb 12.7 Hct 39.3 MCV 96 MCH 31.1 MCHC 32.3 RDW Std Deviation 54.0 H Plt Count 181 Neut % (Auto) 52 Lymph % (Auto) 34 [place] % (Auto) 8 Eos % (Auto) 1 Baso % (Auto) 1 Neut # (Auto) 2.0 Lymph # (Auto) 1.3 [place] # (Auto) 0.3 Eos # (Auto) 0.1 Baso # (Auto) 0.0 Immature Gran # (Auto) 0.20 H Absolute Nucleated RBC 0.00 Immature Gran % 5 H Nucleated RBC % 0 Sodium 144 Potassium 4.0 Chloride 106 Carbon Dioxide 32.4 H Anion Gap 6 L BUN 15 Creatinine 0.6 Estim Creat Clear Calc 68.1 eGFR > 60 BUN/Creatinine Ratio 25 H Glucose 112 H Calculated Osmolality 288 Calcium 9.1 Corrected Calcium 9.5 Total Bilirubin 0.5 AST 19 ALT 11 Alkaline Phosphatase 135 H Total Protein 5.2 L Albumin 3.5 Globulin 1.7 L Albumin/Globulin Ratio 2.1 Coccidioides IgG Ab Negative Mycobacterial Culture TB Test (QFT) Quality Measures Quality Measures VTE prophylaxis Advance care planning discussed with:: patient Assessment & Plan Assessment Current Active Medications: Generic Name Dose Route Start Last Admin Trade Name Freq PRN Reason Stop Dose Admin Acetaminophen 650 mg 03/03/25 19:59 03/06/25 20:22 Acetaminophen 325 Mg Tablet PO 04/02/25 19:04 650 mg Q6H PRN Administration Fever >100.3 or pain 1-3 Albuterol/Ipratropium 3 ml 03/04/25 01:00 03/08/25 13:12 Albuterol/Ipratropium (Duoneb) Rt Asha 3 Ml Nebu INH 04/03/25 00:59 3 ml Q6HRRT REBEKAH Administration Cefuroxime Axetil 500 mg 03/07/25 21:00 03/08/25 08:13 Cefuroxime Axetil 250 Mg Tablet PO 03/10/25 12:00 500 mg BID REBEKAH Administration Enoxaparin Sodium 40 mg 03/04/25 09:00 03/08/25 08:12 Enoxaparin Sod Inj 40 Mg/0.4 Ml Syringe SC 03/18/25 08:59 40 mg QDAY REBEKAH Administration Furosemide 20 mg 03/04/25 09:00 03/08/25 08:14 Furosemide 20 Mg Tablet PO 04/03/25 08:59 20 mg QAM REBEKAH Administration Guaifenesin/Dextromethorphan 10 ml 03/03/25 19:15 03/08/25 12:29 Guaifenesin/Dm 10 Ml Udc PO 04/02/25 19:14 10 ml Q6H REBEKAH Administration Protocol Losartan Potassium 25 mg 03/04/25 10:00 03/08/25 08:13 Losartan Potassium 25 Mg Tablet PO 04/03/25 09:59 25 mg QDAY REBEKAH Administration Polyethylene Glycol 17 gm 03/03/25 20:02 Polyethylene Glycol 17 Gm Packet PO 04/03/25 08:59 QDAY PRN constipation Protocol Sennosides 1 tab 03/03/25 20:02 03/08/25 08:13 Senna Tablet PO 04/02/25 20:01 1 tab QDAY PRN Administration CONSTIPATION Protocol Plan A 74-year-old female with a previous medical history of small lymphocytic lymphoma, HFrEF ejection fraction 45%11/15 who came to the ED 03/03/25 with shortness of breath, productive cough, fevers, chills, she reports that symptoms started approximately 1 week ago. Patient is going to be admitted for acute hypoxic respiratory failure due to community-acquired pneumonia. #Acute hypoxic respiratory failure #Community-acquired pneumonia #TB R/O Patient has a history of small lymphocytic lymphoma, recent travel to [place] which are risk factors for possible tuberculosis infection. She also reports fever, chills, unintentional weight loss in the last 2 weeks. Daughter denies history of tuberculosis, [place] fever. CTA showed multiple miliary nodules. ? Cocci serology ordered, IgM negative ? Sputum AFB stainx3,Quant TB sent, came back negative Plan: ? Ceftriaxone 1 g daily 03/03/2025?03/07/2025, started on cefuroxime as per DR. Aguirre's recommendations ? Azithromycin 500 mg daily 03/03/2025? 03/07/2025 ? DuoNebs inhalations every 6 hours ? Guiafenesin syrup #History of HFrEF EF45% in 11/15 Patient was found to have HFrEF in October 2025. Was discharged on Lasix 20 mg daily. Patient denies taking Lasix at the moment. Plan: ? Resumed Lasix 20 mg daily #Left leg swelling Patient has a history of recent travel to [place]. On examination left leg is swollen, slightly warm to touch. CT chest was negative for PE. Plan: ? Venous Doppler ultrasound of lower extremities - negative for DVT #History of small B-cell lymphocytic lymphoma Patient is s/p chemotherapy and immunotherapy with Rituxan?375 and?Bendamustine. PET scan 12/07/24:Marked treatment response with no significant residual cervical axillary, mediastinal, abdominal or pelvic lymphadenopathy. Plan: - Follow-up outpatient FEN: Regular DVT prophylaxis: Lovenox 40 mg sc GI prophylaxis: None Dispo: MedSurg CODE STATUS: Full code Patient plan of care was discussed with the attending physician, Dr. Andres and senior resident Dr. Nikkie Santos, PGY1 Attending Provider Attestation/Addendum Marni, Katey Andres, , attest that I was physically present for the reaves portions of the service and evaluated the patient with the resident and I reviewed and discussed the case with the resident and agree with the resident's findings and plans of care as documented above Patient seen and evaluated this AM. She remains on 1L/NC. She complains of BRAVO. She continues to have scattered rhonchi and wheezing. Encourage IS and started on mucolytics. Will have PT work with patient. AFB and quantiferons negative. Will remove isolation precautions. Continue with current management and anticipate DC within next 24h
[2025-03-09] VITALS (10 sets, daily range): BP systolic 109–138; BP diastolic 61–81; PULSE 77–102; RESP 15–23; TEMP 36.7–37.2; O2SAT 92–99
[2025-03-09] MEDS: ALBUTEROL/IPRATROPIUM (Duoneb) RT SOL 3 ML NEBU INH ×3 (00:20→13:21)
[2025-03-09] MEDS: guaiFENesin/DM 10 ML UDC PO ×2 (00:34→06:35)
[2025-03-09 05:36] LABS: Basophils % (Auto) 1 % (0-2.5); Eosinophils # (Auto) 0.1 Thou/mm3 (0.0-0.5); Eosinophils % (Auto) 1 % (0-10); Hematocrit 37.2 % (36.0-46.0); Hemoglobin 12.3 g/dL (12.0-16.0); Immature Granulocytes % (Auto) 7 % (0-0); Immature Granulocytes Auto 0.29 Thou/mm3 (0.00-0.00); Lymphocytes # (Auto) 1.7 Thou/mm3 (1.0-4.8); Lymphocytes % (Auto) 39 % (10-50); Mean Corpuscular HGB Conc 33.1 g/dl (31.0-37.0); Mean Corpuscular Hemoglobin 31.9 pg (25.0-35.0); Mean Corpuscular Volume 96 fL (80-100); Monocytes # (Auto) 0.3 Thou/mm3 (0.0-0.8); Monocytes % (Auto) 7 % (0-12); Neutrophils % (Auto) 45 % (37-80); Nucleated Red Blood Cell % 0 /100 WBC (0); Platelet Count 177 Thou/mm3 (140-440); RDW Standard Deviation 53.7 fL (36.4-46.3); Red Blood Count 3.86 Miln/mm3 (4.00-5.20); White Blood Count 4.3 Thou/mm3 (3.6-11.0)
[2025-03-09 05:56] LABS: Alanine Aminotransferase 28 U/L (10-49); Albumin, Serum 3.5 gm/dL (3.4-4.8); Albumin/Globulin Ratio 2.1 (1.2-2.2); Alkaline Phosphatase 155 U/L (46-116); Anion Gap 7 (7-16); Aspartate Amino Transferase 35 U/L (0-34); BUN/Creatinine Ratio 26 Ratio (12-20); Bilirubin,Total 0.5 mg/dL (0.3-1.2); Blood Urea Nitrogen 18 mg/dL (9-23); Calcium 9.1 mg/dL (8.3-10.6); Calcium (Corrected) 9.5 mg/dL (8.5-10.1); Carbon Dioxide 32.4 mMol/L (20.0-31.0); Chloride 103 mMol/L (98-107); Creatinine (Component) 0.7 mg/dL (0.6-1.3); Estimated Creatinine Clearance 58.3 mL/min (>60); Globulin 1.7 gm/dL (2.3-3.5); Glucose 118 mg/dL (74-106); Osmolality,Calculated 286 (275-295); Potassium 4.2 mMol/L (3.4-5.1); Sodium 142 mMol/L (136-145); Total Protein 5.2 gm/dL (5.7-8.2); eGFR > 60 See Note
[2025-03-09] MEDS: LOSARTAN POTASSIUM 25 MG TABLET PO (08:24)
[2025-03-09] MEDS: cefuroxime axetiL 250 MG TABLET 500 MG PO (08:25)
[2025-03-09] MEDS: Furosemide 20 MG TABLET PO (08:25)
[2025-03-09] MEDS: ENOXAPARIN SOD INJ 40 MG/0.4 ML SYRINGE SC (08:25)
--- NOTE | 2025-03-09 08:54 | PD.IDPROG ---
Subjective Subjective Interval history: qtf and 2 afb's neg. hx of o2 at home noted on wed. finished azithro. will be on po cefuroxime for a few more days Exam Vital Signs Temp Pulse Resp BP Pulse Ox O2 Del Method O2 Flow Rate 98.6 F 90 15 112/67 94 L Nasal Cannula 2 03/09/25 07:34 03/09/25 08:25 03/09/25 07:34 03/09/25 08:25 03/09/25 07:34 03/09/25 07:34 03/09/25 07:34 Narrative Exam limited eval today Objective - Internal Medicine Labs 03/09/25 04:07 03/09/25 04:07 Labs: Laboratory Results - last 24 hr 03/07/25 03/09/25 04:25 04:07 WBC 4.3 RBC 3.86 L Hgb 12.3 Hct 37.2 MCV 96 MCH 31.9 MCHC 33.1 RDW Std Deviation 53.7 H Plt Count 177 Neut % (Auto) 45 Lymph % (Auto) 39 [place] % (Auto) 7 Eos % (Auto) 1 Baso % (Auto) 1 Neut # (Auto) 2.0 Lymph # (Auto) 1.7 [place] # (Auto) 0.3 Eos # (Auto) 0.1 Baso # (Auto) 0.0 Immature Gran # (Auto) 0.29 H Absolute Nucleated RBC 0.00 Immature Gran % 7 H Nucleated RBC % 0 Sodium 142 Potassium 4.2 Chloride 103 Carbon Dioxide 32.4 H Anion Gap 7 BUN 18 Creatinine 0.7 Estim Creat Clear Calc 58.3 L eGFR > 60 BUN/Creatinine Ratio 26 H Glucose 118 H Calculated Osmolality 286 Calcium 9.1 Corrected Calcium 9.5 Total Bilirubin 0.5 AST 35 H ALT 28 Alkaline Phosphatase 155 H D Total Protein 5.2 L Albumin 3.5 Globulin 1.7 L Albumin/Globulin Ratio 2.1 Coccidioides IgG Ab Negative Assessment & Plan A&P Narrative atypical pneumonia vs chf. cocci neg. afb's pending. radiology opinion has a lot of wt here hx of CA and known chf off rx On O2 at home. no overt tb or cocci. I thought I sent for covid but do not see that result. ok to send for that before release on all po with cefuroxime 500 bid for rocephin for remainder of 7d (thru Wednesday). ok to be out of isolation Time Spent With Patient Time: Total time spent is greater than 50% in coordination of care (as documented) at patient's floor/unit and/or counseling patient:
--- NOTE | 2025-03-09 09:19 | CHAP ---
Patient expressed gratitude for visit and prayer
--- NOTE | 2025-03-09 10:18 | PC.PT ---
PT eval only. Patient is xI with bed mobility, transfers, and ambulation using DME and O2. Patient is safe to ambulate to the bathroom and in the halls with a FWW, O2, and 1 staff assist for help with managing her O2. RN made aware.
--- NOTE | 2025-03-09 12:03 | PC.SS ---
SS follow up note; Patient will discharge back home today.
--- NOTE | 2025-03-09 13:21 | ESDS_ITS ---
<Statement entered by Katey Andres DO - 03/10/25 08:26> I, Katey Andres DO, attest that I was physically present for the reaves portions of the service and evaluated the patient with the resident and I reviewed and discussed the case with the resident and agree with the resident's findings and plans of care as documented above Planned Discharge Date 03/09/25 DS: Providers Provider Date of admission: 03/03/25 19:05 Primary care physician: Ellie Christensen PA-C Admitting Provider: Eber Middleton MD Attending Provider on Admission: Katey Andres DO Consults: 03/03/25 19:18 Consult to Infectious Diseases Routine Comment: Consulting Provider: Cole Aguirre 03/03/25 23:14 Referral [place] Routine Comment: Referral Registered Dietitian Routine Comment: 03/08/25 14:14 Referral Physical Therapy Routine Comment: Physician Instructions: Attending Provider on DC: Joe Santos MD Discharging Provider: Joe Santos MD DS: Diagnosis Problem List Completed Was Problem List Reviewed/Reconciled?: Yes Hospital Course Hospital Course Hospital course: A 74-year-old female with a previous medical history of small lymphocytic lymphoma, HFrEF ejection fraction 45%11/15 who came to the ED 03/03/25 with shortness of breath, productive cough, fevers, chills, she reports that symptoms started approximately 1 week ago and admitted in the hospital for acute on chronic hypoxic respiratory failure secondary to pneumonia and for TB rule out Hospital course: At baseline, patient is using 1 L oxygen at home. Vitals are stable at the time of admission except SpO2 94% with 3 L oxygen through [employer]. CBC and CMP, procalcitonin are unremarkable. Chest CTA showed extensive miliary nodules, differential diagnosis would include active tuberculosis. EKG showed sinus rhythm. Bedside influenza A and B, COVID negative. Patient is kept on airborne precautions for TB rule out during the hospital stay. Cocci serology came back negative twice. Sputum for AFB, TB QuantiFERON, NAAT came back negative. Patient was taken off the contact precautions. Patient was treated with antibiotics and continued her home medications during the hospital stay Patient is discharged to home with following medications and recommendations -Follow-up with PCP within 1 week of discharge. If you do not have appointment, please follow-up with the [facility] with Dr. aSntos. Call [phone] to make an appointment. -Follow up with conference planner within 1 week of discharge -Take cefuroxime 500mg twice a day till 03/10/2025 -Take albuterol rescue inhaler as needed -Stop levofloxacin -Continue rest of the home medications -Return to ED if symptoms persist or return #Acute on chronic hypoxic respiratory failure #Community-acquired pneumonia #COPD on 1L o2 at home #TB Ruled out #Left leg swelling #History of small B-cell lymphocytic lymphoma Patient plan of care was discussed with the attending physician, Dr. Andres and senior resident Dr. Nikkie Santos, PGY1 Time Spent with Patient Time attestation: Total time spent providing and/or coordinating discharge services: Time spent: Greater than 30 minutes Exam Vital Signs Temp Pulse Resp BP Pulse Ox O2 Del Method O2 Flow Rate 98.2 F 93 16 113/61 92 L Nasal Cannula 1 03/09/25 12:03/09/25 12:03/09/25 12:03/09/25 12:03/09/25 12:03/09/25 12:03/09/25 12:00 Narrative Exam General: Awake. HEENT: Normocephalic, atraumatic, mucous membranes moist. Heart: Regular rate and rhythm, no murmurs. Lungs: Bilateral diffuse fine inspiratory crackles heard. Noted Chemo-Port on right side Abdomen: Soft, nondistended, nontender, positive bowel sounds. ?No guarding or rebound tenderness. Neurologic: Alert and oriented x3, no gross neurological deficit, and patient able to move all 4 extremities. Extremities: No edema. Skin: No rash or ecchymoses. Discharge Plan Plan Patient Disposition: HOME (Self Care) Disposition Comment: Admitted to Dr. Middleton Patient condition on transfer: Stable Care Plan Goals: -Follow-up with PCP within 1 week of discharge. If you do not have appointment, please follow-up with the [facility] with Dr. Santos. Call [phone] to make an appointment. -Follow up with conference planner within 1 week of discharge -Take cefuroxime 500mg twice a day till 03/10/2025 -Take albuterol rescue inhaler as needed -Stop levofloxacin -Continue rest of the home medications -Return to ED if symptoms persist or return Prescriptions/Referrals Prescriptions/Med Rec: New albuterol sulfate 90 mcg/actuation HFA aerosol inhaler 1 inh inhalation QID PRN (Reason: shortness of breath or wheezing) Qty: 6.7 0RF cefuroxime axetil 500 mg tablet 500 mg PO BID Qty: 3 0RF Continued albuterol sulfate 1.25 mg/3 mL solution for nebulization 1.25 mg inhalation QID PRN (Reason: shortness of breath or wheezing) Qty: 90 0RF acetaminophen-codeine 300-30 mg tablet 1 tab PO Q8H PRN (Reason: pain) Qty: 20 0RF Breztri Aerosphere 160-9-4.8 mcg/actuation HFA aerosol inhaler 2 puff INHALATION BID Patient Comments: INHALE 2 PUFFS BY MOUTH TWICE DAILY Chloraseptic Max Sore Throat 1.5-33 % spray,non-aerosol 1 spray PO QDAY PRN (Reason: sore throat) Qty: 118 0RF polyethylene glycol 3350 [Miralax] 17 gram/dose powder 4 g PO QDAY PRN (Reason: constipation) Qty: 119 0RF furosemide [Lasix] 20 mg tablet 20 mg PO QDAY Qty: 30 0RF Rx Instructions: hold if SBP drops below 100 and DBP below 60 mmHg potassium chloride 8 mEq tablet extended release 8 meq PO QDAY Qty: 30 0RF (DME) blood pressure monitor [Blood Pressure Kit] Kit See Rx Instructions .Route Qty: 1 0RF Rx Instructions: As directed Discontinued levofloxacin 750 mg tablet 750 mg PO QDAY Qty: 3 0RF Referrals: Ellie Christensen PA-C [Primary Care Provider] - Patient/Caregiver Discharge Instructions Education Materials: What Is Pneumonia?, Treating Pneumonia Print Language: Nigerien Stand Alone Forms: Claire Award Info., Patient Portal Info Letter Discharge Order Discharge Orders: Discharge (Routine); Ordered 03/09/25 Ordered By: Joe Santos Quality Discharge Quality Measures VTE prophylaxis
[2025-03-14 06:27] LABS: IgG, Serum* 265 mg/dL (600-1540)
== END 2025-03-09 16:37 | disposition home or self-care (01) | DRG 139 ==
LOC: SERX 18:58 → SERHOLD 19:21 → S3NX 03-05 06:24
PROVIDERS: Internal Medicine Infectious Disease; Admitting Provider Internal Medicine; Emergency Provider Emergency Medicine; PCP Physician Assistant; Visit Provider Internal Medicine
DX: J18.9 Pneumonia, unspecified organism (principal); J44.0 Chronic obstructive pulmonary disease with (acute) lower respiratory infection; J96.21 Acute and chronic respiratory failure with hypoxia; R03.0 Elevated blood-pressure reading, without diagnosis of hypertension; R63.4 Abnormal weight loss; R05.3 Chronic cough; D84.9 Immunodeficiency, unspecified; I50.22 Chronic systolic (congestive) heart failure; Z87.01 Personal history of pneumonia (recurrent); Z87.891 Personal history of nicotine dependence; Z92.21 Personal history of antineoplastic chemotherapy; Z99.81 Dependence on supplemental oxygen; Z98.51 Tubal ligation status; Z78.9 Other specified health status; Z79.899 Other long term (current) drug therapy; Z85.6 Personal history of leukemia; Z85.72 Personal history of non-Hodgkin lymphomas
CPT/HCPCS: 36415; 71045; 71275; 80048; 80053; 82784; 83615; 83690; 83735; 83880; 84100; 84145; 84484; 85025; 85610; 85730; 86331; 86480; 86635; 86703; 87015; 87116; 87205; 87206; 87400; 87634; 87811; 93005; 93970; 94640; 94667; 96365; 97162; 99285; 99308; A4649; A9270; J0456; J0696; J1650; J7030; J7050; Q9967

== ENCOUNTER → 2025-03-13 | Outpatient (CLI) | payer MEDICAID, SELFPAY ==
--- NOTE | 2025-03-13 13:20 | XR_ITS ---
Examination: Bone densitometry Date and time of exam:March 13, 2025 1331 hours INDICATIONS: Menopause age 52 lymphatic cancer diagnosis Technique: Lumbar spine and hip total bone mineralization values of an calculated. Peak reference and age match control results have been displayed. Findings: Lumbar spine total bone mineralization is0.916 gm/cm2. This is 1.2 standard deviations below peak reference. This is 1.3 standard deviations above age-matched controls. Hip total bone mineralization is 0.701 gm/cm2 This is 1.9 standard deviations below peak reference. This is 0.1 standard deviations below age-matched controls Impression: There is osteopenia based on lumbar spine measurements. There is osteoporosis based on hip measurements
== END | disposition home or self-care (01) ==
PROVIDERS: PCP Physician Assistant; Referring Provider Physician Assistant Medical; Visit Provider Physician Assistant Medical
DX: M85.88 Other specified disorders of bone density and structure, other site (principal); M81.0 Age-related osteoporosis without current pathological fracture
CPT/HCPCS: 77080

== ENCOUNTER 2025-03-15 10:32 | Outpatient (RCR) | payer MEDICAID, SELFPAY ==
--- NOTE | 2025-03-15 14:11 | CTCFLWUP_ITS ---
Patient: KIMMIE ULRICH : 1950 Page 2 of 2 FOLLOW UP NOTE DATE OF SERVICE: 03/15/2025 NAME: KIMMIE ULRICH ACCOUNT: [id number] : 1950 AGE: 74 INTERVAL HISTORY: Patient recently had a CT scan and was told that she likely have tuberculosis. Patient traveled to [place] and came back sick about 2 weeks ago. Patient was tested in the hospital and as per patient she was negative. Patient has been having cough and shortness of breath. At baseline patient has COPD and is on oxygen she has completed chemotherapy with BR for 6 cycles ONCOLOGY HISTORY: DIAGNOSIS: Small cell B-cell lymphoma, unspecified site [ICD10] C83.00 DATE OF DIAGNOSIS: 02/25/2024 STAGE/TNM: Stage IV TREATMENT HISTORY: Care?Plan Start?Date Cycle Day Intent Rituxan?375?+?Bendamustine?90?Chalino 08/28/2024 1 28 Maintenance Rituxan?375?+?Bendamustine?90?Chalino 04/24/2024 1 28 Palliative HISTORY OF PRESENT ILLNESS: Kimmie Ulrich is a 74-year-old SPA speaking female who was initially diagnosed with lymphoma/leukemia in [place] about 2 years ago. She had lymph node biopsy at that time. I do not have any records from [place]. According to Ms. Ulrich she was treated for about 4 cycles of chemot herapy in [place]. Since then she came to the [facility]. She was seen in [place] by a metal cleaner/oncologist. She was told she does not need any treatment. 02/02/2023: WBC 21.5, ANC 15.9, lymphocytes 4.7, hemoglobin 14.4, MCV 92, platelet count 150,000. 08/26/2023: WBC 13.4, absolute lymphocyte count 7.9, hemoglobin 15.1, MCV 95, platelets 204,000. Hepatitis panel negative. HIV negative. 11/11/2023: CT scan of the chest with IV contrast? 01/24/2024: WBC 12.2, absolute lymphocyte count 9.5, hemoglobin 13.0, MCV 97, platelets 168,000, creatinine 0.62, LDH 175, hepatitis panel negative ESR 16. Uric acid 6.0 Flow cytometry of the peripheral blood 02/25/2024: Ms. Ulrich had left neck cervical lymph node excisional biopsy? 03/02/2024: Ms. Ulrich had CT scan of the chest abdomen and pelvis with IV contrast which was compared to previous scans done on November 11, 2023. 03/06/2024: PET/CT scan? 04/24/2024: Ms. Ulrich received first cycle of Bendamustine and rituximab. 05/09/2024 - 05/15/2024: Ms. Ulrich was admitted to the hospital because of neutropenic fever. Treated with IV antibiotics. Discharged home on oxygen via nasal cannula. 05/17/2024 - 05/22/2024: Ms. Ulrich was readmitted to the hospital due to acute respiratory failure secondary to pneumonia treated with IV antibiotics. 06/19/2024: Ms. Ulrich had second cycle of Bendamustine and rituximab followed by pegfilgrastim. 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 Tobacco?Use?Years:?50 Tobacco Use:?Hever 2 months ago - smoked 8-10 cigarettes/day x 50 yrs ETOH?Use:?Denies Drug?Note:?Denies Social?History?Note:?Lives?with?dtr [employer] HISTORY: Menarche?-?Age:?10 Menopause:?48 :?3 Live?Births:?4 Age?1st?:?22 Gynecological?Note:?1?miscarriage MEDICATIONS: 1. albuterol sulfate - 2.5 mg /3 mL (0.083 %) Twice a Day 2. albuterol-budesonide - 90-80 mcg/actuation 2 Quart Twice a Day 3. Bactrim DS - 800-160 mg 1 tab twice Daily 4. furosemide - 20 mg 1 tab As directed 5. Phenergan - 1 As directed Medications Last Reconciled by Divine Gandara MA on 03/15/2025 ALLERGIES: No Known Drug Allergies REVIEW OF SYSTEMS: A complete 14-point review of systems was performed and is negative except as noted in interval history. PHYSICAL EXAMINATION: VITAL SIGNS: Temperature?95.5, B/P?113/72, Oxygen?Saturation?96% on oxygen PAIN: 3 - Between mild and moderate pain ECOG Performance Status: 3 - Symptomatic; limited self-care; spends >50% of time in bed, not bedridden EYE: Conjunctivae is pink. MOUTH: Oral cavity is dry. Bilateral cervical lymphadenopathy as well is axillary lymphadenopathy is not palpable CHEST bilateral wheezing with very silent chest in the lower part of the lungs CARDIAC: Rhythm regular, no murmurs or gallops present. ABDOMEN: Soft. No hepatomegaly. No splenomegaly. EXTREMITIES: No pedal edema or cyanosis. LABORATORY DATA: I have personally reviewed and interpreted each of Ms. Ulrich?s relevant lab tests, abnormal findings are below: Date 03/08/25 03/09/25 ??WHITE?BLOOD?COUNT?(Thou/mm3) 3.8 4.3 ??RED?BLOOD?COUNT?(Miln/mm3) 4.08 3.86?L ??HEMOGLOBIN?(gm/dl) 12.7 12.3 ??HEMATOCRIT?(%) 39.3 37.2 ??PLATELET?COUNT?(Thou/mm3) 181 177 ??NEUTROPHILS?%,?AUTO?(%) 52 45 ??LYMPH?%,?AUTO?(%) 34 39 ??NEUTROPHILS,?AUTO?(Thou/mm3) 2.0 2.0 ??GLUCOSE,RANDOM?(mg/dL) 112?H 118?H ??BLOOD?UREA?NITROGEN?(mg/dL) 15 18 ??CREATININE?(mg/dL) 0.60 0.70 ??SODIUM?(mmol/L) 144 142 ??POTASSIUM?(mmol/L) 4.0 4.2 ??CHLORIDE?(mmol/L) 106 103 ??CrCl?(CandG)?(ml/min) 73.03 62.60 ??AST/SGOT?(Unit/L) 19 35?H ??ALT/SGPT?(Unit/L) 11 28 ??ALKALINE?PHOSPHATASE?(Unit/L) 135?H 155?H ??BILIRUBIN,?TOTAL?(mg/dL) 0.5 0.5 ??PROTEIN?TOTAL?(gm/dl) 5.2?L 5.2?L ??ALBUMIN,?SERUM?(gm/dl) 3.5 3.5 ??GLOBULIN?(gm/dl) 1.7?L 1.7?L ??ALBUMIN/GLOBULIN?RATIO 2.1 2.1 ??CALCIUM,?SERUM?(mg/dL) 9.1 9.1 ??CALCIUM?SERUM?(CORRECTED)?(mg/dL) 9.5 9.5 ASSESSMENT/PLAN: #1 small small lymphocytic lymphoma patient was initially treated in [place] and later started on BR after 1 year of the previous treatment as patient had extensive lymphadenopathy and was symptomatic Patient completed 3 cycles of BR recent (06/29/2024) CT scan showed significant improvement in the lymphadenopathy as documented above. Ms. Ulrich was admitted to the hospital twice (05/09/2024 and 05/17/2024) because of acute respiratory failure secondary to pneumonia treated with IV antibiotics.. Patient's symptoms have decreased and no palpable lymphadenopathy increased T- cell large granular lymphocytes (T?LGL). Hoarseness of voice has improved. Last scan showed great response to therapy Completed 6 cycles of chemotherapy 11/05/2024 ultrasound negative for deep vein thrombus in both legs 09/20/2024 MRI brain negative for any cerebellar or cerebral lesions in the brain Vies Ms. Ulrich to complete vaccination with COVID and flu 12/07/[address] marked treatment response with no signi?cant residual cervical axillary. meediastinal. abdominal or pelvic lymphadcnopathy #[address] chest completed and both lungs shows miliary nodular pneumonia throughout both lungs. No other lymphadenopathy. Patient is coughing and having worsening shortness of breath. I will test for serum QuantiFERON for TB coccidiomycosis PET CT scan refer her to pulmonary and infectious disease. Advised patient and the family that workup will need time as well as referrals. Also ordered biopsy with IR. Advised patient to go to the tertiary level care center and get the workup done. Patient is adamant that she does not have tuberculosis. ORDERS: Order # Description [id number] Follow Up 4 Week [id number] PET/CT of Skull to mid-thigh for Restaging [id number] Cardiac ECHO [id number] QuantiFERON-TB Gold Plus ([facility] TEST:069352 CPT: 71504) + HIV-1/HIV-2 Single Assay + Antibody; Coccidioides Immitis RETURN TO CLINIC: BILLING AND COMPLIANCE: I reviewed external records from providers outside my specialty as summarized above. I spent a total of 50 minutes on this patient?s care on the day of their visit excluding time spent related to any billed procedures. This time includes time spent with the patient as well as time spent documenting in the medical record, reviewing patients records and tests, obtaining history, placing orders, communicating with other healthcare professionals, counseling the patient, family or caregiver, and/or care coordination for the diagnoses above. Electronically Signed by: Saeid Dutton MD T: 2:09 PM CC: Ellie?Fermin?(lebron),? PCP: Saeid Dutton Referring: Saeid Dutton This document was completed utilizing speech recognition software. Grammatical errors, random word insertions, pronoun errors, and incomplete sentences are an occasional consequence of this system due to software limitations, ambient noise, and hardware issues. Any formal questions or concerns about the content, text or information contained within the body of this dictation should be directly addressed to the provider for clarification.
== END 2025-03-21 23:59 | disposition home or self-care (01) ==
LOC: SCTC 10:32
PROVIDERS: PCP Physician Assistant; Referring Provider Internal Medicine Hematology & Oncology; Visit Provider Internal Medicine Hematology & Oncology
DX: C83.01 Small cell B-cell lymphoma, lymph nodes of head, face, and neck (principal); R05.9 Cough, unspecified; R06.02 Shortness of breath; Z92.21 Personal history of antineoplastic chemotherapy
CPT/HCPCS: 99213; G0463

== ENCOUNTER → 2025-05-02 | Outpatient (CLI) | payer MEDICAID, SELFPAY ==
--- NOTE | 2025-05-02 16:30 | ECHO_ITS ---
Transthoracic Echo Report Ht (in): 53 Wt (lb): 142 Exam Location: Echo Lab Status: Preadmit Feedlot Manager: Cinthya Wren Indications: Procedure Performed: BP: / HR: Technical Quality: Very technically difficult study MEASUREMENTS (Male / Female) Normal Values 2D ECHO LV Diastolic Diameter PLAX 3.9 cm 4.2 - 5.9 / 3.9 - 5.3 cm LV Systolic Diameter PLAX 3.0 cm IVS Diastolic Thickness 0.7 cm 0.6 - 1.0 / 0.6 - 0.9 cm LVPW Diastolic Thickness 0.7 cm 0.6 - 1.0 / 0.6 - 0.9 cm LV Relative Wall Thickness 0.4 LVOT Diameter 1.8 cm LV Ejection Fraction MOD BP 57.4 % >= 55 % LV Ejection Fraction MOD 4C 47.3 % LV Ejection Fraction 4C AL 51.5 % LV Ejection Fraction MOD 2C 65.1 % LV Ejection Fraction 2C AL 66.5 % LA Volume Index 12.7 cm?/m? 16 - 28 cm?/m? M-MODE Aortic Root Diameter MM 2.7 cm LA Systolic Diameter MM 3.1 cm LA Ao Ratio MM 1.1 AV Cusp Separation MM 1.4 cm DOPPLER AV Peak Velocity 141.0 cm/s AV Peak Gradient 8.0 mmHg AV Mean Gradient 4.0 mmHg AV Velocity Time Integral 33.9 cm LVOT Peak Velocity 103.0 cm/s LVOT Peak Gradient 4.2 mmHg LVOT Velocity Time Integral 24.8 cm AV Area Cont Eq vti 1.9 cm? AV Area Cont Eq pk 1.9 cm? MV Area PHT 2.7 cm? MR Peak Velocity 315.0 cm/s MR Peak Gradient 39.7 mmHg Mitral E Point Velocity 90.7 cm/s Mitral A Point Velocity 103.0 cm/s Mitral E to A Ratio 0.9 LV E' Lateral Velocity 7.3 cm/s Mitral E to LV E' Lateral Ratio 12.4 LV E' Septal Velocity 6.0 cm/s Mitral E to LV E' Septal Ratio 15.2 TR Peak Velocity 254.5 cm/s TR Peak Gradient 25.9 mmHg PV Peak Velocity 102.0 cm/s PV Peak Gradient 4.2 mmHg FINDINGS Left Ventricle Normal left ventricular size, wall thickness, systolic function with no obvious regional wall motion abnormalities. There is grade I diastolic dysfunction of the left ventricle (impaired relaxation pattern). The ejection fraction is visually estimated at 45-50 %. Right Ventricle The right ventricle is normal in size and systolic function. The estimated right ventricular systolic pressure, 34 mmHg. RAP 5. Left Atrium The left atrium is normal by two-dimensional, color flow and Doppler imaging with no structural abnormalities, no thrombus formation present. Right Atrium The right atrium is normal by two-dimensional imaging, color flow and Doppler imaging with no structural abnormalities, no thrombus formation present. Atrial Septum The interatrial septum appears normal with no evidence of a shunt. Aorta The aorta is normal by two-dimensional, color flow and Doppler interrogation. Mitral Valve The mitral valve is normal by two-dimensional, color flow and Doppler interrogation. Mild mitral regurgitation. Aortic Valve The aortic valve is trileaflet and normal by two-dimensional, color flow and Doppler interrogation. There is no significant aortic valve regurgitation. Tricuspid Valve The tricuspid valve is normal by two-dimensional, color flow and Doppler interrogation. There is trace tricuspid valve regurgitation. Pulmonic Valve The pulmonic valve is not well visualized. There is no significant pulmonic valve regurgitation. Vessels The pulmonary artery appears normal. The inferior vena cava pulmonary and hepatic veins appear normal. Pericardium The pericardium is normal by two-dimensional imaging. There is no significant pericardial effusion. CONCLUSIONS Indication: Small B-cell lymphoma, unspecified site Normal LV size and function. There is grade I diastolic dysfunction. Estimated EF at 45-50 %. The RV is normal in size and systolic function. The estimated RVSP, 34 mmHg. RAP 5. Mild MR and Trace TR. Parker Hay (Electronically Signed) Final Date: 03 May 2025 13:21
== END | disposition home or self-care (01) ==
LOC: SDIM 16:06
PROVIDERS: Referring Provider Internal Medicine Hematology & Oncology; Visit Provider Internal Medicine Hematology & Oncology
DX: C83.00 Small cell B-cell lymphoma, unspecified site (principal); I08.1 Rheumatic disorders of both mitral and tricuspid valves
CPT/HCPCS: 93306

== ENCOUNTER 2025-05-09 09:28 | Outpatient (RCR) | payer MEDICAID, SELFPAY ==
--- NOTE | 2025-05-14 01:33 | CTCFLWUP_ITS ---
Patient: KIMMIE ULRICH : 1950 Page 8 of 10 FOLLOW UP NOTE DATE OF SERVICE: 05/09/2025 NAME: KIMMIE ULRICH ACCOUNT: [id number] : 1950 AGE: 74 INTERVAL HISTORY: Patient recently had a CT scan after she had cough and gave the history of returning for [place] and was told that she likely have tuberculosis. Workup was completed in my clinic and her QuantiFERON has come back as negative. Patient has no other complaints and now feeling better. ONCOLOGY HISTORY: DIAGNOSIS: Small cell B-cell lymphoma, unspecified site [ICD10] C83.00 DATE OF DIAGNOSIS: 02/25/2024 STAGE/TNM: Stage IV TREATMENT HISTORY: Care?Plan Start?Date Cycle Day Intent Rituxan?375?+?Bendamustine?90?Chalino 04/24/2024 1 28 Palliative Rituxan?375?+?Bendamustine?90?Chalino 08/28/2024 1 28 Maintenance HISTORY OF PRESENT ILLNESS: Kimmie Ulrich is a 74-year-old SPA speaking female who was initially diagnosed with lymphoma/leukemia in [place] about 2 years ago. She had lymph node biopsy at that time. I do not have any records from [place]. According to Ms. Ulrich she was treated for about 4 cycles of chemot herapy in [place]. Since then she came to the [facility]. She was seen in [place] by a prenatal nurse/oncologist. She was told she does not need any treatment. 02/02/2023: WBC 21.5, ANC 15.9, lymphocytes 4.7, hemoglobin 14.4, MCV 92, platelet count 150,000. 08/26/2023: WBC 13.4, absolute lymphocyte count 7.9, hemoglobin 15.1, MCV 95, platelets 204,000. Hepatitis panel negative. HIV negative. 11/11/2023: CT scan of the chest with IV contrast? 01/24/2024: WBC 12.2, absolute lymphocyte count 9.5, hemoglobin 13.0, MCV 97, platelets 168,000, creatinine 0.62, LDH 175, hepatitis panel negative ESR 16. Uric acid 6.0 Flow cytometry of the peripheral blood 02/25/2024: Ms. Ulrich had left neck cervical lymph node excisional biopsy? 03/02/2024: Ms. Ulrich had CT scan of the chest abdomen and pelvis with IV contrast which was compared to previous scans done on November 11, 2023. 03/06/2024: PET/CT scan? 04/24/2024: Ms. Ulrich received first cycle of Bendamustine and rituximab. 05/09/2024 - 05/15/2024: Ms. Ulrich was admitted to the hospital because of neutropenic fever. Treated with IV antibiotics. Discharged home on oxygen via nasal cannula. 05/17/2024 - 05/22/2024: Ms. Ulrich was readmitted to the hospital due to acute respiratory failure secondary to pneumonia treated with IV antibiotics. 06/19/2024: Ms. Ulrich had second cycle of Bendamustine and rituximab followed by pegfilgrastim. 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 albuterol sulfate - 2.5 mg /3 mL (0.083 %) Twice a Day 2. albuterol-budesonide - 90-80 mcg/actuation 2 Quart Twice a Day 3. Bactrim DS - 800-160 mg 1 tab twice Daily 4. ciprofloxacin - 500 mg 1 tab twice daily 5. furosemide - 20 mg 1 tab As directed 6. meloxicam - 7.5 mg 1 tab As directed 7. Phenergan - 1 As directed 8. Repatha Syringe - 140 mg/mL 1 Weekly Medications Last Reconciled by Divine Gandara MA on 05/09/2025 ALLERGIES: No Known Drug Allergies REVIEW OF SYSTEMS: A complete 14-point review of systems was performed and is negative except as noted in interval history. PHYSICAL EXAMINATION: VITAL SIGNS: Temperature?95.5, B/P?124/69, Oxygen?Saturation?93% Weight?146?lbs PAIN: 3 - Between mild and moderate pain ECOG Performance Status: None EYE: Conjunctivae is pink. MOUTH: Oral cavity is dry. Bilateral cervical lymphadenopathy as well is axillary lymphadenopathy is not palpable CHEST bilateral wheezing with very silent chest in the lower part of the lungs CARDIAC: Rhythm regular, no murmurs or gallops present. ABDOMEN: Soft. No hepatomegaly. No splenomegaly. EXTREMITIES: No pedal edema or cyanosis. LABORATORY DATA: I have personally reviewed and interpreted each of the patient?s relevant lab tests, abnormal findings are below: Date 03/08/25 03/09/25 ??WHITE?BLOOD?COUNT?(Thou/mm3) 3.8 4.3 ??RED?BLOOD?COUNT?(Miln/mm3) 4.08 3.86?L ??HEMOGLOBIN?(gm/dl) 12.7 12.3 ??HEMATOCRIT?(%) 39.3 37.2 ??PLATELET?COUNT?(Thou/mm3) 181 177 ??NEUTROPHILS?%,?AUTO?(%) 52 45 ??LYMPH?%,?AUTO?(%) 34 39 ??NEUTROPHILS,?AUTO?(Thou/mm3) 2.0 2.0 ??GLUCOSE,RANDOM?(mg/dL) 112?H 118?H ??BLOOD?UREA?NITROGEN?(mg/dL) 15 18 ??CREATININE?(mg/dL) 0.60 0.70 ??SODIUM?(mmol/L) 144 142 ??POTASSIUM?(mmol/L) 4.0 4.2 ??CHLORIDE?(mmol/L) 106 103 ??CrCl?(CandG)?(ml/min) 73.03 62.60 ??AST/SGOT?(Unit/L) 19 35?H ??ALT/SGPT?(Unit/L) 11 28 ??ALKALINE?PHOSPHATASE?(Unit/L) 135?H 155?H ??BILIRUBIN,?TOTAL?(mg/dL) 0.5 0.5 ??PROTEIN?TOTAL?(gm/dl) 5.2?L 5.2?L ??ALBUMIN,?SERUM?(gm/dl) 3.5 3.5 ??GLOBULIN?(gm/dl) 1.7?L 1.7?L ??ALBUMIN/GLOBULIN?RATIO 2.1 2.1 ??CALCIUM,?SERUM?(mg/dL) 9.1 9.1 ??CALCIUM?SERUM?(CORRECTED)?(mg/dL) 9.5 9.5 ASSESSMENT/PLAN: #1 small small lymphocytic lymphoma patient was initially treated in [place] and later started on BR after 1 year of the previous treatment as patient had extensive lymphadenopathy and was symptomatic Patient completed 3 cycles of BR recent (06/29/2024) CT scan showed significant improvement in the lymphadenopathy as documented above. Ms. Ulrich was admitted to the hospital twice (05/09/2024 and 05/17/2024) because of acute respiratory failure secondary to pneumonia treated with IV antibiotics.. Patient's symptoms have decreased and no palpable lymphadenopathy increased T- cell large granular lymphocytes (T?LGL). Hoarseness of voice has improved. Last scan showed great response to therapy Completed 6 cycles of chemotherapy 11/05/2024 ultrasound negative for deep vein thrombus in both legs 09/20/2024 MRI brain negative for any cerebellar or cerebral lesions in the brain Vies Ms. Ulrich to complete vaccination with COVID and flu 12/07/[address] marked treatment response with no signi?cant residual cervical axillary. meediastinal. abdominal or pelvic lymphadcnopathy #[address] chest completed and both lungs shows miliary nodular pneumonia throughout both lungs. No other lymphadenopathy. Patient is now doing better. Patient came back negative for QuantiFERON for TB coccidiomycosis. 05/02/2025 echocardiogram reviewed and have grade 1 diastolic dysfunction with heart function 45 to 50% 03/13/2025 bone density showed osteopenia in the lumbar spine and osteoporosis in the hips 03/03/2025 CTA showed negative for emboli but had shown miliary nodular pneumonia both lungs I will repeat x-ray chest to see if patient's lungs have cleared up Clinically she is improved Patient advised to follow-up with the primary care Patient already have PET CT scan scheduled we will follow-up on results ORDERS: Order # Description RETURN TO CLINIC: BILLING AND COMPLIANCE: I reviewed external records from providers outside my specialty as summarized above. I spent a total of 50 minutes on this patient?s care on the day of their visit excluding time spent related to any billed procedures. This time includes time spent with the patient as well as time spent documenting in the medical record, reviewing patients records and tests, obtaining history, placing orders, communicating with other healthcare professionals, counseling the patient, family or caregiver, and/or care coordination for the diagnoses above. Electronically Signed by: {Object.Sanct_ID*[email or web address]@M}, {Object.Sanct_ID*PnP.Suffix@U} D: {Object.Sanct_Date} T: {Object.Sanct_Time} CC: Ellie?Fermin?(saima,? PCP: Saeid Dutton Referring: Saeid Dutton This document was completed utilizing speech recognition software. Grammatical errors, random word insertions, pronoun errors, and incomplete sentences are an occasional consequence of this system due to software limitations, ambient noise, and hardware issues. Any formal questions or concerns about the content, text or information contained within the body of this dictation should be directly addressed to the provider for clarification.
== END 2025-05-21 23:59 | disposition home or self-care (01) ==
LOC: SCTC 09:28
PROVIDERS: PCP Physician Assistant; Referring Provider Internal Medicine Hematology & Oncology; Visit Provider Internal Medicine Hematology & Oncology
DX: C83.01 Small cell B-cell lymphoma, lymph nodes of head, face, and neck (principal); M81.0 Age-related osteoporosis without current pathological fracture; M85.88 Other specified disorders of bone density and structure, other site
CPT/HCPCS: 99213; G0463

== ENCOUNTER → 2025-08-01 | Outpatient (CLI) | payer MEDICAID, SELFPAY ==
--- NOTE | 2025-08-01 10:20 | XR_ITS ---
Examination: CT chest with intravenous contrast CT abdomen with intravenous contrast CT pelvis with intravenous contrast 2-D coronal and sagittal reconstructions Time of exam: August 01, 2025 1036 hours, comparison CT chest March 03, 2025, PET/CT scan December 07, 2024 INDICATIONS: Diagnosis B cell lymphoma with chronic coughing, diagnosis lymphoma 2021 CTDI: vol (mGy) : 8.23 DLP: (mGycm): 521 Technique: Multiple axial images of the chest, abdomen and pelvis with intravenous contrast, 3.0 mm slice thickness. Images obtained post intravenous injection Isovue 370 60 cc. 2-D sagittal and coronal reconstructions. Low dose protocols were performed. One or more of the following dose reduction techniques were used; automated exposure control, adjustment of the mA and/or KV according to patient size, use of iterative reconstruction technique. Findings: Stable small right tracheobronchial lymph nodes Right pretracheal lymph node 17 mm compared to 17 mm on March 03, 2025 No thoracic aortic aneurysm dilatation No pulmonary artery emboli on this non-CTA study Soft opacities in the right mid lung and left base consistent with pneumonia 15 mm posterior right lobe liver cyst again noted No solid liver or splenic lesion Mildly distended gallbladder, no extrahepatic biliary tract dilatation Aorta normal size More prominent periaortic lymphadenopathy, including left lateral periaortic lymph node 13 mm compared to 7 mm on December 07, 2024 as well as 15 mm left lateral periaortic lymph node not seen on the prior exam and 16mm left lateral periaortic lymph node not seen on the prior exam Normal appendix No bowel obstruction Atrophic uterus Contracted urinary bladder with urinary bladder wall thickening Severe osteopenia IMPRESSION: Stable mediastinal lymphadenopathy compared to CT chest March 03, 2025 Interval significant abdominal lymphadenopathy compared to the PET CT scan December 07, 2024
--- NOTE | 2025-08-01 10:30 | XR_ITS ---
Examination: PA lateral chest 2 views TECHNIQUE: Upright PA lateral chest 2 views Date and time: August 01, 2025 1046 hours, comparison March 03, 2025 INDICATIONS: Lymphoma diagnosis with coughing one month. FINDINGS: Normal heart size Mild hyperexpansion. No pneumonia or pulmonary edema. Right internal jugular Port-A-Cath tip satisfactory position. IMPRESSION: No pneumonia or pulmonary edema
== END | disposition home or self-care (01) ==
PROVIDERS: PCP Physician Assistant; Referring Provider Internal Medicine Hematology & Oncology; Visit Provider Internal Medicine Hematology & Oncology
DX: R59.0 Localized enlarged lymph nodes (principal); C83.00 Small cell B-cell lymphoma, unspecified site
CPT/HCPCS: 71046; 71260; 74177; A4649; Q9967

== ENCOUNTER 2025-08-09 13:51 | Outpatient (RCR) | payer MEDICAID, SELFPAY ==
--- NOTE | 2025-08-12 23:03 | CTCFLWUP_ITS ---
Patient: KIMMIE ULRICH : 1950 Page 9 of 10 FOLLOW UP NOTE DATE OF SERVICE: 08/09/2025 NAME: KIMMIE ULRICH ACCOUNT: [id number] : 1950 AGE: 74 INTERVAL HISTORY: Patient is here to discuss CT scan findings. ONCOLOGY HISTORY: DIAGNOSIS: Small cell B-cell lymphoma, unspecified site [ICD10] C83.00 DATE OF DIAGNOSIS: 02/25/2024 STAGE/TNM: Stage IV TREATMENT HISTORY: Care?Plan Start?Date Cycle Day Intent Rituxan?375?+?Bendamustine?90?Chalino 04/24/202412 19 Palliative Rituxan?375?+?Bendamustine?90?Chalino 08/28/2024 1 Maintenance HISTORY OF PRESENT ILLNESS: Kimmie Ulrich is a 74-year-old SPA speaking female who was initially diagnosed with lymphoma/leukemia in [place] about 2 years ago. She had lymph node biopsy at that time. I do not have any records from [place]. According to Ms. Ulrich she was treated for about 4 cycles of chemot herapy in [place]. Since then she came to the [facility]. She was seen in [place] by a french teacher/oncologist. She was told she does not need any treatment. 02/02/2023: WBC 21.5, ANC 15.9, lymphocytes 4.7, hemoglobin 14.4, MCV 92, platelet count 150,000. 08/26/2023: WBC 13.4, absolute lymphocyte count 7.9, hemoglobin 15.1, MCV 95, platelets 204,000. Hepatitis panel negative. HIV negative. 11/11/2023: CT scan of the chest with IV contrast? 01/24/2024: WBC 12.2, absolute lymphocyte count 9.5, hemoglobin 13.0, MCV 97, platelets 168,000, creatinine 0.62, LDH 175, hepatitis panel negative ESR 16. Uric acid 6.0 Flow cytometry of the peripheral blood 02/25/2024: Ms. Ulrich had left neck cervical lymph node excisional biopsy? 03/02/2024: Ms. Ulrich had CT scan of the chest abdomen and pelvis with IV contrast which was compared to previous scans done on November 11, 2023. 03/06/2024: PET/CT scan? 04/24/2024: Ms. Ulrich received first cycle of Bendamustine and rituximab. 05/09/2024 - 05/15/2024: Ms. Ulrich was admitted to the hospital because of neutropenic fever. Treated with IV antibiotics. Discharged home on oxygen via nasal cannula. 05/17/2024 - 05/22/2024: Ms. Ulrich was readmitted to the hospital due to acute respiratory failure secondary to pneumonia treated with IV antibiotics. 06/19/2024: Ms. Ulrich had second cycle of Bendamustine and rituximab followed by pegfilgrastim. Bendamustine doses were decreased 06/29/2024: CT scan of the neck, chest abdomen and pelvis with IV contrast CT scan chest on 03/03/2025 08/01/2025 CT scan stable small right tracheobronchial lymph nodes Right pretracheal lymph node 17 mm compared to l7 mm on February No thoracic aortic aneurysm dilatation No pulmonary artery emboli on this non-CTA study So? opacities in the right mid lung and le? base consistent with pneumonia l5 mm posterior right lobe liver cyst again noted No solid liver or Splenic lesion Mildly distended gallbladder, no extrahepatic biliary tract dilatation Aorta normal size More prominent periaortic lymphadenopathy. including left lateral periaortic lymph node 13 mm compared to 7 mm on November as well as 15 mm left lateral periaortic lymph node not seen on the prior exam and 16mm left lateral periaortic lymph node not seen on the prior exam Normal appendix No bowel obstruction Atrophic uterus Contracted urinary bladder with urinary bladder wall thickening Severe osteopenia IMPRESSION: Stable mediastinal lymphadenopathy compared to CT chest February Interval signi?cant abdominal lymphadenopathy compared to the PET CT scan December [id number] OTHER MEDICAL HISTORY/CONDITIONS: Lymphoma Tonsillectomy - age 6 yrs Tubal ligation - age 33 yrs FAMILY HISTORY: Sibling: Sister - Leukemia - dx age 6yrs SOCIAL HISTORY: 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 albuterol sulfate - 2.5 mg /3 mL (0.083 %) Twice a Day 2. albuterol-budesonide - 90-80 mcg/actuation 2 Quart Twice a Day 3. rosuvastatin - 10 mg 1 tab Daily Medications Last Reconciled by Kimmie Dixon MA on 08/09/2025 ALLERGIES: No Known Drug Allergies REVIEW OF SYSTEMS: A complete 14-point review of systems was performed and is negative except as noted in interval history. PHYSICAL EXAMINATION: VITAL SIGNS: PAIN: 0 - No pain ECOG Performance Status: 0 - Asymptomatic and fully active Alert and oriented oriented x 4 skin clear able to move all extremities without restrictions \ Speech is fluent with clear ideas Mood congruent to the situation Breathing normally at room air breathing well on room air LABORATORY DATA: I have personally reviewed and interpreted each of the patient?s relevant lab tests, abnormal findings are below: Date 03/08/25 03/09/25 ??WHITE?BLOOD?COUNT?(Thou/mm3) 3.8 4.3 ??RED?BLOOD?COUNT?(Miln/mm3) 4.08 3.86?L ??HEMOGLOBIN?(gm/dl) 12.7 12.3 ??HEMATOCRIT?(%) 39.3 37.2 ??PLATELET?COUNT?(Thou/mm3) 181 177 ??NEUTROPHILS?%,?AUTO?(%) 52 45 ??LYMPH?%,?AUTO?(%) 34 39 ??NEUTROPHILS,?AUTO?(Thou/mm3) 2.0 2.0 ??GLUCOSE,RANDOM?(mg/dL) 112?H 118?H ??BLOOD?UREA?NITROGEN?(mg/dL) 15 18 ??CREATININE?(mg/dL) 0.60 0.70 ??SODIUM?(mmol/L) 144 142 ??POTASSIUM?(mmol/L) 4.0 4.2 ??CHLORIDE?(mmol/L) 106 103 ??CrCl?(CandG)?(ml/min) 73.03 62.60 ??AST/SGOT?(Unit/L) 19 35?H ??ALT/SGPT?(Unit/L) 11 28 ??ALKALINE?PHOSPHATASE?(Unit/L) 135?H 155?H ??BILIRUBIN,?TOTAL?(mg/dL) 0.5 0.5 ??PROTEIN?TOTAL?(gm/dl) 5.2?L 5.2?L ??ALBUMIN,?SERUM?(gm/dl) 3.5 3.5 ??GLOBULIN?(gm/dl) 1.7?L 1.7?L ??ALBUMIN/GLOBULIN?RATIO 2.1 2.1 ??CALCIUM,?SERUM?(mg/dL) 9.1 9.1 ??CALCIUM?SERUM?(CORRECTED)?(mg/dL) 9.5 9.5 ASSESSMENT/PLAN: #1 small small lymphocytic lymphoma patient was initially treated in [place] and later started on BR after 1 year of the previous treatment as patient had extensive lymphadenopathy and was symptomatic Patient completed 3 cycles of BR recent (06/29/2024) CT scan showed significant improvement in the lymphadenopathy as documented above. Ms. Ulrich was admitted to the hospital twice (05/09/2024 and 05/17/2024) because of acute respiratory failure secondary to pneumonia treated with IV antibiotics.. Patient's symptoms have decreased and no palpable lymphadenopathy increased T- cell large granular lymphocytes (T?LGL). Hoarseness of voice has improved. Completed 6 cycles of chemotherapy Patient came back negative for QuantiFERON for TB coccidiomycosis. 05/02/2025 echocardiogram reviewed and have grade 1 diastolic dysfunction with heart function 45 to 50% 03/13/2025 bone density showed osteopenia in the lumbar spine and osteoporosis in the hips 03/03/2025 CTA showed negative for emboli but had shown miliary nodular pneumonia both lungs Patient CT scan is concerning for recurrence of the significant abdominal lymphadenopathy compared to the last scan in November Patient likely have recurrence of cancer Will order biopsy as well as bone marrow biopsy Advised patient to go to [facility] for immediate treatment and biopsy Referral placed Patient advised to go to the emergency room and get admitted at [facility] as a referral may take some time ORDERS: Order # Description [id number] Uric Acid, Serum [id number] Lactate Dehydrogenase (LDH) [id number] Follow Up 3 Week [id number] MD Follow Up 4 Week [id number] Erythropoieten Level [id number] DON - 2 Mutation Quant [id number] RETURN TO CLINIC: I reviewed the diagnosis, prognosis, and recommended treatment/procedure options with the patient (and/or their legal medicare sales representative), including the potential benefits, risks, side effects and alternative therapies. We also discussed the option of no treatment and the possibility of clinical trial participation, if applicable. All questions were addressed, and they demonstrated understanding. They provided informed consent to proceed with the proposed plan of care. BILLING AND COMPLIANCE: I reviewed external records from providers outside my specialty as summarized above. I spent a total of 50 minutes on this patient?s care on the day of their visit excluding time spent related to any billed procedures. This time includes time spent with the patient as well as time spent documenting in the medical record, reviewing patients records and tests, obtaining history, placing orders, communicating with other healthcare professionals, counseling the patient, family or caregiver, and/or care coordination for the diagnoses above. Electronically Signed by: {Object.Sanct_ID*PnP.NameFL@}, {Object.Sanct_ID*PnP.Suffix@U} D: {Object.Sanct_Date} T: {Object.Sanct_Time} CC: Ellie?Fermin?(lebron),? PCP: Saeid Dutton Referring: Saeid Dutton This document was completed utilizing speech recognition software. Grammatical errors, random word insertions, pronoun errors, and incomplete sentences are an occasional consequence of this system due to software limitations, ambient noise, and hardware issues. Any formal questions or concerns about the content, text or information contained within the body of this dictation should be directly addressed to the provider for clarification.
== END 2025-08-21 23:59 | disposition home or self-care (01) ==
LOC: SCTC 13:51
PROVIDERS: PCP Family Medicine; Referring Provider Internal Medicine Hematology & Oncology; Visit Provider Internal Medicine Hematology & Oncology
DX: C83.00 Small cell B-cell lymphoma, unspecified site (principal); M85.89 Other specified disorders of bone density and structure, multiple sites
CPT/HCPCS: 99212; G0463

== ENCOUNTER 2025-08-31 12:23 | Emergency (ER) | payer MEDICAID, SELFPAY ==
[2025-08-31 12:41] VITALS: BP 146/54; PULSE 70; RESP 16; TEMP 36.6; O2SAT 98; BMI 27.9
--- NOTE | 2025-08-31 12:52 | XR_ITS ---
EXAMINATION: AP chest single view TECHNIQUE: AP portable upright chest single view Date and time: August 31, 2025, 1331 hours, comparison 08/01/2025 INDICATIONS: Cough and shortness of breath today. FINDINGS: Normal heart size Right internal jugular Port-A-Cath tip satisfactory position. No pneumonia or pulmonary edema. Moderate osteopenia IMPRESSION: No pneumonia or pulmonary edema.
--- NOTE | 2025-08-31 12:52 | EKG_ITS ---
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
--- NOTE | 2025-08-31 12:53 | EDNOTE_ITS ---
ED General RME/HPI General Chief complaint: General Adult/Misc Complain Stated complaint: SENT BY PCP FOR PNEUMONIA Time Seen by Provider: 08/31/25 12:41 Arrival date/time: 08/31/25 12:23 RME / HPI RME / HPI narrative: 74-year-old female patient with significant history of lymphoma, currently not on chemotherapy, was sent to us by PCP to rule out pneumonia. Patient has been having worsening cough, has been ongoing for several months, was seen by PCP, and was recently diagnosed with pneumonia, was prescribed home on Levaquin been taking Levaquin for the last 3 days with no improvement of symptoms. Now patient is having chest pain on coughing, and having worsening shortness of breath. Currently on 2 L nasal cannula, which the patient is satting at 92%. She uses oxygen 14/06. Patient denies any fever. Denies any other complaints. Pending to be seen by electrical appliance repairer in [place]. Related Data Home Medications ?Medication ?Instructions ?Recorded ?Confirmed budesonide 160 mcg-glycopyr 9 2 puff inhalation BID 10/31/24 mcg-formot 4.8 mcg/actuation HFA inhaler ([facility]) Previous Rx's ?Medication ?Instructions ?Recorded albuterol sulfate 1.25 mg/3 mL 1.25 mg (3 mL) inhalati on QID PRN 05/22/24 solution for nebulization shortness of breath or wheez ing #90 mL phenol 1.5 %-glycerin 33 % mucosal 1 spray PO QDAY PRN sore throat 11/04/24 spray (Chloraseptic Max Sore #118 mL Throat) polyethylene glycol 3350 17 4 g PO QDAY PRN constipati on #119 11/04/24 gram/dose oral powder (Miralax) grams blood pressure monitor (Blood #1 ea 11/06/24 Pressure Kit) furosemide 20 mg tablet (Lasix) 20 mg PO QDAY #30 tabs 11/06/24 potassium chloride 8 mEq 8 meq PO QDAY #30 tabs 11/06 tablet,extended release acetaminophen 300 mg-codeine 30 mg 1 tab PO Q8H PRN pa in #20 tabs 11/30/24 tablet albuterol sulfate 90 mcg/actuation 1 inh inhalation QI D PRN shortness 03/09/25 aerosol inhaler of breath or wheezing #6.7 g ching cefuroxime axetil 500 mg tablet 500 mg PO BID #3 tabs 03/09/25 Allergies Allergy/AdvReac Type Severity Reaction Status Date / Time No Known Allergies Allergy Verified 08/31/25 12:26 Review of Systems Review of Systems Narrative Review of Systems: Review of system reviewed and within normal limits except mentioned in HPI ED Exam Narrative Physical exam: VITAL SIGNS: Reviewed. GENERAL APPEARANCE: Alert and interactive, follows commands, no acute distress, HEAD AND FACE: Non-traumatic. ENT: PERRL, pink conjunctivitis, eyelid no trauma, Mucous membrane moist. NECK: Supple, nontender, no nuchal rigidity. CHEST: No tenderness, no crepitus, no paradoxical movement, no retractions. LUNGS: Symmetric, + bibasal rales, no wheezing, no ronchi, no stridor, decreased breath sounds bilaterally. HEART: Regular rate, regular rhythm, no murmur, no gallops. ABDOMEN: Soft, positive bowel sounds, nondistended, no guarding, nontender, no rebound, no masses, RECTAL: Deferred. GENITAL: Deferred. NEUROLOGICAL: Gross motor function intact sensory function intact, Appropriate for age. MUSCULOSKELETAL: low back nontender, full range of motion. EXTREMITIES: Nontender, full range of motion. SKIN: Color pink, dry, no rash, no lacerations, no abrasions, no contusions. LYMPHATICS: Deferred. Course Quality Measures none Orders Category Date Time Status EKG (ED ONLY) *Do not use* NOW Care 08/31/25 12:52 Completed EKG (ED Only) Stat Exams 08/31/25 12:52 Draft XR chest 1V Stat Exams 08/31/25 12:52 Completed B-Type Natriuretic Peptide Stat Lab 08/31/25 13:06 Completed Blood Culture (Lab) Stat Lab 08/31/25 13:13 Received C-Reactive Protein Stat Lab 08/31/25 13:06 Completed CBC Stat Lab 08/31/25 13:06 Completed Comprehensive Metabolic Panel Stat Lab 08/31/25 13:06 Completed Lactate (Lactic Acid) Stat Lab 08/31/25 13:06 Completed Partial Thromboplastin Time Stat Lab 08/31/25 13:06 Completed Procalcitonin Stat Lab 08/31/25 13:06 Completed Prothrombin Time with INR Stat Lab 08/31/25 13:06 Completed Troponin I Stat Lab 08/31/25 13:06 Completed VBG [Venous Blood Gas] Stat Lab 08/31/25 13:06 Completed Vital Signs Vital signs: Vital Signs Temperature 97.9 F 08/31/25 12:41 Pulse Rate 70 08/31/25 12:41 Respiratory Rate 16 08/31/25 12:41 Blood Pressure 146/54 H 08/31/25 12:41 Pulse Oximetry (%) 98 08/31/25 12:41 Oxygen Delivery Method Nasal Cannula 08/31/25 12:41 Oxygen Flow Rate 2 08/31/25 12:41 Discharge Plan Plan Patient Disposition: HOME (Self Care) Discharge Disposition comment: Stable Prescriptions/Referrals Prescriptions/Med Rec: No Action albuterol sulfate 1.25 mg/3 mL solution for nebulization 1.25 mg inhalation QID PRN (Reason: shortness of breath or wheezing) Qty: 90 0RF acetaminophen-codeine 300-30 mg tablet 1 tab PO Q8H PRN (Reason: pain) Qty: 20 0RF albuterol sulfate 90 mcg/actuation HFA aerosol inhaler 1 inh inhalation QID PRN (Reason: shortness of breath or wheezing) Qty: 6.7 0RF cefuroxime axetil 500 mg tablet 500 mg PO BID Qty: 3 0RF Breztri Aerosphere 160-9-4.8 mcg/actuation HFA aerosol inhaler 2 puff INHALATION BID Patient Comments: INHALE 2 PUFFS BY MOUTH TWICE DAILY Chloraseptic Max Sore Throat 1.5-33 % spray,non-aerosol 1 spray PO QDAY PRN (Reason: sore throat) Qty: 118 0RF polyethylene glycol 3350 [Miralax] 17 gram/dose powder 4 g PO QDAY PRN (Reason: constipation) Qty: 119 0RF furosemide [Lasix] 20 mg tablet 20 mg PO QDAY Qty: 30 0RF Rx Instructions: hold if SBP drops below 100 and DBP below 60 mmHg potassium chloride 8 mEq tablet extended release 8 meq PO QDAY Qty: 30 0RF (DME) blood pressure monitor [Blood Pressure Kit] Kit See Rx Instructions .Route Qty: 1 0RF Rx Instructions: As directed Referrals: Ellie Christensen PA-C [Primary Care Provider, Emergency Medicine] - In 1 week Problem List Clinical Impression: Chronic cough Patient/Caregiver Discharge Instructions Discharge Activity: activity as tolerated Education Materials: ED Cough Chronic Uncertain Cause Adult Additional Instructions: Thank you for the opportunity for serving you today. You are stable for discharged . You are advised to: Follow-up with your PCP in 1 to 2 days Return to ED for worsening of symptoms Increase oral fluids Continue your medication for your cough your inhalers Today's workup did not show any pneumonia. Print Language: Senegalese Stand Alone Forms: Claire Award Info., Patient Portal Info Letter NIRMALA/NOMI Supervising Physician NIRMALA/NOMI Supervising Physician: MD Chaz MDM Narrative MDM hospital course (for use when minimal MDM required): 74-year-old female patient with significant history of lymphoma, currently not on chemotherapy, was sent to us by PCP to rule out pneumonia. Patient has been having worsening cough, has been ongoing for several months, was seen by PCP, and was recently diagnosed with pneumonia, was prescribed home on Levaquin been taking Levaquin for the last 3 days with no improvement of symptoms. Now patient is having chest pain on coughing, and having worsening shortness of breath. Currently on 2 L nasal cannula, which the patient is satting at 92%. She uses oxygen 24/7. Patient denies any fever. Denies any other complaints. Pending to be seen by electrical appliance repairer in [place]. EKG showed sinus rhythm, ventricular rate of 69 bpm, no ST segment elevation or depression noted. I personally reviewed and interpreted the x-ray of this patient. There is no acute abnormalities found, no infiltrates no pneumothorax no hemothorax normal chest x-ray. Review of other structures was without significant abnormal findings also. I additionally reviewed the radiologist report and agree with the interpretation. Patient CBC did not show any leukocytosis, CMP came back unremarkable patient was noted to be satting 95% on room air. Results discussed with patient and family. Patient stable for charged home.
[2025-08-31 13:23] LABS: Base Excess, Venous 2 (-3-3); Basophils # (Auto) 0.0 Thou/mm3 (0.0-0.2); Basophils % (Auto) 0 % (0-2.5); Eosinophils # (Auto) 0.2 Thou/mm3 (0.0-0.5); Eosinophils % (Auto) 2 % (0-10); Hematocrit 40.1 % (36.0-46.0); Hemoglobin 12.9 g/dL (12.0-16.0); Immature Granulocytes Auto 0.02 Thou/mm3 (0.00-0.00); Lactate (Lactic Acid) 1.0 mMol/L (0.4-2.0); Lymphocytes # (Auto) 3.0 Thou/mm3 (1.0-4.8); Lymphocytes % (Auto) 42 % (10-50); Mean Corpuscular HGB Conc 32.2 g/dl (31.0-37.0); Mean Corpuscular Hemoglobin 31.5 pg (25.0-35.0); Mean Corpuscular Volume 98 fL (80-100); Monocytes # (Auto) 0.4 Thou/mm3 (0.0-0.8); Monocytes % (Auto) 6 % (0-12); Neutrophils # (Auto) 3.5 Thou/mm3 (1.8-7.7); Neutrophils % (Auto) 49 % (37-80); Nucleated Red Blood Cell # 0.00 Thou/mm3 (0.00-0.00); Nucleated Red Blood Cell % 0 /100 WBC (0); O2 Saturation, Venous 58 % (96-97); PCO2, Venous 50 mmHg (36-56); PO2, Venous 32 mmHg (15-58); Platelet Count 125 Thou/mm3 (140-440); RDW Standard Deviation 56.9 fL (36.4-46.3); Red Blood Count 4.09 Miln/mm3 (4.00-5.20); White Blood Count 7.1 Thou/mm3 (3.6-11.0); pH, Venous 7.36 (7.33-7.66)
[2025-08-31 13:25] VITALS: BP 144/73; PULSE 63; RESP 16; TEMP 36.8; O2SAT 95
[2025-08-31 13:38] LABS: INR 1.0 (0.9-1.3); Partial Thromboplastin Time 26.6 Seconds (22.0-36.0); Prothrombin Time 10.8 Seconds (9.0-12.2)
[2025-08-31 13:39] LABS: B-Type Natriuretic Peptide 65 pg/mL (0-100)
[2025-08-31 13:47] LABS: Alanine Aminotransferase 20 U/L (10-49); Albumin, Serum 4.2 gm/dL (3.4-4.8); Albumin/Globulin Ratio 2.6 (1.2-2.2); Alkaline Phosphatase 150 U/L (46-116); Anion Gap 8 (7-16); Aspartate Amino Transferase 23 U/L (0-34); BUN/Creatinine Ratio 11 Ratio (12-20); Bilirubin,Total 0.8 mg/dL (0.3-1.2); Blood Urea Nitrogen 11 mg/dL (9-23); C-Reactive Protein 1.7 mg/dL (0.0-0.9); Calcium 9.4 mg/dL (8.3-10.6); Calcium (Corrected) 9.4 mg/dL (8.5-10.1); Carbon Dioxide 28.9 mMol/L (20.0-31.0); Chloride 108 mMol/L (98-107); Creatinine (Component) 1.0 mg/dL (0.6-1.3); Estimated Creatinine Clearance 42.0 mL/min (>60); Globulin 1.6 gm/dL (2.3-3.5); Glucose 85 mg/dL (74-106); Osmolality,Calculated 287 (275-295); Potassium 4.3 mMol/L (3.4-5.1); Procalcitonin 0.09 ng/ml (0.0-0.49); Sodium 145 mMol/L (136-145); Total Protein 5.8 gm/dL (5.7-8.2); Troponin I < 0.002 ng/mL (0.0-0.045); eGFR 58 See Note
[2025-08-31 15:36] VITALS: BP 143/74; PULSE 61; RESP 16; TEMP 36.6; O2SAT 95
[2025-08-31 17:47] VITALS: BP 150/76; PULSE 67; RESP 13; O2SAT 95
== END 2025-08-31 17:48 | disposition home or self-care (01) ==
PROVIDERS: Nurse Practitioner Family; Emergency Provider Family Medicine; PCP Physician Assistant
DX: R05.3 Chronic cough (principal); Z99.81 Dependence on supplemental oxygen
CPT/HCPCS: 36415; 71045; 80053; 82803; 83605; 83880; 84145; 84484; 85025; 85610; 85730; 86140; 87040; 93005; 99284

== ENCOUNTER → 2025-10-16 | Outpatient (CLI) | payer MEDICAID, SELFPAY ==
--- NOTE | 2025-10-16 14:30 | XR_ITS ---
Examination: CT chest, without intravenous contrast. Sagittal and coronal 2-D reconstructions. Exam date and time: October 16, 2025, 1430 hours, comparison 08/01/2025 INDICATIONS: Smoking history, diagnosis small B-cell lymphoma, shortness of breath 2 months, mediastinal lymphadenopathy including right pretracheal lymph node 17 mm CTDI:vol (mGy) 9.36 DLP: (mGycm) 325 Technique: Multiple 3.0 mm axial sections of the chest to been obtained. Bone and lung density settings are obtained. Sagittal and coronal 2-D reconstructions have been obtained. Low dose protocols were performed. One or more of the following dose reduction techniques were used; automated exposure control, adjustment of the mA and/or KV according to patient size, use of iterative reconstruction technique. Findings: Multiple pretracheal lymph nodes again noted Thoracic aortic calcification no aneurysmal dilatation No new mediastinal lymphadenopathy New 10 mm pulmonary nodule posterior right upper lobe image 101 No interval pneumonia or pulmonary edema Liver cyst No gallstones No pancreatic or adrenal mass Kidneys partially visualized no hydronephrosis IMPRESSION: No interval mediastinal lymphadenopathy New 10 mm pulmonary nodule posterior right upper lobe Recommend continued 6-month follow-up CT chest without contrast
== END | disposition home or self-care (01) ==
PROVIDERS: PCP Internal Medicine; Referring Provider Internal Medicine; Visit Provider Internal Medicine
DX: R91.1 Solitary pulmonary nodule (principal)
CPT/HCPCS: 71250

== ENCOUNTER → 2025-10-16 | Outpatient (CLI) | payer MEDICAID, SELFPAY ==
--- NOTE | 2025-10-16 10:30 | ECHO_ITS ---
Patient Info Name: Camila Laguna Age: 74 years : 1950 Gender: Female Ht: 147 cm Wt: 69 kg BSA: 1.71 m2 BP: 129 / 84 mmHg HR: 65 bpm Exam Date: 10/16/2025 10:30 AM Admit Date: 10/16/2025 Site: [facility] Room Number: Echo Patient Status: O Exam Type: CA echo doppler complete Safety Attendant: Xiomara Santillan Ordering Physician: Saeid Dutton Referring Physician: Saeid Dutton Study Info Indications Small cell B-cell lymphoma, unspecified site - Primary Location: SDIM Left Ventricular Outflow Tract Name Value Normal LVOT 2D LVOT Diameter 1.9 cm LVOT Doppler LVOT Peak Velocity 103 cm/s LVOT Mean Gradient 2 mmHg LVOT VTI 24 cm LVOT VTI/AV VTI Ratio 0.6 LVOT Stroke Volume 69 ml Pulmonic Valve Name Value Normal PV Doppler PV Peak Velocity 119 cm/s Mitral Valve Name Value Normal MV Doppler MV Decel Prentiss 231 cm/s2 MV PHT 92 ms MV Area (PHT) 2.4 cm2 4.0-5.0 MV Diastolic Function MV E Peak Velocity 73 cm/s MV A Peak Velocity 101 cm/s MV E/A 0.7 MV Annular TDI MV Septal e' Velocity 5.3 cm/s MV E/e' (Septal) 13.7 MV Lateral e' Velocity 7.6 cm/s MV E/e' (Lateral) 9.6 MV e' Average 6.48 cm/s MV E/e' (Average) 11.7 Tricuspid Valve Name Value Normal TV Regurgitation Doppler TR Peak Velocity 208 cm/s Estimated PAP/RSVP RA Pressure 3 mmHg <=5 PA Systolic Pressure 20 mmHg <36 RV Systolic Pressure 20 mmHg <36 TV Annular TDI TV Lateral Dori s' Velocity 12.6 cm/s >=9.5 Aortic Valve Name Value Normal AV 2D/MM AV Cusp Sep (MM) 0.9 cm AV Doppler AV Peak Velocity 164 cm/s AV Mean Gradient 6 mmHg AV VTI 38 cm AV Area (Cont Eq VTI) 1.8 cm2 >=3.0 AV Area (Cont Eq [place]) 1.8 cm2 AV DI ([place]) 0.63 AV Regurgitation 2D LVOT Area 2.8 cm2 Ventricles Name Value Normal LV Dimensions 2D/MM IVS Diastolic Thickness (2D) 0.8 cm 0.6-0.9 LVID Diastole (2D) 4.0 cm 3.8-5.2 LVIW Diastolic Thickness (2D) 0.9 cm 0.6-0.9 LVID Systole (2D) 2.7 cm 2.2-3.5 LVOT Diameter 1.9 cm LV Mass (2D Cubed) 101.43 g 67.00-162.00 LV Mass Index (2D Cubed) 59 g/m2 43-95 Relative Wall Thickness (2D) 0.45 <=0.42 IVS/LVIW Diastolic Thickness (2D) 0.89 0.00-1.50 LV Fractional Shortening/Ejection Fraction 2D/MM LV Fractional Shortening (2D) 33 % 27-45 LV EF (2D Teichholz) 61 % RV Dimensions 2D/MM TV Lateral Dori s' Velocity 12.6 cm/s >=9.5 Atria Name Value Normal LA Dimensions LA Volume (4C A-L) 20 ml LA Volume (BP A-L) 37 ml Left Ventricle Left ventricular chamber dimension is normal. Left ventricular systolic function is normal with visually estimated ejection fraction of 60-65%. There is mild concentric hypertrophy noted in the left ventricle. Left ventricular segmental wall motion is normal. There is grade I diastolic dysfunction in the left ventricle. Right Ventricle Right ventricular chamber dimension is normal. Right ventricular systolic function is normal. Left Atrium Left atrial chamber dimension is normal. Right Atrium Right atrial chamber dimension is normal. Aortic Valve The aortic valve is trileaflet. There is mild aortic valve sclerosis. There is no aortic valve stenosis with a peak velocity of 164 cm/s, mean gradient of 6 mmHg, and aortic valve area of 1.8 cm2. There is no aortic valve regurgitation. Pulmonic Valve The pulmonic valve is normal. There is no pulmonic valve stenosis. There is trace pulmonic regurgitation. Mitral Valve The mitral valve has normal leaflets. There is no mitral valve stenosis. There is no mitral valve regurgitation. Tricuspid Valve The tricuspid valve leaflets are normal. There is no tricuspid valve stenosis. There is trace tricuspid valve regurgitation. No pulmonary hypertension, estimated pulmonary arterial systolic pressure is 20 mmHg and systemic blood pressure of 129 mmHg in systole. Pericardium/Pleural The pericardium appears normal. There is no pericardial effusion. No pleural effusion visualized. Inferior Vena Cava Normal inferior vena cava with >50% collapse upon inspiration consistent with normal right atrial pressure, 3 mmHg. Aorta The aortic measurements are indexed to age and body surface area. The aortic root at the sinus of Valsalva is not well visualized. The prox ascending aorta is not well visualized. Summary 1. Left ventricle size is normal and systolic function is normal. Estimated ejection fraction is 60-65%. There is grade I diastolic dysfunction. There is mild concentric hypertrophy noted. 2. Right ventricle chamber size is normal and systolic function is normal. Estimated RVSP is 20 mmHg. 3. There is mild aortic valve sclerosis with no stenosis and no regurgitation. 4. There is trace tricuspid valve regurgitation. 5. Normal IVC with estimated RA pressure 3 mmHg. Report Signatures Finalized by Kelvin Uriarte on 10/16/2025 10:54 PM
== END | disposition home or self-care (01) ==
LOC: SDIM 10:16
PROVIDERS: PCP Physician Assistant; Referring Provider Internal Medicine Hematology & Oncology; Visit Provider Internal Medicine Hematology & Oncology
DX: I50.30 Unspecified diastolic (congestive) heart failure (principal); I35.8 Other nonrheumatic aortic valve disorders; I07.1 Rheumatic tricuspid insufficiency; C83.00 Small cell B-cell lymphoma, unspecified site
CPT/HCPCS: 93306

== ENCOUNTER → 2025-10-31 | Outpatient (CLI) | payer MEDICAID, SELFPAY ==
--- NOTE | 2025-10-31 07:30 | ECHO_ITS ---
Patient Info Name: Camila Laguna Age: 74 years : 1950 Gender: Female Ht: 147 cm Wt: 59 kg BSA: 1.57 m2 BP: 163 / 79 mmHg HR: 56 bpm Exam Date: 10/31/2025 7:49 AM Admit Date: 10/31/2025 Site: [facility] Room Number: ECHO Patient Status: O Exam Type: CA echo doppler complete Assistant Commissioner: Xiomara Santillan Ordering Physician: Saeid Dutton Referring Physician: Saeid Dutton Study Info Indications Small cell B-cell lymphoma, unspecified site - Primary Location: [facility] Left Ventricular Outflow Tract Name Value Normal LVOT 2D LVOT Diameter 1.9 cm LVOT Doppler LVOT Peak Velocity 112 cm/s LVOT Mean Gradient 3 mmHg LVOT VTI 25 cm LVOT VTI/AV VTI Ratio 0.7 LVOT Stroke Volume 70 ml Pulmonic Valve Name Value Normal PV Doppler PV Peak Velocity 95 cm/s PV Regurgitation Doppler MI Peak End Diastolic Velocity 109 cm/s Mitral Valve Name Value Normal MV Doppler MV Decel [place] 243 cm/s2 MV PHT 65 ms MV Area (PHT) 3.4 cm2 4.0-5.0 MV Diastolic Function MV E Peak Velocity 55 cm/s MV A Peak Velocity 74 cm/s MV E/A 0.7 MV Annular TDI MV Septal e' Velocity 6.9 cm/s MV E/e' (Septal) 8.0 MV Lateral e' Velocity 8.2 cm/s MV E/e' (Lateral) 6.7 MV e' Average 7.51 cm/s MV E/e' (Average) 7.4 Tricuspid Valve Name Value Normal TV Regurgitation Doppler TR Peak Velocity 189 cm/s Estimated PAP/RSVP RA Pressure 3 mmHg <=5 PA Systolic Pressure 17 mmHg <36 RV Systolic Pressure 17 mmHg <36 TV Annular TDI TV Lateral Dori s' Velocity 8.1 cm/s >=9.5 Aortic Valve Name Value Normal AV 2D/MM AV Cusp Sep (MM) 1.4 cm AV Doppler AV Peak Velocity 145 cm/s AV Mean Gradient 4 mmHg AV VTI 33 cm AV Area (Cont Eq VTI) 2.1 cm2 >=3.0 AV Area (Cont Eq [place]) 2.2 cm2 AV DI ([place]) 0.77 AV Regurgitation 2D LVOT Area 2.8 cm2 Ventricles Name Value Normal LV Dimensions 2D/MM IVS Diastolic Thickness (2D) 0.8 cm 0.6-0.9 LVID Diastole (2D) 3.3 cm 3.8-5.2 LVIW Diastolic Thickness (2D) 1.1 cm 0.6-0.9 LVID Systole (2D) 2.1 cm 2.2-3.5 LVOT Diameter 1.9 cm LV Mass (2D Cubed) 87.69 g 67.00-162.00 LV Mass Index (2D Cubed) 56 g/m2 43-95 Relative Wall Thickness (2D) 0.67 <=0.42 IVS/LVIW Diastolic Thickness (2D) 0.73 0.00-1.50 LV Fractional Shortening/Ejection Fraction 2D/MM LV Fractional Shortening (2D) 36 % 27-45 LV EF (2D Teichholz) 67 % RV Dimensions 2D/MM TV Lateral Dori s' Velocity 8.1 cm/s >=9.5 Atria Name Value Normal LA Dimensions LA Volume (4C A-L) 17 ml LA Volume (BP A-L) 26 ml Left Ventricle Left ventricular chamber dimension is normal. Left ventricular systolic function is normal with visually estimated ejection fraction of 55-60%. There is concentric remodeling noted in the left ventricle. Left ventricular segmental wall motion is normal. There is grade I diastolic dysfunction in the left ventricle. Right Ventricle Right ventricular chamber dimension is normal. Right ventricular systolic function is normal. Left Atrium Left atrial chamber dimension is normal. Right Atrium Right atrial chamber dimension is normal. Aortic Valve The aortic valve is trileaflet. There is no aortic valve sclerosis. There is no aortic valve stenosis with a peak velocity of 145 cm/s, mean gradient of 4 mmHg, and aortic valve area of 2.1 cm2. There is no aortic valve regurgitation. Pulmonic Valve The pulmonic valve is normal. There is no pulmonic valve stenosis. There is no pulmonic regurgitation. Mitral Valve The mitral valve has normal leaflets. There is no mitral valve stenosis. There is mild mitral valve regurgitation. Tricuspid Valve The tricuspid valve leaflets are normal. There is no tricuspid valve stenosis. There is mild tricuspid valve regurgitation. No pulmonary hypertension, estimated pulmonary arterial systolic pressure is 17 mmHg and systemic blood pressure of 163 mmHg in systole. Pericardium/Pleural The pericardium appears normal. There is no pericardial effusion. No pleural effusion visualized. Inferior Vena Cava Normal inferior vena cava with >50% collapse upon inspiration consistent with normal right atrial pressure, 3 mmHg. Aorta The aortic measurements are indexed to age and body surface area. The aortic root at the sinus of Valsalva is not well visualized. The prox ascending aorta is not well visualized. Summary 1. Left ventricle size is normal and systolic function is normal. Estimated ejection fraction is 55-60%. There is grade I diastolic dysfunction. 2. Right ventricle chamber size is normal and systolic function is normal. Estimated RVSP is 17 mmHg. 3. There is mild mitral and tricuspid valve regurgitation. 4. Normal IVC with estimated RA pressure 3 mmHg. Report Signatures Finalized by Mojgan Hay on 11/01/2025 08:12 AM
== END | disposition home or self-care (01) ==
PROVIDERS: PCP Physician Assistant; Referring Provider Internal Medicine Hematology & Oncology; Visit Provider Internal Medicine Hematology & Oncology
DX: I50.30 Unspecified diastolic (congestive) heart failure (principal); I08.1 Rheumatic disorders of both mitral and tricuspid valves; C83.00 Small cell B-cell lymphoma, unspecified site
CPT/HCPCS: 93306

== ENCOUNTER → 2025-11-08 | Outpatient (CLI) | payer MEDICAID, SELFPAY ==
--- NOTE | 2025-11-08 11:28 | XR_ITS ---
EXAMINATION: PA lateral chest 2 views TECHNIQUE: Upright PA lateral chest 2 views Date and time: November 08, 2025, 11:40 a.m., comparison August 31, 2025 INDICATIONS: Coughing congestion beginning 1 week ago. FINDINGS: Normal heart size Accentuation basilar bronchovascular markings Right internal jugular Port-A-Cath tip satisfactory position Prominent osteopenia IMPRESSION: Mild bibasilar bronchitis pattern
== END | disposition home or self-care (01) ==
PROVIDERS: PCP Physician Assistant; Referring Provider Physician Assistant Medical; Visit Provider Physician Assistant Medical
DX: R06.02 Shortness of breath (principal); R05.1 Acute cough
CPT/HCPCS: 71046